=== PATIENT | female | born 1940 | race Caucasian/White ===

== ENCOUNTER 2017-06-22 13:00 | Outpatient (RCR) | payer MEDICARE, OTHER, SELFPAY | END 2017-07-02 | LOC: PT 13:00 | PROVIDERS: Visit Provider Orthopaedic Surgery Adult Reconstructive Orthopaedic Surgery | DX: M25.551 Pain in right hip (principal); M25.552 Pain in left hip | CPT/HCPCS: G8978; G8979; G8980; 97110; 97162 ==

== ENCOUNTER → 2017-09-02 11:50 | Outpatient (REF) | payer MEDICARE, OTHER, SELFPAY ==
[2017-09-02 11:53] LABS: Adenovirus F 40/41, stool Not Detected (NotDetected); Astrovirus Not Detected (NotDetected); Campylobacter Not Detected (NotDetected); Cryptosporidium Not Detected (NotDetected); Cyclospora Cayetanesis Not Detected (NotDetected); Entamoeba histolytica Not Detected (NotDetected); Enteroaggregative E coli Not Detected (NotDetected); Enteropathogenic E coli Not Detected (NotDetected); Enterotoxigenic E coli Not Detected (NotDetected); Giardia lamblia Not Detected (NotDetected); Norovirus Not Detected (NotDetected); Plesimonas Shigalloides, PCR Not Detected (NotDetected); Rotavirus A Not Detected (NotDetected); Salmonella, PCR Not Detected (NotDetected); Sapovirus Not Detected (NotDetected); Shiga-like toxin E coli Not Detected (NotDetected); Shigella Enterovasive E coli Not Detected (NotDetected); Vibrio Cholerae Not Detected (NotDetected); Vibrio, PCR Not Detected (NotDetected); Yersinia Entercolitica, PCR Not Detected (NotDetected)
[2017-09-02 14:34] LABS: Clostridium Difficile A/B, PCR Detected (NotDetected)
[2017-09-09 12:04] LABS: Lactoferrin, Fecal, Quant. <1.00 ug/mL(g) (0.00-7.24)
== END ==
LOC: LAB 11:50
PROVIDERS: Visit Provider Nurse Practitioner Acute Care
DX: R19.7 Diarrhea, unspecified (principal)
CPT/HCPCS: 83630; 87507

== ENCOUNTER → 2017-10-27 12:25 | Outpatient (CLI) | payer MEDICARE, OTHER, SELFPAY ==
--- NOTE | 2017-10-27 12:34 | US_ITS ---
MM Dig mamm DX unilat RT CAD, US breast RT complete COMPARISON: 05/12/2017, 04/27/2017 INDICATION: Follow-up abnormal mammogram and ultrasound ORDERING PHYSICIAN: Derrick Lion PATIENT AGE: 77 years TECHNIQUE: Standard images performed along with problem-solving views and right breast ultrasound FINDINGS: The previously noted nodule in the deep outer aspect of the right breast is no longer apparent having been excised in the interval. Asymmetric glandular appearing tissue noted in the upper and outer right breast. Spot compression views of these areas showed effacement of the tissue as expected for fibroglandular tissue. Right breast ultrasound: Previously noted nodule in the right axillary region no longer apparent. No suspicious solid or cystic lesions evident. IMPRESSION: Benign findings. Previously noted nodule in the axillary region no longer apparent BI-RADS Category: 2 Benign Finding(s) RECOMMENDED FOLLOW-UP: 6M - 6 MONTH FOLLOW-UP (A letter has been sent to the patient regarding results of the study.)
== END ==
PROVIDERS: Family Provider Family Medicine; PCP Family Medicine; Visit Provider Obstetrics & Gynecology Gynecology
DX: R92.8 Other abnormal and inconclusive findings on diagnostic imaging of breast (principal)
CPT/HCPCS: 76641; 77065

== ENCOUNTER → 2018-05-16 16:23 | Outpatient (CLI) | payer MEDICARE, OTHER, SELFPAY ==
--- NOTE | 2018-05-16 16:32 | MM_ITS ---
MM Dig screening mamm BI w/CAD ORDERING PHYSICIAN : Derrick Lion PATIENT AGE: 78 years GENDER: Female COMPARISON: Bilateral mammogram April 2017, October right mammogram INDICATION: ITS.REASON: SCREENING routine screening no hormones no new complaints Family history. paternal aunt TECHNIQUE: Standard CC and MLO images were obtained. R2 CAD reviewed. FINDINGS: Mild asymmetry with Minimal residual fibroglandular elements. At the superior right breast. Otherwise fatty replacement. CAD computer review highlights no areas of significant concern RIGHT BREAST:These asymmetric density at the superior right breast appear similar to previous studies LEFT BREAST:No new findings. Diffuse Low density fatty replacement on most apparent throughout left breast IMPRESSION: . Stable bilateral mammogram. No areas of concern. Stable mild asymmetry Follow-up in one year BI-RADS Category: 1 Negative RECOMMENDED FOLLOW-UP: 1YR 1 YEAR FOLLOW-UP (A letter has been sent to the patient regarding results of the study.)
== END ==
PROVIDERS: PCP Family Medicine; Visit Provider Obstetrics & Gynecology Gynecology
DX: Z12.31 Encounter for screening mammogram for malignant neoplasm of breast (principal)
CPT/HCPCS: 77067

== ENCOUNTER → 2018-07-11 09:56 | Outpatient (CLI) | payer MEDICARE, OTHER, SELFPAY ==
--- NOTE | 2018-07-11 10:01 | XR_ITS ---
XR ankle wt bearing LT min 3V HISTORY: ITS.REASON: pain ORDERING PHYSICIAN: Bertha Russell DPM PATIENT AGE: 78 years Comparison: None FINDINGS: No fracture or dislocation. No lytic or blastic change. There is normal mineralization.. The joint spaces are well-preserved. No significant degenerative/arthritic changes. No erosive changes evident. IMPRESSION: Negative ankle, no acute finding
--- NOTE | 2018-07-11 10:01 | XR_ITS ---
XR foot wt bearing RT 3V HISTORY: ITS.REASON: pain ORDERING PHYSICIAN: Bertha Russell DPM PATIENT AGE: 78 years COMPARISON: None FINDINGS: Hypertrophic changes are present along the dorsal aspect of the talonavicular joint and the ventricular cuneiform joint. There is mild pes planus. No fracture or dislocation. No lytic or blastic change. Mild osteoarthritic changes are present at the second and third and first metatarsal tarsal joint IMPRESSION: Midfoot osteoarthritic change with pes planus
--- NOTE | 2018-07-11 10:01 | XR_ITS ---
XR foot wt bearing LT 3V HISTORY: ITS.REASON: pain ORDERING PHYSICIAN: Bertha Russell DPM PATIENT AGE: 78 years COMPARISON: None FINDINGS: There are mild osteoarthritic changes of the first metatarsophalangeal joint with minimal hallux valgus. There are osteoarthritic changes of the navicular cuneiform joint and at the second metatarsal tarsal joint. Lucency is noted involving the lateral cuneiform which may represent a lytic lesion. CT may confirm. There is mild pes planus and a small calcaneal spur. IMPRESSION: 1. Midfoot arthritic change. Mild osteoarthritis of the first MTP joint. 2. Lucency of the lateral cuneiform suggesting underlying lytic lesion. CT may confirm
--- NOTE | 2018-07-11 10:09 | XR_ITS ---
XR ankle wt bearing RT min 3V HISTORY: ITS.REASON: pain ORDERING PHYSICIAN: Bertha Russell DPM PATIENT AGE: 78 years Comparison: None FINDINGS: No fracture or dislocation. No lytic or blastic change. There is normal mineralization.. The joint spaces are well-preserved. No significant degenerative/arthritic changes. No erosive changes evident. IMPRESSION: Negative ankle, no acute finding
== END ==
PROVIDERS: PCP Family Medicine; Visit Provider Podiatrist
DX: M79.672 Pain in left foot (principal); M79.671 Pain in right foot; M25.572 Pain in left ankle and joints of left foot; M25.571 Pain in right ankle and joints of right foot
CPT/HCPCS: 73610; 73630

== ENCOUNTER → 2018-08-22 13:19 | Outpatient (POV) | payer MEDICARE, OTHER, SELFPAY | PROVIDERS: Visit Provider Nurse Practitioner Acute Care | DX: Z00.00 Encounter for general adult medical examination without abnormal findings (principal) ==

== ENCOUNTER → 2018-09-21 07:00 | Outpatient (CLI) | payer MEDICARE, OTHER, SELFPAY ==
[2018-09-23 12:19] LABS: Occult Blood,Stool Negative (Negative)
== END ==
PROVIDERS: Visit Provider Nurse Practitioner Acute Care
DX: K92.1 Melena (principal)
CPT/HCPCS: 82272; G0328

== ENCOUNTER → 2018-09-22 07:00 | Outpatient (CLI) | payer MEDICARE, OTHER, SELFPAY ==
[2018-09-23 12:19] LABS: Occult Blood,Stool Negative (Negative)
== END ==
PROVIDERS: Visit Provider Nurse Practitioner Acute Care
DX: K92.1 Melena (principal)
CPT/HCPCS: 82272; G0328

== ENCOUNTER → 2018-09-23 10:09 | Outpatient (CLI) | payer MEDICARE, OTHER, SELFPAY ==
[2018-09-23 12:19] LABS: Occult Blood,Stool Negative (Negative)
== END ==
LOC: LAB 10:10 → LAB.DROPOF 10:12
PROVIDERS: Visit Provider Nurse Practitioner Acute Care
DX: K92.1 Melena (principal)
CPT/HCPCS: 82272; G0328

== ENCOUNTER → 2019-02-06 12:54 | Outpatient (CLI) | payer MEDICARE, OTHER, SELFPAY ==
[2019-02-06 14:47] LABS: Blood Urea Nitrogen 31 mg/dL (7-18); Creatinine,Serum 0.84 mg/dL (0.55-1.02); Estimated Glomerular Filt Rate 66 ml/min (>60); GFR (African American) 79 ML/MIN (>60)
== END ==
PROVIDERS: Visit Provider Family Medicine
DX: R22.2 Localized swelling, mass and lump, trunk (principal)
CPT/HCPCS: 36415; 82565; 84520

== ENCOUNTER → 2019-02-07 09:08 | Outpatient (CLI) | payer MEDICARE, OTHER, SELFPAY ==
--- NOTE | 2019-02-07 | US_ITS ---
US Arterial Lower Ext Rest History: Bilateral feet pain, restless legs, ex-smoker, cold feet ORDERING PHYSICIAN: Monika Martin APRN PATIENT AGE: 78 years TECHNIQUE: Segmental pressures obtained of both right and left leg. These are compared to brachial blood pressure to yield index at each level sampled including summary SOLEDAD. The data sheets from the procedure are available in PACS FINDINGS Rest study only performed today No prior studies available for comparison. Blood pressures reported are in millimeters mercury. RIGHT LEG SOLEDAD = 1.17. RIGHT LEG TBI=0.6 Brachial BP: 155 Thigh BP: 168 Calf BP: 178 Ankle PT: 181 Ankle DP : 147 Digit =89 LEFT LEG SOLEDAD = 1.12 LEFT LEG TBI= 0.6 Brachial BPD: 152 Thigh BP: 177 Calf BP: 179 Ankle PT:173 Ankle DP: 154 Digit = 88 Pulses and waveforms: Normal IMPRESSION: The ABIs as reported above are within normal limits. Waveforms and pulses are also unremarkable.
--- NOTE | 2019-02-07 09:18 | CT_ITS ---
CT abdomen pelvis w con CLINICAL INDICATION: Intermittent knot in the mid abdominal wall with tenderness and pain ITS.REASON: ABD WALL LUMP ORDERING PHYSICIAN: Monika Martin APRN PATIENT AGE: 78 years COMPARISON: 10/17/2015 TECHNIQUE: Contrast Used:75ml Optiray 350 Oral Contrast: 450ml Redicat Axial images obtained with sagittal and coronal reformats. All CT scans at the facility use one or more dose reduction, viz: automated exposure control, ma/kV adjustment per patient size (including targeted exams where dose is matched to indication, i.e. head), or iterative reconstruction technique. FINDINGS: A BB is placed over the area of clinical concern along the ventral mid abdominal wall Lower thorax: Chronic changes are present in the lung bases. There is some eventration of the right hemidiaphragm posteriorly. There are multiple hepatic cysts. The gallbladder, spleen, adrenal glands, and pancreas have an unremarkable appearance. There are bilateral parapelvic renal cysts. There is moderate amount of retained colonic feces. No intestinal obstruction or free air is evident. Significant artifact is present and bilateral hip prosthesis obscuring fine detail within the pelvis. No intestinal obstruction or free air is evident. No convincing evidence of diverticulitis although much of the sigmoid colon is obscured within the pelvic region from the metallic artifact of the hip. A BB is placed along the ventral abdominal wall. There is a small ventral abdominal wall hernia containing fat at this region. This is 9 cm cephalad to the umbilicus and 7.7 cm caudad to the tip of the xiphoid. The orifice of the hernia is approximately 3 mm in the hernia sac is approximately 8 mm. This is very slightly to the left of midline Degenerative changes are present in the lumbar spine. IMPRESSION: 1. There is a small ventral abdominal wall hernia which contains fat 2. Constipation. 3. Multiple hepatic cysts
== END ==
PROVIDERS: PCP Family Medicine; Visit Provider Nurse Practitioner Family
DX: R22.2 Localized swelling, mass and lump, trunk (principal); M79.662 Pain in left lower leg; M79.661 Pain in right lower leg; R09.89 Other specified symptoms and signs involving the circulatory and respiratory systems
CPT/HCPCS: 74177; 93923; Q9967

== ENCOUNTER → 2019-04-18 15:26 | Outpatient (POV) | payer MEDICARE, OTHER, SELFPAY | PROVIDERS: Visit Provider Dermatology | DX: Z00.00 Encounter for general adult medical examination without abnormal findings (principal) ==

== ENCOUNTER → 2019-09-05 08:25 | Outpatient (CLI) | payer MEDICARE, OTHER, SELFPAY ==
--- NOTE | 2019-09-05 08:28 | US_ITS ---
PROCEDURE: US ABDOMEN LIMITED CLINICAL INDICATION: Right upper quadrant pain with nausea and weakness COMPARISON: RUQ US RUQ-(ABD LTD)1ORGAN/QUAD/FU from 07/29/[address] abdomen pelvis w con from 02/07/2019 CT ANGIO CHEST from 02/20/2019 FINDINGS: PANCREAS: Unremarkable. No obvious mass or abnormal fluid collection. No ductal dilatation LIVER: There are multiple hepatic cyst measuring up to 2.8 cm in the right hepatic lobe. RIGHT KIDNEY: There is a 1.7 cm cyst in the lower pole of the right kidney. No hydronephrosis. GALLBLADDER: No gallstones, gallbladder wall thickening, pericholecystic fluid, or biliary dilatation. Common bile duct is 5 mm. IMPRESSION: 1. No evidence of gallstones. 2. Multiple hepatic cysts. 3. Right renal cyst Dictated by: Barber Aparicio MD 09/05/2019 14:45 Electronically signed by Barber Aparicio MD in [place] 09/05/2019 14:45
== END ==
PROVIDERS: PCP Family Medicine; Visit Provider Nurse Practitioner Family
DX: R10.11 Right upper quadrant pain (principal)
CPT/HCPCS: 76705

== ENCOUNTER → 2019-11-22 09:35 | Outpatient (CLI) | payer MEDICARE, OTHER, SELFPAY ==
--- NOTE | 2019-11-22 09:44 | CT_ITS ---
PROCEDURE: CT ABDOMEN PELVIS W CON CLINICAL INDICATION: RT LOWER QUAD SWELLING,MASS COMPARISON: ABDPELW CT abdomen pelvis w con from 02/07/2019 TECHNIQUE: IV Contrast: 75ML OPTIRAY 350 Oral Contrast 450ml Redicat Axial images obtained with sagittal and coronal reformats. All CT scans at the facility use one or more dose reduction, viz: automated exposure control, ma/kV adjustment per patient size (including targeted exams where dose is matched to indication, i.e. head), or iterative reconstruction technique. FINDINGS: LOWER THORAX: Chronic changes with scattered areas scarring/atelectasis. ABDOMEN & PELVIS: Multiple hypodense lesions of the liver consistent with hepatic cyst. The spleen, adrenal glands, and pancreas has an unremarkable appearance. There are bilateral parapelvic renal cysts. There is a moderate amount of retained colonic feces. A marker is placed in the right lower quadrant at the area of palpable concern. There is a small spigelian hernia at this region with a small defect in the abdominal wall best detected on sagittal image 29 series 602. The hernia contains a small amount fat with some stranding of the fat around the small hernia. Hernia is just lateral to the placed BB. A small ventral abdominal wall hernia is once again noted containing fat in the subxiphoid region. This hernia is 8 cm superior to the umbilicus and is best seen on sagittal image 59 series 602 containing a small amount of fat. Artifact is present from bilateral hip prosthesis obscuring fine detail of the pelvis. There is a pessary present in the pelvis. Degenerative changes are present in the lumbar spine IMPRESSION: 1. There is a small spigelian hernia in the right lower quadrant containing fat with some stranding of the fat which could be related to some underlying inflammation. 2. There is a small upper ventral abdominal wall hernia containing fat 3. No change in the multiple hepatic cysts the and the parapelvic renal cysts. Dictated by: Barber Aparicio MD 11/23/2019 10:40 Electronically signed by Barber Aparicio MD in [place] 11/23/2019 10:40
== END ==
PROVIDERS: PCP Family Medicine; Visit Provider Nurse Practitioner Family
DX: R19.03 Right lower quadrant abdominal swelling, mass and lump (principal)
CPT/HCPCS: 74177; Q9967

== ENCOUNTER → 2019-12-22 16:04 | Outpatient (CLI) | payer MEDICARE, OTHER, SELFPAY ==
[2019-12-22 17:59] LABS: Chloride 101 mmol/L (98-107)
[2019-12-22 18:00] LABS: Potassium 3.7 mmoL/L (3.5-5.1); Sodium 138 mmol/L (136-145)
[2019-12-22 18:02] LABS: Blood Urea Nitrogen 25 mg/dl (7-17); Estimated Glomerular Filt Rate 69 ml/min (>60); GFR (African American) 84 ML/MIN (>60)
[2019-12-22 18:03] LABS: Alanine Aminotransferase 19 U/L (12-78); Albumin/Globulin Ratio 1.5 (1.1-1.8); Alkaline Phosphatase 61 U/L (38-126); Anion Gap 8.7 mEq/L (5-15); Aspartate Amino Transferase 30 U/L (14-36); Bilirubin,Total 0.6 mg/dl (0.2-1.3); Carbon Dioxide 32 mmol/L (22.0-30.0); Globulin 2.6 g/dL (1.3-3.2); Glucose 106 mg/dl (74-100); Total Protein,Serum 6.6 g/dl (6.3-8.2)
== END ==
PROVIDERS: Visit Provider Nurse Practitioner Family
DX: E86.0 Dehydration (principal); R53.1 Weakness
CPT/HCPCS: 36415; 80053

== ENCOUNTER → 2020-01-09 11:36 | Outpatient (CLI) | payer MEDICARE, OTHER, SELFPAY ==
--- NOTE | 2020-01-09 | CA_ITS ---
APPROVED REPORT Exam: Pharmacologic Technologist: Linda Corbin Ht: 5 ft 5 in Wt: 147 lbs BSA: 1.74 m2 HR: 42 bpm BP: 142/60 mmHg Indications: Shortness of Air Medical History Medications: Lisinopril,,,,, Levothyroxine,,,,, Gabapentin,,,,, Atorvastatin,,,,, HCTZ,,,,, Buspirone,,,,, Tramadol,,,,, Montelukast,,,,, Stress Test Details Test: LEXISCAN HR Resting HR: 45 bpm Max Heart Rate (APMHR): 141 bpm Max HR Achieved: 81 bpm Target HR (85% APMHR): 119 bpm % of APMHR: 57 Recovery HR: 66 bpm BP Resting BP: 142.0/60.0 mmHg Max BP: 145.0/64.0 mmHg Recovery BP: 139.0/68.0 mmHg ECG Clinical Exercise duration: 04:03 min Highest Stage Achieved: Stress ECG Conclusion Resting ECG: Marked sinus bradycardia, NS ST elevation in leads V1, V2 Symptoms: Shortness of air, nausea, malaise, headache. No chest pain. Arrhythmias/Ectopy: Rare PVC ST-T Changes: No significant changes. Conclusion: Unremarkable Lexiscan stress. Myoview images reported separately. Test Summary REST . . . . . . . Resting REST 03:28 . . 45 . 142/ 60 . . Stage 1 . . . . . . . Myoview Injected Stage 1 01:00 . . 64 . . . . Stage 2 01:00 . . 79 . 145/ 64 . . Stage 3 01:00 . . 72 . . . . Stage 4 01:00 . . 69 . 127/ 64 . . Stage 4 01:03 . . 70 . 127/ 64 . Stop exercise at 04:03 RECOVERY 01:00 . . 67 . . . . RECOVERY 02:00 . . 72 . 136/ 72 . . RECOVERY 03:00 . . 66 . 136/ 72 . . RECOVERY 03:51 . . 63 . 139/ 68 . . Electronically signed by : Jesus Marrero, 01/09/2020 19:34:37
--- NOTE | 2020-01-09 11:37 | NM_ITS ---
APPROVED REPORT Exam: Nuclear Stress Test Indication: htn, fm hx, c.p., sob, palpitations, syncope, ftigue, abn ekg Patient Location: Outpatient Stress Tech: Linda Corbin [place] Tech:Vikki Moreno, ARRT, RT (R)(N) Ht: 5 ft 5 in Wt: 147 lbs Bra Size: c HR: 42 bpm BP: 142/60 mmHg BSA: 1.74 m2 BMI: 24.4 History: htn, fm hx, c.p., sob, palpitations, syncope, ftigue, abn ekg Procedure: Patient received a 0.4 mg of intravenous Lexiscan, resting heart rate 42 bpm, resting blood pressure 142/60 mmHg, with Lexiscan maximum heart rate achived was 78 bpm which is Less than 85 % of the maximum predicted heart rate and blood pressure was 145/64 mmHg. With Lexiscan, patient denied any complaint of chest pain. Electrocardiogram Resting electrocardiogram showed sinus rhythm right ventricular conduction delay, with Lexiscan there is less than 1.[address] segment depression noted from the baseline EKG. The EKG portion of the Lexiscan Myoview is nondiagnostic. Cardiac Stress and Resting SPECT Images: Cardiac Stress and Resting SPECT images were obtained using technetium 99m Myoview 32.0 mCi stress and 10.48 mCi at rest. Gated SPECT for the analysis of segmental wall motion and calculation of the ejection fraction also done. Cardiac stress and resting SPECT images show uniform myocardial activity without segmental perfusion abnormality, computer derived ejection fraction is over 65% with no regional wall motion abnormality, right ventricle is normal size and contractility. Conclusion: 1. The EKG portion of the Lexiscan Myoview is nondiagnostic. 2. No scintigraphic evidence of reversible ischemia seen, computer derived ejection fraction is over 65% with no regional wall motion abnormality, right ventricle is normal size and contractility. 3. Normal Lexiscan Myoview study. Electronically signed by : Jesus Marrero, 01/09/2020 19:36:28
--- NOTE | 2020-01-09 12:09 | CA_ITS ---
APPROVED REPORT EXAM: Comprehensive 2D, Doppler, and color-flow Echocardiogram Reproduction Specialist: Florencia Rose RDCS Ht: 5 ft 5 in Wt: 144lbs BSA: 1.72 BP: 138/78 mmHg Indications: CP,PRE-OP EVAL,RBBB,HTN,HLP,CAD 2D Dimensions LVOT 1.75 cm (M/F) 1.5-2.5 M-Mode Dimensions RVDd 3.48 cm (0.9-2.6) LVDd 4.12 cm (3.5-5.7) LVDs 2.61 cm (3.5-5.7) IVSd 0.84 cm (0.6-1.1) PWd 0.90 cm (0.6-1.1) EF (Teich) 67.00% FS 36.70% EDV (Teich) 75.10 mL ESV (Teich) 24.80 mL LV Diastology E/A Ratio 1.14 Mitral Valve MV A Velocity 54.00 (40-130 cm/s) Left Ventricle Left atrium is moderately enlarged, left ventricle is normal size, visually estimated ejection fraction 55% with no regional wall motion abnormality, diastolic parameters are inconclusive. Right Ventricle Right atrium is moderately enlarged, right ventricle is mildly dilated with normal contractility. Aortic Valve Aortic valve is minimally thickened and fibrosed, there is no aortic stenosis or aortic insufficiency. Mitral Valve Mitral valve leaflets are minimally thickened, there is mild mitral regurgitation. Tricuspid Valve Tricuspid valve leaflets are minimally thickened, there is moderate tricuspid regurgitation, calculated right ventricular systolic pressure is 54 mmHg. Pulmonic Valve Pulmonic valve is poorly visualized. Great Vessels Aortic root is normal size. Pericardium No significant pericardial effusion noted. Conclusion 1. Biatrial enlargement, normal left ventricular size, visually estimated ejection fraction 55% with no regional wall motion abnormality, diastolic parameters are inconclusive. 2. Mildly enlarged right ventricle with normal contractility. 3. Mild mitral and moderate tricuspid regurgitation, calculated right ventricular systolic pressure is 54 mmHg. 4. No significant pericardial effusion noted. Electronically signed by : Jesus Marrero, 01/09/2020 19:24:52
== END ==
PROVIDERS: PCP Family Medicine; Visit Provider Nurse Practitioner Family
DX: R07.89 Other chest pain (principal)
CPT/HCPCS: 78452; 93017; 93306; A9502; J2785

== ENCOUNTER → 2020-02-26 09:16 | Outpatient (CLI) | payer MEDICARE, OTHER, SELFPAY ==
--- NOTE | 2020-02-26 | CA_ITS ---
APPROVED REPORT [place]: LISA Laterality: Bilateral Indications: dizziness, patient states that her right side of neck is larger than left. Risk Factors Hypertension: Doppler Spectral Velocity Analysis ECA (R) 66.80/10.30 cm/s ECA (L) 70.60/9.10 cm/s dICA (R) 71.90/18.60 cm/s dICA (L) 69.60/13.90 cm/s Carla (R) 50.50/15.80 cm/s Carla (L) 118.70/34.90 cm/s pICA (R) 39.40/10.70 cm/s pICA (L) 22.50/5.40 cm/s dCCA (R) 57.70/11.50 cm/s dCCA (L) 47.00/13.70 cm/s pCCA (R) 51.80/10.30 cm/s pCCA (L) 56.90/10.70 cm/s Vert (R) 87.00/24.70 cm/s Vert (L) 49.70/10.70 cm/s ICA/CCA 1.25 ICA/CCA 2.52 Findings Duplex evaluation demonstrates stenosis of the left proximal internal carotid artery <20%. Tortuous left mid ICA. Duplex evaluation demonstrates stenosis of the right proximal internal carotid artery <20%. Conclusion Duplex evaluation demonstrates stenosis of the left proximal internal carotid artery <20%. Tortuous left mid ICA. Duplex evaluation demonstrates stenosis of the right proximal internal carotid artery <20%. Duplex evaluation demonstrates no evidence of hemodynamically significant stenosis of the bilateral Internal Carotid Arteries. Electronically signed by : Barber Aparicio MD 02/26/2020 16:32:48
== END ==
PROVIDERS: PCP Family Medicine; Visit Provider Nurse Practitioner Family
DX: Z13.6 Encounter for screening for cardiovascular disorders (principal); R42 Dizziness and giddiness
CPT/HCPCS: 93880

== ENCOUNTER → 2020-04-25 14:25 | Outpatient (CLI) | payer MEDICARE, OTHER, SELFPAY ==
--- NOTE | 2020-04-25 14:53 | XR_ITS ---
PROCEDURE: XR CHEST PORTABLE CLINICAL HISTORY: COVID OUT PATIENT Cough and congestion COMPARISON: CR CXR CHEST(2 VIEWS-NOT PORTABLE) from 12/18/2012 CR XR CHEST 2V from 02/20/[address] ANGIO CHEST from 02/20/2019 FINDINGS: Mild cardiomegaly without failure. There is some patchy density in the left midlung. While this could be due to summation artifact, 1 cannot exclude ground-glass infiltrate. The remaining lungs are clear. No acute bony abnormalities. IMPRESSION: Possible ground-glass infiltrate in the left midlung. Upright PA and lateral chest may further evaluate. Dictated by: Barber Aparicio MD 04/25/2020 20:44 Barber Aparicio MD in [place] 04/25/2020 20:44
[2020-04-25 15:17] LABS: Basophils % 0.5 % (0.1-2.0); Eosinophils # 0.2 K/mm3 (0.0-0.4); Eosinophils % 4.4 % (0.1-12.0); Hematocrit 52.3 % (37.0-47.0); Hemoglobin 16.8 g/dL (12.2-16.2); Lymphocytes # 1.6 K/mm3 (0.7-4.5); Lymphocytes % 32.6 % (10-50); Mean Corpuscular HGB Conc 32.1 g/dL (31.8-35.4); Mean Corpuscular Hemoglobin 32.5 pg (27.0-31.2); Mean Corpuscular Volume 101.2 fl (81-99); Mean Platelet Volume 7.6 fl (7.4-10.4); Monocytes # 0.4 K/mm3 (0.1-1.0); Neutrophils # 2.6 K/mm3 (1.8-7.8); Neutrophils % 53.6 % (37.0-80.0); Platelet Count 265 K/mm3 (142-424); Red Blood Count 5.17 M/mm3 (4.20-5.40); Red Cell Distribution Width 13.1 % (11.5-17.5); White Blood Count 4.8 K/mm3 (4.8-10.8)
== END ==
PROVIDERS: PCP Nurse Practitioner Family; Visit Provider Nurse Practitioner Family
DX: Z03.818 Encounter for observation for suspected exposure to other biological agents ruled out (principal)
CPT/HCPCS: 36415; 71045; 85025; U0003

== ENCOUNTER → 2020-04-26 14:16 | Outpatient (CLI) | payer MEDICARE, OTHER, SELFPAY ==
--- NOTE | 2020-04-26 14:20 | XR_ITS ---
PROCEDURE: XR CHEST 2V CLINICAL HISTORY: ABN CXR Shortness of breath, chest pressure COMPARISON: 04/25/2020 FINDINGS: Mild cardiomegaly without failure. There is a pectus deformity with obliteration of the right heart border. Previously noted opacity in the left midlung is no longer apparent and may have been due to infiltrate or atelectatic change which has improved versus summation artifact. There are degenerative changes in the thoracic spine. IMPRESSION: No acute finding. Left midlung opacity is no longer apparent. Dictated by: Barber Aparicio MD 04/26/2020 15:28 Barber Apaircio MD in [facility] 04/26/2020 15:28
== END ==
PROVIDERS: PCP Nurse Practitioner Family; Visit Provider Nurse Practitioner Family
DX: R93.89 Abnormal findings on diagnostic imaging of other specified body structures (principal)
CPT/HCPCS: 71046

== ENCOUNTER → 2020-06-24 16:14 | Outpatient (CLI) | payer MEDICARE, OTHER, SELFPAY | PROVIDERS: PCP Nurse Practitioner Family; Visit Provider Nurse Practitioner Family | DX: Z20.828 Contact with and (suspected) exposure to other viral communicable diseases (principal); U07.1 COVID-19 | CPT/HCPCS: U0003 ==

== ENCOUNTER 2020-07-02 14:32 | Emergency (ER) | payer MEDICARE, OTHER, SELFPAY ==
[2020-07-02 14:33] VITALS: BP 155/90; PULSE 64; RESP 19; TEMP 36.8; O2SAT 97; BMI 23.3
--- NOTE | 2020-07-02 14:43 | PC.NURSE ---
patient placed in COVID-19 Isolation precautions
--- NOTE | 2020-07-02 14:49 | XR_ITS ---
PROCEDURE: XR CHEST PORTABLE CLINICAL HISTORY: covid 19+ and worsening soa COMPARISON: CR XR CHEST 2V from 02/20/[address] ANGIO CHEST from 02/20/2019 CR XR CHEST PORTABLE from 04/25/2020 CR XR CHEST 2V from 04/26/2020 FINDINGS: Mild emphysematous changes are noted. Subtle ill-defined opacities are seen left perihilar region and questionably in the right lower lobe which were not seen on most recent chest film 04/26/2020. Both upper lung orozco are clear. Cardiac size is normal appearing slightly enlarged but I feel this is secondary to the patient's known pectus excavatum of the lower sternum. There is mild diffuse dextroscoliotic curvature of the thoracic spine. IMPRESSION: Possible early developing pneumonic infiltrates left perihilar region and right lower lobe Dictated by: Dr. Yomi Flores MD 07/02/2020 17:14 Dr. Yomi Flores MD in [place] 07/02/2020 17:14
[2020-07-02 14:50] VITALS: BP 155/90; PULSE 56; RESP 18; O2SAT 95
--- NOTE | 2020-07-02 14:50 | ECG_ITS ---
APPROVED REPORT Exam: Resting ECG HR:53 bpm ECG Measurements Heart Rate 53 AXES AK 162 P 71 QRSd 92 QRS -39 QT 450 T 39 QTc 422 Conclusion Sinus bradycardia left atrial abnormality Left axis deviation Incomplete right bundle branch block Septal infarct, age undetermined Abnormal ECG Electronically signed by : Alex Penn, 07/02/2020 19:51:28
--- NOTE | 2020-07-02 15:02 | PC.NURSE ---
Pt top and bra removed for EKG and Chest xray. Pt placed in hospital gown. Pt reports her SOA is worsening, ROOM AIR sat noted to be 87%. Pt placed on O2 @ 2L per NC, with improvement to oxygen saturation at 99%.
[2020-07-02 15:03] VITALS: BP 148/89; PULSE 71; RESP 21; O2SAT 87
--- NOTE | 2020-07-02 15:16 | [facility].EDGENADL ---
ED Disposition Clinical Impression: COVID-19 virus infection, Epigastric abdominal pain Dyspnea Qualifiers: Dyspnea type: unspecified Qualified Code(s): R06.00 - Dyspnea, unspecified Disposition: Home, Self-Care Condition on Discharge: Fair Instructions: DI for COVID-19 (Suspected or Confirmed ), Preventing the Spread of Coronavirus Discharge Instructions Additional Instructions: Call Dr. Wells tomorrow to arrange outpatient antibody infusion. Return to the emergency department if worsening shortness of breath, vomiting unable to tolerate oral fluids, or severe weakness. Referrals: Fransisco Ordonez MD [Primary Care Provider] - - Critical Care Critical Care Time: No Attestation: On 07/02/20, the high probability of a clinically significant, sudden or life threatening deterioration of the following system(s) required my full and direct attention, intervention and personal management. The time I documented below is in addition to time spent performing reported procedures but includes the following listed in this critical care notation. Medical Decision Making - Medical Records Medical records reviewed: Yes: I reviewed the patient's medical records. MR Comment: 06/24/20 + COVID-19 PCR at this facility. Also, prior left heart cath report reviewed, below. - Jorge A Inquiry Pt receiving controlled substance: No Vital Signs: 07/02/20 14:33 07/02/20 14:50 07/02/20 15:03 Temperature 98.2 F Temperature Source Oral Pulse Rate [Right Brachial] 64 56 L 71 Respiratory Rate 19 18 21 Blood Pressure [Right Arm] 155/90 H 155/90 H 148/89 H Blood Pressure Mean [Right Arm] 111 111 108 Blood Pressure Source [Right Arm] Automatic Cuff 02 Sat by Pulse Oximetry 97 95 87 L Oxygen Delivery Method Room Air Room Air Oxygen Flow Rate (LPM) 07/02/20 15:21 07/02/20 17:06 Temperature Temperature Source Pulse Rate [Right Brachial] 52 L Respiratory Rate 18 Blood Pressure [Right Arm] 124/70 Blood Pressure Mean [Right Arm] 88 Blood Pressure Source [Right Arm] Automatic Cuff 02 Sat by Pulse Oximetry 99 100 Oxygen Delivery Method Nasal Cannula Oxygen Flow Rate (LPM) 2 - Lab Data Lab Results 07/02/20 14:07: WBC 4.6 L, RBC 5.31, Hgb 17.5 H, Hct 51.8 H, MCV 97.5, MCH 32.9 H, MCHC 33.7, RDW 13.8, Plt Count 247, MPV 8.3, Neut % (Auto) 68.5, Lymph % (Auto) 22.3, Love % (Auto) 8.3, Eos % (Auto) 0.5, Baso % (Auto) 0.5, Neut # (Auto) 3.1, Lymph # (Auto) 1.0, Love # (Auto) 0.4, Eos # (Auto) 0.0, Baso # (Auto) 0.0 07/02/20 14:07: Sodium 135 L, Potassium 4.1, Chloride 98, Carbon Dioxide 28, Anion Gap 13.1, BUN 13, Creatinine 0.70, Estimated Creat Clear 45, Estimated GFR 81, Est GFR ( Amer) 97, Glucose 101 H, Calcium 9.7, Total Bilirubin 0.6, AST 40 H, ALT 18, Alkaline Phosphatase 104, Total Protein 7.9, Albumin 4.4, Globulin 3.5 H, Albumin/Globulin Ratio 1.3 07/02/20 14:07: Lactate 1.1 07/02/20 14:07: SARS-CoV-2 IgG Ab (Rapid) Negative, SARS-CoV-2 IgM Ab (Rapid) Positive A 07/02/20 14:07: Amylase 52, Lipase 80 07/02/20 16:45: Urine Color Yellow, Urine Appearance Clear, Urine pH 7.0, Ur Specific [place] 1.010, Urine Protein Negative, Urine Glucose (UA) Negative, Urine Ketones Negative, Urine Blood Negative, Urine Nitrate Negative, Urine Bilirubin Negative, Urine Urobilinogen 0.2, Ur Leukocyte Esterase Trace, Urine WBC Occasional, Ur Squamous Epith Cells Occasional Result diagrams: 07/02/20 14:07 07/02/20 14:07 Orders (Tests/Meds): ED MEDICATIONS Discontinued Medications Generic Name Dose Route Start Last Admin Trade Name Freq PRN Reason Stop Dose Admin Iopamidol 70 ml 07/02/20 16:32 07/02/20 16:33 Iopamidol-370 (76%);100ml Bottle IV 07/02/20 16:33 70 ml ONCE ONE Administration Sodium Chloride 10 ml 07/02/20 16:32 07/02/20 16:33 Sodium Chloride 0.9% 10ml Syr (Rad Only) IV 07/02/20 16:33 10 ml ONCE ONE Administration Sodium Chloride 50 ml 07/02/20 16:32 07/02/20 16:33 0.9 % Sodium
[2020-07-02 15:21] VITALS: O2SAT 99
--- NOTE | 2020-07-02 15:21 | PC.NURSE ---
Report given to Rick RN
--- NOTE | 2020-07-02 15:23 | PC.NURSE ---
Labs and blood cultures collected at 1507 and sent to lab
[2020-07-02 15:29] LABS: Basophils % 0.5 % (0.1-2.0); Eosinophils % 0.5 % (0.1-12.0); Hematocrit 51.8 % (37.0-47.0); Hemoglobin 17.5 g/dL (12.2-16.2); Lymphocytes % 22.3 % (10-50); Mean Corpuscular HGB Conc 33.7 g/dL (31.8-35.4); Mean Corpuscular Hemoglobin 32.9 pg (27.0-31.2); Mean Corpuscular Volume 97.5 fl (81-99); Mean Platelet Volume 8.3 fl (7.4-10.4); Monocytes # 0.4 K/mm3 (0.1-1.0); Monocytes % 8.3 % (1.7-9.3); Neutrophils # 3.1 K/mm3 (1.8-7.8); Neutrophils % 68.5 % (37.0-80.0); Platelet Count 247 K/mm3 (142-424); Red Blood Count 5.31 M/mm3 (4.20-5.40); Red Cell Distribution Width 13.8 % (11.5-17.5); White Blood Count 4.6 K/mm3 (4.8-10.8)
[2020-07-02 15:36] LABS: Lactic Acid 1.1 mmol/L (0.7-2.1)
--- NOTE | 2020-07-02 15:41 | CT_ITS ---
PROCEDURE: CT ANGIO CHEST Referring Doctor: Duncan River Patient Age:80Y CLINCIAL INDICATION: soa . Covid positive COMPARISON: Previous CT a chest 03/22/2019 Technique IV Contrast: 70ML Isovue 370 Axial images obtained with sagittal and coronal reformats. All CT scans at the facility use one or more dose reduction, viz: automated exposure control, ma/kV adjustment per patient size (including targeted exams where dose is matched to indication, i.e. head), or iterative reconstruction technique. FINDINGS: PULMONARY ARTERIES: No pulmonary embolus evident. Excellent visualization of the pulmonary arteries AORTA: Scant contrast aortic arch and distal limits evaluation here. The inhomogeneous very faint early enhancement of the distal aortic arch and initial descending aorta, along with streak artifact through this region limits the study. Cannot totally exclude aortic dissection and would require repeat exam if this is a concern clinically.. Suspect current appearance here at posterior aortic arch may be due to combination of streak artifact, atheromatous plaque, faint early contrast with laminar flow contrast. However if clinical concern regarding dissection persist follow-up with more optimal timing for aortic contrast recommended. LUNGS: There are several scattered small peripheral patchy areas and patchy foci of low-density infiltrate noted-suggestive of early Covid pneumonia pattern. Right lung beginning superiorly the small patchy infiltrates are seen:: Subtle small area infiltrate anteriorly RUL (axial/28,, sagittal 30.) 2 cm patchy infiltrate posterior at the RUL (axial slice 34, sagittal 29) Similar 19 mm patchy infiltrate focus is seen just inferior to the major fissure at superior segment RLL axial 41 sagittal 25. Linear scarring and atelectasis seen at the medial right lung base Left lung: Subtle wispy area of atelectasis vs minimal infiltrate abuts the major fissure posteriorly at MILTON ([id number], axial 27-29. Very very subtle patchy of wispy infiltrate anterior MILTON on sagittal slice 64, axial 30 At the lingula slight coarsening markings here most likely reflects scarring and atelectasis-and similar to previous study. . PLEURAL SPACES: No significant effusion. No evidence of pneumothorax. HEART: U. Mild cardiomegaly markable.,. No significant pericardial effusion. MEDIASTINAL AND HILAR STRUCTURES: No mediastinal or hilar mass evident. No dominant adenopathy BONY STRUCTURES: No acute bony abnormalities apparent. Mild degenerative changes T-spine and lower C-spine LYMPH NODES: No enlarged lymph nodes evident. UPPER ABDOMEN: . discussed separately ble. IMPRESSION: IMPRESSION 1. SCATTERED SMALL PATCHY AREAS OF PERIPHERAL INFILTRATE BILATERALLY. SOME ARE VERY SUBTLE APPEARANCE SUSPECT AND SUGGESTIVE OF EARLY COVID PNEUMONIA PATTERN.. CORRELATION REQUIRED 2..NO EVIDENCE OF PULMONARY EMBOLISM 3..AORTA. Lack Of Adequate Contrast Enhancement Aorta Limits Evaluation Here, and cannot Exclude Dissection On This Exam.- (If this of concern clinically then follow-up required with additional delayed timing of contrast to more optimally enhance in view aorta) . TECHNIQUE: . TECHNIQUE IV Contrast: 70ML Isovue 370 Axial images obtained with sagittal and coronal reformats. All CT scans at the facility use one or more dose reduction, viz: automated exposure control, ma/kV adjustment per patient size (including targeted exams where dose is matched to indication, i.e. head), or iterative reconstruction technique IMPRESSION: Dictated by: Coy Rosales MD 07/02/2020 22:47 Coy Rosales MD in [place] 07/02/2020 22:47
--- NOTE | 2020-07-02 15:41 | CT_ITS ---
Procedure: CT ABDOMEN PELVIS W CON Referring Doctor: Duncan River Patient Age:80Y CLINICAL INDICATION: abdominal pain dyspnea. Covidd COMPARISON: CT ABDW CT ABDOMEN WITH CONTRAST from 10/21/[address] abdomen pelvis w con from 02/07/[address] ABDOMEN PELVIS W CON from 11/22/2019 TECHNIQUE: 75 cc Isovue 370 IV contrast but no oral contrast but Axial images obtained with sagittal and coronal reformats. All CT scans at the facility use one or more dose reduction, viz: automated exposure control, ma/kV adjustment per patient size (including targeted exams where dose is matched to indication, i.e. head), or iterative reconstruction technique. FINDINGS: Lower thorax: No acute finding ABDOMEN: Liver: No biliary dilatation. We again see numerous benign hepatic cyst-appear stable and similar to multiple previous studies most recent November 2019. Many of the cysts are quite small. 1 of the largest at posterior right lobe right lobe measures up to 3.5 cm Gallbladder: Slight generous size but not significant distended nor or dilated; and common duct is normal. No radio opaque stones. Pancreas: . The mildly dilated pancreatic duct again seen at but does similar to previous studies. No inflammatory changes 111 Spleen: unremarkable normal size. Adrenals: unremarkable Kidneys/ureters: Period. Stable appearance. Parapelvic cyst bilaterally most evident along at the left are again noted ureters unremarkable PELVIS: Streak artifact from the bilateral hip prostheses limits evaluation at the lower pelvis; bladder grossly unremarkable as visualized. Small uterus remains to the right of midline. No adnexal masses evident . GI tract: . Small hiatal hernia. Stomach appears stable. Small bowel. Slight increased fluid at the distal small bowel most evident as seen here towards pelvis. Non-specific but can reflect a mild ileus or early enteritis.. A few moderate air-fluid levels in the mid to distal small bowel but region terminal ileum unremarkable Large bowel: Moderate solid stool is at right colon. Mainly gas at the transverse colon. Moderate stool rectum. No evidence of appendicitis; terminal ileum satisfactory . Stomach bowel: Nondistended. No obvious mass or thickening. Peritoneum: No abnormal fluid collections. No obvious inflammatory changes. No free air. Lymph nodes: No enlarged lymph nodes apparent. Vasculature: Atherosclerotic calcification aorta and iliacs no aortic aneurysm.. No retroperitoneal hemorrhage evident. Bones: No acute fracture or lesion but degenerative changes with disc space narrowing most evident L4/5, levoscoliosis L-spine most evident at L4 level. IMPRESSION: 1.... No discrete acute findings abdomen pelvis; 2... Only note slight increased fluid and gas towards distal small bowel. Scattered moderate air-fluid levels at upper normal caliber small bowel appear.-Unimpressive but a could reflect a mild ileus or early enteritis but period again note 3.. Stable findings include: Numerous hepatic cyst similar to previous studies. mild dilated pancreatic duct similar to prior studies. Parapelvic renal cyst bilaterally also again noted as well .. [id number] Dictated by: Coy Rosales MD 07/02/2020 23:22 Coy Rosales MD in [facility] 07/02/2020 23:22
[2020-07-02 15:53] LABS: Chloride 98 mmol/L (98-107); Potassium 4.1 mmoL/L (3.5-5.1); Sodium 135 mmol/L (136-145)
[2020-07-02 15:55] LABS: Amylase 52 U/L (30-110); Blood Urea Nitrogen 13 mg/dl (7-17); Creatinine Clearance Estimated 45 mL/min (50-200); Estimated Glomerular Filt Rate 81 ml/min (>60); GFR (African American) 97 ML/MIN (>60); Lipase 80 U/L (23-300)
[2020-07-02 15:56] LABS: Alanine Aminotransferase 18 U/L (12-78); Albumin Level 4.4 g/dl (3.5-5.0); Albumin/Globulin Ratio 1.3 (1.1-1.8); Alkaline Phosphatase 104 U/L (38-126); Anion Gap 13.1 mEq/L (5-15); Aspartate Amino Transferase 40 U/L (14-36); Bilirubin,Total 0.6 mg/dl (0.2-1.3); Calcium 9.7 mg/dl (8.4-10.2); Carbon Dioxide 28 mmol/L (22.0-30.0); Globulin 3.5 g/dL (1.3-3.2); Glucose 101 mg/dl (74-100); Total Protein,Serum 7.9 g/dl (6.3-8.2)
[2020-07-02 16:34] LABS: Coronavirus 19 IgG Antibody Negative (Negative)
[2020-07-02 16:35] LABS: Coronavirus 19 IgM Antibody Positive (Negative)
--- NOTE | 2020-07-02 16:35 | PC.NURSE ---
lab called with IGM positive results
--- NOTE | 2020-07-02 16:39 | PC.NURSE ---
pt ambulating to bathroom
[2020-07-02 16:59] LABS: Microscopic, Urine URINE MICROSCOPIC (MICROSCOPIC)
[2020-07-02 17:02] LABS: Appearance,Urine CLEAR (Clear); Bilirubin,Urine Negative (Negative); Blood, Urine Negative (Negative); Color,Urine YELLOW (Yellow); Glucose,Urine (UA) Negative (Negative); Ketones,Urine Negative (Negative); Leukocyte Esterase,Urine TRACE (Negative); Nitrate,Urine Negative (Negative); Protein,Urine Negative (Negative); Urobilinogen,Urine 0.2 EU/dl (0.2)
[2020-07-02 17:06] VITALS: BP 124/70; PULSE 52; RESP 18; O2SAT 100
[2020-07-02 17:07] LABS: Squamous Epithelial Cell,Urine Occasional #/hpf (0-5); WBC,Urine Occasional #/hpf (0-3)
[2020-07-02 18:32] VITALS: BP 142/74; PULSE 87; RESP 16; TEMP 36.6; O2SAT 98
== END 2020-07-02 18:34 | disposition home or self-care (01) ==
PROVIDERS: Emergency Provider Emergency Medicine; PCP Family Medicine
DX: U07.1 COVID-19 (principal); R10.13 Epigastric pain; I10 Essential (primary) hypertension; K21.9 Gastro-esophageal reflux disease without esophagitis; Z87.891 Personal history of nicotine dependence; Z79.899 Other long term (current) drug therapy
CPT/HCPCS: 71045; 71275; 74177; 80053; 81001; 82150; 83605; 83690; 85025; 86328; 87040; 93005; 99284; Q9967

== ENCOUNTER 2020-07-04 11:03 | Outpatient (CLI) | payer MEDICARE, OTHER, SELFPAY ==
[2020-07-04] VITALS (10 sets, daily range): BP systolic 106–136; BP diastolic 52–74; PULSE 50–61; RESP 16; TEMP 36.7–36.9; O2SAT 92–98
== END 2020-07-04 13:46 | disposition home or self-care (01) ==
PROVIDERS: PCP Family Medicine; Visit Provider Family Medicine
DX: U07.1 COVID-19 (principal)
CPT/HCPCS: 96365

== ENCOUNTER → 2020-08-31 09:09 | Outpatient (CLI) | payer MEDICARE, OTHER, SELFPAY ==
--- NOTE | 2020-08-31 09:17 | MR_ITS ---
PROCEDURE: MR HEAD/BRAIN WO CON CLINICAL INDICATION: MEMORY ISSUES SINCE HAVING COVID 06/23 COMPARISON: No exams were available for comparison TECHNIQUE: Routine multiplanar multi echo sequences are performed without gadolinium enhancement. FINDINGS: No midline shift, mass effect intracranial hemorrhage or hydrocephalus. No evidence of acute infarction. The cerebellopontine angles, cerebellum, and brainstem have an appearance. There are scattered periventricular and subcortical T2 white matter hyperintensities which may represent ischemic gliotic change from microvascular disease. The pituitary, optic chiasm, corpus callosum, and craniocervical junction have an unremarkable appearance. No mastoid effusion or sinus air-fluid level. IMPRESSION: No acute intracranial findings. Dictated by: Barber Aparicio MD 09/02/2020 07:20 Barber Aparicio MD in [place] 09/02/2020 07:20
== END ==
PROVIDERS: PCP Family Medicine; Visit Provider Nurse Practitioner Family
DX: R41.3 Other amnesia (principal); R46.89 Other symptoms and signs involving appearance and behavior
CPT/HCPCS: 70551

== ENCOUNTER → 2020-09-06 12:52 | Outpatient (CLI) | payer MEDICARE, OTHER, SELFPAY ==
[2020-09-06 13:23] LABS: Basophils % 0.4 % (0.1-2.0); Eosinophils # 0.2 K/mm3 (0.0-0.4); Eosinophils % 3.3 % (0.1-12.0); Hematocrit 48.8 % (37.0-47.0); Hemoglobin 15.8 g/dL (12.2-16.2); Lymphocytes # 1.5 K/mm3 (0.7-4.5); Mean Corpuscular HGB Conc 32.3 g/dL (31.8-35.4); Mean Corpuscular Hemoglobin 32.6 pg (27.0-31.2); Mean Corpuscular Volume 100.8 fl (81-99); Mean Platelet Volume 7.4 fl (7.4-10.4); Monocytes # 0.3 K/mm3 (0.1-1.0); Neutrophils # 3.2 K/mm3 (1.8-7.8); Neutrophils % 61.3 % (37.0-80.0); Platelet Count 280 K/mm3 (142-424); Red Blood Count 4.84 M/mm3 (4.20-5.40); White Blood Count 5.3 K/mm3 (4.8-10.8)
[2020-09-06 13:25] LABS: Ammonia < 9 umol/L (9-30)
[2020-09-06 15:07] LABS: Alanine Aminotransferase 17 U/L (12-78); Albumin Level 4.3 g/dl (3.5-5.0); Albumin/Globulin Ratio 1.4 (1.1-1.8); Alkaline Phosphatase 82 U/L (38-126); Aspartate Amino Transferase 36 U/L (14-36); Bilirubin,Total 0.7 mg/dl (0.2-1.3); Blood Urea Nitrogen 19 mg/dl (7-17); Calcium 9.7 mg/dl (8.4-10.2); Carbon Dioxide 30 mmol/L (22.0-30.0); Chloride 103 mmol/L (98-107); Estimated Glomerular Filt Rate 81 ml/min (>60); GFR (African American) 97 ML/MIN (>60); Globulin 3.1 g/dL (1.3-3.2); Glucose 87 mg/dl (74-100); Sodium 140 mmol/L (136-145); Total Protein,Serum 7.4 g/dl (6.3-8.2)
[2020-09-06 15:13] LABS: C-Reactive Protein 1.8 mg/L (0-4)
[2020-09-06 15:33] LABS: Free T4 (Free Thyroxine) 1.08 ng/dl (0.78-2.19)
[2020-09-06 15:39] LABS: Thyroid Stimulating Hormone 2.93 uIU/mL (0.465-4.68)
[2020-09-06 16:14] LABS: Folate > 20.00 ng/mL; Vitamin B12 693 pg/mL (239-931)
== END ==
PROVIDERS: Visit Provider Nurse Practitioner Family
DX: R41.3 Other amnesia (principal); R46.89 Other symptoms and signs involving appearance and behavior
CPT/HCPCS: 36415; 80053; 82140; 82607; 82746; 83735; 84439; 84443; 85025; 86140

== ENCOUNTER → 2020-09-17 14:20 | Outpatient (POV) | payer MEDICARE, OTHER, SELFPAY | PROVIDERS: Visit Provider Dermatology | DX: Z00.00 Encounter for general adult medical examination without abnormal findings (principal) ==

== ENCOUNTER → 2021-01-22 13:11 | Outpatient (CLI) | payer MEDICARE, OTHER, SELFPAY | PROVIDERS: PCP Family Medicine; Visit Provider Nurse Practitioner Family | DX: G31.84 Mild cognitive impairment of uncertain or unknown etiology (principal); R06.83 Snoring; R06.89 Other abnormalities of breathing; R53.83 Other fatigue | CPT/HCPCS: 94762 ==

== ENCOUNTER → 2021-04-02 14:37 | Outpatient (CLI) | payer MEDICARE, OTHER, SELFPAY | PROVIDERS: Visit Provider Urology | DX: N39.0 Urinary tract infection, site not specified (principal); Z01.812 Encounter for preprocedural laboratory examination; Z20.822 Contact with and (suspected) exposure to COVID-19 | CPT/HCPCS: C9803; U0003; U0005 ==

== ENCOUNTER 2021-04-04 07:40 | Day surgery (SDC) | payer MEDICARE, OTHER, SELFPAY ==
[2021-04-02 11:11] VITALS: BMI 24.1
[2021-04-04 07:56] VITALS: BP 163/81; PULSE 55; RESP 18; TEMP 36.6; O2SAT 94
--- NOTE | 2021-04-04 08:09 | P.PN_ITS ---
[facility] Anesthesia Checklist - Patient Identification Patient Identification: Arm Band - Structural Data Admitted From: Home Planned Operative Procedure/s: Cystoscopy Consent for Planned Operative Procedure(s) Verified: Yes - NPO Status Verified Time NPO: 00:00 - Additional verifications Anesthesia Reactions: No Hx Blood Transfusions: Yes Blood Transfusion Reaction: No - Airway Assessment C-Spine Mobility Assessed: Yes TMJ Mobility Assessed: Yes Dentition: Good Dentition - Neurological Assessment Level of Consciousness: Awake Hx Seizures: No Numbness or tingling in extremities: No - Anesthesia Plan Anesthesia Risk discussed: Yes Anesthesia Plan: Verified ASA Class: III Anesthesia Type: MAC [facility] History I have reviewed the patient's past medical history: Yes Medical History: Reports:: Cancer (skin/nasal), Gastroesophageal Reflux Disease(GERD), Hyperlipidemia, Hypertension, Osteoporosis Denies:: Diabetes Mellitus Type 1, Diabetes Mellitus Type 2, Internal Pacemaker, Lung Disease, MRSA, Seizures *Have you ever received a pneumonia vaccine?: No *Have you received a flu vaccine this season?: Yes Other Medical History: Reports: Arthritis, Cataracts, Fibromyalgia, Hypothyroidism, Osteoporosis, Sinus Problems, Thyroid Disease. Denies: Blood Transfusion Reaction Anesthesia experience/problems:: None Laterality Cases: Bilateral: Arthroscopy Hip, Arthroscopy Knee, Tonsillectomy, Total Hip Replacement Other Surgeries: Yes: No Previous Surgery, Appendectomy, Cardiac Catheterization, Colonoscopy, Sinus Surgery, Other (ovarian cyst, bilateral hip replacement). No: Pacemaker Amputation: No Fractures: No - *Social History Last grade of school completed: 11th or 12th Smoking Status: Former smoker Alcohol Intake: never Substance Use Type: denies use *Occupational Status:: retired Housing: house Household Members: spouse *Travel in the last 8 weeks: Inside the [place] Family Hx:: No significant family history
[2021-04-04 09:51] VITALS: BP 106/54; PULSE 55; RESP 15; TEMP 36.6; O2SAT 97
[2021-04-04 10:06] VITALS: BP 120/64; PULSE 54; RESP 16; O2SAT 94
[2021-04-04 10:21] VITALS: BP 125/59; PULSE 53; RESP 16; O2SAT 96
--- NOTE | 2021-04-04 12:40 | HMH.OPNOTE ---
Date of procedure: 04/04/21 Pre-op Diagnosis:: Dysuria Post-op Diagnosis:: Dysuria Procedure performed:: Cystoscopy with urethral dilation Surgeon:: Yaron Dahl MD MEDICAL RECORD CLERK:: Sean Mcnally Anesthesia: MAC Estimated blood loss (mL): 0 Clinical Note:: Patient is an 80-year-old pleasantly demented female with persistent discomfort at the initiation of her stream. This has been occurring for the last couple of years and urine culture during that time had not shown evidence of a bacterial infection. She presents for urologic and cystoscopic evaluation. She does wear a pessary for bladder prolapse. Operative findings:: Vaginal examination showed a small cystocele was present, the urethral meatus in its normal anatomic position and of normal caliber. Cystoscopic evaluation showed normal bladder, bladder neck and urethra. Operative note:: Patient taken to the operating room after informed consent was obtained. Placed on the operating room table in the supine position and monitored anesthesia care administered. After analgesia she was placed into the dorsal lithotomy position and prepped and draped in the standard surgical fashion. A 22 [place] cystoscope passed into the urethra and into the bladder without difficulty. The bladder was examined in a systematic fashion. There is no evidence of mucosal abnormalities, stones, trabeculation, cellules or diverticula. The ureteral orifices in their normal anatomic position with clear efflux of urine. Bladder neck was normal as was the urethra. Scope removed and the urethra was then dilated with the 24, 26 and 28 [place] female sounds. There is no resistance to passage. Local anesthetic placed into the urethra after the procedure. She tolerated well discharged to recovery in stable condition. Condition: stable Disposition: same day Specimens:: None Complications:: None
== END 2021-04-04 10:21 | disposition home or self-care (01) ==
LOC: OR 07:42
PROVIDERS: PCP Family Medicine; Visit Provider Urology
PROC: 0TJB8ZZ Inspection of Bladder, Via Natural or Artificial Opening Endoscopic (ICD-10-PCS; CPT 52000; principal; 2021-04-04 09:00)
DX: R30.0 Dysuria (principal); K21.9 Gastro-esophageal reflux disease without esophagitis; E78.5 Hyperlipidemia, unspecified; I10 Essential (primary) hypertension; M81.0 Age-related osteoporosis without current pathological fracture; Z85.828 Personal history of other malignant neoplasm of skin; M19.90 Unspecified osteoarthritis, unspecified site; E03.9 Hypothyroidism, unspecified; M79.7 Fibromyalgia; I25.10 Atherosclerotic heart disease of native coronary artery without angina pectoris; Z87.891 Personal history of nicotine dependence; Z79.899 Other long term (current) drug therapy
CPT/HCPCS: 52344; J2405

== ENCOUNTER → 2021-04-24 11:05 | Outpatient (CLI) | payer MEDICARE, OTHER, SELFPAY ==
--- NOTE | 2021-04-24 11:09 | XR_ITS ---
PROCEDURE: XR RIBS RT MIN 3V W CXR1V CLINICAL INDICATION: RIB PAIN ON RT SIDE COMPARISON: No exams were available for comparison FINDINGS: Frontal view of the chest shows borderline cardiomegaly without failure with COPD changes. Three views of the right ribs show no fracture, dislocation, lytic, or blastic change. There is mild lumbar scoliosis convex left. IMPRESSION: No acute findings. Dictated by: Barber Aparicio MD 04/24/2021 13:56 Barber Aparicio MD in [place] 04/24/2021 13:56
== END ==
PROVIDERS: PCP Nurse Practitioner Family; Visit Provider Nurse Practitioner Family
DX: R07.81 Pleurodynia (principal)
CPT/HCPCS: 71101

== ENCOUNTER → 2021-05-19 13:44 | Outpatient (CLI) | payer MEDICARE, OTHER, SELFPAY ==
[2021-05-19 15:45] LABS: Blood Urea Nitrogen 20 mg/dl (7-17); Estimated Glomerular Filt Rate 96 ml/min (>60); GFR (African American) 116 ML/MIN (>60)
== END ==
PROVIDERS: Visit Provider Nurse Practitioner Family
DX: R10.10 Upper abdominal pain, unspecified (principal)
CPT/HCPCS: 36415; 82565; 84520

== ENCOUNTER → 2021-05-20 10:34 | Outpatient (CLI) | payer MEDICARE, OTHER, SELFPAY ==
--- NOTE | 2021-05-20 10:46 | CT_ITS ---
PROCEDURE: CT ABDOMEN W CON CLINICAL HISTORY: UPPER ABD PAIN COMPARISON: CT CT ABDOMEN PELVIS W CON from 07/02/2020 TECHNIQUE: 75mL Isovue 370 Axial images obtained with sagittal and coronal reformats. All CT scans at the facility use one or more dose reduction, viz: automated exposure control, ma/kV adjustment per patient size (including targeted exams where dose is matched to indication, i.e. head), or iterative reconstruction technique. FINDINGS: Scarring is present in the lung bases. There are numerous hypodense hepatic lesions consistent with multiple hepatic cysts the largest in the right hepatic lobe at 3.7 cm. The spleen, adrenal glands, and pancreas have an unremarkable appearance. There are parapelvic renal cysts. There is a moderate amount of retained colonic feces. No intestinal obstruction or free air. IMPRESSION: No acute finding no significant change. Multiple hepatic cysts Moderate amount of retained colonic feces Dictated by: Barber Aparicio MD 05/21/2021 17:24 Barber Aparicio MD in [place] 05/21/2021 17:24
== END ==
PROVIDERS: PCP Nurse Practitioner Family; Visit Provider Nurse Practitioner Family
DX: R10.10 Upper abdominal pain, unspecified (principal)
CPT/HCPCS: 74160; Q9967

== ENCOUNTER → 2021-06-06 18:26 | Outpatient (CLI) | payer MEDICARE, OTHER, SELFPAY | PROVIDERS: PCP Physician Assistant; Visit Provider Nurse Practitioner Family | DX: Z20.822 Contact with and (suspected) exposure to COVID-19 (principal) | CPT/HCPCS: C9803; U0003; U0005 ==

== ENCOUNTER → 2021-07-18 14:05 | Outpatient (CLI) | payer MEDICARE, OTHER, SELFPAY ==
--- NOTE | 2021-07-18 14:14 | XR_ITS ---
FINAL REPORT CLINICAL HISTORY: Rt ankle pain and swelling post fall yesterday FINDINGS: RIGHT ANKLE Three views demonstrate no acute fracture or dislocation. There are mild degenerative changes. A small calcaneal spur is identified. There is a small calcification adjacent to the medial talus of uncertain age. Medial and lateral soft tissue swelling is seen. IMPRESSION: Degenerative and chronic appearing findings. Calcification adjacent to the medial talus of uncertain age. Reviewed, Interpreted and Dictated by Domenic Robertson III, MD Transcribed by Zenaida Veronica Authenticated by Domenic Robertson III, MD on 07/18/2021 03:57:16 PM [facility]
--- NOTE | 2021-07-18 14:14 | XR_ITS ---
FINAL REPORT CLINICAL HISTORY: Rt foot pain and swelling post fall yesterday FINDINGS: RIGHT FOOT Three views demonstrate no acute fracture or dislocation. Mild degenerative changes are present. There is a small plantar calcaneal spur. No soft tissue abnormality is seen. IMPRESSION: No acute process. Reviewed, Interpreted and Dictated by Domenic Robertson III, MD Transcribed by Zenaida Veronica Authenticated by Domenic Robertson III, MD on 07/18/2021 03:57:13 PM [facility]
== END ==
PROVIDERS: PCP Family Medicine; Visit Provider Nurse Practitioner Family
DX: M79.671 Pain in right foot (principal); S99.911A Unspecified injury of right ankle, initial encounter; S99.921A Unspecified injury of right foot, initial encounter
CPT/HCPCS: 73610; 73630

== ENCOUNTER → 2021-09-11 20:17 | Outpatient (CLI) | payer MEDICARE, OTHER, SELFPAY | PROVIDERS: PCP Family Medicine; Visit Provider Specialist | DX: G47.30 Sleep apnea, unspecified (principal); R09.02 Hypoxemia; R06.83 Snoring | CPT/HCPCS: 95810 ==

== ENCOUNTER → 2021-12-23 15:00 | Outpatient (POV) | payer MEDICARE, OTHER, SELFPAY | PROVIDERS: Visit Provider Dermatology | DX: Z00.00 Encounter for general adult medical examination without abnormal findings (principal) ==

== ENCOUNTER → 2021-12-29 14:18 | Outpatient (CLI) | payer MEDICARE, OTHER, SELFPAY | PROVIDERS: PCP Family Medicine; Visit Provider Internal Medicine Gastroenterology | DX: Z01.818 Encounter for other preprocedural examination (principal); Z20.822 Contact with and (suspected) exposure to COVID-19 | CPT/HCPCS: C9803; U0003; U0005 ==

== ENCOUNTER 2022-02-12 15:00 | Outpatient (RCR) | payer MEDICARE, OTHER, SELFPAY | END 2022-02-12 15:05 | disposition home or self-care (01) | LOC: PT 15:00 | PROVIDERS: PCP Family Medicine; Visit Provider Orthopaedic Surgery | DX: M25.552 Pain in left hip (principal); W19.XXXA Unspecified fall, initial encounter | CPT/HCPCS: 97110; 97113; 97163 ==

== ENCOUNTER → 2022-02-28 08:45 | Outpatient (CLI) | payer MEDICARE, OTHER, SELFPAY | PROVIDERS: Visit Provider Urology | DX: N39.0 Urinary tract infection, site not specified (principal); R82.90 Unspecified abnormal findings in urine | CPT/HCPCS: 87086 ==

== ENCOUNTER → 2022-03-26 13:43 | Outpatient (CLI) | payer MEDICARE, OTHER, SELFPAY | PROVIDERS: PCP Family Medicine; Visit Provider Nurse Practitioner Family | DX: Z20.822 Contact with and (suspected) exposure to COVID-19 (principal); R52 Pain, unspecified | CPT/HCPCS: C9803; U0003; U0005 ==

== ENCOUNTER → 2022-08-19 12:57 | Outpatient (CLI) | payer MEDICARE, OTHER, SELFPAY ==
--- NOTE | 2022-08-19 13:04 | CA_ITS ---
FINAL REPORT CLINICAL HISTORY: .Left leg edema, No pain, Hx-lt knee replacement FINDINGS: DUPLEX VENOUS SONOGRAPHY OF THE BILATERAL LOWER EXTREMITIES Multiple transverse and longitudinal scans were performed of the femoropopliteal deep venous systems, with augmentation and compression maneuvers. Normal phasic flow was noted in the visualized deep venous systems. No intraluminal increased echogenicity is noted to suggest thrombus. There is normal compression and augmentation of the venous structures. No abnormal venous collaterals are seen. IMPRESSION: No evidence of deep venous thrombosis of the bilateral lower extremities. Reviewed, Interpreted and Dictated by Sisi Farr MD Transcribed by Zenaida Veronica Authenticated and . [facility]
== END ==
PROVIDERS: PCP Family Medicine; Visit Provider Nurse Practitioner Family
DX: M79.661 Pain in right lower leg (principal); M79.662 Pain in left lower leg; L65.9 Nonscarring hair loss, unspecified
CPT/HCPCS: 93970

== ENCOUNTER → 2022-08-27 08:31 | Outpatient (CLI) | payer MEDICARE, OTHER, SELFPAY ==
--- NOTE | 2022-08-27 08:49 | CT_ITS ---
FINAL REPORT TECHNIQUE: Axial CT images of the abdomen and pelvis were obtained after the administration of oral and iv contrast. Coronal reformatted images were also obtained and reviewed.This study was performed with techniques to keep radiation doses as low as reasonably achievable (ALARA). Individualized dose reduction techniques using automated exposure control or adjustment of mA and/or kV according to the patient's size were employed. CLINICAL HISTORY: RLQ ABDOMINAL PAIN, RLQ ABD MASS COMPARISON: CT abdomen 05/20/[address] abdomen and pelvis 07/02/2020 FINDINGS: CT OF THE ABDOMEN AND PELVIS WITH CONTRAST Abdomen: There is mild scarring in the lung bases. The heart is normal in size. There are multiple hepatic cysts noted. The gallbladder is normal. The spleen is unremarkable. No adrenal mass is present. The pancreas has an unremarkable appearance. The kidneys are normal, without evidence of mass or hydronephrosis. The aorta is normal in caliber. There is no free fluid or adenopathy. No mass or abnormal fluid collection is seen. Pelvis: The appendix is not identified and there are no local inflammatory changes in the right lower quadrant. The urinary bladder is unremarkable. No inflammatory process is seen. There is no evidence of mass or adenopathy. There is no evidence of bowel obstruction. There are postoperative changes from bilateral hip arthroplasty causing streak artifact which obscures much of the detail. IMPRESSION: Multiple hepatic cysts. Reviewed, Interpreted and Dictated by Domenic Robertson III, MD Transcribed by Misa Loera Authenticated and [facility]
== END ==
PROVIDERS: PCP Family Medicine; Visit Provider Nurse Practitioner Family
DX: R10.31 Right lower quadrant pain (principal); R19.03 Right lower quadrant abdominal swelling, mass and lump; L65.9 Nonscarring hair loss, unspecified; M79.661 Pain in right lower leg; M79.662 Pain in left lower leg
CPT/HCPCS: 74177; Q9967

== ENCOUNTER 2022-10-27 23:51 | Emergency (ER) | payer MEDICARE, OTHER, SELFPAY ==
[2022-10-28] VITALS (7 sets, daily range): BP systolic 173–208; BP diastolic 87–103; PULSE 59–80; RESP 15–18; TEMP 36.7–37.1; O2SAT 94–99; BMI 25.0
[2022-10-28 00:39] LABS: Basophils % 0.4 % (0.1-2.0); Eosinophils # 0.2 K/mm3 (0.0-0.4); Eosinophils % 4.5 % (0.1-12.0); Hematocrit 45.3 % (37.0-47.0); Hemoglobin 15.2 g/dL (12.2-16.2); Lymphocytes # 1.7 K/mm3 (0.7-4.5); Lymphocytes % 36.5 % (10-50); Mean Corpuscular HGB Conc 33.5 g/dL (31.8-35.4); Mean Corpuscular Hemoglobin 32.8 pg (27.0-31.2); Mean Corpuscular Volume 97.9 fl (81-99); Mean Platelet Volume 7.4 fl (7.4-10.4); Monocytes # 0.4 K/mm3 (0.1-1.0); Monocytes % 8.1 % (1.7-9.3); Neutrophils # 2.4 K/mm3 (1.8-7.8); Neutrophils % 50.4 % (37.0-80.0); Platelet Count 269 K/mm3 (142-424); Red Blood Count 4.63 M/mm3 (4.20-5.40); Red Cell Distribution Width 13.3 % (11.5-17.5); White Blood Count 4.7 K/mm3 (4.8-10.8)
[2022-10-28 00:47] LABS: Alanine Aminotransferase 18 U/L (12-78); Albumin/Globulin Ratio 1.4 (1.1-1.8); Alkaline Phosphatase 78 U/L (38-126); Anion Gap 9.1 mEq/L (5-15); Aspartate Amino Transferase 30 U/L (14-36); Bilirubin,Total 0.5 mg/dl (0.2-1.3); Blood Urea Nitrogen 20 mg/dl (7-17); Calcium 8.7 mg/dl (8.4-10.2); Carbon Dioxide 32 mmol/L (22.0-30.0); Chloride 101 mmol/L (98-107); Creatinine Clearance Estimated 47 mL/min (50-200); Estimated Glomerular Filt Rate 53 ml/min (>60); GFR (African American) 64 ML/MIN (>60); Globulin 2.9 g/dL (1.3-3.2); Glucose 92 mg/dl (74-100); Potassium 4.1 mmoL/L (3.5-5.1); Sodium 138 mmol/L (136-145); Total Protein,Serum 6.9 g/dl (6.3-8.2)
[2022-10-28 00:56] LABS: Microscopic, Urine URINE MICROSCOPIC (MICROSCOPIC)
[2022-10-28 00:57] LABS: Appearance,Urine CLEAR (Clear); Bilirubin,Urine Negative (Negative); Blood, Urine TRACE-L (Negative); Color,Urine YELLOW (Yellow); Glucose,Urine (UA) Negative (Negative); Ketones,Urine Negative (Negative); Leukocyte Esterase,Urine 2+ (Negative); Nitrate,Urine Negative (Negative); Protein,Urine Negative (Negative); Urobilinogen,Urine 0.2 EU/dl (0.2)
[2022-10-28 01:14] LABS: Bacteria,Urine 1+ /lpf
--- NOTE | 2022-10-28 02:49 | HMH.EDEPIS ---
Discharge Plan Disposition Patient Disposition: Home, Self-Care Prescriptions Prescriptions: New cephalexin [cephalexin] 500 mg capsule 500 mg PO TID Qty: 21 0RF No Action meloxicam 15 mg tablet 15 mg PO DAILY PRN (Reason: Pain) dicyclomine 10 mg capsule 10 mg PO folic acid 1 mg tablet 1 mg PO memantine 10 mg tablet 10 mg PO BID Qty: 60 6RF sertraline [Zoloft] 50 mg tablet 50 mg PO DAILY Qty: 30 6RF tramadol 50 mg tablet 50 mg PO DAILY PRN (Reason: pain) lisinopril-hydrochlorothiazide 20-12.5 mg tablet 1 tab PO DAILY levothyroxine 50 mcg tablet 75 mcg PO DAILY gabapentin 300 mg capsule 300 mg PO HS Referrals Follow up/Referrals: Fransisco Ordonez MD [Primary Care Provider] - See instructions Clinical Impressions Clinical Impression: Epistaxis, HTN (hypertension), Acute UTI (urinary tract infection) Instructions Patient Instructions: DI for Nosebleed Discharge ED Provider: Nuris (ED),Jm Guo Epistaxis HPI General Chief complaint: Epistaxis Stated complaint: Severe nose bleed Time Seen by Provider: 10/28/22 00:00 Mode of Arrival: Ambulatory Source of Information: Patient, Relative and Medical Record Limitations: No Limitations Description of Symptoms (Recalled from ER Triage Doc. by RN): Pt states she woke up at 22:45 with a nose bleed. Pt denies any blood thinners. States she had a nose bleed yesterday as well but it stopped. Daughter states only medical hx is early dementia and arthritis. History of Present Illness HPI Narrative: acute onset of rt sided nosebleed w/o trauma and no anticouagulants - MD complaint: epistaxis Location: right nostril Onset (ago): hour(s) Duration: constant Treatment prior to arrival: nose pinching Related Data Home Medications Medication Instructions Recorded Confirmed levothyroxine 50 mcg tablet 75 mcg PO DAILY thyroid 01/01/20 02/27/22 lisinopril 20 1 tab PO DAILY bp 01/01/20 02/27/22 mg-hydrochlorothiazide 12.5 mg tablet tramadol 50 mg tablet 50 mg PO DAILY PRN pain 01/01/20 02/27/22 gabapentin 300 mg capsule 300 mg PO HS Pain 09/16/20 02/27/22 meloxicam 15 mg tablet 15 mg PO DAILY PRN Pain 09/02/21 02/27/22 dicyclomine 10 mg capsule 10 mg PO 11/13/21 02/27/22 folic acid 1 mg tablet 1 mg PO 11/13/21 02/27/22 Previous Rx's Medication Instructions Recorded memantine 10 mg tablet 10 mg PO BID #60 tabs 11/13/21 sertraline 50 mg tablet (Zoloft) 50 mg PO DAILY anxiety #30 tabs 11/13/21 cephalexin 500 mg capsule 500 mg PO TID #21 caps 10/28/22 Allergies Allergy/AdvReac Type Severity Reaction Status Date / Time Sulfa (Sulfonamide Allergy Intermediate I-HIVES Verified 02/27/22 14:25 Antibiotics) latex [LATEX] Allergy Unknown Verified 02/27/22 14:25 [facility] Disclaimer: The information contained in this section may have been updated after the patient was seen, as this information can be updated by other users. 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 CAD (coronary artery disease) Dyspnea Encounter for pre-operative cardiovascular clearance Ex-smoker Family history of heart disease HTN (hypertension) Mild dementia Nocturnal hypoxemia Personal history of nicotine dependence Right bundle branch block (RBBB) Sinus bradycardia Sweating Unstable angina Surgical History History of appendectomy History of arthroscopic knee surgery History of colonoscopy History of tonsillectomy History of total hip replacement Status post arthroscopy of hip Social History (Updated 02/27/22 @ 15:05 by Yaron Dahl MD) Smoking Status: Never smoker alcohol intake: never substance use type: denies use current occupational status: retired Travel in the last 8 weeks: None household members: sp
== END 2022-10-28 03:43 | disposition home or self-care (01) ==
PROVIDERS: Emergency Provider Emergency Medicine; PCP Family Medicine
DX: N39.0 Urinary tract infection, site not specified (principal); R04.0 Epistaxis
CPT/HCPCS: 30901; 80053; 81001; 85025; 87086; 96361; 96374; 99284; 99285; J0696

== ENCOUNTER → 2022-11-24 08:15 | Outpatient (CLI) | payer MEDICARE, OTHER, SELFPAY ==
--- NOTE | 2022-11-24 08:21 | CT_ITS ---
FINAL REPORT TECHNIQUE: Axial CT images of the abdomen were obtained with IV contrast only. Coronal reformatted images were also obtained. This study was performed with techniques to keep radiation doses as low as reasonably achievable (ALARA). Individualized dose reduction techniques using automated exposure control or adjustment of mA and/or kV according to the patient''s size were employed. CLINICAL HISTORY: ABDOMINAL PAIN, HERNIA?? COMPARISON: August 2022 FINDINGS: There is mild atelectasis or scarring in the lung bases. Multiple hepatic cysts are again seen. There is mild nonspecific gallbladder wall thickening. There is mild pancreatic duct dilatation up to 4 mm. The pancreas appears normal. The spleen size is within normal limits. There are multiple parapelvic renal cysts. There is mild left renal scarring. There is no evidence of adenopathy. No abnormal fluid collection is seen. There is a moderate to large amount of retained stool. There is a moderate, chronic L3 compression fracture. There are moderate degenerative changes. There is mild stranding in the right anterior upper pelvic subcutaneous tissues with a questionable small abdominal wall hernia containing fat only. This is visually partially improved from prior. IMPRESSION: Questionable small right anterior pelvic wall hernia containing fat only with mild adjacent inflammation. Reviewed, Interpreted and Dictated by Domenic Robertson III, MD Transcribed by Jakob Luque Authenticated and [facility]
== END ==
PROVIDERS: PCP Family Medicine; Visit Provider Nurse Practitioner Family
DX: R22.2 Localized swelling, mass and lump, trunk (principal)
CPT/HCPCS: 74160; Q9967

== ENCOUNTER → 2022-12-10 16:31 | Outpatient (CLI) | payer MEDICARE, OTHER, SELFPAY ==
[2022-12-10 17:34] LABS: Basophils % 0.1 % (0.1-2.0); Eosinophils # 0.1 K/mm3 (0.0-0.4); Eosinophils % 1.5 % (0.1-12.0); Hematocrit 46.5 % (37.0-47.0); Hemoglobin 15.2 g/dL (12.2-16.2); Lymphocytes # 1.8 K/mm3 (0.7-4.5); Lymphocytes % 26.4 % (10-50); Mean Corpuscular HGB Conc 32.7 g/dL (31.8-35.4); Mean Corpuscular Hemoglobin 32.2 pg (27.0-31.2); Mean Corpuscular Volume 98.4 fl (81-99); Mean Platelet Volume 7.8 fl (7.4-10.4); Monocytes # 0.3 K/mm3 (0.1-1.0); Neutrophils # 4.6 K/mm3 (1.8-7.8); Neutrophils % 66.9 % (37.0-80.0); Platelet Count 272 K/mm3 (142-424); Red Blood Count 4.72 M/mm3 (4.20-5.40); Red Cell Distribution Width 13.2 % (11.5-17.5); White Blood Count 6.8 K/mm3 (4.8-10.8)
[2022-12-10 18:07] LABS: Alanine Aminotransferase 20 U/L (12-78); Albumin Level 4.1 g/dl (3.5-5.0); Albumin/Globulin Ratio 1.4 (1.1-1.8); Alkaline Phosphatase 94 U/L (38-126); Amylase 80 U/L (30-110); Anion Gap 12.7 mEq/L (5-15); Aspartate Amino Transferase 37 U/L (14-36); Bilirubin,Total 0.5 mg/dl (0.2-1.3); Blood Urea Nitrogen 14 mg/dl (7-17); Carbon Dioxide 30 mmol/L (22.0-30.0); Chloride 101 mmol/L (98-107); Estimated Glomerular Filt Rate 96 ml/min (>60); GFR (African American) 116 ML/MIN (>60); Glucose 81 mg/dl (74-100); Lipase 94 U/L (23-300); Potassium 4.7 mmoL/L (3.5-5.1); Sodium 139 mmol/L (136-145); Total Protein,Serum 7.1 g/dl (6.3-8.2)
[2022-12-10 18:23] LABS: Free T4 (Free Thyroxine) 1.19 ng/dl (0.78-2.19)
[2022-12-10 18:37] LABS: Thyroid Stimulating Hormone 1.92 uIU/mL (0.465-4.68)
[2022-12-10 18:56] LABS: Vitamin B12 317 pg/mL (239-931)
== END ==
PROVIDERS: PCP Nurse Practitioner Family; Visit Provider Nurse Practitioner Family
DX: R10.9 Unspecified abdominal pain (principal); E03.9 Hypothyroidism, unspecified; E55.9 Vitamin D deficiency, unspecified; E53.8 Deficiency of other specified B group vitamins; R53.1 Weakness
CPT/HCPCS: 36415; 80053; 82150; 82306; 82607; 83690; 84439; 84443; 85025

== ENCOUNTER 2022-12-23 08:47 | Day surgery (SDC) | payer MEDICARE, OTHER, SELFPAY ==
[2022-12-17 11:09] VITALS: BMI 25.0
[2022-12-23] VITALS (7 sets, daily range): BP systolic 87–162; BP diastolic 46–78; PULSE 52–61; RESP 16; TEMP 36.2–36.3; O2SAT 93–97
--- NOTE | 2022-12-23 10:20 | HMH.SCOPE ---
Procedure: Date: 12/23/22 Patient Date of :: 1940 Procedure Performed:: Colonoscopy Indications:: The patient is an 80 year old with chronic intermittent lower abdominal pain Performing Provider:: Kevin Vasquez MD Referring Provider:: Monse Martin APRN Sedation:: See RN notes Procedure:: After placing the patient in the left lateral decubitus position, the colonoscopy was gently inserted into the rectum and under direct visualization advanced to the cecum which was identified by transillumination in the right lower quadrant, identification of the ileocecal valve, appendiceal orifice, and cecal strap. Color, texture, mucosa, and anatomy of the colon were carefully examined with the scope. Findings:: Anal canal: normal Rectum: normal Sigmoid colon: normal without polyps or inflammatory changes Descending colon: polyp less than 5 mm in size. Removed with cold forceps Splenic flexure: normal Transverse colon: normal without polyps or inflammatory changes Hepatic flexure: normal Ascending colon: normal without polyps or inflammatory changes Cecum: normal Terminal ileum: not visualized Impression: Polyp of descending colon Recommendations:: Await pathology results Follow up in GI office in 2-4 weeks for further evaluation of lower abdominal pain Complications:: none Estimated blood obtained (mL): 0 Colonoscopy Component Colonoscopy Component Was a colonoscopy performed during today's procedure?: Yes Recommended follow up colonoscopy of at least 10 years?: No If no, follow up colonoscopy recommended in ___ years?: 0 Reason for not recommending >/= 10 yr follow-up interval?: Diagnostic colonoscopy, no further colonoscopy recommended
--- NOTE | 2022-12-23 10:31 | P.PN_ITS ---
[facility] Disclaimer: The information contained in this section may have been updated after the patient was seen, as this information can be updated by other users. Medical History Abnormal EKG Atherosclerotic heart disease of [place] coronary artery with other forms of angina pectoris CAD (coronary artery disease) Dyspnea Encounter for pre-operative cardiovascular clearance Ex-smoker Family history of heart disease HTN (hypertension) Mild dementia Nocturnal hypoxemia Personal history of nicotine dependence Right bundle branch block (RBBB) Sinus bradycardia Sweating Unstable angina Surgical History History of appendectomy History of arthroscopic knee surgery History of colonoscopy History of tonsillectomy History of total hip replacement Status post arthroscopy of hip Family History Other No significant family history Social History Smoking Status: Former smoker smoking status stop date: 02/09/1985 alcohol intake: never substance use type: denies use current occupational status: employed and retired Travel in the last 8 weeks: None household members: spouse housing: house marital status: education level: high school service: No current occupational exposures/hazards: No caffeine: Yes special fawn needs: No do you feel safe at home: Yes victim of physical abuse: No victim of emotional abuse: No victim of sexual abuse: No would you like helpful sources: No [facility] Anesthesia Checklist Patient Identification Patient Identification: Verbal (Name & ) Structural Data Admitted From: Home Planned Operative Procedure/s: colonoscopy Consent for Planned Operative Procedure(s) Verified: Yes Additional verifications Anesthesia Reactions: No Hx Blood Transfusions: Yes Blood Transfusion Reaction: No Airway Assessment C-Spine Mobility Assessed: Yes TMJ Mobility Assessed: Yes Dentition: Good Dentition Neurological Assessment Level of Consciousness: Awake, Alert and Appropriate Anesthesia Plan Anesthesia Risk discussed: Yes Anesthesia Plan: Verified ASA Class: II Anesthesia Type: MAC
== END 2022-12-23 11:14 | disposition home or self-care (01) ==
PROVIDERS: PCP Nurse Practitioner Family; Visit Provider Internal Medicine
PROC: 0DJD8ZZ Inspection of Lower Intestinal Tract, Via Natural or Artificial Opening Endoscopic (ICD-10-PCS; CPT 45378; principal; 2022-12-23 10:00)
DX: R10.30 Lower abdominal pain, unspecified (principal); K63.5 Polyp of colon
CPT/HCPCS: 45380; 88305

== ENCOUNTER → 2023-05-03 14:58 | Outpatient (CLI) | payer MEDICARE, OTHER, SELFPAY ==
[2023-05-03 13:43] LABS: Alanine Aminotransferase 20 U/L (12-78); Albumin Level 4.2 g/dl (3.5-5.0); Albumin/Globulin Ratio 1.3 (1.1-1.8); Alkaline Phosphatase 95 U/L (38-126); Anion Gap 12.4 mEq/L (5-15); Aspartate Amino Transferase 37 U/L (14-36); Bilirubin,Total 0.6 mg/dl (0.2-1.3); Blood Urea Nitrogen 18 mg/dl (7-17); Carbon Dioxide 28 mmol/L (22.0-30.0); Chloride 102 mmol/L (98-107); Estimated Glomerular Filt Rate 80 ml/min (>60); GFR (African American) 97 ML/MIN (>60); Globulin 3.2 g/dL (1.3-3.2); Glucose 84 mg/dl (74-100); Potassium 4.4 mmoL/L (3.5-5.1); Sodium 138 mmol/L (136-145); Total Protein,Serum 7.4 g/dl (6.3-8.2)
[2023-05-03 14:13] LABS: Thyroid Stimulating Hormone 4.74 uIU/mL (0.465-4.68)
--- OUTSIDE RECORDS SUMMARY | 2023-05-03 15:02 | XMS_ITS | Clinical Summary ---
Author Name Unknown Address [address] [place] [address] Phone Organization [facility] , [facility] Address [address] [place] [address] Phone Care Team Providers Care Hull Grinder Name Role Phone Steve De Leon MD Unavailable [phone] LARISA CHILD MD Primary Care Provider [phone] Reason for Visit and Chief Complaint The Chief Complaint is: 1st postop right knee replacement Problems Includes: Problems addressed during this encounter and other active Problems All Visits Onset Date Resolved Date Provider Condition S tatus Joint Pain in the Left Hip 01/16/2022 Luciana Goodrich PA-C Active Plan of Treatment No Plan of Treatment Recorded Assessments Includes: Assessments from this encounter Findings Ms. Trent is doing very well following her recent total knee arthroplasty. Her wound healed very nicely. She, of course, does not need any suture removal. - Last Documented On 05/20/2016 4:43PM ; [facility], [facility] Her knee is slightly warm and also very slightly erythematous. I explained to her that this is a normal finding 2 weeks after a TKA - Last Documented On 05/20/2016 4:43PM ; [facility], [facility] She has approximately 100? of flexion, full extension and a stable knee. - Last Documented On 05/20/2016 4:43PM ; [facility], [facility] X-ray shows the prosthesis to be in good position. - Last Documented On 05/20/2016 4:43PM ; [facility], [facility] A new sterile dressing was applied, and she is to return to see me again 6 weeks - Last Documented On 05/20/2016 4:43PM ; [facility], [facility] Medical Equipment - Implanted Devices
--- OUTSIDE RECORDS SUMMARY | 2023-05-03 15:02 | XMS_ITS | Clinical Summary ---
Author Name Unknown Address [address] [place] [address] Phone Organization [facility] , [facility] Address [address] [place] [address] Phone Care Team Providers Care Car Sander Name Role Phone Steve De Leon MD Unavailable [phone] LARISA CHILD MD Primary Care Provider [phone] Reason for Referral Date Encounter Description Provider Reason for Referral 01/16/22 Non Physician Specified Luciana Arias A-C Referral To Physician Reason for Visit and Chief Complaint The Chief Complaint is: Left Hip Pain Problems Includes: Problems addressed during this encounter and other active Problems All Visits Onset Date Resolved Date Provider Condition S tatus Joint Pain in the Left Hip 01/16/2022 Luciana Goodrich PA-C Active Plan of Treatment Fall Risk Assessment: This patient has been identified as a fall risk. Balance/gait along with postural blood pressure, vision and home fall hazards have been assessed. Medications have been reviewed, and recommendations made with regard to contributing factors for future falls. Plan of care: Consideration of vitamin D supplementation along with balance and strength training with consideration for formal physical therapy has been discussed with the patient. - Last Documented On 01/16/2022 2:22PM ; [facility] I have reviewed the radiographs and physical exam findings with the patient and her daughter at today's appointment. I have reviewed the radiographs, physical exam findings, and plan as o
--- OUTSIDE RECORDS SUMMARY | 2023-05-03 15:02 | XMS_ITS | Clinical Summary ---
Author Name Unknown Address [address] [place] [address] Phone Organization [facility] , [facility] Address [address] [place] [address] Phone Care Team Providers Care Seaport Planning Manager Name Role Phone Steve De Leon MD Unavailable [phone] LARISA CHILD MD Primary Care Provider [phone] Reason for Visit and Chief Complaint The Chief Complaint is: discuss rt knee SX Problems Includes: Problems addressed during this encounter and other active Problems All Visits Onset Date Resolved Date Provider Condition S tatus Joint Pain in the Left Hip 01/16/2022 Luciana Goodrich PA-C Active Plan of Treatment No Plan of Treatment Recorded Assessments Includes: Assessments from this encounter Findings Ms. Trent returns for reassessment of her right knee. She has end stage osteoarthritis of the knee with a valgus position of approximately 19-20 degrees. - Last Documented On 05/21/2016 4:08PM ; [facility] She is scheduled for total knee replacement in 5 days. - Last Documented On 05/21/2016 4:08PM ; [facility] Patient wondered if we can make her knee straighter. I spent several minutes explaining to Mrs. Trent and her the anatomy of the knee and how important balancing the knee is for the function of her TKA. If we remove enough bone medially to give her only 6-7? of valgus it won't pose some problems with laxity of the medial collateral ligament. I'm hopeful that we can do some compromise teamcenter solution architect and same time get around since she she is only about 8 or 9? of valgus. This will require some more, ligament as well. - Last Documented On 05/21/2016 4:08PM
--- OUTSIDE RECORDS SUMMARY | 2023-05-03 15:02 | XMS_ITS | Clinical Summary ---
Author Name Unknown Address [address] [place] [address] Phone Organization [facility] , [facility] Address [address] [place] [place] [address] Phone Care Team Providers Care Business Development Analyst Name Role Phone Steve De Leon MD Unavailable [phone] LARISA CHILD MD Primary Care Provider [phone] Reason for Visit and Chief Complaint [facility] Problems Includes: Problems addressed during this encounter and other active Problems All Visits Onset Date Resolved Date Provider Condition S tatus Joint Pain in the Left Hip 01/16/2022 Luciana Goodrich PAYoshiC Active Plan of Treatment No Plan of Treatment Recorded Assessments Includes: Assessments from this encounter No Assessments Recorded Medical Equipment - Implanted Devices Includes: Current Devices No Medical Equipment Recorded Medications Includes: Medications discussed during this encounter and other current Medications Current Medications (continue as prescribed) Lipitor 10 MG Oral Tablet 01/16/2022 Provider: Diagnosis: traMADol HCl ER 100 MG Oral Capsule Extended Rel ease 24 Hour 01/16/2022 Provider: Diagnosis: Medic
== END ==
PROVIDERS: PCP Nurse Practitioner Family; Visit Provider Nurse Practitioner Family
DX: R60.9 Edema, unspecified (principal); E03.9 Hypothyroidism, unspecified; E78.2 Mixed hyperlipidemia
CPT/HCPCS: 80053; 84443

== ENCOUNTER → 2023-05-24 16:24 | Outpatient (CLI) | payer MEDICARE, OTHER, SELFPAY ==
--- OUTSIDE RECORDS SUMMARY | 2023-05-24 16:25 | XMS_ITS ---
Author Name Unknown Address [address] [place] [address] Phone Organization [facility] Address [address] [place] [address] Phone Care Team Providers Care Instructional Media Services Technician Name Role Phone Steve De Leon MD Unavailable [phone] LARISA CHILD MD Primary Care Provider [phone] Reason for Referral Date Encounter Description Provider Reason for Referral 01/16/22 Non Physician Specified Luciana Arias A-C Referral To Physician Problems Includes: Active, inactive, and resolved Problems All Visits Onset Date Resolved Date Provider Condition S tatus Joint Pain in the Left Hip 01/16/2022 Luciana Goodrich PA-C Active Plan of Treatment Instructions to patient Intervention and counseling on cessation of tobacco use Last Documented On 2 1:31PM ; [facility] Instructions for patient see pcp for bp Last Documented On 5 4:10PM ; [facility], [facility] Assessments Includes: Assessments for all patient encounters No Assessments Recorded Instructions Includes: Instructions for all patient encounters Instructions to patient Intervention and counseling on cessation of tobacco
--- OUTSIDE RECORDS SUMMARY | 2023-05-24 16:25 | XMS_ITS ---
Care Plan - [facility] Created on: May 24, 2023 MileyElyse .0 : 1940 Sex: Female Author Name Unknown Address [address] [place] [address] Phone Organization [facility] Address [address] [place] [address] Phone Care Team Providers Care Certified Industrial Hygienist Name Role Phone Haley SURESH, Steve Kessler Unavailable [phone] DANYELL SURESH, LARISA Cohen Primary Care Provider [phone]
--- OUTSIDE RECORDS SUMMARY | 2023-05-24 16:26 | XMS_ITS | Clinical Summary ---
Author Name Unknown Address [address] [place] [address] Phone Organization [facility] , [facility] Address [address] [place] [address] Phone Care Team Providers Care Wrapper Operator Name Role Phone Steve De Leon MD Unavailable [phone] LARISA CHILD MD Primary Care Provider [phone] Reason for Visit and [...] - Last Documented On 05/21/2016 4:08PM ; [facility] She is scheduled for total knee replacement in 5 days. - Last Documented On 05/21/2016 4:08PM ; [facility] Patient wondered if we can [...] hopeful that we can do some compromise prop drawer and same time get around since she she is only about 8 or 9? of valgus. This will require some more, ligament as well. - Last Documented On 05/21/2016 4:08PM
--- OUTSIDE RECORDS SUMMARY | 2023-05-24 16:26 | XMS_ITS | Clinical Summary ---
Author Name Unknown Address [address] [place] [address] Phone Organization [facility] , [facility] Address [address] [place] [address] Phone Care Team Providers Care Relations Mgr Name Role Phone Steve De Leon MD Unavailable [phone] LARISA CHILD MD Primary Care Provider [phone] Reason for Visit and [...] - Last Documented On 05/20/2016 4:43PM ; [facility], [facility] Her knee is slightly warm and also very slightly erythematous. I explained to her that this is a normal finding 2 weeks after a TKA - Last Documented On 05/20/2016 4:43PM ; [facility], [facility] She has approximately 100? of flexion, full extension and a stable knee. - Last Documented On 05/20/2016 4:43PM ; [facility], [facility] X-ray shows the prosthesis to be in good position. - Last Documented On 05/20/2016 4:43PM ; [facility], [facility] A new sterile dressing was applied, and she is to return to see me again 6 weeks - Last Documented On 05/20/2016 4:43PM ; [facility], [facility] Medical Equipment - Implanted Devices
--- OUTSIDE RECORDS SUMMARY | 2023-05-24 16:26 | XMS_ITS | Clinical Summary ---
Author Name Unknown Address [address] [place] [address] Phone Organization [facility] , [facility] Address [address] [place] [address] Phone Care Team Providers Care Dragger Out Name Role Phone Steve De Leon MD Unavailable [phone] LARISA CHILD MD Primary Care Provider [phone] Reason for Visit and Chief Complaint The Chief Complaint is: left hip pain Problems Includes: Problems addressed during this encounter and other active Problems All Visits Onset Date Resolved Date Provider Condition S tatus Joint Pain in the Left Hip 01/16/2022 Luciana Goodrich PA-C Active Plan of Treatment No Plan of Treatment Recorded Assessments Includes: Assessments from this encounter Findings Elyse is complaining of left hip pain. This is been going on for the past several months and worsening over the past few weeks. Her original surgery was approximately [address] Beau Singh. She was revised in 2000 and has not had a problem until recently. She now is having left hip pain radiating down the lateral aspect of the thigh. She walks with a significant limp. The pain has gotten to the point she can barely stand and walk. She denies any injury to the left hip. No numbness or tingling to the left lower extremity. Denies any back pain. Her pain is associated with weightbearing walking and in the groin area of the left hip. - Last Documented On 11/13/2016 3:38PM ; [facility] Physical exam: Examination of the left hip she has positive logrolling with apprehension. Exquisite tenderness on palpation over the greater trochanter of the left hip and laterally down the
--- OUTSIDE RECORDS SUMMARY | 2023-05-24 16:26 | XMS_ITS | Clinical Summary ---
Author Name Unknown Address [address] [place] [address] Phone Organization [facility] , [facility] Address [address] [place] [address] Phone Care Team Providers Care Informatics Specialist Name Role Phone Steve De Leon MD Unavailable [phone] LARISA CHILD MD Primary Care Provider [phone] Reason for Visit and Chief Complaint [facility] Problems Includes: Problems addressed during this [...] Rel ease 24 Hour 01/16/2022 Provider: Diagnosis: Alba
--- OUTSIDE RECORDS SUMMARY | 2023-05-24 16:26 | XMS_ITS | Clinical Summary ---
Author Name Unknown Address [address] [place] [address] Phone Organization [facility] , [facility] Address [address] [place] [address] Phone Care Team Providers Care Warehouse Shipping Supervisor Name Role Phone Steve De Leon MD Unavailable [phone] LARISA CHILD MD Primary [...] - Last Documented On 01/16/2022 2:22PM ; [facility] I have reviewed the radiographs and physical exam findings with the patient and her daughter at today's appointment. I have reviewed the radiographs, physical exam findings, and plan as
[2023-05-24 16:55] LABS: Basophils % 0.3 % (0.1-2.0); Eosinophils # 0.1 K/mm3 (0.0-0.4); Eosinophils % 1.1 % (0.1-12.0); Hematocrit 48.3 % (37.0-47.0); Hemoglobin 16.2 g/dL (12.2-16.2); Lymphocytes # 1.1 K/mm3 (0.7-4.5); Mean Corpuscular HGB Conc 33.6 g/dL (31.8-35.4); Mean Corpuscular Hemoglobin 34.2 pg (27.0-31.2); Mean Corpuscular Volume 101.8 fl (81-99); Mean Platelet Volume 8.5 fl (7.4-10.4); Monocytes # 0.4 K/mm3 (0.1-1.0); Monocytes % 5.3 % (1.7-9.3); Neutrophils % 79.5 % (37.0-80.0); Platelet Count 256 K/mm3 (142-424); Red Blood Count 4.75 M/mm3 (4.20-5.40); Red Cell Distribution Width 14.7 % (11.5-17.5); White Blood Count 7.5 K/mm3 (4.8-10.8)
[2023-05-24 18:21] LABS: Alanine Aminotransferase 21 U/L (12-78); Albumin Level 4.3 g/dl (3.5-5.0); Albumin/Globulin Ratio 1.5 (1.1-1.8); Alkaline Phosphatase 95 U/L (38-126); Anion Gap 13.1 mEq/L (5-15); Aspartate Amino Transferase 37 U/L (14-36); Bilirubin,Total 0.7 mg/dl (0.2-1.3); Blood Urea Nitrogen 18 mg/dl (7-17); Calcium 9.2 mg/dl (8.4-10.2); Carbon Dioxide 28 mmol/L (22.0-30.0); Chloride 100 mmol/L (98-107); Estimated Glomerular Filt Rate 69 ml/min (>60); GFR (African American) 83 ML/MIN (>60); Globulin 2.9 g/dL (1.3-3.2); Glucose 109 mg/dl (74-100); Potassium 4.1 mmoL/L (3.5-5.1); Sodium 137 mmol/L (136-145); Total Protein,Serum 7.2 g/dl (6.3-8.2)
[2023-05-24 18:50] LABS: Thyroid Stimulating Hormone 1.66 uIU/mL (0.465-4.68)
[2023-05-26 08:18] LABS: Triiodothyronine (T3) Free 2.8 pg/mL (2.0-4.4)
== END ==
PROVIDERS: PCP Nurse Practitioner Family; Visit Provider Nurse Practitioner Family
DX: R10.9 Unspecified abdominal pain (principal); E03.9 Hypothyroidism, unspecified; B96.89 Other specified bacterial agents as the cause of diseases classified elsewhere
CPT/HCPCS: 80053; 84443; 84481; 85025; 87086

== ENCOUNTER 2023-09-15 08:02 | Outpatient (CLI) | payer MEDICARE, OTHER, SELFPAY ==
--- NOTE | 2023-09-15 08:08 | US_ITS ---
FINAL REPORT CLINICAL HISTORY: R/O HERNIA SUPRAUMBILICAL,EPIGASTRIC PAIN,H/O GASTRIC ULCER, COMPARISON: None FINDINGS: Sonographic images of the abdomen were obtained. There are multiple presumed hepatic cyst measuring up to 3.2 cm. The gallbladder has an unremarkable appearance without evidence of gallstones. There is no evidence of biliary ductal dilatation. The common hepatic duct measures 5 mm, which is within normal limits. Limited images of the pancreas are unremarkable. The spleen size is normal. The right kidney measures 9.8 cm in length. The left kidney measures 9.4 cm in length. There is normal renal echogenicity. There is mild left hydronephrosis. The aorta has an unremarkable appearance. Limited images of the inferior vena cava are unremarkable. There is a small supraumbilical hernia. IMPRESSION: Multiple presumed hepatic cysts up to 3.2 cm. Mild left hydronephrosis. Small supraumbilical hernia. If indicated, CT could further evaluate. Reviewed, Interpreted and Dictated by Domenic Robertson III, MD Transcribed by Misa Loera Authenticated and [facility]
== END 2023-09-15 23:59 ==
LOC: RAD 08:04
PROVIDERS: PCP Nurse Practitioner Family; Visit Provider Nurse Practitioner Family
DX: R10.13 Epigastric pain (principal); R19.4 Change in bowel habit; R14.0 Abdominal distension (gaseous); R14.3 Flatulence; Z87.11 Personal history of peptic ulcer disease; Z79.1 Long term (current) use of non-steroidal anti-inflammatories (NSAID)
CPT/HCPCS: 76700

== ENCOUNTER 2023-10-12 11:47 | Outpatient (POV) | payer MEDICARE, OTHER, SELFPAY | END 2023-10-12 23:59 | disposition home or self-care (01) | LOC: SC 11:48 | PROVIDERS: PCP Nurse Practitioner Family; Visit Provider Dermatology | DX: Z00.00 Encounter for general adult medical examination without abnormal findings (principal) ==

== ENCOUNTER 2023-11-13 06:57 | Emergency (ER) | payer MEDICARE, OTHER, SELFPAY ==
[2023-11-13] VITALS (9 sets, daily range): BP systolic 152–196; BP diastolic 73–140; PULSE 50–57; RESP 12–18; TEMP 36.4; O2SAT 91–99; BMI 25.0
--- NOTE | 2023-11-13 07:00 | ECG_ITS ---
APPROVED REPORT Exam: Resting ECG HR:54 bpm ECG Measurements Heart Rate 54 AXES VA 189 P 80 QRSd 106 QRS -45 QT 459 T 50 QTc 446 Conclusion SINUS BRADYCARDIA WITH OCCASIONAL SUPRAVENTRICULAR PREMATURE COMPLEXES INDETERMINATE AXIS INCOMPLETE RIGHT BUNDLE BRANCH BLOCK [90+ ms QRS DURATION, TERMINAL R IN V1/V2, 40+ ms S IN I/aVL/V4/V5/V6] LEFT ANTERIOR FASCICULAR BLOCK [QRS AXIS <= -45, QR IN I, RS IN II] SEPTAL MYOCARDIAL INFARCTION , OF INDETERMINATE AGE [40+ ms Q WAVE IN V1/V2] ABNORMAL ECG Electronically signed by : MARJORIE BUTTS, 11/13/2023 15:29:10
--- NOTE | 2023-11-13 07:23 | CT_ITS ---
PROCEDURE INFORMATION: Exam: CTA Chest With Contrast Exam date and time: 11/13/2023 7:53 AM Age: 83 years old Clinical indication: Pain; Radiating; Additional info: Cp rad to back TECHNIQUE: Imaging protocol: Computed tomographic angiography of the chest with contrast. Exam focused on the arteries. 3D rendering (Not supervised by radiologist): MIP and/or 3D reconstructed images were created by the technologist. Radiation optimization: All CT scans at this facility use at least one of these dose optimization techniques: automated exposure control; mA and/or kV adjustment per patient size (includes targeted exams where dose is matched to clinical indication); or iterative reconstruction. Contrast material: ISOVUE 370; Contrast volume: 100 ml; Contrast route: INTRAVENOUS (IV); COMPARISON: CT ANGIO CHEST 07/02/2020 4:20 PM FINDINGS: Pulmonary arteries: No evidence of pulmonary embolus to the segmental level. Aorta: No aneurysm of the aorta. No dissection of the aorta. Lungs: Mild panlobular emphysematous changes. Bibasilar atelectasis Pleural spaces: Unremarkable. No pneumothorax. No pleural effusion. Heart: Unremarkable. No cardiomegaly. No pericardial effusion. Coronary arteries: Coronary artery calcifications may indicate coronary artery disease. Lymph nodes: Unremarkable. No enlarged lymph nodes. Liver: Multiple simple cysts in the liver. Largest 4.3 cm Bones/joints: Unremarkable. No acute fracture. Soft tissues: Unremarkable. IMPRESSION: 1. No evidence of pulmonary embolus to the segmental level. 2. No aneurysm of the aorta. 3. No dissection of the aorta.
--- OUTSIDE RECORDS SUMMARY | 2023-11-13 07:28 | XMS_ITS ---
Care Plan - [facility] Created on: November 13, 2023 Elyse Trent .0 : 1940 Sex: Female Author Name Unknown Address [address] [place] [address] Phone Organization [facility] Address [address] [place] [address] Phone Care Team Providers Care Form Setter Supervisor Name Role Phone Haley SURESH, Steve Kessler Unavailable [phone] DANYELL SURESH, LARISA Cohen Primary Care Provider [phone]
--- OUTSIDE RECORDS SUMMARY | 2023-11-13 07:28 | XMS_ITS ---
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 Role Phone Steve De Leon MD Unavailable [phone] LARISA CHILD MD Primary Care Provider [phone] Reason for Referral Date Encounter Description Provider Reason for Referral 01/16/22 Non Physician Specified Luciana Moody-C Referral To Physician Problems Includes: Active, inactive, and resolved Problems All Visits Onset Date Resolved Date Provider Condition S tatus Joint Pain in the Left Hip 01/16/2022 Luciana Goodrich PA-C Active Last Documented On 2 1:13PM ; [facility] Joint Pain, Localized in the Knee 05/25/2013 Yeny Goodrich PA-C Inactive Last Documented On 2 1:13PM ; [facility], [facility] Plan of Treatment Instructions to patient Intervention and counseling on cessation of tobacco use Last Documented On 2 1:31PM ; [facility], [facility] Instructions for patient see pcp for bp Last Documented On 5 4:10PM ; [facility], [facility] Assessments Includes: Assessments for all patient encounters No Assessments Recorded Instructions Includes: Instructions for all patient encounters Instructions to patient Intervention and counseling on cessation of tobacco use Last Documented On 2 1:31PM ; [facility], [facility] Instructions for patient see pcp for bp Last Documented On 5 4:10PM ; [facility], [facility] Medical Equipment - Implanted Devices Includes: Current and historical Devices No Medical Equipment Recorded Medications Includes: Current and historical Medications Current Medications (continue as prescribed) Lipitor 10 MG Oral Tablet 01/16/2022 Provider: Diagnosis: Last Documented On 2 1:36PM By Low Talbert ; [facility], [facility] traMADol HCl ER 100 MG Oral Capsule Extended Rel ease 24 Hour 01/16/2022 Provider: Diagnosis: Last Documented On 2 1:35PM By Low Talbert ; [facility], [facility] Past Medications on file Percocet 7.5-325 MG OR TABS 04/24/2016 - 05/04/2016 Pr ovider: Steve De Leon MD Diagnosis: Last Documented On 6 2:15PM By Cally Persons ; [facility], [facility] Lovenox 30 MG/0.3ML Solution 04/24/2016 - 05/01/2016 Provider: Steve De Leon MD Diagnosis: Aftercare follow ing joint replacement surgery use as directed 1 injection per day for 7 days after total joint Last Documented On 6 2:09PM By Cally Persons ; [facility], [facility] Bactrim DS 800-160 MG Tablet 04/23/2016 - 04/28/2016 Provider: Steve De Leon MD Diagnosis: Unilateral prima ry osteoarthritis, right knee twice a day Last Documented On 6 10:59AM By Cally Persons ; [facility], [facility] Gabapentin 100 MG Capsule, conventional 03/11/2016 - 0 01/16/2022 Provider: Diagnosis: Last Documented On 2 1:13PM By Low Talbert ; [facility], [facility] Cefuroxime Sodium 1.5 GM Danuta ution, when reconstituted 03/11/2016 - 01/16/2022 Provider: Diagnosis: Last Documented On 2 1:13PM By Low Talbert ; [facility], [facility] Doxycycline 40 MG Capsule, delayed-release 03/11/2016 - 01/16/2022 Provider: Diagnosis: Last Documented On 2 1:13PM By Low Talbert ; [facility], [facility] Nabumetone 500 MG OR TABS 01/23/2014 - 02/22/2014 Provider: Steve De Leon MD Diagnosis: JOINT PAIN-PELVI S kb Last Documented On 4 10:38AM By Graham 5 User ; [facility] traMADol HCl 50 MG OR TABS 05/25/2013 - 01/16/2022 Pro vider: Diagnosis: Last Documented On 2 1:14PM By Low Talbert ; [facility] Etodolac POWD 05/25/2013 - 01/16/2022 Provider: Diagnosis: Last Documented On 2 1:13PM By Low Talbert ; [facility] Dicyclomine HCl POWD 05/25/2013 - 01/16/2022 Provider: Diagnosis: Last Documented On 2 1:13PM By Low Talbert ; [facility] Levothyroxine Sodium POWD 05/25/2013 - 01/16/2022 Prov ider: Diagnosis: Last Documented On 2 1:13PM By Low Talbert ; [facility] All Day Allergy 10 MG OR TABS 05/25/2013 - 01/16/2022 Provider: Diagnosis: Last Documented On 2 1:13PM By Low Talbert ; [facility] Lortab 5-500 MG OR TABS 01/28/2007 - 02/02/2007 Provid er: Steve De Leon MD Diagnosis: [phone] Last Documented On 7 2:32PM By Brittani Rodriguez ; [facility] Lortab 5-500 MG OR TABS 12/13/2006 - 12/19/2006 Provid er: Claudine Arellano MD Diagnosis: jaf Last Documented On 7 2:55PM By Graham 1 User ; [facility] Naprosyn 375 MG OR TABS 02/10/2006 - 03/12/2006 Provid er: Steve De Leon MD Diagnosis: 1 po bid with food Last Documented On 6 4:24PM By Graham 1 User ; [facility], [facility] Medications Administered Includes: Administered Medications in patient's chart No Administered Medications Recorded Results Includes: Results from 11/12/2022 through 11/13/2023 No Results Recorded For Specified Dates History of Present Illness History of Present Illness not supported for this document type No History of Present Illness Recorded Social History Description Last Updated Caffeine use 01/16/2022 Last Documented On 2 2:22PM ; [facility] No recent change in diet 01/16/2022 Last Documented On 2 2:22PM ; [facility] Not a current smoker. 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 Last Documented On 2 2:22PM ; [facility], [facility] No recent change in diet 04/17/2015 Last Documented On 5 11:15AM ; [facility] Not a current smoker 04/17/2015 Last Documented On 5 11:15AM ; [facility] No tobacco use 05/25/2013 Last Documented On 4 8:14AM ; [facility] Smoking status : Never smoked/ Recode: 4 05/25/2013 Last Documented On 4 8:14AM ; [facility], [facility] Procedures and Surgical History Surgical History Last Updated History of appendectomy 01/16/2022 Last Documented On 2 2:22PM ; [facility] History of History of Arthroscopy 2021 Last Documented On 2 2:22PM ; [facility] History of total hip replacement 017 Last Documented On 7 3:38PM ; [facility], [facility] History of total knee arthroplasty 04/17 Last Documented On 5 11:15AM ; [facility], [facility] Medical History Includes: Medical History in patient's chart Description Last Updated History of arthritis 01/16/2022 Last Documented On 2 2:22PM ; [facility], [facility] History of History of Rheumatology 01/16 Last Documented On 2 2:22PM ; [facility], [facility] History of Hypertension 01/16/2022 Last Documented On 2 2:22PM ; [facility], [facility] History of Thyroid Disease 01/16/2022 Last Documented On 2 2:22PM ; [facility], [facility] No recent immunization for flu 2 Last Documented On 2 2:22PM ; [facility], [facility] No recent immunization for pneumococcal pneumonia 01/16/2022 Last Documented On 2 2:22PM ; [facility], [facility] Total hip replacement 01/16/2022 Last Documented On 2 2:22PM ; [facility], [facility] Arthritic joint problems 11/03/2016 Last Documented On 7 3:38PM ; [facility], [facility] History of gastric ulcer 11/03/2016 Last Documented On 7 3:38PM ; [facility], [facility] History of osteoporosis 11/03/2016 Last Documented On 7 3:38PM ; [facility], [facility] blood transfusion 04/17/2015 Last Documented On 5 11:15AM ; [facility], [facility] Family History Includes: Family History in patient's chart Description Last Updated Rheumatoid arthritis 01/16/2022 Last Documented On 2 2:22PM ; [facility], [facility] Family history of osteoporosis mother Last Documented On 7 3:38PM ; [facility], [facility] Family history of rheumatoid arthritis m other 11/03/2016 Last Documented On 7 3:38PM ; [facility], [facility] Maternal history of rheumatoid arthritis 04/17/2015 Last Documented On 5 11:15AM ; [facility], [facility] Review of Systems Review of Systems not supported for this document type No Review of Systems Recorded Mental Status Description No anxiety Functional Status No Functional Status Recorded Physical Exam Physical Exam not supported for this document type No Physical Exam Recorded Immunizations Includes: Immunizations in patient's chart Vaccine Dose # Date Site Reaction(s) Status Source Influenza 1 01/16/2022 Complete (Refused - Patient objection) [facility], [facility] Last Documented On 2 1:38PM ; [facility] PCV (Pneumovax 23) 1 01/16/2022 Complete (Refused - Patient objection) [facility] Last Documented On 2 1:38PM ; [facility] Td 1 01/16/2022 Complete (Refused - Patient objection) [facility] Last Documented On 2 1:38PM ; [facility] Allergies Includes: Active, inactive, and resolved Allergies Substance Type Reaction Onset Date Resolved Date Statu s Sulfa Antibiotics Allergy 04/12/2008 A ctive Last Documented On 01/16/2022 1:14PM ; [facility] Note: patient had an outbreak with sulfa drugs, but is currently on arthritis medicine that contains sulfa//mmh Morphine Derivatives Allergy 12/21/2006 Active Last Documented On 2 1:14PM ; [facility] Insurance Includes: Active Insurance Policies Plan Name Member ID Group # Subscriber Relationship Effect andrey Dates 1 - Medicare Part B [facility] [id number] Elyse Trent Self 05/05/20 05 - Unknown 2 - [facility] [id number] PLAN F Elyse Trent Self 3 - Unknown Clinical Notes Includes: Signed Clinical Notes starting from 06/18/2022 No Clinical Notes Recorded
--- NOTE | 2023-11-13 07:29 | [facility].EDCP ---
Discharge Plan Disposition Patient Disposition: Home, Self-Care Prescriptions Prescriptions: No Action meloxicam 15 mg tablet 15 mg PO DAILY PRN (Reason: Pain) folic acid 1 mg tablet 1 mg PO DAILY dicyclomine 10 mg capsule 10 mg PO QID PRN (Reason: stomach) ondansetron HCl 4 mg tablet 4 mg PO Q8H PRN (Reason: nausea and vomiting) Qty: 30 0RF flavoxate 100 mg tablet 100 mg PO TID Rx Instructions: 1 tablet 3x daily for 10 days (DME) insulin syringe-needle U-100 [Easy Touch Insulin Syringe] 1 mL 27 gauge x 1/2 syringe See Rx Instructions .ROUTE .MEDSUPPLY Qty: 500 Patient Comments: USE DIRECTED ONCE A WEEK FOR SUBCUTANEOUS METHOTREXATE INJECTIONS Rx Instructions: As directed methotrexate sodium 25 mg/mL solution 25 mg SQ WEEKLY estradiol 0.05 mg/24 hr patch semiweekly See Rx Instructions .ROUTE .COMPLEX Rx Instructions: 1 patch topically clobetasol 0.05 % solution See Rx Instructions .ROUTE .COMPLEX Rx Instructions: topically lisinopril-hydrochlorothiazide 20-12.5 mg tablet 1 tab PO DAILY 90 Days Qty: 90 1RF levothyroxine 75 mcg tablet See Rx Instructions .ROUTE .COMPLEX Qty: 90 1RF Dose Instruction: TAKE ONE TABLET BY MOUTH ONCE A DAY Rx Instructions: TAKE ONE TABLET BY MOUTH ONCE A DAY tramadol 50 mg tablet 50 mg PO TID PRN (Reason: pain) Qty: 180 0RF misoprostol 100 mcg tablet 100 mcg PO DAILY Referrals Follow up/Referrals: Brian Guerrero MD [Staff Physician] - See instructions Provider,MD Marquis [Primary Care Provider] - See instructions Activity Restrictions/Add. Instructions Additional Instructions/Restrictions: No evidence of cardiopulmonary emergency identified today. There remains some diagnostic uncertainty but as discussed I would recommend you closely follow-up with cardiology you may go to our analytical manager or your analytical manager at [facility]. Return with any significant worsening of your chest pain. Clinical Impressions Clinical Impression: Chest pain Qualifiers: Chest pain type: other chest pain Qualified Code(s): R07.89 - Other chest pain Discharge ED Provider: Allyn Torres [facility] General Chief Complaint: Chest Pain Stated Complaint: Chest pain Time Seen by Provider: 11/13/23 07:11 Mode of Arrival: Ambulatory Source of Information: Patient and Relative Limitations: No Limitations Description of Symptoms (Recalled from ER Triage Doc. by RN): Pt presents to ED for CP X 2 hours. Pt states she also had back pain last night. Pt states CP is midsternal and not radiating at this time. Pt is A&O*4 and daughter is bedside. History of Present Illness HPI narrative: Patient is an 83-year-old female present today with chest pain. She states that she had some pain initially yesterday morning but it subsided throughout the day yesterday. She woke up this morning at 5:30 AM with the same substernal chest pain with some radiation into the back with some discomfort in her back. States she also has been belching. Denies any exertional symptoms, positional abnormalities, dyspnea, diaphoresis. She also forgot to take her blood pressure medication yesterday. No history of heart attacks or coronary disease to her knowledge. She has not had a heart catheter or stress test that she is aware of. She does have a known hiatal hernia that is scheduled for outpatient elective repair. No nausea vomiting no fevers chills cough abdominal pain etc. Related Data Home Medications Medication Instructions Recorded Confirmed meloxicam 15 mg tablet 15 mg PO DAILY PRN Pain 09/02/21 11/13/23 folic acid 1 mg tablet 1 mg PO DAILY Supplement 11/13/21 11/13/23 misoprostol 100 mcg tablet 100 mcg PO DAILY ulcer prevention 10/28/22 11/13/23 clobetasol 0.05 % scalp solution See Rx Instructions .Route .COMPLEX 05/03/23 11/13/23 dicyclomine 10 mg capsule 10 mg PO QID PRN stomach 05/03/23 11/13/23 estradiol 0.05 mg/24 hr semiweekly See Rx Instructions .Route .COMPLEX 05/03/23 11/13/23 transdermal patch flavoxate 100 mg tablet 100 mg PO TID bladder 05/03/23 11/13/23 insulin syringe-needle U-100 1 mL #500 ea 05/03/23 11/13/23 27 gauge x 1/2 (Easy Touch Insulin Syringe) methotrexate sodium 25 mg/mL 25 mg SQ WEEKLY 05/03/23 11/13/23 injection solution Previous Rx's Medication Instructions Recorded lisinopril 20 1 tab PO DAILY High blood pressure 05/03/23 mg-hydrochlorothiazide 12.5 mg 90 days #90 tabs tablet ondansetron HCl 4 mg tablet 4 mg PO Q8H PRN nausea and 05/24/23 vomiting #30 tabs levothyroxine 75 mcg tablet See Rx Instructions .Route 09/27/23 .COMPLEX #90 tabs tramadol 50 mg tablet 50 mg PO TID PRN pain #180 tabs 10/27/23 Allergies Allergy/AdvReac Type Severity Reaction Status Date / Time Sulfa (Sulfonamide Allergy Intermediate I-HIVES Verified 11/13/23 08:14 Antibiotics) latex [LATEX] Allergy Unknown Verified 11/13/23 08:14 [facility] Disclaimer: The information contained in this section may have been updated after the patient was seen, as this information can be updated by other users. Medical History Abnormal EKG Atherosclerotic heart disease of [place] coronary artery with other forms of angina pectoris CAD (coronary artery disease) Dyspnea Encounter for pre-operative cardiovascular clearance Ex-smoker Family history of heart disease HTN (hypertension) Mild dementia Nocturnal hypoxemia Personal history of nicotine dependence Right bundle branch block (RBBB) Sinus bradycardia Sweating Unstable angina Surgical History History of appendectomy History of arthroscopic knee surgery History of colonoscopy History of tonsillectomy History of total hip replacement bilateral Status post arthroscopy of hip Family History Other No significant family history Social History Smoking Status: Former smoker smoking status stop date: 02/09/1985 alcohol intake: never substance use type: denies use current occupational status: employed and retired Travel in the last 8 weeks: None household members: spouse housing: house marital status: education level: high school service: No current occupational exposures/hazards: No caffeine: Yes special fawn needs: No do you feel safe at home: Yes victim of physical abuse: No victim of emotional abuse: No victim of sexual abuse: No would you like helpful sources: No ROS Obtained: Yes All systems reviewed & no additional complaints except as documented Physical Exam General General appearance: alert and in no apparent distress Respiratory Respiratory exam: Present normal lung sounds bilaterally; Absent respiratory distress Cardiovascular Cardiovascular exam: Present regular rate; Absent normal rhythm Abdominal Exam Abdominal exam: Present soft; Absent distention or tenderness Neurological Exam Neurological exam: Present alert and oriented X3 HEART Score HEART Score HEART Score assessment performed?: Yes History (anamnesis): Slightly suspicious ECG: Non-specific disturbance Age: >65 years Risk factors: 1-2 risk factors Troponin: </= normal limit HEART Score: 4 Critical Care Critical Care Time Critical Care Time: No Medical Decision Making Jorge A Inquiry Pt receiving controlled substance: No Vital Signs Vital Signs: 11/13/23 06:57 11/13/23 07:00 11/13/23 07:30 Temperature 97.5 F L Temperature Source Oral Pulse Rate 55 L 50 L Pulse Rate [Left] 57 L Respiratory Rate 16 18 18 Blood Pressure 196/91 H 165/77 H Blood Pressure [Right Arm] 196/91 H Blood Pressure Mean [Right Arm] 126 02 Sat by Pulse Oximetry 98 98 92 L Oxygen Delivery Method Room Air Room Air Room Air 11/13/23 07:30 11/13/23 07:51 11/13/23 08:00 Temperature Temperature Source Pulse Rate 52 L 50 L 54 L Pulse Rate [Left] Respiratory Rate 12 Blood Pressure 165/77 H 168/79 H Blood Pressure [Right Arm] Blood Pressure Mean [Right Arm] 02 Sat by Pulse Oximetry 93 L 91 L Oxygen Delivery Method Room Air 11/13/23 08:45 11/13/23 09:16 11/13/23 09:30 Temperature Temperature Source Pulse Rate 56 L 53 L 54 L Pulse Rate [Left] Respiratory Rate 13 13 14 Blood Pressure 158/140 H 162/79 H 152/73 H Blood Pressure [Right Arm] Blood Pressure Mean [Right Arm] 02 Sat by Pulse Oximetry 99 92 L 92 L Oxygen Delivery Method Room Air Room Air Room Air Lab Data Labs: Lab Results 11/13/23 07:00: WBC 5.9, RBC 4.41, Hgb 15.2, Hct 47.7 H, MCV 108.2 H, MCH 34.4 H, MCHC 31.8, RDW 14.9, Plt Count 310, MPV 8.3, Neut % (Auto) 56.1, Lymph % (Auto) 28.6, [place] % (Auto) 11.1 H, Eos % (Auto) 3.5, Baso % (Auto) 0.7, Neut # (Auto) 3.3, Lymph # (Auto) 1.7, [place] # (Auto) 0.7, Eos # (Auto) 0.2, Baso # (Auto) 0.0, Sodium 139, Potassium 4.0, Chloride 105, Carbon Dioxide 30, Anion Gap 8.0, BUN 17, Creatinine 0.70, Estimated Creat Clear 46, Estimated GFR 80, Est GFR ( Amer) 97, Glucose 91, Calcium 9.1, Total Bilirubin 0.6, AST 31, ALT 18, Alkaline Phosphatase 83, Troponin I < 0.01, Total Protein 7.2, Albumin 3.9, Globulin 3.3 H, Albumin/Globulin Ratio 1.2, Lipase 62 11/13/23 09:34: Troponin I < 0.01 11/13/23 07:00 11/13/23 07:00 Response Orders (Tests/Meds): ED MEDICATIONS Generic Name Dose Route Start Last Admin Trade Name Freq PRN Reason Stop Dose Admin Sodium Chloride 10 ml 11/13/23 08:33 11/13/23 08:39 Sodium Chloride 0.9% 10ml Syr (Rad Only) IV 12/13/23 08:32 10 ml NEEDED PRN Administration Maintain IV Site Discontinued Medications Generic Name Dose Route Start Last Admin Trade Name Freq PRN Reason Stop Dose Admin Acetaminophen 1,000 mg 11/13/23 09:39 11/13/23 09:43 Acetaminophen 500mg Tab PO 11/13/23 09:40 1,000 mg ONCE ONE Administration Aspirin 324 mg 11/13/23 07:23 11/13/23 07:35 Aspirin 81mg Chewable Tablet PO 11/13/23 07:24 324 mg ONCE ONE Administration Belladonna Alkaloids 60 ml 11/13/23 07:26 11/13/23 07:35 Belladonna Alkaloids 60 Ml Ml PO 11/13/23 07:27 60 ml ONCE ONE Administration Lactated Ringer's 500 mls @ 999 mls/hr 11/13/23 07:30 11/13/23 07:37 Lactated Ringer's 1000 Ml Bag IV 11/13/23 08:00 999 mls/hr .Q31M DEAN Administration Iopamidol 100 ml 11/13/23 08:33 11/13/23 08:39 Iopamidol-370 (76%);100ml Bottle IV 11/13/23 08:34 100 ml ONCE ONE Administration Sodium Chloride 50 ml 11/13/23 08:33 11/13/23 08:38 0.9 % Sodium Chloride 50 Ml Vial IV 11/13/23 08:34 50 ml ONCE ONE Administration ORDERS Category Date Time Status CTA Chest [CT angio chest - dissection] Stat Cat Scan 11/13/23 07:23 Completed CBC w/Auto Diff [Complete Blood Count Auto Diff] Stat Lab 11/13/23 07:00 Completed CMP [Comprehensive Metabolic Panel] Stat Lab 11/13/23 07:00 Completed Lipase Stat Lab 11/13/23 07:00 Completed Trop I [Troponin I] Stat Lab 11/13/23 07:00 Completed Troponin I Q3H Lab 11/13/23 09:34 Completed Troponin I Q3H Lab 11/13/23 13:30 Ordered ECG Data Tracing #1: Attestation: I reviewed this ECG and interpreted as documented below: ECG Narrative: Ventricular rate of 54 sinus rhythm no acute ischemic changes noted there is incomplete right bundle branch block and left anterior fascicular block noted also Q waves noted in V1 and V2 which are nonspecific MDM Narrative Medical Decision Narrative: 83-year-old female with above history and physical. She is very well-appearing and comfortable on my exam but she is significant hypertensive. She does not appear to have obvious endorgan damage from this and will not emergently drop her blood pressure right now. However with her chest pain radiating to her back aortic dissection is on the differential and I will obtain a CT angio of the chest to further evaluate this. Given the fact that she is here within 2 hours of her symptoms she will also require serial troponins to rule out any type of myocardial injury or myocardial infarction such as ACS. Esophageal pathology also in the differential, GI cocktail be administered. 324 aspirin have also been administered. Will reassess shortly. Reassessment patient remains very stable and comfortable throughout her emergency department stay. First troponin and workup of labs were on remarkable. CT scan of the patient's chest was performed which I personally interpreted showed no pulmonary embolism or aortic dissection this is also confirmed with radiology read. Patient was placed in emergency department observation status awaiting second troponin which returned normal. Patient will follow-up with her family's cardiology team at [facility] she is also been given a referral to Dr. Guerrero. Heart score is 4 return precautions emphasized patient discharged in stable condition.
--- OUTSIDE RECORDS SUMMARY | 2023-11-13 07:29 | XMS_ITS | Clinical Summary ---
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 Trent returns for reassessment of her right knee. She has end stage osteoarthritis of the knee with a valgus position of approximately 19-20 degrees. - Last Documented On 05/21/2016 4:08PM ; [facility] She is scheduled for total knee replacement in 5 days. 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 of valgus. This will require some more, ligament as well. - Last Documented On 05/21/2016 4:08PM ; [facility], [facility] X-rays show significant osteoarthritic knee with valgus of over 15? - Last Documented On 05/21/2016 4:08PM ; [facility], [facility] I explained all this to her today. We also discussed the need to go off her anti-inflammatory medication starting tomorrow. - Last Documented On 05/21/2016 4:08PM ; [facility], [facility] Estimated surgery scheduled for Wednesday 5 days - Last Documented On 05/21/2016 4:08PM ; [facility] Medical Equipment - Implanted Devices Includes: Current Devices No Medical Equipment Recorded Medications Includes: Medications discussed during this encounter and other current Medications Current Medications (continue as prescribed) Lipitor 10 MG Oral Tablet 01/16/2022 Provider: Diagnosis: Last Documented On 2 1:36PM By Low Talbert ; [facility], [facility] traMADol HCl ER 100 MG Oral Capsule Extended Rel ease 24 Hour 01/16/2022 Provider: Diagnosis: Last Documented On 2 1:35PM By Low Talbert ; [facility], [facility] Past Medications on file Percocet 7.5-325 MG OR TABS 04/24/2016 - 05/04/2016 Pr ovider: Steve De Leon MD Diagnosis: Last Documented On 6 2:15PM By Cally Ferreira ; [facility], [facility] Lovenox 30 MG/0.3ML Solution 04/24/2016 - 05/01/2016 Provider: Steve De Leon MD Diagnosis: Aftercare follow ing joint replacement surgery use as directed 1 injection per day for 7 days after total joint Last Documented On 6 2:09PM By Cally Ferreira ; [facility], [facility] Bactrim DS 800-160 MG Tablet 04/23/2016 - 04/28/2016 Provider: Steve De Leon MD Diagnosis: Unilateral prima ry osteoarthritis, right knee twice a day Last Documented On 6 10:59AM By Cally Ferreira ; [facility], [facility] Nabumetone 500 MG OR TABS 01/23/2014 - 02/22/2014 Provider: Steve De Leon MD Diagnosis: JOINT PAIN-PELVI S kb Last Documented On 4 10:38AM By Stevenson 5 User ; [facility] Lortab 5-500 MG OR TABS 01/28/2007 - 02/02/2007 Provid er: Steve De Leon MD Diagnosis: [phone] Last Documented On 7 2:32PM By Brittani Rodriguez ; [facility] Lortab 5-500 MG OR TABS 12/13/2006 - 12/19/2006 Provid er: Claudine Arellano MD Diagnosis: jaf Last Documented On 7 2:55PM By Stevenson 1 User ; [facility] Naprosyn 375 MG OR TABS 02/10/2006 - 03/12/2006 Provid er: Steve De Leon MD Diagnosis: 1 po bid with food Last Documented On 6 4:24PM By Stevenson 1 User ; [facility], [facility] Medications Administered Includes: Administered Medications from this encounter No Administered Medications Recorded Vital Signs Includes: Vital Signs from this encounter Vital Name 04/22/2016 11:36A Blood Pressure Sitting L 106/37 Pulse Rate-Sitting (bpm) 52 Height (in) 65 Weight (lb) 150 Body Mass Index (kg/m2) 25.0 Body Surface Area (m2) 1.8 Note: chidi Last Documented: On 04/22/2016 11:39A M ; [facility] Results Includes: Results discussed during this encounter No Results Recorded For Specified Dates History of Present Illness Includes: History of Present Illness from this encounter HPI Elyse Trent is a 75 year old female. - Medication list reviewed with patient. Social History Description Last Updated Caffeine use 01/16/2022 Last Documented On 6 11:35AM ; [facility] Not exercising regularly 01/16/2022 Last Documented On 6 11:35AM ; [facility] Not using alcohol 01/16/2022 Last Documented On 6 11:35AM ; [facility] Not using drugs 01/16/2022 Last Documented On 6 11:35AM ; [facility] No recent change in diet 04/17/2015 Last Documented On 6 11:35AM ; [facility] Not a current smoker 04/17/2015 Last Documented On 6 11:35AM ; [facility], [facility] No tobacco use 05/25/2013 Last Documented On 6 11:35AM ; [facility], [facility] Smoking status : Never smoked/ Recode: 4 05/25/2013 Last Documented On 6 11:35AM ; [facility], [facility] Procedures and Surgical History Includes: Procedures from this encounter Procedures Code Diagnosis Performing Provider Service L ocation Service Date Clinical summary provided to patient Last Documented On 6 11:36AM ; [facility] history of an X-ray was performed 03/2016 32506 Last Documented On 6 11:36AM ; [facility], [facility] Surgical History Last Updated History of total hip replacement 016 Last Documented On 6 4:08PM ; [facility], [facility] Medical History Includes: Medical History addressed during this encounter Description Last Updated A recent immunization for pneumococcal p neumonia 2015 04/22/2016 Last Documented On 6 4:08PM ; [facility], [facility] Arthritic joint problems 04/22/2016 Last Documented On 6 4:08PM ; [facility], [facility] History of gastric ulcer 04/22/2016 Last Documented On 6 4:08PM ; [facility], [facility] History of osteoporosis 04/22/2016 Last Documented On 6 4:08PM ; [facility], [facility] Family History Includes: Family History addressed during this encounter Description Last Updated Family history of osteoporosis mother Last Documented On 6 4:08PM ; [facility], [facility] Family history of rheumatoid arthritis m other 04/22/2016 Last Documented On 6 4:08PM ; [facility], [facility] Review of Systems Includes: Review of Systems from this encounter Systemic: Not feeling tired (fatigue), no recent weight loss, and no recent weight gain. No edema. Head: No headache and no sinus pain. Eyes: Vision problems glasses/contacts. No vision problems and no glaucomatous visual field defect. Otolaryngeal: No hearing loss and no tinnitus. No nasal symptoms. Cardiovascular: No chest pain or discomfort and no palpitations. Pulmonary: No daytime asthma symptoms, no cough, and no chronic cough. No wheezing. Gastrointestinal: No heartburn and no abdominal pain. Endocrine: No hot flashes and no muscle weakness. Hematologic: No easy bleeding and no tendency for easy bruising. Musculoskeletal: No lower back pain. No soft tissue swelling. Pain localized to one or more joints. Neurological: No dizziness, no convulsions, and no numbness. Psychological: No anxiety, no emotional lability, no depression, and no insomnia. Not crying for no reason. Skin: No dry skin and no rash. Ulcer(s). Allergic and Immunologic: Complaint of seasonal allergic reaction. Mental Status Includes: Mental Status from this encounter Description No anxiety Functional Status Includes: Functional Status from this encounter No Functional Status Recorded Physical Exam Includes: Physical Exam from this encounter Allergies Includes: Active Allergies Substance Type Reaction Onset Date Resolved Date Statu s Sulfa Antibiotics Allergy 04/12/2008 A ctive Last Documented On 01/16/2022 1:14PM ; [facility] Note: patient had an outbreak with sulfa drugs, but is currently on arthritis medicine that contains sulfa//mmh Morphine Derivatives Allergy 12/21/2006 Active Last Documented On 2 1:14PM ; [facility] Encounters Encounter Provider Location Date Check-In Time Check- Out Time Diagnosis Follow Up Steve De Leon MD [facility] 6 10:48AM 12:03PM Insurance Includes: Active Insurance Policies Plan Name Member ID Group # Subscriber Relationship Effect andrey Dates 1 - Medicare Part B [facility] [id number] Elyse A Miley Self 05/05/20 05 - Unknown 2 - [employer] [id number] PLAN F Elyse A Miley Self 3 - Unknown Clinical Notes Includes: Clinical Notes from this encounter No Clinical Notes Recorded
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
--- OUTSIDE RECORDS SUMMARY | 2023-11-13 07:29 | XMS_ITS | Clinical Summary ---
Author Name Unknown Address [address] [place] [address] Phone Organization [facility] Address [address] [place] [address] Phone Care Team Providers Care Laborer Pipelines Name Role Phone Steve De Leon MD Unavailable [phone] LARISA CHILD MD Primary Care Provider [phone] Reason for Visit and Chief Complaint [facility] Problems Includes: Problems addressed during this encounter and other active Problems All Visits Onset Date Resolved Date Provider Condition S tatus Joint Pain in the Left Hip 01/16/2022 Luciana Goodrich PA-C Active Last Documented On 2 1:13PM ; [facility], [facility] Plan of Treatment No Plan of Treatment Recorded Assessments Includes: Assessments from this encounter No Assessments Recorded Medical Equipment - Implanted Devices Includes: Current Devices No Medical Equipment Recorded Medications Includes: Medications discussed during this encounter and other current Medications Current Medications (continue as prescribed) Lipitor 10 MG Oral Tablet 01/16/2022 Provider: Diagnosis: Last Documented On 2 1:36PM By Low Mccarthy [facility] traMADol HCl ER 100 MG Oral Capsule Extended Rel ease 24 Hour 01/16/2022 Provider: Diagnosis: Last Documented On 2 1:35PM By Low Mccarthy [facility] Medications Administered Includes: Administered Medications from this encounter No Administered Medications Recorded Results Includes: Results discussed during this encounter No Results Recorded For Specified Dates History of Present Illness Includes: History of Present Illness from this encounter No History of Present Illness Recorded Social History No Social History Recorded - Smoking Status Unknown Medical History Includes: Medical History addressed during this encounter No Medical History Recorded Family History Includes: Family History addressed during this encounter No Family History Recorded Review of Systems Includes: Review of Systems from this encounter No Review of Systems Recorded Mental Status Includes: Mental Status from this encounter No Mental Status Recorded Functional Status Includes: Functional Status from this encounter No Functional Status Recorded Physical Exam Includes: Physical Exam from this encounter No Physical Exam Recorded Allergies Includes: Active Allergies Substance Type Reaction Onset Date Resolved Date Statu s Sulfa Antibiotics Allergy 04/12/2008 A ctive Last Documented On 01/16/2022 1:14PM ; [facility] Note: patient had an outbreak with sulfa drugs, but is currently on arthritis medicine that contains sulfa//mmh Morphine Derivatives Allergy 12/21/2006 Active Last Documented On 2 1:14PM ; [facility], [facility] Encounters Encounter Provider Location Date Check-In Time Check-Out Time Diagnosis [facility] Steve De Leon MD Surgery 04/27/2016 8:37AM 11:59PM Insurance Includes: Active Insurance Policies Plan Name Member ID Group # Subscriber Relationship Effect andrey Dates 1 - Medicare Part B [facility] [id number] Elyse Trent Self 05/05/20 05 - Unknown 2 - [employer] [id number] PLAN F Elyse Trent Self 3 - Unknown Clinical Notes Includes: Clinical Notes from this encounter No Clinical Notes Recorded
--- OUTSIDE RECORDS SUMMARY | 2023-11-13 07:29 | XMS_ITS | Clinical Summary ---
Author Name Unknown Address [address] [place] [address] Phone Organization [facility] , [facility] Address [address] [place] [address] Phone Care Team Providers Care Flour Worker Name Role Phone Steve De Leon MD Unavailable [phone] LARISA CHILD MD Primary Care Provider [phone] Reason for Visit and Chief Complaint The Chief Complaint is: 1st postop right knee replacement Problems Includes: Problems addressed during this encounter and other active Problems All Visits Onset Date Resolved Date Provider Condition S tatus Joint Pain in the Left Hip 01/16/2022 Luciana Goodrich PA-C Active Last Documented On 2 1:13PM ; [facility] Plan of Treatment No Plan of Treatment Recorded Assessments Includes: Assessments from this encounter Findings Ms. Trent is doing very well following her recent total knee arthroplasty. Her wound healed very nicely. She, of course, does not need any suture removal. - Last Documented On 05/20/2016 4:43PM ; [facility] Her knee is slightly warm and also very slightly erythematous. I explained to her that this is a normal finding 2 weeks after a TKA - Last Documented On 05/20/2016 4:43PM ; [facility] She has approximately 100? of flexion, full extension and a stable knee. - Last Documented On 05/20/2016 4:43PM ; [facility] X-ray shows the prosthesis to be in good position. - Last Documented On 05/20/2016 4:43PM ; [facility] A new sterile dressing was applied, and she is to return to see me again 6 weeks - Last Documented On 05/20/2016 4:43PM ; [facility] Medical Equipment - Implanted Devices Includes: Current Devices No Medical Equipment Recorded Medications Includes: Medications discussed during this encounter and other current Medications Current Medications (continue as prescribed) Lipitor 10 MG Oral Tablet 01/16/2022 Provider: Diagnosis: Last Documented On 2 1:36PM By Low Talbert ; [facility] traMADol HCl ER 100 MG Oral Capsule Extended Rel ease 24 Hour 01/16/2022 Provider: Diagnosis: Last Documented On 2 1:35PM By Low Talbert ; [facility] Past Medications on file Percocet 7.5-325 MG OR TABS 04/24/2016 - 05/04/2016 Pr ovider: Steve De Leon MD Diagnosis: Last Documented On 6 2:15PM By Cally Persons ; [facility] Lovenox 30 MG/0.3ML Solution 04/24/2016 - 05/01/2016 Provider: Steve De Leon MD Diagnosis: Aftercare follow ing joint replacement surgery use as directed 1 injection per day for 7 days after total joint Last Documented On 6 2:09PM By Cally Persons ; [facility] Bactrim DS 800-160 MG Tablet 04/23/2016 - 04/28/2016 Provider: Steve De Leon MD Diagnosis: Unilateral prima ry osteoarthritis, right knee twice a day Last Documented On 6 10:59AM By Cally Persons ; [facility] Nabumetone 500 MG OR TABS 01/23/2014 - 02/22/2014 Provider: Steve De Leon MD Diagnosis: JOINT PAIN-PELVI S kb Last Documented On 4 10:38AM By Graham 5 User ; [facility] Lortab 5-500 MG OR TABS 01/28/2007 - 02/02/2007 Provid er: Steve De Leon MD Diagnosis: [phone] Last Documented On 7 2:32PM By Brittani Rodriguez ; [facility] Lortab 5-500 MG OR TABS 12/13/2006 - 12/19/2006 Provid er: Claudine Arellano MD Diagnosis: jaf Last Documented On 7 2:55PM By Stevenson 1 User ; [facility] Naprosyn 375 MG OR TABS 02/10/2006 - 03/12/2006 Provid er: Steve De Leon MD Diagnosis: 1 po bid with food Last Documented On 6 4:24PM By Stevenson 1 User ; [facility] Medications Administered Includes: Administered Medications from this encounter No Administered Medications Recorded Vital Signs Includes: Vital Signs from this encounter Vital Name 05/12/2016 03:59P Height (in) 65 Weight (lb) 150 Body Mass Index (kg/m2) 25.0 Body Surface Area (m2) 1.8 Last Documented: On 05/12/2016 3:59PM ; [facility] Results Includes: Results discussed during this encounter No Results Recorded For Specified Dates History of Present Illness Includes: History of Present Illness from this encounter ISAAC Trent is a 75 year old female. - Medication list reviewed with patient. Social History Description Last Updated Caffeine use 01/16/2022 Last Documented On 6 3:59PM ; [facility] Not exercising regularly 01/16/2022 Last Documented On 6 3:59PM ; [facility] Not using alcohol 01/16/2022 Last Documented On 6 3:59PM ; [facility] Not using drugs 01/16/2022 Last Documented On 6 3:59PM ; [facility] No recent change in diet 04/17/2015 Last Documented On 6 3:59PM ; [facility] Not a current smoker 04/17/2015 Last Documented On 6 3:59PM ; [facility] No tobacco use 05/25/2013 Last Documented On 6 3:59PM ; [facility] Smoking status : Never smoked/ Recode: 4 05/25/2013 Last Documented On 6 3:59PM ; [facility] Procedures and Surgical History Includes: Procedures from this encounter Procedures Code Diagnosis Performing Provider Service L ocation Service Date Clinical summary provided to patient Last Documented On 6 3:59PM ; [facility] history of an X-ray was performed 03/2016 82768 Last Documented On 6 3:59PM ; [facility] Surgical History Last Updated History of total hip replacement 016 Last Documented On 6 4:43PM ; [facility] Medical History Includes: Medical History addressed during this encounter Description Last Updated A recent immunization for pneumococcal p neumonia 2015 05/12/2016 Last Documented On 6 4:43PM ; [facility] Arthritic joint problems 05/12/2016 Last Documented On 6 4:43PM ; [facility] History of gastric ulcer 05/12/2016 Last Documented On 6 4:43PM ; [facility] History of osteoporosis 05/12/2016 Last Documented On 6 4:43PM ; [facility] Family History Includes: Family History addressed during this encounter Description Last Updated Family history of osteoporosis mother Last Documented On 6 4:43PM ; [facility] Family history of rheumatoid arthritis m other 05/12/2016 Last Documented On 6 4:43PM ; [facility] Review of Systems Includes: Review of [...] ctive Last Documented On 01/16/2022 1:14PM ; [facility] Note: patient had an outbreak with sulfa drugs, but is currently on arthritis medicine that contains sulfa//mmh Morphine Derivatives Allergy 12/21/2006 Active Last Documented On 2 1:14PM ; [facility] Encounters Encounter Provider Location Date Check-In Time Check- Out Time Diagnosis Post Op Steve De Leon MD [facility] 6 2:53PM 11:59PM Insurance Includes: Active Insurance Policies Plan Name Member ID Group # Subscriber Relationship Effect andrey Dates 1 - Medicare Part B [facility] [id number] Elyse Trent Self 05/05/20 05 - Unknown 2 - [employer] [id number] PLAN F Elyse Trent Self 3 - Unknown Clinical Notes Includes: Clinical Notes from this encounter No Clinical Notes Recorded
--- OUTSIDE RECORDS SUMMARY | 2023-11-13 07:29 | XMS_ITS | Clinical Summary ---
Author Name Unknown Address [address] [place] [address] Phone Organization [facility] , [facility] Address [address] [place] [address] Phone Care Team Providers Care Student Dean Name Role Phone Steve De Leon MD Unavailable [phone] LARISA CHILD MD Primary Care Provider [phone] Reason for Visit and Chief Complaint The Chief Complaint is: left hip pain Problems Includes: Problems addressed during this encounter and other active Problems All Visits Onset Date Resolved Date Provider Condition S tatus Joint Pain in the Left Hip 01/16/2022 Luciana Goodrich PA-C Active Last Documented On 2 1:13PM ; [facility] Plan of Treatment No Plan of [...] - Last Documented On 11/13/2016 3:38PM ; [facility], [facility] Physical exam: Examination of the left hip she has positive logrolling with apprehension. Exquisite tenderness on palpation over the greater trochanter of the left hip and laterally down the IT band to the knee. She walks with an obvious limp, and antalgic gait favoring the left hip. Neurovascular status is intact on exam. Range of motion is limited due to the patient's guarding. Remainder of exam is unremarkable. - Last Documented On 11/13/2016 3:38PM ; [facility], [facility] Radiographs: AP and lateral x-rays of the left hip demonstrate polyethylene wear of the plastic liner with migration of the femoral head superiorly. Also there is calcifications in the abductor muscle which appears to be part of the greater trochanter. No evidence of loosening or fracture at this time. Suggestion of protrusio of the acetabulum. The inner wall is extremely thin. Otherwise remainder of x-ray is unremarkable. - Last Documented On 11/13/2016 3:38PM ; [facility], [facility] Impression: Polyethylene wear left total hip arthroplasty. A volar avulsion fractures of the tip of the greater trochanter interposed in the abductor tendon. - Last Documented On 11/13/2016 3:38PM ; [facility], [facility] Plan: Recommend revision of the polyethylene liner. Also removal of the bony fragments of the greater trochanter in the tendon. After long discussion of treatment options which also included possible complete revision of the cup and the stem. The patient would like to think this over and will call back in regards to whether she would like to proceed. - Last Documented On 11/13/2016 3:38PM ; [facility], [facility] patient was seen today with Dr. De Leon,.We will review the patient's history and physical findings. Treatment plan was also agreed upon. - Last Documented On 11/13/2016 3:38PM ; [facility], [facility] Medical Equipment - Implanted Devices Includes: Current Devices No Medical Equipment Recorded Medications Includes: Medications discussed during this encounter and other current Medications Current Medications (continue as prescribed) Lipitor 10 MG Oral Tablet 01/16/2022 Provider: Diagnosis: Last Documented On 2 1:36PM By Low Talbert ; [facility], [facility] traMADol HCl ER 100 MG Oral Capsule Extended Rel ease 24 Hour 01/16/2022 Provider: Diagnosis: Last Documented On 2 1:35PM By Low Talbert ; [facility], [facility] Past Medications on file Percocet 7.5-325 MG OR TABS 04/24/2016 - 05/04/2016 Pr ovider: Steve De Leon MD Diagnosis: Last Documented On 6 2:15PM By Cally Persons ; [facility], [facility] Lovenox 30 MG/0.3ML Solution 04/24/2016 - 05/01/2016 Provider: Steve De Leon MD Diagnosis: Aftercare follow ing joint replacement surgery use as directed 1 injection per day for 7 days after total joint Last Documented On 6 2:09PM By Cally Persons ; [facility], [facility] Bactrim DS 800-160 MG Tablet 04/23/2016 - 04/28/2016 Provider: Steve De Leon MD Diagnosis: Unilateral prima ry osteoarthritis, right knee twice a day Last Documented On 6 10:59AM By Cally Persons ; [facility], [facility] Nabumetone 500 MG OR TABS 01/23/2014 - 02/22/2014 Provider: Steve De Leon MD Diagnosis: JOINT PAIN-PELVI S kb Last Documented On 4 10:38AM By Graham 5 User ; [facility], [facility] Lortab 5-500 MG OR TABS 01/28/2007 - 02/02/2007 Provid er: Steve De Leon MD Diagnosis: [phone] Last Documented On 7 2:32PM By Brittani Rodriguez ; [facility], [facility] Lortab 5-500 MG OR TABS 12/13/2006 - 12/19/2006 Provid er: Claudine Arellano MD Diagnosis: jaf Last Documented On 7 2:55PM By Graham 1 User ; [facility], [facility] Naprosyn 375 MG OR TABS 02/10/2006 - 03/12/2006 Provid er: Steve De Leon MD Diagnosis: 1 po bid with food Last Documented On 6 4:24PM By Graham 1 User ; [facility], [facility] Medications Administered Includes: Administered Medications from this encounter No Administered Medications Recorded Vital Signs Includes: Vital Signs from this encounter Vital Name 11/03/2016 11:27A Blood Pressure Sitting (mmHg) 141/68 Pulse Rate-Sitting (bpm) 59 Height (in) 65 Weight (lb) 150 Body Mass Index (kg/m2) 25.0 Body Surface Area (m2) 1.8 Note: arw Last Documented: On 11/03/2016 11:31A M ; [facility], [facility] Results Includes: Results discussed during this encounter No Results Recorded For Specified Dates History of Present Illness Includes: History of Present Illness from this encounter HPI Elyse Trent is a 76 year old female. - Medication list reviewed with patient. Social History Description Last Updated Caffeine use 01/16/2022 Last Documented On 7 11:27AM ; [facility], [facility] Not exercising regularly 01/16/2022 Last Documented On 7 11:27AM ; [facility], [facility] Not using alcohol 01/16/2022 Last Documented On 7 11:27AM ; [facility], [facility] Not using drugs 01/16/2022 Last Documented On 7 11:27AM ; [facility], [facility] No recent change in diet 04/17/2015 Last Documented On 7 11:27AM ; [facility], [facility] Not a current smoker 04/17/2015 Last Documented On 7 11:27AM ; [facility], [facility] No tobacco use 05/25/2013 Last Documented On 7 11:27AM ; [facility], [facility] Smoking status : Never smoked/ Recode: 4 05/25/2013 Last Documented On 7 11:27AM ; [facility], [facility] Procedures and Surgical History Includes: Procedures from this encounter Procedures Code Diagnosis Performing Provider Service L ocation Service Date Clinical summary provided to patient Last Documented On 7 11:27AM ; [facility], [facility] Surgical History Last Updated History of total hip replacement 017 Last Documented On 7 3:38PM ; [facility], [facility] Medical History Includes: Medical History addressed during this encounter Description Last Updated A recent immunization for pneumococcal p neumonia 2015 11/03/2016 Last Documented On 7 3:38PM ; [facility], [facility] Arthritic joint problems 11/03/2016 Last Documented On 7 3:38PM ; [facility] History of gastric ulcer 11/03/2016 Last Documented On 7 3:38PM ; [facility] History of osteoporosis 11/03/2016 Last Documented On 7 3:38PM ; [facility] Family History Includes: Family History addressed during this encounter Description Last Updated Family history of osteoporosis mother Last Documented On 7 3:38PM ; [facility] Family history of rheumatoid arthritis m other 11/03/2016 Last Documented On 7 3:38PM ; [facility] Review of Systems Includes: Review of [...] ctive Last Documented On 01/16/2022 1:14PM ; [facility] Note: patient had an outbreak with sulfa drugs, but is currently on arthritis medicine that contains sulfa//mmh Morphine Derivatives Allergy 12/21/2006 Active Last Documented On 2 1:14PM ; [facility], [facility] Encounters Encounter Provider Location Date Check-In Time Check- Out Time Diagnosis Follow Up Steve [facility] 7 10:27AM 12:16PM Insurance Includes: Active Insurance Policies Plan Name Member ID Group # Subscriber Relationship Effect andrey Dates 1 - Medicare Part B [facility] [id number] Elyse Trent Self 05/05/20 05 - Unknown 2 - [employer] [id number] PLAN F Elyse Trent Self 3 - Unknown Clinical Notes Includes: Clinical Notes from this encounter No Clinical Notes Recorded
[2023-11-13] MEDS: ASPIRIN 81MG CHEWABLE TABLET 324 MG PO (07:35)
[2023-11-13] MEDS: BELLADONNA ALKALOIDS 60 ML ML PO (07:35)
[2023-11-13] MEDS: LACTATED RINGERS 1000ML 500 ML 999 ML IV (07:37)
[2023-11-13 07:39] LABS: Alanine Aminotransferase 18 U/L (12-78); Albumin Level 3.9 g/dl (3.5-5.0); Albumin/Globulin Ratio 1.2 (1.1-1.8); Alkaline Phosphatase 83 U/L (38-126); Aspartate Amino Transferase 31 U/L (14-36); Bilirubin,Total 0.6 mg/dl (0.2-1.3); Blood Urea Nitrogen 17 mg/dl (7-17); Calcium 9.1 mg/dl (8.4-10.2); Carbon Dioxide 30 mmol/L (22.0-30.0); Chloride 105 mmol/L (98-107); Creatinine Clearance Estimated 46 mL/min (50-200); Estimated Glomerular Filt Rate 80 ml/min (>60); GFR (African American) 97 ML/MIN (>60); Globulin 3.3 g/dL (1.3-3.2); Glucose 91 mg/dl (74-100); Sodium 139 mmol/L (136-145); Total Protein,Serum 7.2 g/dl (6.3-8.2)
[2023-11-13 07:56] LABS: Troponin I < 0.01 ng/ml (0.00-0.034)
[2023-11-13 08:03] LABS: Lipase 62 U/L (23-300)
[2023-11-13 08:19] LABS: Basophils % 0.7 % (0.1-2.0); Eosinophils # 0.2 K/mm3 (0.0-0.4); Eosinophils % 3.5 % (0.1-12.0); Hematocrit 47.7 % (37.0-47.0); Hemoglobin 15.2 g/dL (12.2-16.2); Lymphocytes # 1.7 K/mm3 (0.7-4.5); Lymphocytes % 28.6 % (10-50); Mean Corpuscular HGB Conc 31.8 g/dL (31.8-35.4); Mean Corpuscular Hemoglobin 34.4 pg (27.0-31.2); Mean Corpuscular Volume 108.2 fl (81-99); Mean Platelet Volume 8.3 fl (7.4-10.4); Monocytes # 0.7 K/mm3 (0.1-1.0); Monocytes % 11.1 % (1.7-9.3); Neutrophils # 3.3 K/mm3 (1.8-7.8); Neutrophils % 56.1 % (37.0-80.0); Platelet Count 310 K/mm3 (142-424); Red Blood Count 4.41 M/mm3 (4.20-5.40); Red Cell Distribution Width 14.9 % (11.5-17.5); White Blood Count 5.9 K/mm3 (4.8-10.8)
--- NOTE | 2023-11-13 08:34 | PC.NURSE ---
pt back from ct scan
[2023-11-13] MEDS: 0.9 % SODIUM CHLORIDE 50 ML VIAL IV (08:38)
[2023-11-13] MEDS: SODIUM CHLORIDE 0.9% 10ML SYR (RAD ONLY) 10 ML IV (08:39)
[2023-11-13] MEDS: IOPAMIDOL-370 (76%);100ML BOTTLE 100 ML IV (08:39)
[2023-11-13] MEDS: ACETAMINOPHEN 500MG TAB 1000 MG PO (09:43)
--- NOTE | 2023-11-13 10:34 | PC.NURSE ---
Called lab to check time remaining on 2nd troponin. States 6 min left. aware
[2023-11-13 10:41] LABS: Troponin I < 0.01 ng/ml (0.00-0.034)
--- NOTE | 2023-11-13 10:53 | PC.NURSE ---
Dr. Torres at bedside
== END 2023-11-13 11:01 | disposition home or self-care (01) ==
PROVIDERS: Emergency Provider Student in an Organized Health Care Education/Training Program
DX: R07.89 Other chest pain (principal); I49.3 Ventricular premature depolarization; I44.4 Left anterior fascicular block; R00.1 Bradycardia, unspecified; I11.9 Hypertensive heart disease without heart failure; I25.119 Atherosclerotic heart disease of native coronary artery with unspecified angina pectoris; Z87.891 Personal history of nicotine dependence
CPT/HCPCS: 71275; 80053; 83690; 84484; 85025; 93005; 99285; Q9967

== ENCOUNTER 2024-02-21 15:05 | Outpatient (CLI) | payer MEDICARE, OTHER, SELFPAY ==
[2024-02-21 13:51] LABS: Microscopic, Urine URINE MICROSCOPIC (MICROSCOPIC)
[2024-02-21 14:10] LABS: Basophils % 0.4 % (0.1-2.0); Eosinophils # 0.2 K/mm3 (0.0-0.4); Eosinophils % 2.7 % (0.1-12.0); Hematocrit 48.2 % (37.0-47.0); Hemoglobin 15.4 g/dL (12.2-16.2); Lymphocytes # 1.1 K/mm3 (0.7-4.5); Lymphocytes % 17.1 % (10-50); Mean Corpuscular HGB Conc 31.9 g/dL (31.8-35.4); Mean Corpuscular Hemoglobin 34.6 pg (27.0-31.2); Mean Corpuscular Volume 108.5 fl (81-99); Mean Platelet Volume 8.8 fl (7.4-10.4); Monocytes # 0.5 K/mm3 (0.1-1.0); Monocytes % 8.1 % (1.7-9.3); Neutrophils # 4.5 K/mm3 (1.8-7.8); Neutrophils % 71.8 % (37.0-80.0); Platelet Count 330 K/mm3 (142-424); Red Blood Count 4.44 M/mm3 (4.20-5.40); Red Cell Distribution Width 15.6 % (11.5-17.5); White Blood Count 6.3 K/mm3 (4.8-10.8)
[2024-02-21 14:29] LABS: Appearance,Urine CLEAR (Clear); Bilirubin,Urine Negative (Negative); Blood, Urine Negative (Negative); Color,Urine YELLOW (Yellow); Glucose,Urine (UA) Negative (Negative); Ketones,Urine Negative (Negative); Leukocyte Esterase,Urine 2+ (Negative); Nitrate,Urine Negative (Negative); Protein,Urine Negative (Negative); Urobilinogen,Urine 0.2 EU/dl (0.2)
[2024-02-21 14:36] LABS: Albumin Level 4.3 g/dl (3.5-5.0); Chloride 102 mmol/L (98-107)
[2024-02-21 14:37] LABS: Potassium 4.8 mmoL/L (3.5-5.1); Sodium 137 mmol/L (136-145)
[2024-02-21 14:39] LABS: Alanine Aminotransferase 15 U/L (12-78); Albumin/Globulin Ratio 1.5 (1.1-1.8); Anion Gap 8.8 mEq/L (5-15); Aspartate Amino Transferase 30 U/L (14-36); Blood Urea Nitrogen 18 mg/dl (7-17); Carbon Dioxide 31 mmol/L (22.0-30.0); Estimated Glomerular Filt Rate 80 ml/min (>60); GFR (African American) 97 ML/MIN (>60); Globulin 2.9 g/dL (1.3-3.2); Total Protein,Serum 7.2 g/dl (6.3-8.2)
[2024-02-21 14:40] LABS: Alkaline Phosphatase 77 U/L (38-126); Bilirubin,Total 0.8 mg/dl (0.2-1.3); Calcium 9.1 mg/dl (8.4-10.2); Chol/HDL Ratio 3.6 (1-3.5); Cholesterol 192 mg/dl (140-200); Glucose 83 mg/dl (74-100); HDL Cholesterol 53 mg/dl (40-60); Triglycerides 101 mg/dl (30-150); VLDL Cholesterol 20 mg/dL (0-40)
[2024-02-21 14:51] LABS: Direct LDL Cholesterol 91.34 mg/dL (100-129)
[2024-02-21 14:58] LABS: Bacteria,Urine 1+ /lpf
[2024-02-21 15:11] LABS: Thyroid Stimulating Hormone 2.19 uIU/mL (0.465-4.68)
[2024-02-21 15:15] LABS: Ferritin 232 ng/ml (11.1-264)
[2024-02-21 15:45] LABS: Vitamin B12 300 pg/mL (239-931)
== END 2024-02-21 23:59 | disposition home or self-care (01) ==
LOC: LAB.DROPOF 15:06
PROVIDERS: PCP Nurse Practitioner Family; Visit Provider Nurse Practitioner Family
DX: R35.0 Frequency of micturition (principal); R41.3 Other amnesia; D64.9 Anemia, unspecified; E03.9 Hypothyroidism, unspecified
CPT/HCPCS: 80053; 80061; 81001; 82607; 82728; 84443; 85025; 87086

== ENCOUNTER 2024-04-14 12:24 | Outpatient (CLI) | payer MEDICARE, OTHER, SELFPAY ==
[2024-04-14 12:37] LABS: Basophils % 0.5 % (0.1-2.0); Eosinophils # 0.1 K/mm3 (0.0-0.4); Eosinophils % 2.2 % (0.1-12.0); Hematocrit 43.8 % (37.0-47.0); Hemoglobin 15.4 g/dL (12.2-16.2); Lymphocytes # 1.4 K/mm3 (0.7-4.5); Lymphocytes % 22.4 % (10-50); Mean Corpuscular HGB Conc 35.3 g/dL (31.8-35.4); Mean Corpuscular Hemoglobin 35.2 pg (27.0-31.2); Mean Corpuscular Volume 99.9 fl (81-99); Mean Platelet Volume 7.3 fl (7.4-10.4); Monocytes # 0.3 K/mm3 (0.1-1.0); Monocytes % 4.4 % (1.7-9.3); Neutrophils # 4.3 K/mm3 (1.8-7.8); Neutrophils % 70.5 % (37.0-80.0); Platelet Count 290 K/mm3 (142-424); Red Blood Count 4.38 M/mm3 (4.20-5.40); Red Cell Distribution Width 14.1 % (11.5-17.5); White Blood Count 6.1 K/mm3 (4.8-10.8)
[2024-04-14 13:06] LABS: Alanine Aminotransferase 28 U/L (12-78); Albumin Level 4.2 g/dl (3.5-5.0); Albumin/Globulin Ratio 1.5 (1.1-1.8); Alkaline Phosphatase 69 U/L (38-126); Anion Gap 3.4 mEq/L (5-15); Aspartate Amino Transferase 35 U/L (14-36); Bilirubin,Total 1.1 mg/dl (0.2-1.3); Blood Urea Nitrogen 21 mg/dl (7-17); Calcium 9.5 mg/dl (8.4-10.2); Carbon Dioxide 32 mmol/L (22.0-30.0); Chloride 103 mmol/L (98-107); Cholesterol 185 mg/dl (140-200); Estimated Glomerular Filt Rate 69 ml/min (>60); GFR (African American) 83 ML/MIN (>60); Globulin 2.8 g/dL (1.3-3.2); Glucose 89 mg/dl (74-100); HDL Cholesterol 61 mg/dl (40-60); Potassium 4.4 mmoL/L (3.5-5.1); Sodium 134 mmol/L (136-145); Triglycerides 88 mg/dl (30-150); VLDL Cholesterol 18 mg/dL (0-40)
[2024-04-14 13:20] LABS: 25-OH Vitamin D, Total 35.8 ng/mL (30-100)
[2024-04-14 13:55] LABS: Vitamin B12 327 pg/mL (239-931)
[2024-04-14 14:09] LABS: Thyroid Stimulating Hormone 3.07 uIU/mL (0.465-4.68)
[2024-04-14 14:13] LABS: Ferritin 224 ng/ml (11.1-264)
== END 2024-04-14 23:59 | disposition home or self-care (01) ==
LOC: LAB.DROPOF 12:24
PROVIDERS: PCP Nurse Practitioner Family; Visit Provider Nurse Practitioner Family
DX: E78.2 Mixed hyperlipidemia (principal); E03.9 Hypothyroidism, unspecified; D64.9 Anemia, unspecified; Z13.1 Encounter for screening for diabetes mellitus; I10 Essential (primary) hypertension; E55.9 Vitamin D deficiency, unspecified; R53.82 Chronic fatigue, unspecified
CPT/HCPCS: 80053; 80061; 82306; 82607; 82728; 83036; 84443; 85025

== ENCOUNTER 2024-04-19 16:43 | Emergency (ER) | payer MEDICARE, OTHER, SELFPAY ==
[2024-04-19] VITALS (10 sets, daily range): BP systolic 124–164; BP diastolic 59–86; PULSE 52–57; RESP 12–16; TEMP 36.4–36.6; O2SAT 93–97; BMI 24.1
--- NOTE | 2024-04-19 16:46 | ED_ITS ---
<Statement entered by Daphne Yanez DO - 04/19/24 23:43> I was consulted by the RYAN, and we discussed the complexity of the problems being addressed. I approved the treatment and management plan for this patient's care in the emergency department, thus performing a substantive portion of the medical decision making. Daphne Yanez DO Discharge Plan Disposition Patient Disposition: Home, Self-Care Condition: Good Prescriptions Prescriptions: New ciprofloxacin HCl 500 mg tablet 500 mg PO BID Qty: 20 0RF metronidazole 500 mg tablet 500 mg PO Q8H 7 Days Qty: 21 0RF ondansetron 4 mg tablet,disintegrating 4 mg PO Q8H PRN (Reason: nausea and vomiting) 4 Days Qty: 12 0RF naproxen 500 mg tablet 500 mg PO BID Qty: 20 0RF No Action meloxicam 15 mg tablet 15 mg PO DAILY PRN (Reason: Pain) folic acid 1 mg tablet 1 mg PO DAILY ondansetron HCl 4 mg tablet 4 mg PO Q8H PRN (Reason: nausea and vomiting) Qty: 30 0RF (DME) insulin syringe-needle U-100 [Easy Touch Insulin Syringe] 1 mL 27 gauge x 1/2 syringe See Rx Instructions .ROUTE .MEDSUPPLY Qty: 500 Patient Comments: USE DIRECTED ONCE A WEEK FOR SUBCUTANEOUS METHOTREXATE INJECTIONS Rx Instructions: As directed methotrexate sodium 25 mg/mL solution 25 mg SQ WEEKLY hydroxychloroquine 200 mg tablet PO memantine 10 mg tablet 10 mg PO HS 90 Days Qty: 90 0RF levothyroxine 75 mcg tablet See Rx Instructions .ROUTE .COMPLEX Qty: 90 1RF Dose Instruction: TAKE ONE TABLET BY MOUTH ONCE A DAY Rx Instructions: TAKE ONE TABLET BY MOUTH ONCE A DAY tramadol 50 mg tablet 50 mg PO TID PRN (Reason: pain) Qty: 90 0RF lisinopril-hydrochlorothiazide 20-12.5 mg tablet 1 tab PO DAILY 90 Days Qty: 90 1RF misoprostol 100 mcg tablet 100 mcg PO DAILY Referrals Follow up/Referrals: Devon Lee II, MD [Staff Physician] - See instructions Monika Martin APRN [Primary Care Provider] - See instructions Activity Restrictions/Add. Instructions Additional Instructions/Restrictions: I have sent medications into your pharmacy. Please take them continuously until they are gone. I have also referred you to Dr. Lee of gastroenterology. Please call in the morning to make an appointment. Follow-up with your PCP in 1 week or sooner for no improvement or worsening symptoms or return to ER as needed Clinical Impressions Clinical Impression: Acute colitis Urinary tract infection Qualifiers: Urinary tract infection type: site unspecified Hematuria presence: with hematuria Qualified Code(s): N39.0 - Urinary tract infection, site not specified Instructions Patient Instructions: DI for Urinary Tract Infection (UTI), DI for Colitis Print Language Print Language: Chinese Discharge ED Provider: Daphne Yanez General Adult HPI <DANE Hernandez - Last Filed: 04/19/24 22:01> General Chief complaint: Dizziness Stated complaint: abdominal pain Time Seen by Provider: 04/19/24 16:46 History of Present Illness HPI narrative: Patient initially presented for evaluation of dizziness. However on arrival via EMS further clarified that the patient actually began having left lower quadrant abdominal pain that made her feel like she was going to pass out. It was not true dizziness. She states that she was given her grandson a bath and she suddenly had left lower quadrant abdominal pain. She is having it still. It does not radiate. She has had nausea but no vomiting diarrhea hemoptysis chest pain shortness of breath. She does have a history of previous appendectomy but still saw all of her reproductive organs and gallbladder. She has never had a history of diverticulitis. Patient states her last bowel movement was more than a day ago but she has passed flatus. She is not intolerant of oral intake today and has had normal meals. Related Data Home Medications ?Medication ?Instructions ?Recorded ?Confirmed meloxicam 15 mg tablet 15 mg PO DAILY PRN Pain 09/02/21 04/14/24 folic acid 1 mg tablet 1 mg PO DAILY Supplement 11/13/21 04/14/24 misoprostol 100 mcg tablet 100 mcg PO DAILY ulcer prevention 10/28/22 04/14/24 insulin syringe-needle U-100 1 mL #500 ea 05/03/23 04/14/24 27 gauge x 1/2 (Easy Touch Insulin Syringe) methotrexate sodium 25 mg/mL 25 mg SQ WEEKLY 05/03/23 04/14/24 injection solution hydroxychloroquine 200 mg tablet mg PO 02/21/24 04/14/24 Previous Rx's ?Medication ?Instructions ?Recorded ondansetron HCl 4 mg tablet 4 mg PO Q8H PRN nausea and 05/24/23 vomiting #30 tabs levothyroxine 75 mcg tablet See Rx Instructions .Route 09/27/23 .COMPLEX #90 tabs tramadol 50 mg tablet 50 mg PO TID PRN pain #90 tabs 12/13/23 lisinopril 20 1 tab PO DAILY High blood pressure 01/17/24 mg-hydrochlorothiazide 12.5 mg 90 days #90 tabs tablet memantine 10 mg tablet 10 mg PO HS 90 days #90 tabs 02/21/24 ciprofloxacin HCl 500 mg tablet 500 mg PO BID #20 tabs 04/19/24 metronidazole 500 mg tablet 500 mg PO Q8H 7 days #21 tabs 04/19/24 naproxen 500 mg tablet 500 mg PO BID #20 tabs 04/19/24 ondansetron 4 mg disintegrating 4 mg PO Q8H PRN nausea and 04/19/24 tablet vomiting 4 days #12 tabs Allergies Allergy/AdvReac Type Severity Reaction Status Date / Time Sulfa (Sulfonamide Allergy Intermediate I-HIVES Verified 04/14/24 11:08 Antibiotics) latex [LATEX] Allergy Unknown Verified 04/14/24 11:08 [facility] <DANE Hernandez - Last Filed: 04/19/24 22:01> [facility] Disclaimer: The information contained in this section may have been updated after the patient was seen, as this information can be updated by other users. Medical History (Updated 04/19/24 @ 20:11 by DANE Hernandez) Vitamin D deficiency Atherosclerotic heart disease of [place] coronary artery with other forms of angina pectoris Personal history of nicotine dependence Nocturnal hypoxemia Mild dementia Encounter for pre-operative cardiovascular clearance CAD (coronary artery disease) Sweating Ex-smoker Unstable angina Dyspnea Sinus bradycardia Family history of heart disease Abnormal EKG Right bundle branch block (RBBB) HTN (hypertension) Surgical History History of colonoscopy History of appendectomy History of total hip replacement History of tonsillectomy History of arthroscopic knee surgery Status post arthroscopy of hip Family History Other No significant family history Social History Smoking Status: Never smoker smoking status stop date: 02/09/1985 alcohol intake: never substance use type: denies use current occupational status: employed and retired Travel in the last 8 weeks: None household members: spouse housing: house marital status: education level: high school service: No current occupational exposures/hazards: No caffeine: Yes special fawn needs: No do you feel safe at home: Yes victim of physical abuse: No victim of emotional abuse: No victim of sexual abuse: No would you like helpful sources: No Other Medical History Have you received the Flu Vaccine for this season: Yes Have you received the Pneumonia Vaccine: Yes <DANE Hernandez - Last Filed: 04/19/24 22:01> ROS Obtained: Yes Systems reviewed as appropriate & no additional complaints except as documented Physical Exam <DANE Hernandez - Last Filed: 04/19/24 22:01> General General appearance: alert and in no apparent distress Respiratory Respiratory exam: Present normal lung sounds bilaterally Cardiovascular Cardiovascular exam: Present regular rate Neurological Exam Neurological exam: Present alert and oriented X3 Medical Decision Making <DANE Hernandez - Last Filed: 04/19/24 22:01> Medical Records Medical records reviewed: Yes I reviewed the patient's medical records. Screening: Per USPSTF and CDC recommendations, given the prevalence of disease in our region, it is our hospital?s policy to screen for HIV and viral Hepatitis for all patients aged 18 and over and those with ongoing risk factors. Jorge A Inquiry Pt receiving controlled substance: No Vital Signs: 04/19/24 16:44 04/19/24 17:00 04/19/24 17:31 Temperature 97.5 F L Temperature Source Oral Pulse Rate 57 L 53 L Pulse Rate [Left Radial] 57 L Respiratory Rate 12 Blood Pressure 156/76 H 124/59 L Blood Pressure [Right Arm] 149/74 H Blood Pressure Mean 102 80 Blood Pressure Mean [Right Arm] 99 Blood Pressure Source Blood Pressure Position 02 Sat by Pulse Oximetry 95 94 L 94 L Oxygen Delivery Method Room Air Room Air Room Air 04/19/24 18:01 04/19/24 18:30 04/19/24 19:00 Temperature Temperature Source Pulse Rate 57 L 57 L 53 L Pulse Rate [Left Radial] Respiratory Rate Blood Pressure 160/86 H 138/66 154/73 H Blood Pressure [Right Arm] Blood Pressure Mean 95 Blood Pressure Mean [Right Arm] Blood Pressure Source Blood Pressure Position 02 Sat by Pulse Oximetry 97 96 96 Oxygen Delivery Method Room Air Room Air Room Air 04/19/24 19:31 04/19/24 19:45 04/19/24 20:00 Temperature Temperature Source Pulse Rate 53 L 55 L 54 L Pulse Rate [Left Radial] Respiratory Rate Blood Pressure 164/75 H 156/80 H Blood Pressure [Right Arm] Blood Pressure Mean Blood Pressure Mean [Right Arm] Blood Pressure Source Blood Pressure Position 02 Sat by Pulse Oximetry 96 93 L 96 Oxygen Delivery Method 04/19/24 20:24 Temperature 97.9 F Temperature Source Oral Pulse Rate 52 L Pulse Rate [Left Radial] Respiratory Rate 16 Blood Pressure 156/80 H Blood Pressure [Right Arm] Blood Pressure Mean Blood Pressure Mean [Right Arm] Blood Pressure Source Automatic Cuff Blood Pressure Position Sitting 02 Sat by Pulse Oximetry Oxygen Delivery Method Room Air Lab Data Lab results reviewed: Yes I reviewed the patient's lab results. Lab Results 04/19/24 16:49: WBC 6.3, RBC 4.22, Hgb 15.0, Hct 44.8, MCV 106.0 H, MCH 35.5 H, MCHC 33.5, RDW 14.0, Plt Count 284, MPV 7.8, Neut % (Auto) 54.8, Lymph % (Auto) 37.0, Maury % (Auto) 3.5, Eos % (Auto) 2.4, Baso % (Auto) 2.2 H, Neut # (Auto) 3.4, Lymph # (Auto) 2.3, Maury # (Auto) 0.2, Eos # (Auto) 0.2, Baso # (Auto) 0.1, Sodium 133 L, Potassium 4.3, Chloride 104, Carbon Dioxide 24, Anion Gap 9.3, BUN 26 H, Creatinine 1.00, Estimated Creat Clear 44, Estimated GFR 53 L, Est GFR ( Amer) 64, Glucose 125 H, Lactate 1.8, Calcium 9.1, Total Bilirubin 1.6 H, AST 89 H, ALT 35, Alkaline Phosphatase 115, Troponin I 0.01, Total Protein 8.1, Albumin 4.6, Globulin 3.5 H, Albumin/Globulin Ratio 1.3, Lipase 96, Procalcitonin 0.055, HIV 1&2 Antibody Rapid Nonreactive 04/19/24 17:55: Urine Color Yellow, Urine Appearance Clear, Urine pH 6.0, Ur Specific [place] 1.025, Urine Protein Negative, Urine Glucose (UA) Negative, Urine Ketones Negative, Urine Blood Negative, Urine Nitrate Negative, Urine Bilirubin Negative, Urine Urobilinogen 0.2, Ur Leukocyte Esterase 3+ A, Urine RBC 5-10, Urine WBC Tntc, Ur Squamous Epith Cells 50-100, Urine Bacteria 4+ 04/19/24 16:49 04/19/24 16:49 Orders (Tests/Meds): ED MEDICATIONS Discontinued Medications Generic Name Dose Route Start Last Admin Trade Name Freq PRN Reason Stop Dose Admin Acetaminophen 1,000 mg 04/19/24 16:47 04/19/24 17:01 Acetaminophen 500mg Tab PO 04/19/24 16:48 1,000 mg ONCE ONE Administration Lactated Ringer's 1,000 mls @ 999 mls/hr 04/19/24 16:47 04/19/24 17:00 Lactated Ringer's 1000 Ml Bag IV 04/19/24 17:47 Not Given .Q1H1M ONE Iopamidol 75 ml 04/19/24 17:46 04/19/24 18:24 Iopamidol-370 (76%);100ml Bottle IV 04/19/24 17:47 75 ml ONCE ONE Administration Ketorolac Tromethamine 15 mg 04/19/24 16:47 04/19/24 16:57 Ketorolac 30mg/Ml Vial IV 04/19/24 16:48 Not Given ONCE ONE Metronidazole 500 mg 04/19/24 20:09 04/19/24 20:15 Metronidazole 500 Mg Tablet PO 04/19/24 20:10 500 mg ONCE ONE Administration Ondansetron HCl 4 mg 04/19/24 16:47 04/19/24 16:57 Ondansetron 4mg/2ml Vial IV 04/19/24 16:48 Not Given ONCE ONE Ondansetron HCl 4 mg 04/19/24 20:09 04/19/24 20:14 Ondansetron 4mg Odt SL 04/19/24 20:10 4 mg ONCE ONE Administration Oxycodone HCl 5 mg 04/19/24 20:09 04/19/24 20:15 Oxycodone 5mg Immediate Release Tablet PO 04/19/24 20:10 Not Given ONCE ONE Sodium Chloride 10 ml 04/19/24 17:46 04/19/24 18:24 Sodium Chloride 0.9% 10ml Syr (Rad Only) IV 04/19/24 17:47 10 ml ONCE ONE Administration ORDERS Category Date Time Status CT abdomen pelvis w con Stat Cat Scan 04/19/24 16:47 Completed CBC w/Auto Diff [Complete Blood Count Auto Diff] Stat Lab 04/19/24 16:49 Completed CMP [Comprehensive Metabolic Panel] Stat Lab 04/19/24 16:49 Completed HIV (1&2) Antibody Rapid Stat Lab 04/19/24 16:49 Completed Hep C Ab with Reflex to RNA Stat Lab 04/19/24 16:49 Received Lactic Acid Stat Lab 04/19/24 16:49 Completed Lipase Stat Lab 04/19/24 16:49 Completed Procalcitonin Stat Lab 04/19/24 16:49 Completed Trop I [Troponin I] Stat Lab 04/19/24 16:49 Completed UA [Urinalysis and Microscopic] Stat Lab 04/19/24 17:55 Completed Urine Culture Stat Micro 04/19/24 17:55 Received Medical Decision Narrative: In summary patient is a 83-year-old female who presents to the emergency department for evaluation of left lower quadrant abdominal pain. Patient is dynamically stable upon arrival, afebrile. Physical exam is remarkable for bilateral lower quadrant mild tenderness to palpation but more focally so in the left lower quadrant without rebound or guarding or rigidity. Bowel sounds normal active.. Differential diagnosis includes constipation versus gastroenteritis versus diverticulitis versus kidney stone versus UTI etc. Initial workup will be conducted with hematologic labs urinalysis CT scan abdomen pelvis with contrast. Initial interventions include Tylenol as patient received Toradol prior to arrival via EMS. Initial workup reviewed by me shows that she normal white count with no shift lipase 96 procalcitonin 0.055 urinalysis that is contaminated but does show 3+ leukocyte esterase nitrite negative blood negative microscopic exam showing 5-10 red blood cells too numerous to count white cells 50-100 epithelial cells and 4+ bacteria and my informal interpretation of her CT scan abdomen pelvis shows descending colitis. Upon repeat evaluation patient is tolerating oral intake and her pain is improved. Given this via patient directed discharge patient will be sent home with strict return precautions with prescriptions for Cipro and Flagyl with first dose given here <Daphne N Yanez, DO - Last Filed: 04/19/24 23:43> Jorge A Inquiry Pt receiving controlled substance: Yes Jorge A was queried for this patient: Yes Risks and benefits of using a controlled substance: were discussed with pt by me Vital Signs: 04/19/24 16:44 04/19/24 17:00 04/19/24 17:31 Temperature 97.5 F L Temperature Source Oral Pulse Rate 57 L 53 L Pulse Rate [Left Radial] 57 L Respiratory Rate 12 Blood Pressure 156/76 H 124/59 L Blood Pressure [Right Arm] 149/74 H Blood Pressure Mean 102 80 Blood Pressure Mean [Right Arm] 99 Blood Pressure Source Blood Pressure Position 02 Sat by Pulse Oximetry 95 94 L 94 L Oxygen Delivery Method Room Air Room Air Room Air 04/19/24 18:01 04/19/24 18:30 04/19/24 19:00 Temperature Temperature Source Pulse Rate 57 L 57 L 53 L Pulse Rate [Left Radial] Respiratory Rate Blood Pressure 160/86 H 138/66 154/73 H Blood Pressure [Right Arm] Blood Pressure Mean 95 Blood Pressure Mean [Right Arm] Blood Pressure Source Blood Pressure Position 02 Sat by Pulse Oximetry 97 96 96 Oxygen Delivery Method Room Air Room Air Room Air 04/19/24 19:31 04/19/24 19:45 04/19/24 20:00 Temperature Temperature Source Pulse Rate 53 L 55 L 54 L Pulse Rate [Left Radial] Respiratory Rate Blood Pressure 164/75 H 156/80 H Blood Pressure [Right Arm] Blood Pressure Mean Blood Pressure Mean [Right Arm] Blood Pressure Source Blood Pressure Position 02 Sat by Pulse Oximetry 96 93 L 96 Oxygen Delivery Method 04/19/24 20:24 Temperature 97.9 F Temperature Source Oral Pulse Rate 52 L Pulse Rate [Left Radial] Respiratory Rate 16 Blood Pressure 156/80 H Blood Pressure [Right Arm] Blood Pressure Mean Blood Pressure Mean [Right Arm] Blood Pressure Source Automatic Cuff Blood Pressure Position Sitting 02 Sat by Pulse Oximetry Oxygen Delivery Method Room Air Lab Data Lab Results 04/19/24 16:49: WBC 6.3, RBC 4.22, Hgb 15.0, Hct 44.8, MCV 106.0 H, MCH 35.5 H, MCHC 33.5, RDW 14.0, Plt Count 284, MPV 7.8, Neut % (Auto) 54.8, Lymph % (Auto) 37.0, Maury % (Auto) 3.5, Eos % (Auto) 2.4, Baso % (Auto) 2.2 H, Neut # (Auto) 3.4, Lymph # (Auto) 2.3, Maury # (Auto) 0.2, Eos # (Auto) 0.2, Baso # (Auto) 0.1, Sodium 133 L, Potassium 4.3, Chloride 104, Carbon Dioxide 24, Anion Gap 9.3, BUN 26 H, Creatinine 1.00, Estimated Creat Clear 44, Estimated GFR 53 L, Est GFR ( Amer) 64, Glucose 125 H, Lactate 1.8, Calcium 9.1, Total Bilirubin 1.6 H, AST 89 H, ALT 35, Alkaline Phosphatase 115, Troponin I 0.01, Total Protein 8.1, Albumin 4.6, Globulin 3.5 H, Albumin/Globulin Ratio 1.3, Lipase 96, Procalcitonin 0.055, HIV 1&2 Antibody Rapid Nonreactive 04/19/24 17:55: Urine Color Yellow, Urine Appearance Clear, Urine pH 6.0, Ur Specific [place] 1.025, Urine Protein Negative, Urine Glucose (UA) Negative, Urine Ketones Negative, Urine Blood Negative, Urine Nitrate Negative, Urine Bilirubin Negative, Urine Urobilinogen 0.2, Ur Leukocyte Esterase 3+ A, Urine RBC 5-10, Urine WBC Tntc, Ur Squamous Epith Cells 50-100, Urine Bacteria 4+ Orders (Tests/Meds): ED MEDICATIONS Discontinued Medications Generic Name Dose Route Start Last Admin Trade Name Freq PRN Reason Stop Dose Admin Acetaminophen 1,000 mg 04/19/24 16:47 04/19/24 17:01 Acetaminophen 500mg Tab PO 04/19/24 16:48 1,000 mg ONCE ONE Administration Lactated Ringer's 1,000 mls @ 999 mls/hr 04/19/24 16:47 04/19/24 17:00 Lactated Ringer's 1000 Ml Bag IV 04/19/24 17:47 Not Given .Q1H1M ONE Iopamidol 75 ml 04/19/24 17:46 04/19/24 18:24 Iopamidol-370 (76%);100ml Bottle IV 04/19/24 17:47 75 ml ONCE ONE Administration Ketorolac Tromethamine 15 mg 04/19/24 16:47 04/19/24 16:57 Ketorolac 30mg/Ml Vial IV 04/19/24 16:48 Not Given ONCE ONE Metronidazole 500 mg 04/19/24 20:09 04/19/24 20:15 Metronidazole 500 Mg Tablet PO 04/19/24 20:10 500 mg ONCE ONE Administration Ondansetron HCl 4 mg 04/19/24 16:47 04/19/24 16:57 Ondansetron 4mg/2ml Vial IV 04/19/24 16:48 Not Given ONCE ONE Ondansetron HCl 4 mg 04/19/24 20:09 04/19/24 20:14 Ondansetron 4mg Odt SL 04/19/24 20:10 4 mg ONCE ONE Administration Oxycodone HCl 5 mg 04/19/24 20:09 04/19/24 20:15 Oxycodone 5mg Immediate Release Tablet PO 04/19/24 20:10 Not Given ONCE ONE Sodium Chloride 10 ml 04/19/24 17:46 04/19/24 18:24 Sodium Chloride 0.9% 10ml Syr (Rad Only) IV 04/19/24 17:47 10 ml ONCE ONE Administration ORDERS Category Date Time Status CT abdomen pelvis w con Stat Cat Scan 04/19/24 16:47 Completed CBC w/Auto Diff [Complete Blood Count Auto Diff] Stat Lab 04/19/24 16:49 Completed CMP [Comprehensive Metabolic Panel] Stat Lab 04/19/24 16:49 Completed HIV (1&2) Antibody Rapid Stat Lab 04/19/24 16:49 Completed Hep C Ab with Reflex to RNA Stat Lab 04/19/24 16:49 Received Lactic Acid Stat Lab 04/19/24 16:49 Completed Lipase Stat Lab 04/19/24 16:49 Completed Procalcitonin Stat Lab 04/19/24 16:49 Completed Trop I [Troponin I] Stat Lab 04/19/24 16:49 Completed UA [Urinalysis and Microscopic] Stat Lab 04/19/24 17:55 Completed Urine Culture Stat Micro 04/19/24 17:55 Received ECG Data Tracing #1: I reviewed this ECG and interpreted as documented below: Sinus bradycardia with a ventricular rate of [address] changes concerning for ischemic change. Left axis deviation noted. Incomplete right bundle branch block noted. ECG initial impression date: 04/19/24 ECG initial impression time: 16:53 Critical Care <DANE Hernandez - Last Filed: 04/19/24 22:01> Critical Care Time Critical Care Time: No
--- NOTE | 2024-04-19 16:47 | CT_ITS ---
PROCEDURE INFORMATION: Exam: CT Abdomen And Pelvis With Contrast Exam date and time: 04/19/2024 6:20 PM Age: 83 years old Clinical indication: Abdominal pain; Additional info: Left lower quadrant abdominal pain TECHNIQUE: Imaging protocol: Computed tomography of the abdomen and pelvis with contrast. Radiation optimization: All CT scans at this facility use at least one of these dose optimization techniques: automated exposure control; mA and/or kV adjustment per patient size (includes targeted exams where dose is matched to clinical indication); or iterative reconstruction. Contrast material: ISOVUE; Contrast volume: 75 ml; Contrast route: IV; COMPARISON: CT ABDOMEN W CON 11/24/2022 9:01 AM FINDINGS: Tubes, catheters and devices: Bilateral hip arthroplasty devices in place producing streak artifact limiting evaluation in the pelvis. Pessary in place. Liver: Simple cysts involving the liver. Gallbladder and biliary ducts: Normal. No calcified stones. No ductal dilation. Pancreas: Normal. No ductal dilation. Spleen: Normal. No splenomegaly. Adrenal glands: Normal. No mass. Kidneys and ureters: Multiple parapelvic cysts involving bilateral kidneys. No hydronephrosis. Stomach and bowel: There is liquefied stool and solid stool scattered throughout the colon and mild wall thickening of the descending colon concerning for colitis Appendix: No evidence of appendicitis. Intraperitoneal space: Unremarkable. No free air. No significant fluid collection. Vasculature: Arthrosclerotic calcifications in the aorta. Lymph nodes: Unremarkable. No enlarged lymph nodes. Urinary bladder: Unremarkable as visualized. Reproductive: Unremarkable as visualized. Bones/joints: Degenerative changes in the lumbar spine. No acute fracture. Soft tissues: Unremarkable. IMPRESSION: There is liquefied stool and solid stool scattered throughout the colon and mild wall thickening of the descending colon concerning for colitis COMMENTS: Consistent with the [employer]'s Incidental Findings Committee white paper (J Am Jourdan Radiol 2018): Any incidental renal lesion less than 1 cm or classified as too small to characterize, or any incidental cystic renal lesion characterized as simple-appearing, is likely benign. No follow-up imaging is recommended for these lesions per consensus recommendations based on imaging criteria.
--- NOTE | 2024-04-19 16:52 | ECG_ITS ---
APPROVED REPORT Exam: Resting ECG HR:55 bpm ECG Measurements Heart Rate 55 AXES MA 220 P 75 QRSd 110 QRS -67 QT 473 T 64 QTc 461 Conclusion SINUS BRADYCARDIA WITH FIRST DEGREE AV BLOCK LEFT AXIS DEVIATION [QRS AXIS < -30] INCOMPLETE RIGHT BUNDLE BRANCH BLOCK [90+ ms QRS DURATION, TERMINAL R IN V1/V2, 40+ ms S IN I/aVL/V4/V5/V6] SEPTAL MYOCARDIAL INFARCTION , OF INDETERMINATE AGE [40+ ms Q WAVE IN V1/V2] ABNORMAL ECG UNCONFIRMED REPORT Electronically signed by : TESHA FERNANDEZ, 04/20/2024 00:17:33
[2024-04-19] MEDS: ACETAMINOPHEN 500MG TAB 1000 MG PO (17:01)
--- OUTSIDE RECORDS SUMMARY | 2024-04-19 17:05 | XMS_ITS ---
Care Plan - [facility], [facility] Created on: April 19, 2024 MileyOliveElyse A .0 : 1940 Sex: Female Author Organization [facility] Address [address] [place] [address] Phone Care Team Providers Care Legal Records Clerk Name Role Phone Haley SURESH, Steve Kessler Unavailable [phone] DANYELL SURESH, LARISA Cohen Primary Care Provider [phone]
--- OUTSIDE RECORDS SUMMARY | 2024-04-19 17:06 | XMS_ITS | Clinical Summary ---
Author Organization [facility] , [facility] Address [address] [place] [address] Phone Care Team Providers Care Loan Servicing Officer Name Role Phone Haley SURESH, Steve Kessler Unavailable [phone] LARISA CHILD MD Primary Care Provider [phone] Reason for Visit and Chief Complaint The Chief Complaint is: left hip pain Problems Includes: Problems addressed during this encounter and other active Problems All Visits Onset Date Resolved Date Provider Condition S tatus Joint Pain in the Left Hip 01/16/2022 Luciana Goodrich PA-C Active Last Documented On 2 1:13PM ; [facility] Plan of Treatment No Plan of Treatment [...] - Last Documented On 11/13/2016 3:38PM ; [facility], [facility] Physical exam: Examination of the left hip [...] - Last Documented On 11/13/2016 3:38PM ; [facility], [facility] Radiographs: AP and lateral x-rays of the [...] - Last Documented On 11/13/2016 3:38PM ; [facility], [facility] Impression: Polyethylene wear left total hip arthroplasty. A volar avulsion fractures of the tip of the greater trochanter interposed in the abductor tendon. - Last Documented On 11/13/2016 3:38PM ; [facility], [facility] Plan: Recommend revision of the polyethylene liner. [...] - Last Documented On 11/13/2016 3:38PM ; [facility], [facility] patient was seen today with Dr. De Leon,.We will review the patient's history and physical findings. Treatment plan was also agreed upon. - Last Documented On 11/13/2016 3:38PM ; [facility], [facility] Medical Equipment - Implanted Devices Includes: Current Devices No Medical Equipment Recorded Medications Includes: Medications discussed during this encounter and other current Medications Current Medications (continue as prescribed) Lipitor 10 MG Oral Tablet 01/16/2022 Provider: Diagnosis: Last Documented On 2 1:36PM By Low Mccarthy [facility] traMADol HCl ER 100 MG Oral Capsule Extended Rel ease 24 Hour 01/16/2022 Provider: Diagnosis: Last Documented On 2 1:35PM By Low Talbert ; [facility], [facility] Past Medications on file Percocet 7.5-325 MG OR TABS 04/24/2016 - 05/04/2016 Pr ovider: Steve De Leon MD Diagnosis: Last Documented On 6 2:15PM By Cally Persons ; [facility], [facility] Lovenox 30 MG/0.3ML Solution 04/24/2016 - 05/01/2016 Provider: Steve De Leon MD Diagnosis: Aftercare follow ing joint replacement surgery use as directed 1 injection per day for 7 days after total joint Last Documented On 6 2:09PM By Cally Persons ; [facility], [facility] Bactrim DS 800-160 MG Tablet 04/23/2016 - 04/28/2016 Provider: Steve De Leon MD Diagnosis: Unilateral prima ry osteoarthritis, right knee twice a day Last Documented On 6 10:59AM By Cally Persons ; [facility], [facility] Nabumetone 500 MG OR TABS 01/23/2014 - 02/22/2014 Provider: Steve De Leon MD Diagnosis: JOINT PAIN-PELVI S kb Last Documented On 4 10:38AM By Graham 5 User ; [facility], [facility] Lortab 5-500 MG OR TABS 01/28/2007 - 02/02/2007 Provid er: Steve De Leon MD Diagnosis: [phone] Last Documented On 7 2:32PM By Brittani Rodriguez ; [facility], [facility] Lortab 5-500 MG OR TABS 12/13/2006 - 12/19/2006 Provid er: Claudine Arellano MD Diagnosis: jaf Last Documented On 7 2:55PM By Graham 1 User ; [facility], [facility] Naprosyn 375 MG OR TABS 02/10/2006 - 03/12/2006 Provid er: Steve De Leon MD Diagnosis: 1 po bid with food Last Documented On 6 4:24PM By Graham 1 User ; [facility], [facility] Medications Administered Includes: Administered Medications from this encounter No Administered Medications Recorded Vital Signs Includes: Vital Signs from this encounter Vital Name 11/03/2016 11:27A Blood Pressure Sitting (mmHg) 141/68 Pulse Rate-Sitting (bpm) 59 Height (in) 65 Weight (lb) 150 Body Mass Index (kg/m2) 25.0 Body Surface Area (m2) 1.8 Note: arw Last Documented: On 11/03/2016 11:31A M ; [facility], [facility] Results Includes: Results discussed during this encounter No Results Recorded For Specified Dates History of Present Illness Includes: History of Present Illness from this encounter HPI Elyse Trent is a 76 year old female. - Medication list reviewed with patient. Social History Description Last Updated Caffeine use 01/16/2022 Last Documented On 7 11:27AM ; [facility] Not exercising regularly 01/16/2022 Last Documented On 7 11:27AM ; [facility], [facility] Not using alcohol 01/16/2022 Last Documented On 7 11:27AM ; [facility], [facility] Not using drugs 01/16/2022 Last Documented On 7 11:27AM ; [facility], [facility] No recent change in diet 04/17/2015 Last Documented On 7 11:27AM ; [facility], [facility] Not a current smoker 04/17/2015 Last Documented On 7 11:27AM ; [facility], [facility] No tobacco use 05/25/2013 Last Documented On 7 11:27AM ; [facility], [facility] Smoking status : Never smoked/ Recode: 4 05/25/2013 Last Documented On 7 11:27AM ; [facility], [facility] Procedures and Surgical History Includes: Procedures from this encounter Procedures Code Diagnosis Performing Provider Service L ocation Service Date Clinical summary provided to patient Last Documented On 7 11:27AM ; [facility], [facility] Surgical History Last Updated History of total hip replacement 017 Last Documented On 7 3:38PM ; [facility], [facility] Medical History Includes: Medical History addressed during this encounter Description Last Updated A recent immunization for pneumococcal p neumonia 2015 11/03/2016 Last Documented On 7 3:38PM ; [facility], [facility] Arthritic joint problems 11/03/2016 Last Documented On 7 3:38PM ; [facility], [facility] History of gastric ulcer 11/03/2016 Last Documented On 7 3:38PM ; [facility] History of osteoporosis 11/03/2016 Last Documented On 7 3:38PM ; [facility] Family History Includes: Family History addressed during this encounter Description Last Updated Family history of osteoporosis mother Last Documented On 7 3:38PM ; [facility] Family history of rheumatoid arthritis m other 11/03/2016 Last Documented On 7 3:38PM ; [facility] Review of Systems Includes: Review of Systems [...] ctive Last Documented On 01/16/2022 1:14PM ; [facility] Note: patient had an outbreak with sulfa drugs, but is currently on arthritis medicine that contains sulfa//mmh Morphine Derivatives Allergy 12/21/2006 Active Last Documented On 2 1:14PM ; [facility] Encounters Encounter Provider Location Date Check-In Time Check- Out Time Diagnosis Follow Up Steve De Leon MD [facility] 7 10:27AM 12:16PM Insurance Includes: Active Insurance Policies Plan Name Member ID Group # Subscriber Relationship Effect andrey Dates 1 - Medicare Part B [facility] [id number] Elyse Trent Self 05/05/20 05 - Unknown 2 - [employer] [id number] PLAN F Elyse Trent Self 3 - Unknown Clinical Notes Includes: Clinical Notes from this encounter No Clinical Notes Recorded
--- OUTSIDE RECORDS SUMMARY | 2024-04-19 17:06 | XMS_ITS | Clinical Summary ---
Author Organization [facility] Address [address] [address] Phone Care Team Providers Care Vocational Nurse Lvn Name Role Phone Haley SURESH, Steve Kessler Unavailable [phone] LARISA CHILD MD Primary Care Provider [phone] Reason for Visit and Chief Complaint The Chief Complaint is: 1st postop right knee replacement Problems Includes: Problems addressed during this encounter and other active Problems All Visits Onset Date Resolved Date Provider Condition S tatus Joint Pain in the Left Hip 01/16/2022 Luciana Goodrich PA-C Active Last Documented On 1:13PM ; [facility] Plan of Treatment No Plan of Treatment Recorded Assessments Includes: Assessments from this encounter Findings Ms. Trent is doing very well following her recent total knee arthroplasty. Her wound healed very nicely. She, of course, does not need any suture removal. - Last Documented On 05/20/2016 4:43PM ; [facility] Her knee is slightly warm and also very slightly erythematous. I explained to her that this is a normal finding 2 weeks after a TKA - Last Documented On 05/20/2016 4:43PM ; [facility] She has approximately 100? of flexion, full extension and a stable knee. - Last Documented On 05/20/2016 4:43PM ; [facility] X-ray shows the prosthesis to be in good position. - Last Documented On 05/20/2016 4:43PM ; [facility] A new sterile dressing was applied, and she is to return to see me again 6 weeks - Last Documented On 05/20/2016 4:43PM ; [facility] Medical Equipment - Implanted Devices Includes: Current Devices No Medical Equipment Recorded Medications Includes: Medications discussed during this encounter and other current Medications Current Medications (continue as prescribed) Lipitor 10 MG Oral Tablet 01/16/2022 Provider: Diagnosis: Last Documented On 2 1:36PM By Low Talbert ; [facility] traMADol HCl ER 100 MG Oral Capsule Extended Rel ease 24 Hour 01/16/2022 Provider: Diagnosis: Last Documented On 2 1:35PM By Low Talbert ; [facility] Past Medications on file Percocet 7.5-325 MG OR TABS 04/24/2016 - 05/04/2016 Pr ovider: Steve De Leon MD Diagnosis: Last Documented On 6 2:15PM By Cally Persons ; [facility] Lovenox 30 MG/0.3ML Solution 04/24/2016 - 05/01/2016 Provider: Steve De Leon MD Diagnosis: Aftercare follow ing joint replacement surgery use as directed 1 injection per day for 7 days after total joint Last Documented On 6 2:09PM By Cally Persons ; [facility] Bactrim DS 800-160 MG Tablet 04/23/2016 - 04/28/2016 Provider: Steve De Leon MD Diagnosis: Unilateral prima ry osteoarthritis, right knee twice a day Last Documented On 6 10:59AM By Cally Persons ; [facility] Nabumetone 500 MG OR TABS 01/23/2014 - 02/22/2014 Provider: Steve De Leon MD Diagnosis: JOINT PAIN-PELVI S kb Last Documented On 4 10:38AM By Stevenson 5 User ; [facility] Lortab 5-500 MG OR TABS 01/28/2007 - 02/02/2007 Provid er: Steve De Leon MD Diagnosis: [phone] df Last Documented On 7 2:32PM By Brittani Rodriguez ; [facility] Lortab 5-500 MG OR TABS 12/13/2006 - 12/19/2006 Provid er: Claudine Arellano MD Diagnosis: jaf Last Documented On 7 2:55PM By Stevenson 1 User ; [facility] Naprosyn 375 MG OR TABS 02/10/2006 - 03/12/2006 Provid er: Steve De Leon MD Diagnosis: 1 po bid with food Last Documented On 6 4:24PM By Stevenson 1 User ; [facility] Medications Administered Includes: Administered Medications from this encounter No Administered Medications Recorded Vital Signs Includes: Vital Signs from this encounter Vital Name 05/12/2016 03:59P Height (in) 65 Weight (lb) 150 Body Mass Index (kg/m2) 25.0 Body Surface Area (m2) 1.8 Last Documented: On 05/12/2016 3:59PM ; [facility] Results Includes: Results discussed during this encounter No Results Recorded For Specified Dates History of Present Illness Includes: History of Present Illness from this encounter HPI Elyse Trent is a 75 year old female. - Medication list reviewed with patient. Social History Description Last Updated Caffeine use 01/16/2022 Last Documented On 6 3:59PM ; [facility] Not exercising regularly 01/16/2022 Last Documented On 6 3:59PM ; [facility] Not using alcohol 01/16/2022 Last Documented On 6 3:59PM ; [facility] Not using drugs 01/16/2022 Last Documented On 6 3:59PM ; [facility] No recent change in diet 04/17/2015 Last Documented On 6 3:59PM ; [facility] Not a current smoker 04/17/2015 Last Documented On 6 3:59PM ; [facility] No tobacco use 05/25/2013 Last Documented On 6 3:59PM ; [facility] Smoking status : Never smoked/ Recode: 4 05/25/2013 Last Documented On 6 3:59PM ; [facility] Procedures and Surgical History Includes: Procedures from this encounter Procedures Code Diagnosis Performing Provider Service L ocation Service Date Clinical summary provided to patient Last Documented On 6 3:59PM ; [facility] history of an X-ray was performed 03/2016 [address]7712 Last Documented On 6 3:59PM ; [facility] Surgical History Last Updated History of total hip replacement 016 Last Documented On 6 4:43PM ; [facility] Medical History Includes: Medical History addressed during this encounter Description Last Updated A recent immunization for pneumococcal p neumonia 2015 05/12/2016 Last Documented On 6 4:43PM ; [facility] Arthritic joint problems 05/12/2016 Last Documented On 6 4:43PM ; [facility] History of gastric ulcer 05/12/2016 Last Documented On 6 4:43PM ; [facility] History of osteoporosis 05/12/2016 Last Documented On 6 4:43PM ; [facility] Family History Includes: Family History addressed during this encounter Description Last Updated Family history of osteoporosis mother Last Documented On 6 4:43PM ; [facility] Family history of rheumatoid arthritis m other 05/12/2016 Last Documented On 6 4:43PM ; [facility] Review of Systems Includes: Review of [...] ctive Last Documented On 01/16/2022 1:14PM ; [facility] Note: patient had an outbreak with sulfa drugs, but is currently on arthritis medicine that contains sulfa//mmh Morphine Derivatives Allergy 12/21/2006 Active Last Documented On 2 1:14PM ; [facility] Encounters Encounter Provider Location Date Check-In Time Check- Out Time Diagnosis Post Op Steve De Leon MD [facility] 6 2:53PM 11:59PM Insurance Includes: Active Insurance Policies Plan Name Member ID Group # Subscriber Relationship Effect andrey Dates 1 - Medicare Part B [facility] [id number] Elyse Trent Self 05/05/20 05 - Unknown 2 - [employer] [id number] PLAN F Elyse [place] Self 3 - Unknown Clinical Notes Includes: Clinical Notes from this encounter No Clinical Notes Recorded
--- OUTSIDE RECORDS SUMMARY | 2024-04-19 17:06 | XMS_ITS | Clinical Summary ---
Author Organization [facility] Address [address] [place] [address] Phone Care Team Providers Care Heavy Equipment Service Manager Name Role Phone Haley SURESH, Steve Kessler Unavailable [phone] LARISA CHILD MD Primary Care Provider [phone] Reason for Visit and Chief Complaint [facility] Problems Includes: Problems addressed during this encounter and other active Problems All Visits Onset Date Resolved Date Provider Condition S tatus Joint Pain in the Left Hip 01/16/2022 Luciana Goodrich PA-C Active Last Documented On 2 1:13PM ; [facility] Plan of Treatment No Plan of Treatment Recorded Assessments Includes: Assessments from this encounter No Assessments Recorded Medical Equipment - Implanted Devices Includes: Current Devices No Medical Equipment Recorded Medications Includes: Medications discussed during this encounter and other current Medications Current Medications (continue as prescribed) Lipitor 10 MG Oral Tablet 01/16/2022 Provider: Diagnosis: Last Documented On 2 1:36PM By Low Mccarthy [facility] traMADol HCl ER 100 MG Oral Capsule Extended Rel ease 24 Hour 01/16/2022 Provider: Diagnosis: Last Documented On 2 1:35PM By Low Mccarthy [facility] Medications Administered Includes: Administered Medications [...] ctive Last Documented On 01/16/2022 1:14PM ; [facility] Note: patient had an outbreak with sulfa drugs, but is currently on arthritis medicine that contains sulfa//mmh Morphine Derivatives Allergy 12/21/2006 Active Last Documented On 2 1:14PM ; [facility] Encounters Encounter Provider Location Date Check-In Time Check-Out Time Diagnosis [facility] Steve De Leon MD Surgery 04/27/2016 8:37AM 11:59PM Insurance Includes: Active Insurance Policies Plan Name Member ID Group # Subscriber Relationship Effect andrey Dates 1 - Medicare Part B [facility] [id number] Elyse Trent Self 05/05/20 05 - Unknown 2 - [employer] [id number] PLAN F Elyse Trent Self 3 - Unknown Clinical Notes Includes: Clinical Notes from this encounter No Clinical Notes Recorded
--- OUTSIDE RECORDS SUMMARY | 2024-04-19 17:06 | XMS_ITS | Clinical Summary ---
Author Organization [facility] , [facility] Address [address] [place] [address] Phone Care Team Providers Care Cost And Risk Analysis Manager Name Role Phone Haley SURESH, Steve Kessler Unavailable [phone] LARISA CHILD MD Primary Care Provider [phone] Reason for Visit and Chief Complaint The Chief Complaint is: discuss rt knee SX Problems Includes: Problems addressed during this encounter and other active Problems All Visits Onset Date Resolved Date Provider Condition S tatus Joint Pain in the Left Hip 01/16/2022 Luciana Goodrich PA-C Active Last Documented On 2 1:13PM ; [facility] Plan of Treatment No Plan of Treatment Recorded Assessments Includes: Assessments from this encounter Findings Ms. Trent returns for reassessment of her right knee. She has end stage osteoarthritis of the knee with a valgus position of approximately 19-20 degrees. - Last Documented On 05/21/2016 4:08PM ; [facility] She is scheduled for total knee replacement in 5 days. 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 of valgus. This will require some more, ligament as well. - Last Documented On 05/21/2016 4:08PM ; [facility] X-rays show significant osteoarthritic knee with valgus of over 15? - Last Documented On 05/21/2016 4:08PM ; [facility], [facility] I explained all this to her today. We also discussed the need to go off her anti-inflammatory medication starting tomorrow. - Last Documented On 05/21/2016 4:08PM ; [facility], [facility] Estimated surgery scheduled for Wednesday 5 days - Last Documented On 05/21/2016 4:08PM ; [facility] Medical Equipment - Implanted Devices Includes: Current Devices No Medical Equipment Recorded Medications Includes: Medications discussed during this encounter and other current Medications Current Medications (continue as prescribed) Lipitor 10 MG Oral Tablet 01/16/2022 Provider: Diagnosis: Last Documented On 2 1:36PM By Low Talbert ; [facility], [facility] traMADol HCl ER 100 MG Oral Capsule Extended Rel ease 24 Hour 01/16/2022 Provider: Diagnosis: Last Documented On 2 1:35PM By Low Talbert ; [facility], [facility] Past Medications on file Percocet 7.5-325 MG OR TABS 04/24/2016 - 05/04/2016 Pr ovider: Steve De Leon MD Diagnosis: Last Documented On 6 2:15PM By Cally Novel Super[employer] ; [facility] Lovenox 30 MG/0.3ML Solution 04/24/2016 - 05/01/2016 Provider: Steve De Leon MD Diagnosis: Aftercare follow ing joint replacement surgery use as directed 1 injection per day for 7 days after total joint Last Documented On 6 2:09PM By Cally Novel [employer] ; [facility] Bactrim DS 800-160 MG Tablet 04/23/2016 - 04/28/2016 Provider: Steve De Leon MD Diagnosis: Unilateral prima ry osteoarthritis, right knee twice a day Last Documented On 6 10:59AM By Cally Ferreira ; [facility], [facility] Nabumetone 500 MG OR TABS 01/23/2014 - 02/22/2014 Provider: Steve De Leon MD Diagnosis: JOINT PAIN-PELVI S kb Last Documented On 4 10:38AM By Stevenson 5 User ; [facility] Lortab 5-500 MG OR TABS 01/28/2007 - 02/02/2007 Provid er: Steve De Leon MD Diagnosis: [phone] df Last Documented On 7 2:32PM By Brittani Rodriguez ; [facility] Lortab 5-500 MG OR TABS 12/13/2006 - 12/19/2006 Provid er: Claudine Arellano MD Diagnosis: jaf Last Documented On 7 2:55PM By Stevenson 1 User ; [facility] Naprosyn 375 MG OR TABS [...] Last Documented: On 04/22/2016 11:39A M ; [facility] Results Includes: Results discussed during [...] On 6 11:35AM ; [facility] No recent change in diet 04/17/2015 Last Documented On 6 11:35AM ; [facility] Not a current smoker 04/17/2015 Last Documented On 6 11:35AM ; [facility], [facility] No tobacco use 05/25/2013 Last Documented On 6 11:35AM ; [facility], [facility] Smoking status : Never smoked/ Recode: 4 05/25/2013 Last Documented On 6 11:35AM ; [facility], [facility] Procedures and Surgical History Includes: Procedures from this encounter Procedures Code Diagnosis Performing Provider Service L ocation Service Date Clinical summary provided to patient Last Documented On 6 11:36AM ; [facility], [facility] history of an X-ray was performed 03/2016 43612 Last Documented On 6 11:36AM ; [facility], [facility] Surgical History Last Updated History of total hip replacement 016 Last Documented On 6 4:08PM ; [facility], [facility] Medical History Includes: Medical History addressed during this encounter Description Last Updated A recent immunization for pneumococcal p neumonia 2015 04/22/2016 Last Documented On 6 4:08PM ; [facility], [facility] Arthritic joint problems 04/22/2016 Last Documented On 6 4:08PM ; [facility], [facility] History of gastric ulcer 04/22/2016 Last Documented On 6 4:08PM ; [facility], [facility] History of osteoporosis 04/22/2016 Last Documented On 6 4:08PM ; [facility], [facility] Family History Includes: Family History addressed during this encounter Description Last Updated Family history of osteoporosis mother Last Documented On 6 4:08PM ; [facility], [facility] Family history of rheumatoid arthritis m other 04/22/2016 Last Documented On 6 4:08PM ; [facility], [facility] Review of Systems Includes: Review of [...] ctive Last Documented On 01/16/2022 1:14PM ; [facility] Note: patient had an outbreak with sulfa drugs, but is currently on arthritis medicine that contains sulfa//mmh Morphine Derivatives Allergy 12/21/2006 Active Last Documented On 2 1:14PM ; [facility] Encounters Encounter Provider Location Date Check-In Time Check- Out Time Diagnosis Follow Up Steve De Leon MD [facility] 6 10:48AM 12:03PM Insurance Includes: Active Insurance Policies Plan Name Member ID Group # Subscriber Relationship Effect andrey Dates 1 - Medicare Part B [facility] [id number] Elysejuma Batistane Self 05/05/20 05 - Unknown 2 - [employer] [id number] PLAN F Elyse A Miley Self 3 - Unknown Clinical Notes Includes: Clinical Notes from this encounter No Clinical Notes Recorded
[2024-04-19 17:19] LABS: Basophils # 0.1 K/mm3 (0-0.2); Basophils % 2.2 % (0.1-2.0); Eosinophils # 0.2 K/mm3 (0.0-0.4); Eosinophils % 2.4 % (0.1-12.0); Hematocrit 44.8 % (37.0-47.0); Lymphocytes # 2.3 K/mm3 (0.7-4.5); Mean Corpuscular HGB Conc 33.5 g/dL (31.8-35.4); Mean Corpuscular Hemoglobin 35.5 pg (27.0-31.2); Mean Platelet Volume 7.8 fl (7.4-10.4); Monocytes # 0.2 K/mm3 (0.1-1.0); Monocytes % 3.5 % (1.7-9.3); Neutrophils # 3.4 K/mm3 (1.8-7.8); Neutrophils % 54.8 % (37.0-80.0); Platelet Count 284 K/mm3 (142-424); Red Blood Count 4.22 M/mm3 (4.20-5.40); White Blood Count 6.3 K/mm3 (4.8-10.8)
[2024-04-19 17:21] LABS: Alanine Aminotransferase 35 U/L (12-78); Albumin Level 4.6 g/dl (3.5-5.0); Albumin/Globulin Ratio 1.3 (1.1-1.8); Alkaline Phosphatase 115 U/L (38-126); Aspartate Amino Transferase 89 U/L (14-36); Bilirubin,Total 1.6 mg/dl (0.2-1.3); Blood Urea Nitrogen 26 mg/dl (7-17); Calcium 9.1 mg/dl (8.4-10.2); Carbon Dioxide 24 mmol/L (22.0-30.0); Chloride 104 mmol/L (98-107); Creatinine Clearance Estimated 44 mL/min (50-200); Estimated Glomerular Filt Rate 53 ml/min (>60); GFR (African American) 64 ML/MIN (>60); Globulin 3.5 g/dL (1.3-3.2); Glucose 125 mg/dl (74-100); Lactic Acid 1.8 mmol/L (0.7-2.1); Lipase 96 U/L (23-300); Sodium 133 mmol/L (136-145); Total Protein,Serum 8.1 g/dl (6.3-8.2)
[2024-04-19 17:38] LABS: Procalcitonin 0.055 ng/mL (0.0-2.0); Troponin I 0.01 ng/ml (0.00-0.034)
[2024-04-19 17:54] LABS: Anion Gap 9.3 mEq/L (5-15); Potassium 4.3 mmoL/L (3.5-5.1)
[2024-04-19 18:04] LABS: Microscopic, Urine URINE MICROSCOPIC (MICROSCOPIC)
[2024-04-19 18:09] LABS: Appearance,Urine CLEAR (Clear); Bilirubin,Urine Negative (Negative); Blood, Urine Negative (Negative); Color,Urine YELLOW (Yellow); Glucose,Urine (UA) Negative (Negative); Ketones,Urine Negative (Negative); Leukocyte Esterase,Urine 3+ (Negative); Nitrate,Urine Negative (Negative); Protein,Urine Negative (Negative); Specific Gravity, Urine 1.025 (1.005-1.030); Urobilinogen,Urine 0.2 EU/dl (0.2)
[2024-04-19 18:13] LABS: HIV (1&2) Antibody Rapid NONREACTIVE (NONREACTIVE)
[2024-04-19] MEDS: SODIUM CHLORIDE 0.9% 10ML SYR (RAD ONLY) 10 ML IV (18:24)
[2024-04-19] MEDS: IOPAMIDOL-370 (76%);100ML BOTTLE 75 ML IV (18:24)
[2024-04-19 18:58] LABS: Bacteria,Urine 4+ /lpf; Squamous Epithelial Cell,Urine 50-100 #/hpf (0-5); WBC,Urine TNTC #/hpf (0-3)
[2024-04-19] MEDS: ONDANSETRON 4MG ODT 4 MG SL (20:14)
[2024-04-19] MEDS: metroNIDAZOLE 500 MG TABLET PO (20:15)
== END 2024-04-19 20:28 | disposition home or self-care (01) ==
PROVIDERS: Physician Assistant; Emergency Provider Emergency Medicine; PCP Nurse Practitioner Family
DX: N39.0 Urinary tract infection, site not specified (principal); K51.90 Ulcerative colitis, unspecified, without complications
CPT/HCPCS: 74177; 80053; 81001; 83605; 83690; 84145; 84484; 85025; 87086; 87389; 93005; 96361; 96374; 96375; 99285; J1885; J2405; Q0162; Q9967

== ENCOUNTER 2024-07-19 09:42 | Outpatient (CLI) | payer MEDICARE, OTHER, SELFPAY ==
[2024-07-19 13:35] LABS: Coronavirus 19, PCR Not Detected (NotDetected); Human Rhinovirus Not Detected (NotDetected); Influenza A, PCR Not Detected (NotDetected); Influenza B, PCR Not Detected (NotDetected); Respiratory Syncytial Virus Not Detected (NotDetected)
== END 2024-07-19 23:59 | disposition home or self-care (01) ==
LOC: LAB.DROPOF 07-20 09:42
PROVIDERS: PCP Nurse Practitioner Family; Visit Provider Nurse Practitioner Family
DX: R05.1 Acute cough (principal)
CPT/HCPCS: 87631

== ENCOUNTER 2024-09-27 11:55 | Outpatient (CLI) | payer MEDICARE, OTHER, SELFPAY ==
[2024-09-27 12:59] LABS: Eosinophils # 0.1 K/mm3 (0.0-0.4); Eosinophils % 1.2 % (0.1-12.0); Hematocrit 45.9 % (37.0-47.0); Hemoglobin 15.7 g/dL (12.2-16.2); Lymphocytes # 1.2 K/mm3 (0.7-4.5); Lymphocytes % 17.8 % (10-50); Mean Corpuscular HGB Conc 34.2 g/dL (31.8-35.4); Mean Corpuscular Volume 102.5 fl (81-99); Mean Platelet Volume 10.2 fl (7.4-10.4); Monocytes # 0.3 K/mm3 (0.1-1.0); Monocytes % 4.6 % (1.7-9.3); Neutrophils # 5.2 K/mm3 (1.8-7.8); Neutrophils % 76.1 % (37.0-80.0); Platelet Count 222 K/mm3 (142-424); Red Blood Count 4.48 M/mm3 (4.20-5.40); Red Cell Distribution Width 13.4 % (11.5-17.5); White Blood Count 6.8 K/mm3 (4.8-10.8)
[2024-09-27 13:30] LABS: Alanine Aminotransferase 32 U/L (12-78); Albumin Level 4.6 g/dl (3.5-5.0); Albumin/Globulin Ratio 1.6 (1.1-1.8); Alkaline Phosphatase 70 U/L (38-126); Anion Gap 13.5 mEq/L (5-15); Aspartate Amino Transferase 49 U/L (14-36); Bilirubin,Total 1.3 mg/dl (0.2-1.3); Blood Urea Nitrogen 16 mg/dl (7-17); Calcium 9.8 mg/dl (8.4-10.2); Carbon Dioxide 30 mmol/L (22.0-30.0); Chloride 95 mmol/L (98-107); Chol/HDL Ratio 2.9 (1-3.5); Cholesterol 185 mg/dl (140-200); Estimated Glomerular Filt Rate 80 ml/min (>60); GFR (African American) 96 ML/MIN (>60); Globulin 2.8 g/dL (1.3-3.2); Glucose 87 mg/dl (74-100); HDL Cholesterol 64 mg/dl (40-60); Magnesium 2.2 mg/dl (1.6-2.3); Potassium 4.5 mmoL/L (3.5-5.1); Sodium 134 mmol/L (136-145); Total Protein,Serum 7.4 g/dl (6.3-8.2); Triglycerides 72 mg/dl (30-150); VLDL Cholesterol 14 mg/dL (0-40)
[2024-09-27 13:41] LABS: Direct LDL Cholesterol 85.02 mg/dL (100-129)
[2024-09-27 14:00] LABS: Thyroid Stimulating Hormone 2.41 uIU/mL (0.465-4.68)
[2024-09-27 14:13] LABS: T4 (Thyroxine) 12.7 ug/dl (5.53-11.0)
[2024-09-27 14:19] LABS: Vitamin B12 555 pg/mL (239-931)
[2024-09-27 14:54] LABS: Ferritin 224 ng/ml (11.1-264)
[2024-09-27 15:21] LABS: Free T4 (Free Thyroxine) 1.52 ng/dl (0.78-2.19)
[2024-09-27 23:17] LABS: Hemoglobin A1C 4.9 % (4.0-6.0)
[2024-09-28 11:24] LABS: Triiodothyronine (T3) Free 3.2 pg/mL (2.0-4.4)
== END 2024-09-27 23:59 | disposition home or self-care (01) ==
LOC: LAB.DROPOF 14:12
PROVIDERS: PCP Nurse Practitioner Family; Visit Provider Nurse Practitioner Family
DX: D64.9 Anemia, unspecified (principal); E03.9 Hypothyroidism, unspecified; R73.9 Hyperglycemia, unspecified; I10 Essential (primary) hypertension; N39.0 Urinary tract infection, site not specified; R35.0 Frequency of micturition; R30.0 Dysuria; F51.02 Adjustment insomnia; F03.A0 Unspecified dementia, mild, without behavioral disturbance, psychotic disturbance, mood disturbance, and anxiety
CPT/HCPCS: 80053; 80061; 82607; 82728; 83036; 83735; 84436; 84439; 84443; 84481; 85025; 87086

== ENCOUNTER 2024-10-17 15:40 | Outpatient (CLI) | payer MEDICARE, OTHER, SELFPAY ==
[2024-10-17 17:45] LABS: Basophils % 0.1 % (0.1-2.0); Eosinophils # 0.1 K/mm3 (0.0-0.4); Eosinophils % 0.8 % (0.1-12.0); Hemoglobin 15.3 g/dL (12.2-16.2); Lymphocytes # 1.3 K/mm3 (0.7-4.5); Mean Corpuscular HGB Conc 33.3 g/dL (31.8-35.4); Mean Corpuscular Hemoglobin 34.3 pg (27.0-31.2); Mean Corpuscular Volume 103.1 fl (81-99); Mean Platelet Volume 10.3 fl (7.4-10.4); Monocytes # 0.7 K/mm3 (0.1-1.0); Monocytes % 9.3 % (1.7-9.3); Neutrophils # 5.3 K/mm3 (1.8-7.8); Neutrophils % 71.7 % (37.0-80.0); Nucleated Red Blood Cells # 0 10^3/uL; Nucleated Red Blood Cells % 0 %; Platelet Count 282 K/mm3 (142-424); Red Blood Count 4.46 M/mm3 (4.20-5.40); Red Cell Distribution Width 13.3 % (11.5-17.5); Red Cell Distribution Width-SD 50.6 fL; White Blood Count 7.4 K/mm3 (4.8-10.8)
[2024-10-17 19:21] LABS: Alanine Aminotransferase 19 U/L (12-78); Albumin/Globulin Ratio 1.3 (1.1-1.8); Alkaline Phosphatase 71 U/L (38-126); Amylase 73 U/L (30-110); Anion Gap 16.1 mEq/L (5-15); Aspartate Amino Transferase 33 U/L (14-36); Bilirubin,Total 0.9 mg/dl (0.2-1.3); Blood Urea Nitrogen 14 mg/dl (7-17); Calcium 8.8 mg/dl (8.4-10.2); Carbon Dioxide 24 mmol/L (22.0-30.0); Chloride 103 mmol/L (98-107); Estimated Glomerular Filt Rate 80 ml/min (>60); GFR (African American) 96 ML/MIN (>60); Glucose 68 mg/dl (74-100); Lipase 72 U/L (23-300); Potassium 4.1 mmoL/L (3.5-5.1); Sodium 139 mmol/L (136-145)
[2024-10-18 11:18] LABS: Hemoglobin A1C 4.9 % (4.0-6.0)
--- OUTSIDE RECORDS SUMMARY | 2024-10-18 12:38 | XMS_ITS | Clinical Summary ---
Author Organization [facility] , [facility] Address [address] [place] [address] Phone Care Team Providers Care Operations Consultant Name Role Phone Haley SURESH, Steve Kessler Unavailable [phone] LARISA CHILD MD Primary [...] Active Last Documented On 2 1:13PM ; [facility] Plan of Treatment Future Appointments Date Time Location Provi madhavi Non Physician Specified 10/18/2024 2:30PM [facility] Luciana Goodrich PA-C Last Documented On 5 2:28PM ; [facility] Assessments Includes: Assessments from this encounter Findings Ms. Trent is doing very well following her recent total knee arthroplasty. Her wound healed very nicely. She, of course, does not need any suture removal. - Last Documented On 05/20/2016 4:43PM ; [facility] Her knee is slightly warm and also very slightly erythematous. I explained to her that this is a normal finding 2 weeks after a TKA - Last Documented On 05/20/2016 4:43PM ; [facility] She has approximately 100? of flexion, full extension and a stable knee. - Last Documented On 05/20/2016 4:43PM ; [facility] X-ray shows the prosthesis to be in good position. - Last Documented On 05/20/2016 4:43PM ; [facility], [facility] A new sterile dressing was applied, and she is to return to see me again 6 weeks - Last Documented On 05/20/2016 4:43PM ; [facility] Medical Equipment - Implanted Devices Includes: Current Devices No Medical Equipment Recorded Medications Includes: Medications discussed during this encounter and other current Medications Current Medications (continue as prescribed) Lipitor 10 MG Oral Tablet 01/16/2022 Provider: Diagnosis: Last Documented On 2 1:36PM By Low Talbert ; [facility], [facility] traMADol HCl ER 100 MG Oral Capsule Extended Rel ease 24 Hour 01/16/2022 Provider: Diagnosis: Last Documented On 2 1:35PM By Low Talbert ; [facility], [facility] Past Medications on file Percocet 7.5-325 MG OR TABS 04/24/2016 - 05/04/2016 Pr ovider: Steve De Leon MD Diagnosis: Last Documented On 6 2:15PM By Cally Ferreira ; [facility], [facility] Lovenox 30 MG/0.3ML Solution 04/24/2016 - 05/01/2016 Provider: Steve De Leon MD Diagnosis: Aftercare follow ing joint replacement surgery use as directed 1 injection per day for 7 days after total joint Last Documented On 6 2:09PM By Cally Persons ; [facility], [facility] Bactrim DS 800-160 MG Tablet 04/23/2016 - 04/28/2016 Provider: Steve De Leon MD Diagnosis: Unilateral prima ry osteoarthritis, right knee twice a day Last Documented On 6 10:59AM By Cally Persons ; [facility], [facility] Nabumetone 500 MG OR TABS 01/23/2014 - 02/22/2014 Provider: Steve De Leon MD Diagnosis: JOINT PAIN-PELVI S kb Last Documented On 4 10:38AM By Stevenson 5 User ; [facility], [facility] Lortab 5-500 MG OR TABS 01/28/2007 - 02/02/2007 Provid er: Steve De Leon MD Diagnosis: [phone] Last Documented On 7 2:32PM By [...] 1.8 Last Documented: On 05/12/2016 3:59PM ; [facility] Results Includes: Results discussed during this encounter No Results Recorded For Specified Dates History of Present Illness Includes: History of Present Illness from this encounter HPI Elyse Trent is a 75 year old female. - Medication list reviewed with patient. Social History Description Last Updated Caffeine use 01/16/2022 Last Documented On 6 3:59PM ; [facility] Not exercising regularly [...] On 6 3:59PM ; [facility] Procedures and Surgical History Includes: Procedures from this encounter Procedures Code Diagnosis Performing Provider Service L ocation Service Date Clinical summary provided to patient Last Documented On 6 3:59PM ; [facility] history of an X-ray was performed 03/2016 01353 Last Documented On 6 3:59PM ; [facility] Surgical History Last Updated History of total hip replacement 016 Last Documented On 6 4:43PM ; [facility] Medical History Includes: Medical History addressed during this encounter Description Last Updated A recent immunization for pneumococcal p neumonia 2015 05/12/2016 Last Documented On 6 4:43PM ; [facility] Arthritic joint problems 05/12/2016 Last Documented On 6 4:43PM ; [facility] History of gastric ulcer 05/12/2016 Last Documented On 6 4:43PM ; [facility] History of osteoporosis 05/12/2016 Last Documented On 6 4:43PM ; [facility] Family History Includes: Family History addressed during this encounter Description Last Updated Family history of osteoporosis mother Last Documented On 6 4:43PM ; [facility] Family history of rheumatoid arthritis m other 05/12/2016 Last Documented On 6 4:43PM ; [facility] Review of Systems Includes: Review of [...] ctive Last Documented On 01/16/2022 1:14PM ; [facility] Note: patient had an outbreak with sulfa drugs, but is currently on arthritis medicine that contains sulfa//mmh Morphine Derivatives Allergy 12/21/2006 Active Last Documented On 2 1:14PM ; [facility] Encounters Encounter Provider Location Date Check-In Time Check- Out Time Diagnosis Post Op Steve De Leon MD [facility] 6 2:53PM 11:59PM Insurance Includes: Active Insurance Policies Plan Name Member ID Group # Subscriber Relationship Effect andrey Dates 1 - Medicare Part B [facility] [id number] Elyse Trent Self 05/05/20 05 - Unknown 2 - [employer] [facility] [id number] PLAN F Elyse Trent Self 3 - Unknown Clinical Notes Includes: Clinical Notes from this encounter No Clinical Notes Recorded
--- OUTSIDE RECORDS SUMMARY | 2024-10-18 12:38 | XMS_ITS | Clinical Summary ---
Author Organization [facility] , [facility] Address [address] [place] [address] Phone Care Team Providers Care Lime Slaker Name Role Phone Haley SURESH, Steve Kessler Unavailable [phone] LARISA CHILD MD Primary [...] Active Last Documented On 2 1:13PM ; [facility] Joint Pain, Localized in the Knee 05/25/2013 Yeny Goodrich PA-C Inactive Last Documented On 2 1:13PM ; [facility] Plan of Treatment Fall Risk Assessment: This [...] - Last Documented On 01/16/2022 2:22PM ; [facility] I have reviewed the radiographs and physical [...] - Last Documented On 01/16/2022 2:22PM ; [facility] Pending Tests Order Diagnosis Results Due Ordering P rovider Therapy - Physical Therapy Hip 01/16/22 Luciana Goodrich PA-C Last Documented On 2 2:14PM ; [facility] Future Appointments Date Time Location Provi madhavi Non Physician Specified 10/18/2024 2:30PM [facility] Luciana Goodrich PA-C Last Documented On 5 2:28PM ; [facility] Instructions to patient Intervention and counseling on cessation of tobacco use Last Documented On 2 1:31PM ; [facility] Assessments Includes: Assessments from this encounter No Assessments Recorded Instructions Includes: Instructions from this encounter Instructions to patient Intervention and counseling on cessation of tobacco use Last Documented On 2 1:31PM ; [facility] Medical Equipment - Implanted Devices Includes: Current Devices No Medical Equipment Recorded Medications Includes: Medications discussed during this encounter and other current Medications Discontinued / Stopped on this date on 03/11/2016 Gabapentin 100 MG Capsule, conventional P rovider: Diagnosis: Last Documented On 2 1:13PM By Low Talbert ; [facility] Cefuroxime Sodium 1.5 GM Solution, when reconstituted Provider: Diagnosis: Last Documented On 2 1:13PM By Low Talbert ; [facility] Doxycycline 40 MG Capsule, delayed-release Provider: Diagnosis: Last Documented On 2 1:13PM By Low Talbert ; [facility] traMADol HCl 50 MG OR TABS Provider: Diagnosis: Last Documented On 2 1:14PM By Low Talbert ; [facility], [facility] Etodolac POWD Provider: Diagnosis: Last Documented On 2 1:13PM By Low Talbert ; [facility], [facility] Dicyclomine HCl POWD Provider: Diagnosis: Last Documented On 2 1:13PM By Low Talbert ; [facility], [facility] Levothyroxine Sodium POWD Provider: Diagnosis: Last Documented On 2 1:13PM By Low Talbert ; [facility], [facility] All Day Allergy 10 MG OR TABS Provider: Diagnosis: Last Documented On 2 1:13PM By Low Talbert ; [facility], [facility] Current Medications (continue as prescribed) Lipitor 10 MG Oral Tablet 01/16/2022 Provider: Diagnosis: Last Documented On 2 1:36PM By Low Talbert ; [facility], [facility] traMADol HCl ER 100 MG Oral Capsule Extended Rel ease 24 Hour 01/16/2022 Provider: Diagnosis: Last Documented On 2 1:35PM By Low Talbert ; [facility] Past Medications on file Percocet 7.5-325 MG OR TABS 04/24/2016 - 05/04/2016 Pr ovider: Steve De Leon MD Diagnosis: Last Documented On 6 2:15PM By Libox ; [facility], [facility] Lovenox 30 MG/0.3ML Solution 04/24/2016 - 05/01/2016 Provider: Steve De Leon MD Diagnosis: Aftercare follow ing joint replacement surgery use as directed 1 injection per day for 7 days after total joint Last Documented On 6 2:09PM By Libox ; [facility], [facility] Bactrim DS 800-160 MG Tablet 04/23/2016 - 04/28/2016 Provider: Steve De Leon MD Diagnosis: Unilateral prima ry osteoarthritis, right knee twice a day Last Documented On 6 10:59AM By Libox ; [facility], [facility] Nabumetone 500 MG OR TABS 01/23/2014 - 02/22/2014 Provider: Steve De Leon MD Diagnosis: JOINT PAIN-PELVI S kb Last Documented On 4 10:38AM By Stevenson 5 User ; [facility], [facility] Lortab 5-500 MG OR TABS 01/28/2007 - 02/02/2007 Provid er: Steve De Leon MD Diagnosis: [phone] Last Documented On 7 2:32PM By Brittani Rodriguez ; [facility], [facility] Lortab 5-500 MG OR TABS 12/13/2006 - 12/19/2006 Provid er: Claudine Arellano MD Diagnosis: jaf Last Documented On 7 2:55PM By Graham 1 User ; [facility], [facility] Naprosyn 375 MG OR TABS 02/10/2006 - 03/12/2006 Provid er: Steve De Leon MD Diagnosis: 1 po bid with food Last Documented On 6 4:24PM By Graham 1 User ; [facility], [facility] Medications Administered Includes: Administered Medications from this encounter No Administered Medications Recorded Vital Signs Includes: Vital Signs from this encounter Vital Name 01/16/2022 01:14P Blood Pressure Sitting (mmHg) 108/69 Pulse Rate-Sitting (bpm) 59 Height (in) 65 Weight (lb) 150 Body Mass Index (kg/m2) 25.0 Body Surface Area (m2) 1.8 Note: asn Last Documented: On 01/16/2022 1:30PM ; [facility], [facility] Results Includes: Results discussed during [...] 01/16/2022 Last Documented On 2 2:22PM ; [facility], [facility] No recent change in diet 01/16/2022 Last Documented On 2 2:22PM ; [facility] Not a current smoker. 01/16/2022 Last Documented On 2 2:22PM ; [facility], [facility] Not exercising regularly 01/16/2022 Last Documented On 2 2:22PM ; [facility] Not using alcohol 01/16/2022 Last Documented On 2 2:22PM ; [facility], [facility] Not using drugs 01/16/2022 Last Documented On 2 2:22PM ; [facility] Non-smoker 01/16/2022 Last Documented On 2 2:22PM ; [facility], [facility] Not a smoker 01/16/2022 Last Documented On 2 2:22PM ; [facility] 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 Last Documented On 2 2:22PM ; [facility] Smoking Status Unknown Procedures and Surgical History Includes: Procedures from this encounter Procedures Code Diagnosis Performing Provider Service L ocation Service Date intervention and counseling on cessation of tobacco use 4000F Last Documented On 2 1:31PM ; [facility] use of tobacco assessment performed 1000F Last Documented On 2 1:31PM ; [facility], [facility] no influenza immunization patient refuse d Last Documented On 2 1:37PM ; [facility] patient screened for future fall risk 3288F Last Documented On 2 1:31PM ; [facility], [facility] follow-up visit not in one month with P for elevated BP Last Documented On 2 1:31PM ; [facility] no referral to physician Last Documented On 2 1:31PM ; [facility], [facility] Surgical History Last Updated History of appendectomy 01/16/2022 Last Documented On 2 2:22PM ; [facility] History of History of Arthroscopy 2021 Last Documented On 2 2:22PM ; [facility] Medical History Includes: Medical History addressed during this encounter Description Last Updated History of arthritis 01/16/2022 Last Documented On 2 2:22PM ; [facility] History of History of Rheumatology 01/16 Last Documented On 2 2:22PM ; [facility] History of Hypertension 01/16/2022 Last Documented On 2 2:22PM ; [facility] History of Thyroid Disease 01/16/2022 Last Documented On 2 2:22PM ; [facility] No recent immunization for flu 2 Last Documented On 2 2:22PM ; [facility] No recent immunization for pneumococcal pneumonia 01/16/2022 Last Documented On 2 2:22PM ; [facility] Total hip replacement 01/16/2022 Last Documented On 2 2:22PM ; [facility] Arthritic joint problems 11/03/2016 Last Documented On 2 1:14PM ; [facility] History of gastric ulcer 11/03/2016 Last Documented On 2 1:14PM ; [facility] Family History Includes: Family History addressed during this encounter Description Last Updated Rheumatoid arthritis 01/16/2022 Last Documented On 2 2:22PM ; [facility] Maternal history of rheumatoid arthritis 04/17/2015 Last Documented On 2 1:14PM ; [facility] Review of Systems Includes: Review [...] 1 01/16/2022 Complete (Refused - Patient objection) [facility] Last Documented On 2 1:38PM ; [facility] PCV (Pneumovax 23) 1 01/16/2022 Complete (Refused - Patient objection) [facility] Last Documented On 2 1:38PM ; [facility] Td 1 01/16/2022 Complete (Refused - Patient objection) [facility] Last Documented On 2 1:38PM ; [facility] Allergies Includes: Active Allergies Substance Type Reaction Onset Date Resolved Date Statu s Sulfa Antibiotics Allergy 04/12/2008 A ctive Last Documented On 01/16/2022 1:14PM ; [facility] Note: patient had an outbreak with sulfa drugs, but is currently on arthritis medicine that contains sulfa//mmh Morphine Derivatives Allergy 12/21/2006 Active Last Documented On 2 1:14PM ; [facility] Encounters Encounter Provider Location Date Check-In Time Check-Out Time Diagnosis Non Physician Specified Luciana Goodrich PA-C [facility] 01/17/20 22 1:15PM 2:14PM Insurance Includes: Active Insurance Policies Plan Name Member ID Group # Subscriber Relationship Effect andrey Dates 1 - Medicare Part B [facility] [id number] Elyse Trent Self 05/05/20 05 - Unknown 2 - [employer] [id number] PLAN F Elyse Trent Self 3 - Unknown Clinical Notes Includes: Clinical Notes from this encounter No Clinical Notes Recorded
--- OUTSIDE RECORDS SUMMARY | 2024-10-18 12:38 | XMS_ITS ---
Care Plan - [facility], [facility] Created on: October 18, 2024 MileyOliveElyse A .0 : 1940 Sex: Female Author Organization [facility], [facility] Address [address] [place] [address] Phone Care Team Providers Care Yarrow Gatherer Name Role Phone Haley SURESH, Steve Kessler Unavailable [phone] DANYELL SURESH, LARISA Cohen Primary Care Provider [phone]
--- OUTSIDE RECORDS SUMMARY | 2024-10-18 12:38 | XMS_ITS | Clinical Summary ---
Author Organization [facility] Address [address] [place] [address] Phone Care Team Providers Care Correctional Classification Counselor Name Role Phone Haley SURESH, Steve Kessler Unavailable [phone] LARISA CHILD MD Primary Care Provider [phone] Reason for Visit and Chief Complaint The Chief Complaint is: left hip pain Problems Includes: Problems addressed during this encounter and other active Problems All Visits Onset Date Resolved Date Provider Condition S tatus Joint Pain in the Left Hip 01/16/2022 Luciana Goodrich PA-C Active Last Documented On 2 1:13PM ; [facility] Plan of Treatment Future Appointments Date Time Location Provi madhavi Non Physician Specified 10/18/2024 2:30PM [facility] Luciana Goodrich PA-C Last Documented On 5 2:28PM ; [facility] Assessments Includes: Assessments from this encounter [...] - Last Documented On 11/13/2016 3:38PM ; [facility], [facility] Physical exam: Examination of the left [...] - Last Documented On 11/13/2016 3:38PM ; [facility], [facility] Radiographs: AP and lateral x-rays of the [...] - Last Documented On 11/13/2016 3:38PM ; [facility], [facility] Impression: Polyethylene wear left total hip arthroplasty. A volar avulsion fractures of the tip of the greater trochanter interposed in the abductor tendon. - Last Documented On 11/13/2016 3:38PM ; [facility], [facility] Plan: Recommend revision of the polyethylene liner. [...] - Last Documented On 11/13/2016 3:38PM ; [facility], [facility] patient was seen today with Dr. De Leon,.We will review the patient's history and physical findings. Treatment plan was also agreed upon. - Last Documented On 11/13/2016 3:38PM ; [facility], [facility] Medical Equipment - Implanted Devices Includes: Current Devices No Medical Equipment Recorded Medications Includes: Medications discussed during this encounter and other current Medications Current Medications (continue as prescribed) Lipitor 10 MG Oral Tablet 01/16/2022 Provider: Diagnosis: Last Documented On 1:36PM By Low Talbert ; [facility], [facility] traMADol HCl ER 100 MG Oral Capsule Extended Rel ease 24 Hour 01/16/2022 Provider: Diagnosis: Last Documented On 2 1:35PM By Low Talbert ; [facility], [facility] Past Medications on file Percocet 7.5-325 MG OR TABS 04/24/2016 - 05/04/2016 Pr ovider: Steve De Leon MD Diagnosis: Last Documented On 6 2:15PM By Cally Persons ; [facility], [facility] Lovenox 30 MG/0.3ML Solution 04/24/2016 - 05/01/2016 Provider: Steve De Leon MD Diagnosis: Aftercare follow ing joint replacement surgery use as directed 1 injection per day for 7 days after total joint Last Documented On 6 2:09PM By Cally Persons ; [facility] Bactrim DS 800-160 MG Tablet 04/23/2016 - 04/28/2016 Provider: Steve De Leon MD Diagnosis: Unilateral prima ry osteoarthritis, right knee twice a day Last Documented On 6 10:59AM By Cally Persons ; [facility], [facility] Nabumetone 500 MG OR TABS 01/23/2014 - 02/22/2014 Provider: Steve De Leon MD Diagnosis: JOINT PAIN-PELVI S kb Last Documented On 4 10:38AM By Graham 5 User ; [facility], [facility] Lortab 5-500 MG OR TABS 01/28/2007 - 02/02/2007 Provid er: Steve De Leon MD Diagnosis: [phone] df Last Documented On 7 2:32PM By Brittani Rodriguez ; [facility], [facility] Lortab 5-500 MG OR TABS 12/13/2006 - 12/19/2006 Provid er: Claudine Arellano MD Diagnosis: jaf Last Documented On 7 2:55PM By Graham 1 User ; [facility], [facility] Naprosyn 375 MG OR TABS 02/10/2006 - 03/12/2006 Provid er: Steve De Leon MD Diagnosis: 1 po bid with food Last Documented On 6 4:24PM By Graham 1 User ; [facility] Medications Administered Includes: Administered Medications from this encounter No Administered Medications Recorded Vital Signs Includes: Vital Signs from this encounter Vital Name 11/03/2016 11:27A Blood Pressure Sitting (mmHg) 141/68 Pulse Rate-Sitting (bpm) 59 Height (in) 65 Weight (lb) 150 Body Mass Index (kg/m2) 25.0 Body Surface Area (m2) 1.8 Note: arw Last Documented: On 11/03/2016 11:31A M ; [facility], [facility] Results Includes: Results discussed during this encounter No Results Recorded For Specified Dates History of Present Illness Includes: History of Present Illness from this encounter HPI Elyse Trent is a 76 year old female. - Medication list reviewed with patient. Social History Description Last Updated Caffeine use 01/16/2022 Last Documented On 7 11:27AM ; [facility], [facility] Not exercising regularly 01/16/2022 Last Documented On 7 11:27AM ; [facility], [facility] Not using alcohol 01/16/2022 Last Documented On 7 11:27AM ; [facility] Not using drugs 01/16/2022 Last Documented On 7 11:27AM ; [facility], [facility] No recent change in diet 04/17/2015 Last Documented On 7 11:27AM ; [facility], [facility] Not a current smoker 04/17/2015 Last Documented On 7 11:27AM ; [facility], [facility] No tobacco use 05/25/2013 Last Documented On 7 11:27AM ; [facility], [facility] Smoking status : Never smoked/ Recode: 4 05/25/2013 Last Documented On 7 11:27AM ; [facility], [facility] Procedures and Surgical History Includes: Procedures from this encounter Procedures Code Diagnosis Performing Provider Service L ocation Service Date Clinical summary provided to patient Last Documented On 7 11:27AM ; [facility], [facility] Surgical History Last Updated History of total hip replacement 017 Last Documented On 7 3:38PM ; [facility], [facility] Medical History Includes: Medical History addressed during this encounter Description Last Updated A recent immunization for pneumococcal p neumonia 2015 11/03/2016 Last Documented On 7 3:38PM ; [facility] Arthritic joint problems 11/03/2016 Last Documented On 7 3:38PM ; [facility] History of gastric ulcer 11/03/2016 Last Documented On 7 3:38PM ; [facility] History of osteoporosis 11/03/2016 Last Documented On 7 3:38PM ; [facility] Family History Includes: Family History addressed during this encounter Description Last Updated Family history of osteoporosis mother Last Documented On 7 3:38PM ; [facility] Family history of rheumatoid arthritis m other 11/03/2016 Last Documented On 7 3:38PM ; [facility] Review of Systems Includes: Review [...] ctive Last Documented On 01/16/2022 1:14PM ; [facility], [facility] Note: patient had an outbreak with sulfa drugs, but is currently on arthritis medicine that contains sulfa//mmh Morphine Derivatives Allergy 12/21/2006 Active Last Documented On 2 1:14PM ; [facility], [facility] Encounters Encounter Provider Location Date Check-In Time Check- Out Time Diagnosis Follow Up Steve [facility] 7 10:27AM 12:16PM Insurance Includes: Active Insurance Policies Plan Name Member ID Group # Subscriber Relationship Effect andrey Dates 1 - Medicare Part B [facility] [id number] Elyse Trent Self 05/05/20 05 - Unknown 2 - [employer] [place] [id number] PLAN F Elyse Trent Self 3 - Unknown Clinical Notes Includes: Clinical Notes from this encounter No Clinical Notes Recorded
--- OUTSIDE RECORDS SUMMARY | 2024-10-18 12:38 | XMS_ITS | Clinical Summary ---
Author Organization [facility] Address [address] [address] Phone Care Team Providers Care Emg Technician Name Role Phone Haley SURESH, Steve Kessler Unavailable [phone] LARISA CHILD MD Primary Care Provider [phone] Reason for Visit and Chief Complaint [facility] Problems Includes: Problems addressed during this encounter and other active Problems All Visits Onset Date Resolved Date Provider Condition S tatus Joint Pain in the Left Hip 01/16/2022 Luciana Goodrich PA-C Active Last Documented On 2 1:13PM ; [facility] Plan of Treatment Future Appointments Date Time Location Provi madhavi Non Physician Specified 10/18/2024 2:30PM [facility] Luciana Goodrich PA-C Last Documented On 5 2:28PM ; [facility] Assessments Includes: Assessments from this encounter No Assessments Recorded Medical Equipment - Implanted Devices Includes: Current Devices No Medical Equipment Recorded Medications Includes: Medications discussed during this encounter and other current Medications Current Medications (continue as prescribed) Lipitor 10 MG Oral Tablet 01/16/2022 Provider: Diagnosis: Last Documented On 2 1:36PM By Low Mccarthy [facility], [facility] traMADol HCl ER 100 MG Oral Capsule Extended Rel ease 24 Hour 01/16/2022 Provider: Diagnosis: Last Documented On 2 1:35PM By Low Talbert ; [facility], [facility] Medications Administered Includes: Administered Medications [...] ctive Last Documented On 01/16/2022 1:14PM ; [facility], [facility] Note: patient had an outbreak with sulfa drugs, but is currently on arthritis medicine that contains sulfa//mmh Morphine Derivatives Allergy 12/21/2006 Active Last Documented On 2 1:14PM ; [facility], [facility] Encounters Encounter Provider Location Date Check-In Time Check-Out Time Diagnosis [facility] Steve De Leon MD Surgery 04/27/2016 8:37AM 11:59PM Insurance Includes: Active Insurance Policies Plan Name Member ID Group # Subscriber Relationship Effect andrey Dates 1 - Medicare Part B [facility] [id number] Elyse Trent Self 05/05/20 05 - Unknown 2 - [employer] [place] [id number] PLAN F Elyse Trent Self 3 - Unknown Clinical Notes Includes: Clinical Notes from this encounter No Clinical Notes Recorded
--- OUTSIDE RECORDS SUMMARY | 2024-10-18 12:38 | XMS_ITS | Clinical Summary ---
Author Organization [facility] , [facility] Address [address] [place] [address] Phone Care Team Providers Care [place] Cutter Name Role Phone Haley SURESH, Steve Kessler Unavailable [phone] LARISA CHILD MD Primary Care Provider [phone] Reason for Visit and Chief Complaint The Chief Complaint is: discuss rt knee SX Problems Includes: Problems addressed during this encounter and other active Problems All Visits Onset Date Resolved Date Provider Condition S tatus Joint Pain in the Left Hip 01/16/2022 Luciana Goodrich PA-C Active Last Documented On 2 1:13PM ; [facility] Plan of Treatment Future Appointments Date Time Location Provi madhavi Non Physician Specified 10/18/2024 2:30PM [facility] Luciana Goodrich PA-C Last Documented On 5 2:28PM ; [facility] Assessments Includes: Assessments from this encounter Findings Ms. Trent returns for reassessment of her right knee. She has end stage osteoarthritis of the knee with a valgus position of approximately 19-20 degrees. - Last Documented On 05/21/2016 4:08PM ; [facility] She is scheduled for total knee replacement in 5 days. 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 of valgus. This will require some more, ligament as well. - Last Documented On 05/21/2016 4:08PM ; [facility], [facility] X-rays show significant osteoarthritic knee with valgus of over 15? - Last Documented On 05/21/2016 4:08PM ; [facility], [facility] I explained all this to her today. We also discussed the need to go off her anti-inflammatory medication starting tomorrow. - Last Documented On 05/21/2016 4:08PM ; [facility], [facility] Estimated surgery scheduled for Wednesday 5 days - Last Documented On 05/21/2016 4:08PM ; [facility], [facility] Medical Equipment - Implanted Devices Includes: Current Devices No Medical Equipment Recorded Medications Includes: Medications discussed during this encounter and other current Medications Current Medications (continue as prescribed) Lipitor 10 MG Oral Tablet 01/16/2022 Provider: Diagnosis: Last Documented On 2 1:36PM By Low Talbert ; [facility], [facility] traMADol HCl ER 100 MG Oral Capsule Extended Rel ease 24 Hour 01/16/2022 Provider: Diagnosis: Last Documented On 2 1:35PM By Low Talbert ; [facility], [facility] Past Medications on file Percocet 7.5-325 MG OR TABS 04/24/2016 - 05/04/2016 Pr ovider: Steve De Leon MD Diagnosis: Last Documented On 6 2:15PM By Cally Ferreira ; [facility], [facility] Lovenox 30 MG/0.3ML Solution 04/24/2016 - 05/01/2016 Provider: Steve De Leon MD Diagnosis: Aftercare follow ing joint replacement surgery use as directed 1 injection per day for 7 days after total joint Last Documented On 6 2:09PM By Cally Ferreira ; [facility], [facility] Bactrim DS 800-160 MG Tablet 04/23/2016 - 04/28/2016 Provider: Steve De Leon MD Diagnosis: Unilateral prima ry osteoarthritis, right knee twice a day Last Documented On 6 10:59AM By Cally Ferreira ; [facility] Nabumetone 500 MG OR TABS 01/23/2014 - 02/22/2014 Provider: Steve De Leon MD Diagnosis: JOINT PAIN-PELVI S kb Last Documented On 4 10:38AM By Stevenson 5 User ; [facility] Lortab 5-500 MG OR TABS 01/28/2007 - 02/02/2007 Provid er: Steve De Leon MD Diagnosis: [phone] Last Documented On 7 2:32PM By Brittani Rodriguez ; [facility] Lortab 5-500 MG OR TABS 12/13/2006 - 12/19/2006 Provid er: Claudine Arellano MD Diagnosis: jaf Last Documented On 7 2:55PM By Stevenson 1 User ; [facility] Naprosyn 375 MG OR TABS 02/10/2006 - 03/12/2006 Provid er: Steve De Leon MD Diagnosis: 1 po bid with food Last Documented On 6 4:24PM By Stevenson 1 User ; [facility], [facility] Medications Administered Includes: Administered Medications from this encounter No Administered Medications Recorded Vital Signs Includes: Vital Signs from this encounter Vital Name 04/22/2016 11:36A Blood Pressure Sitting L 106/37 Pulse Rate-Sitting (bpm) 52 Height (in) 65 Weight (lb) 150 Body Mass Index (kg/m2) 25.0 Body Surface Area (m2) 1.8 Note: chidi Last Documented: On 04/22/2016 11:39A M ; [facility], [facility] Results Includes: Results discussed during this encounter No Results Recorded For Specified Dates History of Present Illness Includes: History of Present Illness from this encounter HPI Elyse Trent is a 75 year old female. - Medication list reviewed with patient. Social History Description Last Updated Caffeine use 01/16/2022 Last Documented On 6 11:35AM ; [facility] Not exercising regularly 01/16/2022 Last Documented On 6 11:35AM ; [facility] Not using alcohol 01/16/2022 Last Documented On 6 11:35AM ; [facility] Not using drugs 01/16/2022 Last Documented On 6 11:35AM ; [facility], [facility] No recent change in diet 04/17/2015 Last Documented On 6 11:35AM ; [facility], [facility] Not a current smoker 04/17/2015 Last Documented On 6 11:35AM ; [facility], [facility] No tobacco use 05/25/2013 Last Documented On 6 11:35AM ; [facility], [facility] Smoking status : Never smoked/ Recode: 4 05/25/2013 Last Documented On 6 11:35AM ; [facility], [facility] Procedures and Surgical History Includes: Procedures from this encounter Procedures Code Diagnosis Performing Provider Service L ocation Service Date Clinical summary provided to patient Last Documented On 6 11:36AM ; [facility], [facility] history of an X-ray was performed 03/2016 44118 Last Documented On 6 11:36AM ; [facility], [facility] Surgical History Last Updated History of total hip replacement 016 Last Documented On 6 4:08PM ; [facility], [facility] Medical History Includes: Medical History addressed during this encounter Description Last Updated A recent immunization for pneumococcal p neumonia 2015 04/22/2016 Last Documented On 6 4:08PM ; [facility], [facility] Arthritic joint problems 04/22/2016 Last Documented On 6 4:08PM ; [facility], [facility] History of gastric ulcer 04/22/2016 Last Documented On 6 4:08PM ; [facility], [facility] History of osteoporosis 04/22/2016 Last Documented On 6 4:08PM ; [facility], [facility] Family History Includes: Family History addressed during this encounter Description Last Updated Family history of osteoporosis mother Last Documented On 6 4:08PM ; [facility], [facility] Family history of rheumatoid arthritis m other 04/22/2016 Last Documented On 6 4:08PM ; [facility], [facility] Review of Systems Includes: Review of [...] ctive Last Documented On 01/16/2022 1:14PM ; [facility] Note: patient had an outbreak with sulfa drugs, but is currently on arthritis medicine that contains sulfa//mmh Morphine Derivatives Allergy 12/21/2006 Active Last Documented On 2 1:14PM ; [facility] Encounters Encounter Provider Location Date Check-In Time Check- Out Time Diagnosis Follow Up Steve De Leon MD [facility] 6 10:48AM 12:03PM Insurance Includes: Active Insurance Policies Plan Name Member ID Group # Subscriber Relationship Effect andrey Dates 1 - Medicare Part B of [place] [id number] Elyse Batistane Self 05/05/20 05 - Unknown 2 - [employer] [place] [id number] PLAN F Elyse A Miley Self 3 - Unknown Clinical Notes Includes: Clinical Notes from this encounter No Clinical Notes Recorded
--- OUTSIDE RECORDS SUMMARY | 2024-10-18 12:38 | XMS_ITS ---
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 Name Role Phone Haely SURESH, Steve Kessler Unavailable [phone] LARISA CHILD MD Primary Care Provider [phone] Reason for Referral Date Encounter Description Provider Reason for Referral 01/16/22 Non Physician Specified Luciana Moody-Noel Referral To Physician Problems Includes: Active, inactive, and resolved Problems All Visits Onset Date Resolved Date Provider Condition S tatus Joint Pain in the Left Hip 01/16/2022 Luciana Goodrich PA-C Active Last Documented On 2 1:13PM ; [facility] Joint Pain, Localized in the Knee 05/25/2013 Yeny Goodrich PA-C Inactive Last Documented On 2 1:13PM ; [facility] Plan of Treatment Future Appointments Date Time Location Provi madhavi Non Physician Specified 10/18/2024 2:30PM [facility] Luciana Goodrich PA-C Last Documented On 5 2:28PM ; [facility] Instructions to patient Intervention and counseling on cessation of tobacco use Last Documented On 2 1:31PM ; [facility] Instructions for patient see pcp for bp Last Documented On 5 4:10PM ; [facility] Assessments Includes: Assessments for all patient encounters No Assessments Recorded Instructions Includes: Instructions for all patient encounters Instructions to patient Intervention and counseling on cessation of tobacco use Last Documented On 2 1:31PM ; [facility] Instructions for patient see pcp for bp Last Documented On 5 4:10PM ; [facility] Medical Equipment - Implanted Devices Includes: Current and historical Devices No Medical Equipment Recorded Medications Includes: Current and historical Medications Current Medications (continue as prescribed) Lipitor 10 MG Oral Tablet 01/16/2022 Provider: Diagnosis: Last Documented On 2 1:36PM By Low Talbert ; [facility] traMADol HCl ER 100 MG Oral Capsule Extended Rel ease 24 Hour 01/16/2022 Provider: Diagnosis: Last Documented On 2 1:35PM By Low Talbert ; [facility] Past Medications on file Percocet 7.5-325 MG OR TABS 04/24/2016 - 05/04/2016 Pr ovider: Steve De Leon MD Diagnosis: Last Documented On 6 2:15PM By Cally Persons ; [facility] Lovenox 30 MG/0.3ML Solution 04/24/2016 - 05/01/2016 Provider: Steve De Leon MD Diagnosis: Aftercare follow ing joint replacement surgery use as directed 1 injection per day for 7 days after total joint Last Documented On 6 2:09PM By Cally Persons ; [facility] Bactrim DS 800-160 MG Tablet 04/23/2016 - 04/28/2016 Provider: Steve De Leon MD Diagnosis: Unilateral prima ry osteoarthritis, right knee twice a day Last Documented On 6 10:59AM By Cally Persons ; [facility] Gabapentin 100 MG Capsule, conventional 03/11/2016 - 0 01/16/2022 Provider: Diagnosis: Last Documented On 2 1:13PM By Low Talbert ; [facility] Cefuroxime Sodium 1.5 GM Danuta ution, when reconstituted 03/11/2016 - 01/16/2022 Provider: Diagnosis: Last Documented On 2 1:13PM By Low Talbert ; [facility] Doxycycline 40 MG Capsule, delayed-release 03/11/2016 - 01/16/2022 Provider: Diagnosis: Last Documented On 2 1:13PM By Low Talbert ; [facility] Nabumetone 500 MG OR TABS 01/23/2014 - 02/22/2014 Provider: Steve De Leon MD Diagnosis: JOINT PAIN-PELVI S kb Last Documented On 4 10:38AM By Graham 5 User ; [facility] traMADol HCl 50 MG OR TABS 05/25/2013 - 01/16/2022 Pro vider: Diagnosis: Last Documented On 2 1:14PM By Low Talbert ; [facility] Etodolac POWD 05/25/2013 - 01/16/2022 Provider: Diagnosis: Last Documented On 2 1:13PM By Low Talbert ; [facility] Dicyclomine HCl POWD 05/25/2013 - 01/16/2022 Provider: Diagnosis: Last Documented On 2 1:13PM By Low Talbert ; [facility] Levothyroxine Sodium POWD 05/25/2013 - 01/16/2022 Prov ider: Diagnosis: Last Documented On 2 1:13PM By Low Talbert ; [facility] All Day Allergy 10 MG OR TABS 05/25/2013 - 01/16/2022 Provider: Diagnosis: Last Documented On 2 1:13PM By Low Talbert ; [facility] Lortab 5-500 MG OR TABS 01/28/2007 - 02/02/2007 Provid er: Steve De Leon MD Diagnosis: [phone] df Last Documented On 7 2:32PM By Brittani Rodriguez ; [facility] Lortab 5-500 MG OR TABS 12/13/2006 - 12/19/2006 Provid er: Claudine Arellano MD Diagnosis: jaf Last Documented On 7 2:55PM By Graham Zaragoza User ; [facility] Naprosyn 375 MG OR TABS 02/10/2006 - 03/12/2006 Provid er: Steve De Leon MD Diagnosis: 1 po bid with food Last Documented On 6 4:24PM By Graham Zaragoza User ; [facility], [facility] Medications Administered Includes: Administered Medications in patient's chart No Administered Medications Recorded Results Includes: Results from 10/19/2023 through 10/18/2024 No Results Recorded For Specified Dates History of Present Illness History of Present Illness not supported for this document type No History of Present Illness Recorded Social History Description Last Updated Caffeine use 01/16/2022 Last Documented On 2 2:22PM ; [facility] No recent change in diet 01/16/2022 Last Documented On 2 2:22PM ; [facility] Not a current smoker. 01/16/2022 Last Documented On 2 2:22PM ; [facility] Not exercising regularly 01/16/2022 Last Documented On 2 2:22PM ; [facility] Not using alcohol 01/16/2022 Last Documented On 2 2:22PM ; [facility] Not using drugs 01/16/2022 Last Documented On 2 2:22PM ; [facility] Non-smoker 01/16/2022 Last Documented On 2 2:22PM ; [facility] Not a smoker 01/16/2022 Last Documented On 2 2:22PM ; [facility] 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 Last Documented On 2 2:22PM ; [facility] No recent change in diet 04/17/2015 Last Documented On 5 11:15AM ; [facility] Not a current smoker 04/17/2015 Last Documented On 5 11:15AM ; [facility] No tobacco use 05/25/2013 Last Documented On 4 8:14AM ; [facility] Smoking status : Never smoked/ Recode: 4 05/25/2013 Last Documented On 4 8:14AM ; [facility] Procedures and Surgical History Surgical History Last Updated History of appendectomy 01/16/2022 Last Documented On 2 2:22PM ; [facility] History of History of Arthroscopy 2021 Last Documented On 2 2:22PM ; [facility] History of total hip replacement 017 Last Documented On 7 3:38PM ; [facility] History of total knee arthroplasty 04/17 Last Documented On 5 11:15AM ; [facility] Medical History Includes: Medical History in patient's chart Description Last Updated History of arthritis 01/16/2022 Last Documented On 2 2:22PM ; [facility] History of History of Rheumatology 01/16 Last Documented On 2 2:22PM ; [facility] History of Hypertension 01/16/2022 Last Documented On 2 2:22PM ; [facility] History of Thyroid Disease 01/16/2022 Last Documented On 2 2:22PM ; [facility] No recent immunization for flu 2 Last Documented On 2 2:22PM ; [facility] No recent immunization for pneumococcal pneumonia 01/16/2022 Last Documented On 2 2:22PM ; [facility], [facility] Total hip replacement 01/16/2022 Last Documented On 2 2:22PM ; [facility], [facility] Arthritic joint problems 11/03/2016 Last Documented On 7 3:38PM ; [facility] History of gastric ulcer 11/03/2016 Last Documented On 7 3:38PM ; [facility] History of osteoporosis 11/03/2016 Last Documented On 7 3:38PM ; [facility] blood transfusion 04/17/2015 Last Documented On 5 11:15AM ; [facility] Family History Includes: Family History in patient's chart Description Last Updated Rheumatoid arthritis 01/16/2022 Last Documented On 2 2:22PM ; [facility] Family history of osteoporosis mother Last Documented On 7 3:38PM ; [facility] Family history of rheumatoid arthritis m other 11/03/2016 Last Documented On 7 3:38PM ; [facility] Maternal history of rheumatoid arthritis 04/17/2015 Last Documented On 5 11:15AM ; [facility] Review of Systems Review of Systems not [...] 1 01/16/2022 Complete (Refused - Patient objection) [facility] Last Documented On 2 1:38PM ; [facility] PCV (Pneumovax 23) 1 01/16/2022 Complete (Refused - Patient objection) [facility] Last Documented On 2 1:38PM ; [facility] Td 1 01/16/2022 Complete (Refused - Patient objection) [facility] Last Documented On 2 1:38PM ; [facility] Allergies Includes: Active, inactive, and resolved Allergies Substance Type Reaction Onset Date Resolved Date Statu s Sulfa Antibiotics Allergy 04/12/2008 A ctive Last Documented On 01/16/2022 1:14PM ; [facility] Note: patient had an outbreak with sulfa drugs, but is currently on arthritis medicine that contains sulfa//mmh Morphine Derivatives Allergy 12/21/2006 Active Last Documented On 2 1:14PM ; [facility] Insurance Includes: Active Insurance Policies Plan Name Member ID Group # Subscriber Relationship Effect andrey Dates 1 - Medicare Part B [facility] [id number] Elyse Trent Self 05/05/20 05 - Unknown 2 - [employer] [id number] PLAN F Elyse Trent Self 3 - Unknown Clinical Notes Includes: Signed Clinical Notes starting from 06/18/2022 No Clinical Notes Recorded
--- OUTSIDE RECORDS SUMMARY | 2024-10-18 12:39 | XMS_ITS | Data Portability ---
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 Plan of Treatment Reminders Order Date Submit Date Provider Last Modified By Organization Details Last Modified Time Details Appointments None recorded. Lab CBC w/ auto diff 2023 024 [email or web address] [facility] (Lab), [address] [place] [address] [address], [place], [address], 4 10:03:55 creatinine, serum or plasma 2023 024 [facility] (Lab), [facility] [address], [place], [address], 4 10:03:55 ALT (alanine aminotransf erase), serum or plasma 2023 024 [email or web address] [facility] (Lab), [address] [facility] [address], [place], [address], 4 10:03:55 AST/SGOT (aspartate aminotransf erase), serum or plasma 2023 024 [email or web address] [facility] (Lab), [address] [facility] [address], [place], [address], 4 10:03:55 CBC w/ auto diff 2022 023 [email or web address] 3 [facility] (Lab), [address], [place], [address], 3 08:26:26 creatinine, serum or plasma 2022 023 [email or web address] 3 [facility] (Lab), [address], [place], [address], 3 08:26:26 ALT (alanine aminotransf erase), serum or plasma 2022 023 [email or web address] (Lab), [address], [place], [place], [address], 3 08:26:26 ESR (erythrocyt e sedimentati on rate), blood 2022 023 [email or web address] 3 [facility] (Lab), [address], [place], [place], [address], 3 08:26:26 AST/SGOT (aspartate aminotransf erase), serum or plasma 2022 023 [email or web address] 3 [facility] (Lab), [address], [place], [address], 3 08:26:27 CBC w/ auto diff 2022 023 [email or web address] [facility] (Lab), [address], [place], [address], 3 07:29:57 creatinine, serum or plasma 2022 023 [email or web address] [facility] (Lab), [address], [place], [address], 3 07:29:57 ALT (alanine aminotransf erase), serum or plasma 2022 023 [email or web address] [facility] (Lab), [address], [place], [address], 3 07:29:57 ESR (erythrocyt e sedimentati on rate), blood 2022 023 [email or web address] [facility] (Lab), [address], [place], [address], 3 07:29:58 AST/SGOT (aspartate aminotransf erase), serum or plasma 2022 023 [email or web address] [facility] (Lab), [address], [place], [address], 3 07:29:58 Referral None recorded. Procedures None recorded. Surgeries None recorded. Imaging None recorded. Medication Orders folic acid 1 mg tablet 2023 024 [facility], [facility] [address] [place], [id number], 4 13:51:55 hydroxychlo roquine 200 mg tablet 2023 024 [facility], [address] [place], [id number], 4 13:51:52 methotrexat e sodium 25 mg/mL injection solution 2023 024 [facility] 591, [address] [place], [address], 4 13:51:47 tramadol 50 mg tablet 2023 024 [facility], [address] [place], [id number], 4 13:53:40 folic acid 1 mg tablet 2022 023 [facility], [facility] [address], [place], [id number], 3 09:27:06 hydroxychlo roquine 200 mg tablet 2022 023 [facility], [address] [place] [address], [place], [id number], 3 09:27:03 methotrexat e sodium 25 mg/mL injection solution 2022 023 [facility] 591, [address], [place], [address], 3 09:25:18 tramadol 50 mg tablet 2022 023 [facility], [address] [place] [address], [place], [id number], 3 09:27:10 folic acid 1 mg tablet 2022 023 [facility], [address] [place] [address], [place], [id number], 3 15:55:17 hydroxychlo roquine 200 mg tablet 2022 023 [facility], [facility] [address], [place], [id number], 3 15:55:12 methotrexat e sodium 25 mg/mL injection solution 2022 023 [facility], [address] [place] [address], [place], [id number], 3 15:55:14 tramadol 50 mg tablet 2022 023 [facility], [address] [place] [address] [place], [id number], 3 15:55:20 folic acid 1 mg tablet 2022 023 [facility], [address] [place] [address] [place], [id number], 3 15:41:28 hydroxychlo roquine 200 mg tablet 2022 023 [facility], [address] [place] [address] [place], [id number], 3 15:41:31 methotrexat e sodium 25 mg/mL injection solution 2022 023 [facility], [address] [place] [address], [place], [id number], 3 15:47:28 tramadol 50 mg tablet 2022 023 [facility], [address] [place] [address], [place], [id number], 3 15:55:40 methotrexat e sodium 2.5 mg tablet 2022 023 [facility], [address] [place] [address], [place], [id number], 3 19:51:15 folic acid 1 mg tablet 2022 023 [facility], [address] [place] [address], [place], [id number], 3 13:45:41 hydroxychlo roquine 200 mg tablet 2022 023 [facility], [address] [address] [place], [id number], 13:45:47 Patient TargetsNo targets recorded. Patient Instructions Encounter Date Encounter Id Patient Instructions Last Modified By Organization Details Last Modified Time 11/03/2022 [id number] medical record request* - labs from 10/2022 [email or web address] Not available 11/04/2022 12:27:35 02/02/2023 [id number] medical record request* - labs from 2022 [email or web address] Not available 02/10/2023 08:44:39 Reason for Referral None Reported. Results Created Date Observation Date Name Description Value Unit Range Abnormal Flag Note LastModifiedBy Organization Detail LastModifiedTime Result Notes None recorded. Problems Name Problem SNOMED Code Status Onset Date Resolution Date Notes Provider Name and Address Organization Details Recorded Time Psoriasis of scalp 507308946 Active 022 RASHI FIELDS, [employer] WORKER [address] [place], [address], [facility] 11:50:23 Problem Notes None recorded. Procedures Surgical History Date Name Laterality Status Provider Name and Address Organization Details Recorded Time 12/03/2021 endoscopy completed Valerie Painting [facility] 01/19/2022 07:45:21 Imaging Results None recorded. Procedure Notes None recorded. Medical Equipment None Reported. Allergies Allergen ID Allergen Name Allergen Category Reaction Reaction Severity Criticality Documentation Date Start Date Code Code System Note Provider Name and Address Organization Details Recorded Time 715606 Substance with sulfonami de structure and antibacte rial mechanism of action (substanc e) medicatio n Not available Not available Not available 05/28/20162008 95514 8003 SNOMED Comme nt: Creat ed By: Juwan Monsalve eated Date: 2008 3:19: 29 PM; Not Available [facility] 6 11:20:03 450262 morphine sulfate medicatio n Not available Not available Not available 05/28/20162010 08176 RxNorm Comme nt: Creat ed By: Miki Martinez eated Date: 04/23 9:04: 18 AM; Not Available [facility] 14:02:47 Medications Name Sig Start Date Stop Date Status Note LastModified by Organization Details LastModified Time Synthroid 500 mcg intraveno us solution Daily active Frequenc y: daily;Me dication Descript ion: levothyr oxine; Dosage:1 ; Route:in jectable ; refills: 0; Quantity :30 powder for injectio n Not Available Not Available Not Available meloxicam 15 mg tablet Take 1 tablet every day by oral route as needed. active Not Available Not Available No t Available Medrol (Grupo) 4 mg tablets in a dose pack Take 1 dose pk by oral route. 2021 active Not Available Not Available Not Avai lable prednison e 5 mg tablet take one po daily 01/19 completed Not Available Not Available Not Available fexofenad ine 180 mg tablet Daily active Frequenc y: daily;Me dication Descript ion: fexofena dine; Dosage:1 ; Route:or al; refills: 0 Not Available Not Available Not Available methotrex ate sodium 25 mg/mL injection solution Take 1 mL every week by injectio n route. 2023 active Not Available Not Available Not Avai lable tramadol 50 mg tablet Take 2 tablets 3 times a day by oral route for 30 days. 2023 active Not Available Not Available Not Avai lable methotrex ate sodium 2.5 mg tablet TAKE 6 TABLETS BY MOUTH ONCE EVERY WEEK WITH LAST MEAL OF THE DAY active Not Available Not Available No t Available pantopraz ole 40 mg tablet,de layed release Take 1 tablet every day by oral route. active Not Available Not Available No t Available buspirone 10 mg tablet Take 1 tablet twice a day by oral route. 08/29 completed Not Available Not Available Not Available lisinopri l 10 mg tablet Bedtime active Duration : 30 days;Frandy quency: hs;Medic ation Descript ion: lisinopr il; Dosage:1 ; Route:or al; refills: 5; Quantity :30 tablet Not Available Not Available Not Available folic acid 1 mg tablet Take 1 tablet every day by oral route. 2023 active Not Available Not Available Not Avai lable gabapenti n 100 mg capsule Take 1 capsule every day by oral route in the evening. 2022 active Not Available Not Available Not Avai lable hydroxych loroquine 200 mg tablet Take 1 tablet every day by oral route. 2023 active Not Available Not Available Not Avai lable Citrucel (sucrose) oral powder As Directed active Frequenc y: as direct.; Medicati on Descript ion: methylce llulose; Dosage:a s directed ; Route:or al; refills: 0 Not Available Not Available Not Available etodolac 500 mg tablet Two times a day 07/11 completed Frequenc y: bid;Medi cation Descript ion: etodolac ; Dosage:1 ; Route:or al; refills: 0; Quantity :1 tablet Not Available Not Available Not Available cyclobenz aprine 5 mg tablet Take 1 tablet 3 times a day by oral route. 08/29 completed Not Available Not Available Not Available Vitamin C Daily active Frequenc y: daily;Me dication Descript ion: ascorbic acid; Dosage:1 ; refills: 0 Not Available Not Available Not Available dicyclomi ne active Medicati on Descript ion: dicyclom ine; refills: 0 Not Available Not Available Not Available sucralfat e 01/19 completed PRN Not Available Not Available Not Available Vitamin D3 Daily active Frequenc y: daily;Me dication Descript ion: cholecal ciferol; Dosage:1 ; refills: 0 Not Available Not Available Not Available Easy Touch Insulin Syringe 1 mL 27 gauge x 1/2 use sc insulin syringe to inject methotre xate once weekly every week 2023 active Not Available Not Available Not Avai lable Otezla 30 mg tablet Take 1 tablet twice a day by oral route. 10/16 completed PA DENIED BY [employer] Not Available Not Available Not Available Humira(CF ) Pen 40 mg/0.4 mL subcutane ous kit Inject 0.4 mL every 2 weeks by subcutan eous route. 10/22 completed APPEAL APPROVED FOR RINVOQ NO NEED TO CONTINUE PA FOR MED. 4.20.22 Not Available Not Available Not Available Rinvoq 15 mg tablet,ex tended release Take 1 tablet every day by oral route. 01/19 completed humana approved [place] ref#[id number] exp .31.22 Not Available Not Available Not Available Vitals Date Recorded Body height Body mass index (BMI) Body weight Provider Name and Address Organization Details Last Updated DateTime 08/05/2022 165.1 cm 25 kg/m2 94276.86 g Sofiyaavel Parra [facility] 08/05/2022 13:20:36 Date Recorded Body height Body mass index (BMI) Body weight Systolic blood pressure Diastolic blood pressure Provider Name and Address Organization Details Last Updated DateTime 02/02/2023 165.1 cm 30 kg/m2 72591.63 g 118 mm[Hg] 70 mm[Hg] Sofiyaavel Parra [facility] 15:30:15 Date Recorded Body height Body mass index (BMI) Body weight Provider Name and Address Organization Details Last Updated DateTime 04/14/2023 165.1 cm 30 kg/m2 07293.63 g Tommy Carlos [facility] 04/14/2023 09:15:18 Social History Question Answer Notes LastModified by Organizat ion Details LastModified Time Tobacco Smoking Status Former Smoker Coco [facility] 07/11/2019 10:47:02 What Is Your Level Of Alcohol Consumption? None [email or web address] Information not available 09/26/2021 How Much Tobacco Do You Chew? None [email or web address] Information not available 07/11/2019 Do You Or Have You Ever Used E-cigarettes Or Vape? Never Used Electronic Cigarettes [email or web address] Information not available 07/11/2019 What Was The Date Of Your Most Recent Tobacco Screening? 01/03/2024 [email or web address] Information not available 01/03/2024 Do You Or Have You Ever Used Smokeless Tobacco? Never Used Smokeless Tobacco [email or web address] Information not available 07/11/2019 How Much Tobacco Do You Smoke? No [email or web address] Information not available 07/11/2019 Do You Use Any Illicit Or Recreational Drugs? No Information not available 01/19/2022 Has Tobacco Cessation Counseling Been Provided? No Information not available 01/19/2022 How Many Years Have You Smoked Tobacco? 25 Quit 1985 [email or web address] Information not available 07/11/2019 Have You Recently Traveled Abroad? No Information not available 01/19/2022 Sex: Unknown Functional Status None recorded. Mental Status None recorded. Family History Relationship Description Onset Age of this Age Resolved Age Notes LastModified by Organization Details LastModified Time Mother Arthritis [email or web address] Not avail able 07/11/2019 10:46:37 Medical History Condition Response Diabetes N Bleeding Disorder N Arthritis Y Emphysema N Acid Reflux (GERD) Y Heart Disease N Rheumatoid Arthritis N Hypertension Y COPD N Asthma N Gynecological HistoryNo gynecological history recorded. Obstetrics History GPAL:G 0 P 0 0 0 0 Past Encounters Encounter ID Performer Location Encounter Start Date Encounter Closed Date Diagnosis/Indication Diagnosis SNOMED-CT Code Diagnosis ICD10 Code Diagnosis Note [id number] RASHI FIELDS APRN [facility] [address] [place] [address] 07/11/2019 09:42:39 07/11/2019 11:26:35 Multiple joint pain 53368661 M25.50 with negative labs from pcp, though feeling inflamed; has some mild scalp psoriasis; has joint pain and tenderness ; will perform a steroid trial and assess her outcome; we discussed that she may benefit from a very low dose prednisone due to mild inflammato ry arthritis/ psoriatic arthritis; though we would not treat aggressive ly with dmards or biologics based on her msk exam and her negative labs/lack of psoriasis; she has no synovitis, no joint effusions and is without dactylitis ; she needs no further labs today and will return in 1 month to assess the outcome of her trial Psoriasis of scalp 51135 8008 L40.9 [id number] RASHI FIELDS APRN [facility] [address] [place] [address] 08/29/2021 11:21:23 08/29/2021 14:20:08 Multiple joint pain 45778889 M25.50 with negative labs from pcp, though feeling inflamed; has some mild scalp psoriasis; has joint pain and tenderness ; will perform a steroid trial and assess her outcome; we discussed that she may benefit from a very low dose prednisone due to mild inflammato ry arthritis/ psoriatic arthritis; though we would not treat aggressive ly with dmards or biologics based on her msk exam and her negative labs/lack of psoriasis; she has no synovitis, no joint effusions and is without dactylitis ; she needs no further labs today and will return in 1 month to assess the outcome of her trial Psoriasis of scalp 26641 8008 L40.9 chronic and recurring [id number] RASHI FIELDS APRN [facility] [place] [address] 09/26/2021 10:31:37 09/26/2021 16:33:23 Multiple joint pain 00212558 M25.50 with negative labs from pcp, though feeling inflamed; has some mild scalp psoriasis; has joint pain and tenderness ; will perform a steroid trial and assess her outcome; we discussed that she may benefit from a very low dose prednisone due to mild inflammato ry arthritis/ psoriatic arthritis; though we would not treat aggressive ly with dmards or biologics based on her msk exam and her negative labs/lack of psoriasis; she has no synovitis, no joint effusions and is without dactylitis ; she needs no further labs today and will return in 1 month to assess the outcome of her trial Psoriasis of scalp 04394 8008 L40.9 chronic and recurring Psoriatic arthritis 1563 25737 L40.50 [id number] RASHI FIELDS APRN [facility] [address] [address] 01/19/2022 07:40:52 01/19/2022 16:20:35 Multiple joint pain 68957226 M25.50 with negative labs from pcp, though feeling inflamed; has some mild scalp psoriasis; has joint pain and tenderness ; will perform a steroid trial and assess her outcome; we discussed that she may benefit from a very low dose prednisone due to mild inflammato ry arthritis/ psoriatic arthritis; though we would not treat aggressive ly with dmards or biologics based on her msk exam and her negative labs/lack of psoriasis; she has no synovitis, no joint effusions and is without dactylitis ; Psoriasis of scalp 85643 8008 L40.9 chronic and recurring Psoriatic arthritis 1563 27596 L40.50 stopped the prednisone due to not liking the side effectssta rted on mtx as the otezla was expensiver equested humira and it was deniedrequ nimo lester and it was improved but had a really high copay of $1600.00 per monthshe further has not received the documents for free or copay assisted rinvoqshe will increase the mtx to 6 po once weekly, maintain the folic acid 1 mg daily and will further await the rx for rinvoq with documents faxed today Long-term drug therapy [id number] Z79.899 [id number] RASHI FIELDS APRN [facility] [address] [place] [address] 05/04/2022 09:39:11 05/04/2022 12:27:56 Psoriatic arthritis 820237535 L40.50 stopped the prednisone due to not liking the side effectssta rted on mtx as the otezla was expensiver equested humira and it was deniedrequ nimo lester and it was improved but had a really high copay of $1600.00 per month, so she never started itshe further has not received the documents for free or copay assisted rinvoq, but she has not been approved for thisshe will increase the mtx to 6 po once weekly, maintain the folic acid 1 mg daily and will further await her approval or not Multiple joint pain 3567 8005 M25.50 with negative labs from pcp, though feeling inflamed; has some mild scalp psoriasis; has joint pain and tenderness ; will perform a steroid trial and assess her outcome; we discussed that she may benefit from a very low dose prednisone due to mild inflammato ry arthritis/ psoriatic arthritis; though we would not treat aggressive ly with dmards or biologics based on her msk exam and her negative labs/lack of psoriasis; she has no synovitis, no joint effusions and is without dactylitis ; Psoriasis of scalp 46755 8008 L40.9 chronic and recurring Long-term drug therapy 143299600 Z79.899 [id number] RASHI FIELDS APRN [facility] [address] [place] [address] 08/05/2022 13:20:22 08/05/2022 15:30:37 Psoriatic arthritis 266409940 L40.50 stopped the prednisone due to not liking the side effectssta rted on mtx as the otezla was expensiver equested humira and it was deniedrequ nimo lester and it was improved but had a really high copay of $1600.00 per month, so she never started it she will increase the mtx to 6 po once weekly, maintain the folic acid 1 mg daily Multiple joint pain 3567 8005 M25.50 with negative labs from pcp, though feeling inflamed; has some mild scalp psoriasis; has joint pain and tenderness ; will perform a steroid trial and assess her outcome; we discussed that she may benefit from a very low dose prednisone due to mild inflammato ry arthritis/ psoriatic arthritis; though we would not treat aggressive ly with dmards or biologics based on her msk exam and her negative labs/lack of psoriasis; she has no synovitis, no joint effusions and is without dactylitis ; Psoriasis of scalp 042[address] 8008 L40.9 chronic and recurring Long-term drug therapy 787967143 Z79.899 [id number] RASHI FIELDS APRN [facility] [address] [place] [address] 11/03/2022 15:25:53 11/04/2022 04:57:53 Psoriatic arthritis 865964288 L40.50 stopped the prednisone due to not liking the side effectssta rted on mtx as the otezla was expensiver equested humira and it was deniedrequ nimo lester and it was improved but had a really high copay of $1600.00 per month, so she never started itso we discussed and she will maintain she will change to the injectible the mtx to 0.6 sc injection once weekly, maintain the folic acid 1 mg daily Multiple joint pain 3567 8005 M25.50 with negative labs from pcp, though feeling inflamed; has some mild scalp psoriasis; has joint pain and tenderness ; will perform a steroid trial and assess her outcome; we discussed that she may benefit from a very low dose prednisone due to mild inflammato ry arthritis/ psoriatic arthritis; though we would not treat aggressive ly with dmards or biologics based on her msk exam and her negative labs/lack of psoriasis; she has no synovitis, no joint effusions and is without dactylitis ; Psoriasis of scalp 42390 8008 L40.9 chronic and recurring Long-term drug therapy 144000946 Z79.899 [id number] RASHI FIELDS APRN [facility] [address] [place] [address] 02/02/2023 15:27:57 02/03/2023 04:08:04 Psoriatic arthritis 357139439 L40.50 stopped the prednisone due to not liking the side effectssta rted on mtx as the otezla was expensiver equested humira and it was deniedrequ nimo lester and it was improved but had a really high copay of $1600.00 per month, so she never started itso we discussed and she will maintain the plaquenil and the mtx she will change to the injectible the mtx to 0.6 sc injection once weekly, maintain the folic acid 1 mg daily Multiple joint pain 3567 8005 M25.50 with negative labs from pcp, though feeling inflamed; has some mild scalp psoriasis; has joint pain and tenderness ; will perform a steroid trial and assess her outcome; we discussed that she may benefit from a very low dose prednisone due to mild inflammato ry arthritis/ psoriatic arthritis; though we would not treat aggressive ly with dmards or biologics based on her msk exam and her negative labs/lack of psoriasis; she has no synovitis, no joint effusions and is without dactylitis ; Psoriasis of scalp 40481 8008 L40.9 chronic and recurring Long-term drug therapy 894158193 Z79.899 [id number] RASHI FIELDS APRN [facility] [address] [place] [address] 04/14/2023 09:14:06 04/15/2023 04:33:18 Psoriatic arthritis 820964190 L40.50 stopped the prednisone due to not liking the side effectssta rted on mtx as the otezla was expensiver equested humira and it was deniedrequ nimo lester and it was improved but had a really high copay of $1600.00 per month, so she never started itso we discussed and she will maintain the plaquenil and the mtxshe will change to the injectable the mtx to 0.6 sc injection once weekly, maintain the folic acid 1 mg daily Multiple joint pain 3567 8005 M25.50 with negative labs from pcp, though feeling inflamed; has some mild scalp psoriasis; has joint pain and tenderness ; will perform a steroid trial and assess her outcome; we discussed that she may benefit from a very low dose prednisone due to mild inflammato ry arthritis/ psoriatic arthritis; though we would not treat aggressive ly with dmards or biologics based on her msk exam and her negative labs/lack of psoriasis; she has no synovitis, no joint effusions and is without dactylitis ; Psoriasis of scalp 28642 8008 L40.9 chronic and recurring Long-term drug therapy 755202554 Z79.899 [id number] RASHI FIELDS APRN [facility] [address] [place] [address] 01/03/2024 13:27:01 01/04/2024 17:41:35 Psoriatic arthritis 828592784 L40.50 stopped the prednisone due to not liking the side effectscon tinues mtx as the otezla was expensiver equested humira and it was deniedrequ nimo lester and it was improved but had a really high copay of $1600.00 per month, so she never started itso we discussed and she will maintain the plaquenil and the mtxshe will change to the injectable the mtx to 1 mL sc injection once weekly, maintain the folic acid 1 mg daily Multiple joint pain [phone] M25.50 with negative labs from pcp, though feeling inflamed; has some mild scalp psoriasis; has joint pain and tenderness ; will perform a steroid trial and assess her outcome; we discussed that she may benefit from a very low dose prednisone due to mild inflammato ry arthritis/ psoriatic arthritis; though we would not treat aggressive ly with dmards or biologics based on her msk exam and her negative labs/lack of psoriasis; she has no synovitis, no joint effusions and is without dactylitis ; Psoriasis of scalp [phone] L40.9 chronic and recurring Long-term drug therapy [id number] Z79.899 Health Concerns Section Related Observation LastModified by Organization Detai ls LastModified Time None Recorded Concern Status LastModified by Organization Details LastModified Time None Recorded Advance Directives Directive None Recorded Payers Encounter Date Sequence Insurance Name Policy Number Policy Amezquita Covered Member ID [id number] Member ID Guarantor Name 08/05/2022 1 [place] Elyse A Miley [id number] Elyse A Miley 08/05/2022 2 [facility] (MEDICARE SUPPLEMENT) Elyse A Miley [id number] Elyse A Miley 11/03/2022 1 [place] Elyse A Miley [id number] Elyse A Miley 11/03/2022 2 [employer] (MEDICARE SUPPLEMENT) Elyse A Miley [id number] Elyse A Miley 02/02/2023 1 [place] Elyse A Miley [id number] Elyse A Miley 02/02/2023 2 [employer] (MEDICARE SUPPLEMENT) Elyse A Miley [id number] Elyse A Miley 04/14/2023 1 [place] Elyse A Miley [id number] Elyse A Miley 04/14/2023 2 [employer] (MEDICARE SUPPLEMENT) Elyse A Miley [id number] Elyse A Miley 01/03/2024 1 [place] Elyse A Miley [id number] Elyse A Miley 01/03/2024 2 [employer] (MEDICARE SUPPLEMENT) Elyse A Miley [id number] Elyse A Miley Notes Date Note Type Note Provider Name and Address Organization Details Recorded Time 08/05/2022 text/html Visit today is b eing conducted via telehealth using both audio/video. The patient confirms that he/she is physically located in [place] at the time of this visit. Patient expressed understanding of audio/video telehealth as a billable visit and has consented. Patient also expressed understanding that not every condition can be appropriately addressed via telehealth and that this telehealth visit may need to be converted to an in-person visit or may even result in a recommendation to go to the E.R. at the provider? s discretion in order to provide the best possible care. 81 yo fe, f/u on psa; she is currently taking mtx and folic acid; she is having breakthrough pain as well as severe scalp psoriasis; she has been approved for rinvoq; but she has a very high copay; she is without any new major trauma; she is without recurring or major interval infection; she cannot tolerate nsaids on her gut due to severe gastritis; she reports her left side is involved; she currently denies bowel or bladder changes, chest pain, shortness of air, rashes, fevers and all others are negative RASHI FIELDS APRN [address] [place], [address], [facility] 08/05/2022 13:46:49 11/03/2022 text/html 82 yo fe, f/u on psa; she is currently taking mtx and folic acid; she is having breakthrough pain as well as severe scalp psoriasis; she has not been taking her mtx and is flared; she has been approved for rinvoq; but she has a very high copay; she is without any new major trauma; she is without recurring or major interval infection; she cannot tolerate nsaids on her gut due to severe gastritis; she reports her left side is involved; she currently denies bowel or bladder changes, chest pain, shortness of air, rashes, fevers and all others are negative RASHI FIELDS APRN [address] [place], [address], [facility] 11/03/2022 15:55:05 02/02/2023 text/html 82 yo fe, f/u on psa; she is currently taking mtx and folic acid; she is having breakthrough pain as well as severe scalp psoriasis; she has not been taking her mtx and is flared; she has been approved for rinvoq; but she has a very high copay; she is without any new major trauma; she is without recurring or major interval infection; she cannot tolerate nsaids on her gut due to severe gastritis; she reports her left side is involved; she currently denies bowel or bladder changes, chest pain, shortness of air, rashes, fevers and all others are negative RASHI FIELDS APRN [address] [place], [address], [facility] 02/02/2023 15:53:16 04/14/2023 text/html Visit today is b eing conducted via telehealth using both audio/video. The patient confirms that he/she is physically located in [place] at the time of this visit. Patient expressed understanding of audio/video telehealth as a billable visit and has consented. Patient also expressed understanding that not every condition can be appropriately addressed via telehealth and that this telehealth visit may need to be converted to an in-person visit or may even result in a recommendation to go to the E.R. at the provider? s discretion in order to provide the best possible care. 82 yo fe, f/u on psa; she is currently taking mtx and folic acid; she is having breakthrough pain as well as severe scalp psoriasis; she has not been taking her mtx and is flared; she has been approved for rinvoq; but she has a very high copay; she is without any new major trauma; she is without recurring or major interval infection; she cannot tolerate nsaids on her gut due to severe gastritis; she reports her left side is involved; she currently denies bowel or bladder changes, chest pain, shortness of air, rashes, fevers and all others are negative RASHI FIELDS APRN [address] [place], [address], [facility] 04/14/2023 09:26:06 01/03/2024 text/html Visit today is b salasng conducted via telehealth using both audio/video. The patient confirms that he/she is physically located in [place] at the time of this visit. Patient expressed understanding of audio/video telehealth as a billable visit and has consented. Patient also expressed understanding that not every condition can be appropriately addressed via telehealth and that this telehealth visit may need to be converted to an in-person visit or may even result in a recommendation to go to the E.R. at the provider? s discretion in order to provide the best possible care. 83 yo fe, f/u on psa; she is doing well; she is with her daughter; she is without recurring or major interval infection; she cannot tolerate nsaids on her gut due to severe gastritis; she reports her left side is involved; she currently denies bowel or bladder changes, chest pain, shortness of air, rashes, fevers and all others are negative RASHI FIELDS APRN [address] [place], [address], [facility] 01/03/2024 13:51:38 OBGyn Episode No OBEpisode recorded.
== END 2024-10-17 23:59 | disposition home or self-care (01) ==
LOC: LAB.DROPOF 10-18 12:36
PROVIDERS: PCP Nurse Practitioner Family; Visit Provider Nurse Practitioner Family
DX: R53.82 Chronic fatigue, unspecified (principal); R53.83 Other fatigue; E16.2 Hypoglycemia, unspecified
CPT/HCPCS: 80053; 82150; 83036; 83690; 85025

== ENCOUNTER 2024-11-17 14:54 | Outpatient (CLI) | payer MEDICARE, OTHER, SELFPAY ==
--- OUTSIDE RECORDS SUMMARY | 2024-11-20 14:57 | XMS_ITS | Data Portability ---
Author Organization WILBER LAMAR Nelson JENNINGS CLOSED Address [address] [facility] [address] [place] [address] Care Team Providers Care Cow Tester Name Role Phone ZULEYKA MARTIN Primary Care Provider Assessment No assessment recorded. Plan of Treatment Reminders Order Date Submit Date Provider Last Modified By Organization Details Last Modified Time Details Appointments VIRTUAL VISIT 2024 02:30P M MONICO PENN MD Not available Not available Not available Lab CBC w/ auto diff 2023 024 [facility] (Lab), [address] [place] [address], [place], [id number], 01/10/2024 10:03:55 creatinin e, serum or plasma 2023 024 [email or web address] [facility] (Lab), [address] [place] [address], [place], [id number], 01/10/2024 10:03:55 ALT (alanine aminotran sferase), serum or plasma 2023 024 [email or web address] [facility] (Lab), [address] [place] [address], [place], [id number], 01/10/2024 10:03:55 AST/SGOT (aspartat e aminotran sferase), serum or plasma 2023 024 [email or web address] [facility] (Lab), [address] [facility] [address], [place], [id number], 01/10/2024 10:03:55 CBC w/ auto diff [address] (Lab), [address], [place], [id number], 11/10/2022 08:26:26 creatinin e, serum or plasma [address] (Lab), [address], [place], [id number], 11/10/2022 08:26:26 ALT (alanine aminotran sferase), serum or plasma [address] (Lab), [address], [place], [address], 11/10/2022 08:26:26 ESR (erythroc yte sedimenta tion rate), blood [address] (Lab), [address], [place], [address], 11/10/2022 08:26:26 AST/SGOT (aspartat e aminotran sferase), serum or plasma [address] (Lab), [address], [place], [address], 11/10/2022 08:26:27 CBC w/ auto diff [address] (Lab), [address], [place], [address], 08/12/2022 07:29:57 creatinin e, serum or plasma [address] (Lab), [address], [place], [id number], 08/12/2022 07:29:57 ALT (alanine aminotran sferase), serum or plasma 2022 023 [email or web address] [facility] (Lab), [address] [place] [address], [place], [id number], 08/12/2022 07:29:57 ESR (erythroc yte sedimenta tion rate), blood 2022 023 [email or web address] [facility] (Lab), [address], [place], [address], 08/12/2022 07:29:58 AST/SGOT (aspartat e aminotran sferase), serum or plasma 2022 023 [email or web address] [facility] (Lab), [address] [place] [address], [place], [id number], 08/12/2022 07:29:58 Referral None recorded. Procedures None recorded. Surgeries None recorded. Imaging None recorded. Medication Orders folic acid 1 mg tablet 2023 024 [facility], [address] [place] [address], [place], [id number], 01/03/2024 13:51:55 hydroxych loroquine 200 mg tablet 2023 024 [facility], [address] [place] [address], [place], [id number], 01/03/2024 13:51:52 methotrex ate sodium 25 mg/mL injection solution 2023 024 [facility] [address], [address], [place], [id number], 01/03/2024 13:51:47 tramadol 50 mg tablet 2023 024 [facility], [address], [place], [id number], 01/03/2024 13:53:40 folic acid 1 mg tablet 2022 023 [facility], [address] [place] [address], [place], [id number], 04/14/2023 09:27:06 hydroxych loroquine 200 mg tablet 2022 023 [facility], [address] [place] [address], [place], [id number], 04/14/2023 09:27:03 methotrex ate sodium 25 mg/mL injection solution 2022 023 [facility] 591, [address], [place], [address], 04/14/2023 09:25:18 tramadol 50 mg tablet 2022 023 [facility], [address] [place] [address], [place], [id number], 04/14/2023 09:27:10 folic acid 1 mg tablet 2022 023 [facility], [address] [place] [address], [place], [id number], 02/02/2023 15:55:17 hydroxych loroquine 200 mg tablet 2022 023 [facility], [address] [place] [address], [place], [id number], 02/02/2023 15:55:12 methotrex ate sodium 25 mg/mL injection solution 2022 023 [facility], [address] [place] [address], [place], [id number], 02/02/2023 15:55:14 tramadol 50 mg tablet 2022 023 [facility], [address] [place] [address] [address], [place], [id number], 02/02/2023 15:55:20 folic acid 1 mg tablet 2022 023 [facility], [address] [place] [address] S, [place], [id number], 11/03/2022 15:41:28 hydroxych loroquine 200 mg tablet 2022 023 [facility], [address] [place] [address] S, [place], [id number], 11/03/2022 15:41:31 methotrex ate sodium 25 mg/mL injection solution 2022 023 [facility], [address] [place] [address] S, [place], [id number], 11/03/2022 15:47:28 tramadol 50 mg tablet 2022 023 [facility], [address] [place] [address] S, [place], [id number], 11/03/2022 15:55:40 methotrex ate sodium 2.5 mg tablet 2022 023 [email or web address], [address] [place] [address] [address], [place], [id number], 04/19/2023 19:51:15 folic acid 1 mg tablet 2022 023 [facility], [address] [place] [address] [address], [place], [id number], 08/05/2022 13:45:41 hydroxych loroquine 200 mg tablet 2022 023 [facility], [address] [address] [place], [id number], 08/05/2022 13:45:47 Patient TargetsNo targets recorded. Patient Instructions Encounter Date Encounter Id Patient Instructions Last Modified By Organization Details Last Modified Time 11/03/2022 [id number] medical record request* - labs from 10/2022 [email or web address] Not available 11/04/2022 12:27:35 02/02/2023 [id number] medical record request* - labs from 2022 [email or web address] Not available 02/10/2023 08:44:39 Reason for Referral None Reported. Results Created Date Observation Date Name Description Value Unit Range Abnormal Flag Note LastModifiedBy Organization Detail LastModifiedTime Result Notes None recorded. Problems Name Problem SNOMED Code Status Onset Date Resolution Date Notes Provider Name and Address Organization Details Recorded Time Psoriasis of scalp 525927007 Active 022 RASHI FIELDS, DIRECTOR OF ENROLLMENT [address] [place], [address], [facility] 11:50:23 Problem Notes None recorded. Procedures Surgical History Date Name Laterality Status Provider Name and Address Organization Details Recorded Time 12/03/2021 endoscopy completed Valerie Hilliardby [facility] 01/19/2022 07:45:21 Imaging Results None recorded. Procedure Notes None recorded. Medical Equipment None Reported. Allergies Allergen ID Allergen Name Allergen Category Reaction Reaction Severity Criticality Documentation Date Start Date Code Code System Note Provider Name and Address Organization Details Recorded Time 316158 Substance with sulfonami de structure and antibacte rial mechanism of action (substanc e) medicatio n Not available Not available Not available 05/28/20162008 42050 8003 SNOMED Comme nt: Creat ed By: Juwan Monsalve eated Date: 2008 3:19: 29 PM; Not Available [facility] 6 11:20:03 266611 morphine sulfate medicatio n Not available Not available Not available 05/28/20162010 12899 RxNorm Comme nt: Creat ed By: Miki Braun;Cr eated Date: 04/23 9:04: 18 AM; Not Available [facility] 6 14:02:47 Medications Name Sig Start Date Stop [...] methotrex ate sodium 25 mg/mL injection solution INJECT 1 ML ONCE A WEEK 2024 active Not Available Not Available Not Avai [...] 1 tablet every day by oral route. 2024 active Not Available Not Available Not Avai [...] by oral route. 01/19 completed humana approved [place] ref#[id number] exp 07.04.22 Not Available Not Available Not Available Vitals Date Recorded Body height Body mass index (BMI) Body weight Provider Name and Address Organization Details Last Updated DateTime 08/05/2022 165.1 cm 25 kg/m2 87943.86 g [facility] 08/05/2022 13:20:36 Date Recorded Body height Body mass index (BMI) Body weight Systolic blood pressure Diastolic blood pressure Provider Name and Address Organization Details Last Updated DateTime 02/02/2023 165.1 cm 30 kg/m2 19486.63 g 118 mm[Hg] 70 mm[Hg] [facility] [place] 15:30:15 Date Recorded Body height Body mass index (BMI) Body weight Provider Name and Address Organization Details Last Updated DateTime 04/14/2023 165.1 cm 30 kg/m2 29347.63 g Tommy Carlos [facility] 04/14/2023 09:15:18 Social History Question Answer Notes LastModified by Organizat ion Details LastModified Time Tobacco Smoking Status [facility]/11[facility] 10:47:02 How Much Tobacco Do You Chew? None [email or web address] Information not available 07/11/2019 What Was The Date Of Your Most Recent Tobacco Screening? 01/03/2024 [email or web address] Information not available 01/03/2024 How Much Tobacco Do You Smoke? No [email or web address] Information not available 07/11/2019 Has Tobacco Cessation Counseling Been Provided? No Information not available 01/19/2022 How Many Years Have You Smoked Tobacco? 25 Quit 1985 [email or web address] Information not available 07/11/2019 Have You Recently Traveled Abroad? No Information not available 01/19/2022 Sex: Unknown Functional Status Question Answer Note LastModified by Organizat ion Details LastModified Time Do you use any illicit or recreational drugs? No Information not available 01/19/2022 What is your level of alcohol consumption? None [email or web address] Information not available 09/26/2021 Do you or have you ever used smokeless tobacco? Never used smokeless tobacco [email or web address] Information not available 07/11/2019 Do you or have you ever used e-cigarettes or vape? Never used electronic cigarettes [email or web address] Information not available 07/11/2019 Mental Status None recorded. Family History Relationship Description Onset Age of this Age Resolved Age Notes LastModified by Organization Details LastModified Time Mother Arthritis [email or web address] Not avail able 07/11/2019 10:46:37 Medical History Condition Response Emphysema N COPD N Arthritis Y Acid Reflux (GERD) Y Rheumatoid Arthritis N Diabetes N Bleeding Disorder N Asthma N Heart Disease N Hypertension Y Gynecological HistoryNo gynecological history recorded. Obstetrics History GPAL:G 0 P 0 0 0 0 Past Encounters Encounter ID Performer Location Encounter Start Date Encounter Closed Date Diagnosis/Indication Diagnosis SNOMED-CT Code Diagnosis ICD10 Code Diagnosis Note [id number] RASHI FIELDS APRN [place] [place] [address] [place] [address] 07/11/2019 09:42:39 07/11/2019 11:26:35 Pain of multiple joints 48729707 M25.50 with negative labs from pcp, though [...] outcome of her trial Psoriasis of scalp 22509 8008 L40.9 [id number] RASHI FIELDS APRN R[facility]UMATOL [facility] [address] [place] [address] 08/29/2021 11:21:23 08/29/2021 14:20:08 Pain of multiple joints 97714254 M25.50 with negative labs from pcp, though [...] outcome of her trial Psoriasis of scalp 00789 8008 L40.9 chronic and recurring [id number] RASHI FIELDS APRN RHEUMATOL [address] [address] 09/26/2021 10:31:37 09/26/2021 16:33:23 Pain of multiple joints 78389624 M25.50 with negative labs from pcp, though [...] outcome of her trial Psoriasis of scalp 16503 8008 L40.9 chronic and recurring Psoriatic arthritis 1563 64694 L40.50 [id number] RASHI FIELDS APRN R[facility] [address] [address] 01/19/2022 07:40:52 01/19/2022 16:20:35 Pain of multiple joints 31436295 M25.50 with negative labs from pcp, though [...] is without dactylitis ; Psoriasis of scalp 73913 8008 L40.9 chronic and recurring Psoriatic arthritis 1563 39564 L40.50 stopped the prednisone due to not liking the side effectssta rted on mtx as the otezla was expensiver equested humira and it was deniedrequ ested rinvoq and it was improved but had a really high copay of $1600.00 per monthshe further has not received the documents for free or copay assisted rinvoqshe will increase the mtx to 6 po once weekly, maintain the folic acid 1 mg daily and will further await the rx for rinvoq with documents faxed today Long-term drug therapy 439760305 Z79.899 [id number] RASHI FIELDS APRN [facility]UMATOL [facility] [address] [place] [address] 05/04/2022 09:39:11 05/04/2022 12:27:56 Psoriatic arthritis 999866197 L40.50 stopped the prednisone due to not liking the side effectssta rted on mtx as the otezla was expensiver equested humira and it was deniedrequ ested rinvoq and it was improved but had a really high copay of $1600.00 per month, so she never started itshe further has not received the documents for free or copay assisted rinvoq, but she has not been approved for thisshe will increase the mtx to 6 po once weekly, maintain the folic acid 1 mg daily and will further await her approval or not Pain of mu ltiple joints 95196935 M25.50 with negative labs from pcp, though [...] is without dactylitis ; Psoriasis of scalp 80988 8008 L40.9 chronic and recurring Long-term drug therapy 589820969 Z79.899 [id number] RASHI FIELDS APRN [facility] [address] [place] [address] 08/05/2022 13:20:22 08/05/2022 15:30:37 Psoriatic arthritis 847908952 L40.50 stopped the prednisone due to not liking the side effectssta rted on mtx as the otezla was expensiver equested humira and it was deniedrequ nimo lester and it was improved but had a really high copay of $1600.00 per month, so she never started it she will increase the mtx to 6 po once weekly, maintain the folic acid 1 mg daily Pain of mu ltiple joints 41744461 M25.50 with negative labs from pcp, though [...] is without dactylitis ; Psoriasis of scalp 36681 8008 L40.9 chronic and recurring Long-term drug therapy 073877250 Z79.899 [id number] RASHI FIELDS APRN RHEUMATOL [facility] [address] [place] [address] 11/03/2022 15:25:53 11/04/2022 04:57:53 Psoriatic arthritis 874956498 L40.50 stopped the prednisone due to not [...] maintain the folic acid 1 mg daily Pain of mu ltiple joints 98892452 M25.50 with negative labs from pcp, though [...] is without dactylitis ; Psoriasis of scalp 50892 8008 L40.9 chronic and recurring Long-term drug therapy 731823510 Z79.899 [id number] RASHI FIELDS APRN [facility]AT[facility] [address] [place] [address] 02/02/2023 15:27:57 02/03/2023 04:08:04 Psoriatic arthritis 957164448 L40.50 stopped the prednisone due to not [...] maintain the folic acid 1 mg daily Pain of mu ltiple joints 32226799 M25.50 with negative labs from pcp, though [...] is without dactylitis ; Psoriasis of scalp 98455 8008 L40.9 chronic and recurring Long-term drug therapy 485227157 Z79.899 [id number] RASHI FIELDS APRN RHEUMATOL [facility] [address] [place] [address] 04/14/2023 09:14:06 04/15/2023 04:33:18 Psoriatic arthritis 501643994 L40.50 stopped the prednisone due to not [...] maintain the folic acid 1 mg daily Pain of mu ltiple joints 23854258 M25.50 with negative labs from pcp, though [...] is without dactylitis ; Psoriasis of scalp 41064 8008 L40.9 chronic and recurring Long-term drug therapy 225629617 Z79.899 [id number] RASHI FIELDS APRN [facility] [address] [place] [address] 01/03/2024 13:27:01 01/04/2024 17:41:35 Psoriatic arthritis 258534504 L40.50 stopped the prednisone due to not liking the side effectscon tinues mtx as the otezla was expensiver equested humclio and it was deniedrequ nimo lester and it was improved but had a really high copay of $1600.00 per month, so she never started itso we discussed and she will maintain the plaquenil and the mtxshe will change to the injectable the mtx to 1 mL sc injection once weekly, maintain the folic acid 1 mg daily Pain of mu ltiple joints 05850023 M25.50 with negative labs from pcp, though [...] is without dactylitis ; Psoriasis of scalp 14807 8008 L40.9 chronic and recurring Long-term drug therapy 844180158 Z79.899 Health Concerns Section Related Observation LastModified by Organization Betsey ls LastModified Time None Recorded Concern Status LastModified by Organization Details LastModified Time None Recorded Advance Directives Directive None Recorded Payers Insurance Date Sequence Insurance Name Policy Number Policy Amezquita Covered Member ID Amezquita Member ID Guarantor Name 07/07/2024 2 [employer] [place] (MEDICARE SUPPLEMENT) Elyse Trent [id number] Elyse Moody Miley 07/07/2024 1 [place]ICARE[place] Elyse Moody Miley [id number] Elyse Batistane Notes Date Note Type Note Provider Name and Address Organization Details Recorded Time 08/05/2022 text/html Visit today is b salasng conducted via telehealth using both audio/video. The patient confirms that he/she is physically located in [place] at the time of this visit. Patient [...] fevers and all others are negative RASHI FIELDS, URSULA [address] [place], [address], [facility] 08/05/2022 13:46:49 11/03/2022 text/html 82 yo fe, [...] are negative RASHI FIELDS APRN [address] [place], [address] 11/03/2022 15:55:05 02/02/2023 text/html 82 [...] all others are negative RASHI FIELDS APRN [address] [place], [address] 02/02/2023 15:53:16 04/14/2023 text/html Visit today is b salasng conducted via telehealth using both audio/video. The patient confirms that he/she is physically located in [place] at the time of this visit. Patient [...] are negative RASHI FIELDS APRN [address] [place], [address] 04/14/2023 09:26:06 01/03/2024 text/html Visit today is b eing conducted via telehealth using both audio/video. The patient confirms that he/she is physically located in [place] at the time of this visit. Patient [...] fevers and all others are negative RASHI FIELDS, DIRECTOR OF ENROLLMENT [address] [place], [address], [facility] 01/03/2024 13:51:38 OBGyn Episode No OBEpisode recorded.
== END 2024-11-17 23:59 ==
LOC: LAB.DROPOF 11-20 14:55
PROVIDERS: PCP Nurse Practitioner Family; Visit Provider Nurse Practitioner Family
DX: N39.0 Urinary tract infection, site not specified (principal)
CPT/HCPCS: 87086

== ENCOUNTER 2024-12-25 15:45 | Outpatient (CLI) | payer MEDICARE, OTHER, SELFPAY ==
--- OUTSIDE RECORDS SUMMARY | 2024-12-25 15:48 | XMS_ITS | Referral Summary ---
Author Organization [employer] Address [address] [place] [address] Care Team Providers Care Coin Counter And Wrapper Name Role Phone Unavailable Primary Care Provider Unavailabl e Encounters Date Type Department Care Team Description 11/01/2024 Outside Orders [facility] Central Scheduling [address] [place] [address] Luciana Goodrich PA-C Left hip pain (Primary Dx) 10/05/2024 Outside Orders [facility] Central Scheduling [address] [place] [address] Adelina Osman Memory loss (Primary Dx) from Last 3 Months Social History Tobacco Use Types Packs/Day Years Used Date Smoking Tobacco: Never Assessed Comments Unknown Sex and Gender Information Value Date Recorded Sex Assigned at Not on file Legal Sex Female 2:46 PM CDT Gender Identity Not on file Sexual Orientation Not on file Plan of Treatment Not on file
--- OUTSIDE RECORDS SUMMARY | 2024-12-25 15:48 | XMS_ITS | Encounter Summary ---
Author Organization [employer] Address [address] [place] [address] Care Team Providers Care Manager Cardiac Cath Name Role Phone Unavailable Primary Care Provider Unavailabl e Reason for Referral * Consultation (Routine) - Canceled Specialty Diagnoses / Procedures Referred By Carol hall Referred To Contact Behavioral Health Diagnoses Memory loss Adelina Osman [address] [place] [address] Phone: tel: Misa Bravo, [place] [address] [place] [address] Phone: tel: fax: Referral ID Status Reason Start Date Expiration Date Visits Requested Visits Authorized [id number] Canceled Specialty Services Required 10/05/2024 10/05/2025 1 1 Electronically signed by [facility], Provider Not In The System, at 10/05/2024 3:09 PM EDT Encounter Details Date Type Department Care Team (Late st Contact Info) Description 10/05/2024 Outside Orders [facility] Central Scheduling [address] [place] [address] Jacqui Adelina Shetty [address] [id number] Memory loss (Primary Dx) Social History Tobacco Use Types Packs/Day Years Used Date Smoking Tobacco: Never Assessed Comments Unknown Sex and Gender Information Value Date Recorded Sex Assigned at Not on file Legal Sex Female 2:46 PM CDT Gender Identity Not on file Sexual Orientation Not on file documented as of this encounter Plan of Treatment Scheduled Referrals Name Type Priority Associated Diagnoses Order Schedule Ambulatory referral to Behavioral Health Outpatient Referral Routine Memory loss Expected: 10/05/2024, Expires: 10/05/2025 documented as of this encounter Visit Diagnoses Diagnosis Memory loss- Primary documented in this encounter
--- OUTSIDE RECORDS SUMMARY | 2024-12-25 15:48 | XMS_ITS | Clinical Summary ---
Author Organization [employer] Address [address] [place] [address] Care Team Providers Care Drug Abuse Resistance Education Officer Name Role Phone Unavailable Primary Care Provider Unavailabl e Encounters Date Type Department Care Team Description 11/01/2024 Outside Orders [facility] Scheduling [address] [place] [address] Luciana Goodrich PA-C Left hip pain (Primary Dx) 10/05/2024 Outside Orders [facility] Scheduling [address] [place] [address] Adelina Osman Memory loss (Primary Dx) from Last 3 Months Social History Tobacco Use Types Packs/Day Years Used Date Smoking Tobacco: Never Assessed Comments Unknown Sex and Gender Information Value Date Recorded Sex Assigned at Not on file Legal Sex Female 2:46 PM CDT Gender Identity Not on file Sexual Orientation Not on file Plan of Treatment Health Maintenance Due Date Last Done Comments DXA SCAN 1940 Depression Screening (12+) 1952 Tobacco Cessation Counseling and Screening (12+) 05/14 DTAP/TDAP/TD VACCINES (1 - Tdap) 1959 Pneumococcal 50+ years (1 of 1 - PCV) 1990 Shingles Vaccine (Zoster) (1 of 2) 1990 Respiratory Syncytial Virus (RSV) Adult or (1 - 1-dose 75+ series) 2015 COVID-19 VACCINE (1 - 2023- season) 2024 Falls Risk Screening 07/05/2024 Influenza Vaccine (Season Ended) 2025
--- OUTSIDE RECORDS SUMMARY | 2024-12-25 15:48 | XMS_ITS | Encounter Summary ---
Author Organization Healthcare Address [address] [place] [address] Care Team Providers Care Manufacturing Engineer Chief Name Role Phone Unavailable Primary Care Provider Unavailabl e Encounter Details Date Type Department Care Team (Late st Contact Info) Description 06/16/2019 Abstract DSB [facility] [address] [place] [address] Dental, Provider, DDS [address] [place], [place] [id number] Social History Tobacco Use Types Packs/Day Years Used Date Smoking Tobacco: Never Assessed Comments Unknown Sex and Gender Information Value Date Recorded Sex Assigned at Not on file Legal Sex Female 7:37 PM EDT Gender Identity Not on file Sexual Orientation Not on file documented as of this encounter Plan of Treatment Not on file documented as of this encounter Visit Diagnoses Not on filedocumented in this encounter
--- OUTSIDE RECORDS SUMMARY | 2024-12-25 15:48 | XMS_ITS | Encounter Summary ---
Author Organization [email or web address] Address [address] [place] [address] Care Team Providers Care Carrier Blower Name Role Phone Unavailable Primary Care Provider Unavailabl e Reason for Referral * Nuclear Medicine (Routine) - New Request Specialty Diagnoses / Procedures Referred By Carol hall Referred To Contact Diagnoses Left hip pain Procedures NM bone scan whole body Luciana Goodrich PA-C [address] [address] Phone: tel: Referral ID Status Reason Start Date Expiration Date V isits Requested Visits Authorized [id number] New Request 11/01/2024 11/01/2025 1 1 Encounter Details Date Type Department Care Team (Late st Contact Info) Description 11/01/[address] [facility] Central Scheduling 1 [place] [id number] Luciana Goodrich PA-C [address] [phone] Left hip pain (Primary Dx) Social History Tobacco Use Types Packs/Day Years Used Date Smoking Tobacco: Never Assessed Comments Unknown Sex and Gender Information Value Date Recorded Sex Assigned at Not on file Legal Sex Female 2:46 PM CDT Gender Identity Not on file Sexual Orientation Not on file documented as of this encounter Plan of Treatment Scheduled Orders Name Type Priority Associated Diagnoses Orde r Schedule NM bone scan whole body Imaging Routine Left hip pain Expected: 11/01/2024, Expires: 12/01/2025 documented as of this encounter Visit Diagnoses Diagnosis Left hip pain- Primary Pain in joint, pelvic region and thigh documented in this encounter
--- OUTSIDE RECORDS SUMMARY | 2024-12-25 15:48 | XMS_ITS | Data Portability ---
Author Organization [facility] [place] [facility] Address [address] [facility] [address] [place] [address] Care Team Providers Care Lathe Spotter Name Role Phone ZULEYKA MARTIN Primary Care Provider Assessment No assessment recorded. Plan of Treatment Reminders Order Date Submit Date Provider Last Modified By Organization Details Last Modified Time Details Appointments None recorded. Lab CBC w/ auto diff 2023 024 [email or web address] [facility] (Lab), [address] [place] [address], [place], [address], 4 10:03:55 creatinine, serum or plasma 2023 024 [email or web address] [facility] (Lab), [address] [place] [address] [address], [place], [address], 4 10:03:55 ALT (alanine aminotransf erase), serum or plasma 2023 024 [email or web address] [facility] (Lab), [address] [facility] [address], [place], [address], 4 10:03:55 AST/SGOT (aspartate aminotransf erase), serum or plasma 2023 024 [email or web address] [facility] (Lab), [address] [place] [address], [place], [address], 4 10:03:55 CBC w/ auto diff 2022 023 [email or web address] 3 [facility] (Lab), [address], [place], [address], 3 08:26:26 creatinine, serum or plasma 2022 023 [email or web address] 3 [facility] (Lab), [address], [place], [place], [address], 3 08:26:26 ALT (alanine aminotransf erase), serum or plasma 2022 023 [email or web address] 3 [facility] (Lab), [address], [place], [place], [address], 3 08:26:26 ESR (erythrocyt e sedimentati on rate), blood 2022 023 [email or web address] 3 [facility] (Lab), [address], [place], [place], [address], 3 08:26:26 AST/SGOT (aspartate aminotransf erase), serum or plasma 2022 023 [email or web address] 3 [facility] (Lab), [address], [place], [place], [address], 3 08:26:27 CBC w/ auto diff 2022 023 [email or web address] [facility] (Lab), [address], [place], [place], [address], 3 07:29:57 creatinine, serum or plasma 2022 023 [email or web address] [facility] (Lab), [address], [place], [place], [address], 3 07:29:57 ALT (alanine aminotransf erase), serum or plasma 2022 023 [email or web address] [facility] (Lab), [address], [place], [address], 3 07:29:57 ESR (erythrocyt e sedimentati on rate), blood 2022 023 [email or web address] [facility] (Lab), [address], [place], [address], 3 07:29:58 AST/SGOT (aspartate aminotransf erase), serum or plasma 2022 023 [email or web address] [facility] (Lab), [address], [place], [address], 3 07:29:58 Referral None recorded. Procedures None recorded. Surgeries None recorded. Imaging None recorded. Medication Orders folic acid 1 mg tablet 2023 024 [facility], [address] [place] [address] [place], [id number], 4 13:51:55 hydroxychlo roquine 200 mg tablet 2023 024 [facility], [facility] [place], [id number], 4 13:51:52 methotrexat e sodium 25 mg/mL injection solution [address] [facility] 591, [address], [place], [address], 4 13:51:47 tramadol 50 mg tablet 2023 024 [facility], [facility] [address] [place], [id number], 4 13:53:40 folic acid 1 mg tablet 2022 023 [facility], [facility] [address] [address] [address], [place], [id number], 3 09:27:06 hydroxychlo roquine 200 mg tablet 2022 023 [facility], [address] [place] [address], [place], [id number], 3 09:27:03 methotrexat e sodium 25 mg/mL injection solution [address] [facility] 591, [address], [place], [address], 3 09:25:18 tramadol 50 mg tablet 2022 023 [facility], [address] [place] [address], [place], [id number], 3 09:27:10 folic acid 1 mg tablet 2022 023 [facility], [address] [place] [place] [address] S, [place], [id number], 3 15:55:17 hydroxychlo roquine 200 mg tablet 2022 023 [facility], [facility] [address], [place], [id number], 3 15:55:12 methotrexat e sodium 25 mg/mL injection solution 2022 023 [facility], [address] [place] [address], [place], [id number], 3 15:55:14 tramadol 50 mg tablet 2022 023 [facility], [address] [place] [address] [place], [id number], 3 15:55:20 folic acid 1 mg tablet 2022 023 [facility], [address] [place] [address] [place], [id number], 3 15:41:28 hydroxychlo roquine 200 mg tablet 2022 023 [facility], [address] [place] [address] [place], [id number], 3 15:41:31 methotrexat e sodium 25 mg/mL injection solution 2022 023 [facility], [address] [place] [address], [place], [id number], 3 15:47:28 tramadol 50 mg tablet 2022 023 [facility], [address] [place] [address], [place], [id number], 3 15:55:40 methotrexat e sodium 2.5 mg tablet 2022 023 [facility], [address] [place] [address], [place], [id number], 3 19:51:15 folic acid 1 mg tablet 2022 023 [facility], [address] [place] [address], [place], [id number], 3 13:45:41 hydroxychlo roquine 200 mg tablet 2022 023 [facility], [address] [address] [place], [id number], 13:45:47 Patient TargetsNo targets recorded. Patient Instructions Encounter Date Encounter Id Patient Instructions Last Modified By Organization Details Last Modified Time 11/03/2022 [id number] medical record request* - labs from 10/2022 [email or web address] Not available 11/04/2022 12:27:35 02/02/2023 [id number] medical record request* - labs from 2022 [email or web address] Not available 02/10/2023 08:44:39 Reason for Referral None Reported. Results Created Date Observation Date Name Description Value Unit Range Abnormal Flag Note LastModifiedBy Organization Detail LastModifiedTime Result Notes None recorded. Problems Name Problem SNOMED Code Status Onset Date Resolution Date Notes Provider Name and Address Organization Details Recorded Time Psoriasis of scalp 481779297 Active 022 RASHI FIELDS, FIELD MARKETING ASSOCIATE [address] [place], [address], [facility] 11:50:23 Problem Notes None recorded. Procedures Surgical History Date Name Laterality Status Provider Name and Address Organization Details Recorded Time 12/03/2021 endoscopy completed Valerienguyễn RogerMert [facility] 01/19/2022 07:45:21 Imaging Results None recorded. Procedure Notes None recorded. Medical Equipment None Reported. Allergies Allergen ID Allergen Name Allergen Category Reaction Reaction Severity Criticality Documentation Date Start Date Code Code System Note Provider Name and Address Organization Details Recorded Time 761069 Substance with sulfonami de structure and antibacte rial mechanism of action (substanc e) medicatio n Not available Not available Not available 05/28/20162008 13202 8003 SNOMED Comme nt: Creat ed By: Juwan Monsalve eatjesus Date: 2008 3:19: 29 PM; Not Available [facility] 6 11:20:03 303906 morphine sulfate medicatio n Not available Not available Not available 05/28/20162010 76529 RxNorm Comme nt: Creat ed By: Miki Martinez eated Date: 04/23 9:04: 18 AM; Not Available [facility] 14:02:47 Medications Name Sig Start Date Stop [...] mL every week by injectio n route. 2024 active Not Available Not Available [...] folic acid 1 mg tablet Take 1 tablet(s ) every day by oral route. active Not Available Not Available No t Available gabapenti n 100 mg capsule Take 1 capsule every day by oral route in the evening. 2022 active Not Available Not Available Not Avai lable hydroxych loroquine 200 mg tablet Take 1 tablet(s ) every day by oral route. 2024 active [...] by oral route. 01/19 completed humana approved [place] ref#[id number] exp 07.04.22 Not Available Not Available Not Available Vitals Date Recorded Body height Body mass index (BMI) Body weight Provider Name and Address Organization Details Last Updated DateTime 08/05/2022 165.1 cm 25 kg/m2 87700.86 g [facility] 08/05/2022 13:20:36 Date Recorded Body height Body mass index (BMI) Body weight Systolic blood pressure Diastolic blood pressure Provider Name and Address Organization Details Last Updated DateTime 02/02/2023 165.1 cm 30 kg/m2 58345.63 g 118 mm[Hg] 70 mm[Hg] [facility] 15:30:15 Date Recorded Body height Body mass index (BMI) Body weight Provider Name and Address Organization Details Last Updated DateTime 04/14/2023 165.1 cm 30 kg/m2 65703.63 g Tommy Carlos [facility] 04/14/2023 09:15:18 Social History Question Answer Notes LastModified by [employer] Details LastModified Time Tobacco Smoking Status Former Smoker Coco Hernandez [facility] 07/11/2019 10:47:02 How Much Tobacco Do You Chew? None [email or web address] Information not available 07/11/2019 What Was The Date Of Your Most Recent Tobacco Screening? 01/03/2024 [email or web address] Information not available 01/03/2024 How Much Tobacco Do You Smoke? No [email or web address] Information not available 07/11/2019 Has Tobacco Cessation Counseling Been Provided? No Information not available 01/19/2022 How Many Years Have You Smoked Tobacco? 25 Quit 1984 [email or web address] Information not available 07/11/2019 Have You Recently Traveled Abroad? No Information not available 01/19/2022 Sex: Unknown Functional Status Question Answer Note LastModified by [employer] Details LastModified Time Do you use any illicit or recreational drugs? No Information not available 01/19/2022 What is your level of alcohol consumption? None [email or web address] Information not available 09/26/2021 Do you or have you ever used smokeless tobacco? Never used smokeless tobacco [email or web address] Information not available 07/11/2019 Do you or have you ever used e-cigarettes or vape? Never used electronic cigarettes [email or web address] Information not available 07/11/2019 Mental Status None recorded. Family History Relationship Description Onset Age of this Age Resolved Age Notes LastModified by Organization Details LastModified Time Mother Arthritis [email or web address] Not avail able 07/11/2019 10:46:37 Medical History [...] SNOMED-CT Code Diagnosis ICD10 Code Diagnosis Note [id number] RASHI FIELDS APRN RHEUMATOL [facility] [address] [place] [address] 07/11/2019 09:42:39 07/11/2019 11:26:35 Pain of multiple joints 39116331 M25.50 with negative labs from pcp, though [...] outcome of her trial Psoriasis of scalp 96461 8008 L40.9 [id number] RASHI FIELDS APRN RHEUMATOL [facility] [address] [place] [address] 08/29/2021 11:21:23 08/29/2021 14:20:08 Pain of multiple joints 16574629 M25.50 with negative labs from pcp, though [...] outcome of her trial Psoriasis of scalp 59785 8008 L40.9 chronic and recurring [id number] RASHI FIELDS APRN [facility] [address] [place] [address] 09/26/2021 10:31:37 09/26/2021 16:33:23 Pain of multiple joints 53398244 M25.50 with negative labs from pcp, though [...] outcome of her trial Psoriasis of scalp 06755 8008 L40.9 chronic and recurring Psoriatic arthritis 1563 06548 L40.50 [id number] RASHI FIELDS APRN [facility] [address] [place] [address] 01/19/2022 07:40:52 01/19/2022 16:20:35 Pain of multiple joints 54286483 M25.50 with negative labs from pcp, though [...] is without dactylitis ; Psoriasis of scalp 78912 8008 L40.9 chronic and recurring Psoriatic arthritis 1563 60884 L40.50 stopped the prednisone due to not [...] with documents faxed today Long-term drug therapy 193830632 Z79.899 [id number] RASHI FIELDS APRN [facility]OL [facility] [address] [place] [address] 05/04/2022 09:39:11 05/04/2022 12:27:56 Psoriatic arthritis 557865092 L40.50 stopped the prednisone due to not liking the side effectssta rted on mtx as the otezla was expensiver equested humira and it was deniedrequ nimo patelq and it was improved but had a [...] or not Pain of mu ltiple joints 36847320 M25.50 with negative labs from pcp, though [...] is without dactylitis ; Psoriasis of scalp 42762 8008 L40.9 chronic and recurring Long-term drug therapy 640154881 Z79.899 [id number] RASHI FIELDS APRN [facility] [address] [place] [address] 08/05/2022 13:20:22 08/05/2022 15:30:37 Psoriatic arthritis 598491604 L40.50 stopped the prednisone due to not liking the side effectssta rted on mtx as the otezla was expensiver equested humira and it was deniedrequ nimo pradovoq and it was improved but had a really high copay of $1600.00 per month, so she never started it she will increase the mtx to 6 po once weekly, maintain the folic acid 1 mg daily Pain of mu ltiple joints 81355929 M25.50 with negative labs from pcp, though [...] is without dactylitis ; Psoriasis of scalp 42562 8008 L40.9 chronic and recurring Long-term drug therapy 862127689 Z79.899 [id number] RASHI FIELDS APRN [facility]OL [facility] [address] [place] [address] 11/03/2022 15:25:53 11/04/2022 04:57:53 Psoriatic arthritis 983839279 L40.50 stopped the prednisone due to not liking the side effectssta rted on mtx as the otezla was expensiver equested humkanorado and it was deniedrequ nimo lester and it was improved but had a really high copay of $1600.00 per month, so she never started itso we discussed and she will maintain she will change to the injectible the mtx to 0.6 sc injection once weekly, maintain the folic acid 1 mg daily Pain of mu ltiple joints 02533702 M25.50 with negative labs from pcp, though [...] is without dactylitis ; Psoriasis of scalp 29524 8008 L40.9 chronic and recurring Long-term drug therapy 491270899 Z79.899 [id number] RASHI FIELDS APRN [facility] [address] [place] [address] 02/02/2023 15:27:57 02/03/2023 04:08:04 Psoriatic arthritis 704934128 L40.50 stopped the prednisone due to not [...] mg daily Pain of mu ltiple joints 10510200 M25.50 with negative labs from pcp, though [...] is without dactylitis ; Psoriasis of scalp 33111 8008 L40.9 chronic and recurring Long-term drug therapy 303147430 Z79.899 [id number] RASHI FIELDS APRN [facility]UMATOL [facility] [address] [place] [address] 04/14/2023 09:14:06 04/15/2023 04:33:18 Psoriatic arthritis 568930431 L40.50 stopped the prednisone due to not [...] mg daily Pain of mu ltiple joints 65886056 M25.50 with negative labs from pcp, though [...] is without dactylitis ; Psoriasis of scalp 79822 8008 L40.9 chronic and recurring Long-term drug therapy 240174350 Z79.899 [id number] RASHI FIELDS APRN [facility] [address] [place] [address] 01/03/2024 13:27:01 01/04/2024 17:41:35 Psoriatic arthritis 907419575 L40.50 stopped the prednisone due to not [...] mg daily Pain of mu ltiple joints 86569932 M25.50 with negative labs from pcp, though [...] is without dactylitis ; Psoriasis of scalp 60263 8008 L40.9 chronic and recurring Long-term drug therapy 276340125 Z79.899 Health Concerns Section Related Observation LastModified by Organization Detai ls LastModified Time None Recorded Concern Status LastModified by Organization Details LastModified Time None Recorded Advance Directives Directive None Recorded Payers Insurance Date Sequence Insurance Name Policy Number Policy Amezquita Covered Member ID Amezquita Member ID Guarantor Name 12/16/2024 2 [employer] (MEDICARE SUPPLEMENT) Elyse Trent [id number] Elyse Trent 12/16/2024 1 [place] Elyse Moody Miley [id number] Elyse A Miley Notes Date Note Type Note Provider Name and Address Organization Details Recorded Time 08/05/2022 text/html Visit today is b eing conducted via telehealth using both audio/video. The patient confirms that he/she is physically located in [place] at the time of this visit. Patient expressed understanding of audio/video telehealth as a billable visit and has consented. Patient also expressed understanding that not every condition can be appropriately addressed via telehealth and that this telehealth visit may need to be converted to an in-person visit or may even result in a recommendation to go to the E.R. at the provider s discretion in order to provide the [...] are negative RASHI FIELDS APRN [address] [place], [address], [facility] 08/05/2022 13:46:49 11/03/2022 text/html 82 yo [...] are negative RASHI FIELDS APRN [address] [place], [address], [facility] 11/03/2022 15:55:05 02/02/2023 text/html 82 yo [...] others are negative RASHI FIELDS APRN [address], [address], [facility] 02/02/2023 15:53:16 04/14/2023 text/html Visit today is b eing conducted via telehealth using both audio/video. The patient confirms that he/she is physically located in [place] at the time of this visit. Patient expressed understanding of audio/video telehealth as a billable visit and has consented. Patient also expressed understanding that not every condition can be appropriately addressed via telehealth and that this telehealth visit may need to be converted to an in-person visit or may even result in a recommendation to go to the E.R. at the provider s discretion in order to provide the [...] are negative RASHI FIELDS APRN [address] [place], [address], [facility] 04/14/2023 09:26:06 01/03/2024 text/html Visit today is b eing conducted via telehealth using both audio/video. The patient confirms that he/she is physically located in [place] at the time of this visit. Patient expressed understanding of audio/video telehealth as a billable visit and has consented. Patient also expressed understanding that not every condition can be appropriately addressed via telehealth and that this telehealth visit may need to be converted to an in-person visit or may even result in a recommendation to go to the E.R. at the provider s discretion in order to provide the [...] and all others are negative RASHI FIELDS, FIELD MARKETING ASSOCIATE [address] [place], [address], [facility] 01/03/2024 13:51:38 OBGyn Episode No OBEpisode recorded.
--- OUTSIDE RECORDS SUMMARY | 2024-12-25 15:48 | XMS_ITS | Clinical Summary ---
Author Organization Healthcare Address [address] [place] [address] Care Team Providers Care Video Network Engineer Name Role Phone Unavailable Primary Care Provider Unavailabl e Social History Tobacco Use Types Packs/Day Years Used Date Smoking Tobacco: Never Assessed Comments Unknown Sex and Gender Information Value Date Recorded Sex Assigned at Not on file Legal Sex Female 7:37 PM EDT Gender Identity Not on file Sexual Orientation Not on file Plan of Treatment Health Maintenance Due Date Last Done Comments Dental Oral Exam 1940 Dental Prophylaxis 1940 [facility]-Bone Density Scan 1940 [facility]-Depression Screening 1940 [facility]-/Child/Adol SDOH Screenings 1940 [facility]- SDOH Screenings 1958 [facility]-Adult SDOH Screenings 1958 [facility]-DTaP,Tdap,and Td Vaccine s (1 - Tdap) 1959 [facility]-Pneumococcal Vaccine: 50 + Years (1 of 1 - PCV) 1990 [facility]-Zoster Vaccines (1 of 2) 1990 [facility]-RSV Vaccine: 60+ Years o r (1 - 1-dose 75+ series) 2015 Dental X-Ray: Bitewings 04/21/2020 04/20/2019 Dental X-Ray: Full Mouth 04/21/2022 04/20/2019 [id number]-[id number]-55 Vaccine (1 - 20 24-25 season) 2024 [facility]-Influenza Vaccine (Seaso n Ended) 2025 HPV Vaccines Aged Out No longer eligi ble based on patient's age to complete this topic [facility]-HIB Vaccines Aged Out No longer e ligible based on patient's age to complete this topic [facility]-Hepatitis A Vaccines Aged Out No longer eligible based on patient's age to complete this topic [facility]-IPV Vaccines Aged Out No longer e ligible based on patient's age to complete this topic [facility]-Rotavirus Vaccines Aged Out No lo nger eligible based on patient's age to complete this topic Procedures Procedure Name Priority Date/Time Associated Diagnosis Comments INTRAORAL - COMPLETE SERIES OF RADIOGRAPHIC IMAGES Routine 04/20/2019 12:00 AM EDT from Last 3 Months or Most Recently Relevant to Health Maintenance Insurance MEDICARE [facility]
[2024-12-25 17:26] LABS: Eosinophils # 0.1 Kmm3 (0.0-0.4); Eosinophils % 1.7 % (0.1-12.0); Hematocrit 45.5 % (37.0-47.0); Hemoglobin 14.9 g/dL (12.2-16.2); Immature Granulocytes # 0.03 10^3uL; Immature Granulocytes % 0.4 %; Lymphocytes % 13.3 % (10-50); Mean Corpuscular HGB Conc 32.7 g/dL (31.8-35.4); Mean Corpuscular Hemoglobin 33.5 pg (27.0-31.2); Mean Corpuscular Volume 102.2 fl (81-99); Monocytes # 0.8 K/mm3 (0.1-1.0); Monocytes % 10.7 % (1.7-9.3); Neutrophils # 5.6 K/mm3 (1.8-7.8); Neutrophils % 73.9 % (37.0-80.0); Nucleated Red Blood Cells # 0 10^3/uL; Nucleated Red Blood Cells % 0 %; Platelet Count 222 K/mm3 (142-424); Red Blood Count 4.45 M/mm3 (4.20-5.40); Red Cell Distribution Width 14.8 % (11.5-17.5); Red Cell Distribution Width-SD 54.5 fL; White Blood Count 7.6 K/mm3 (4.8-10.8)
[2024-12-25 17:49] LABS: Albumin Level 4.3 g/dl (3.5-5.0); Chloride 97 mmol/L (98-107)
[2024-12-25 17:50] LABS: Potassium 4.8 mmoL/L (3.5-5.1); Sodium 136 mmol/L (136-145)
[2024-12-25 17:52] LABS: Alanine Aminotransferase 17 U/L (12-78); Albumin/Globulin Ratio 1.4 (1.1-1.8); Anion Gap 12.8 mEq/L (5-15); Aspartate Amino Transferase 36 U/L (14-36); Blood Urea Nitrogen 15 mg/dl (7-17); Carbon Dioxide 31 mmol/L (22.0-30.0); Cholesterol 181 mg/dl (140-200); Estimated Glomerular Filt Rate 80 ml/min (>60); GFR (African American) 96 ML/MIN (>60); Globulin 3.1 g/dL (1.3-3.2); Total Protein,Serum 7.4 g/dl (6.3-8.2); Triglycerides 161 mg/dl (30-150); VLDL Cholesterol 32 mg/dL (0-40)
[2024-12-25 17:53] LABS: Alkaline Phosphatase 83 U/L (38-126); Bilirubin,Total 0.7 mg/dl (0.2-1.3); Calcium 9.3 mg/dl (8.4-10.2); Chol/HDL Ratio 3.9 (1-3.5); Glucose 89 mg/dl (74-100); HDL Cholesterol 47 mg/dl (40-60); Magnesium 2.1 mg/dl (1.6-2.3)
[2024-12-25 18:05] LABS: Direct LDL Cholesterol 86.53 mg/dL (100-129)
[2024-12-25 18:24] LABS: Thyroid Stimulating Hormone 2.92 uIU/mL (0.465-4.68)
[2024-12-25 19:23] LABS: Vitamin B12 554 pg/mL (239-931)
== END 2024-12-25 23:59 | disposition home or self-care (01) ==
LOC: RT 15:46
PROVIDERS: PCP Nurse Practitioner Family; Visit Provider Nurse Practitioner Family
DX: I49.1 Atrial premature depolarization (principal); I47.10 Supraventricular tachycardia, unspecified; I10 Essential (primary) hypertension; E03.9 Hypothyroidism, unspecified; D64.9 Anemia, unspecified; N39.0 Urinary tract infection, site not specified; E78.2 Mixed hyperlipidemia
CPT/HCPCS: 80053; 80061; 82607; 83735; 84443; 85025; 87086; 93225; 93227

== ENCOUNTER 2024-12-29 10:55 | Outpatient (CLI) | payer MEDICARE, OTHER, SELFPAY ==
--- OUTSIDE RECORDS SUMMARY | 2024-12-29 10:58 | XMS_ITS | Encounter Summary ---
Author Organization Healthcare Address [address] [place] [address] Care Team Providers Care Check Services Clerk Name Role Phone Unavailable Primary Care Provider Unavailabl e Encounter Details Date Type Department Care Team (Late st Contact Info) Description 06/16/2019 Abstract [facility] [address] [place] [address] Dental, Provider, DDS [address] [place], [place] [id number] Social History Tobacco Use Types Packs/Day Years [...]
--- OUTSIDE RECORDS SUMMARY | 2024-12-29 10:58 | XMS_ITS | Encounter Summary ---
Author Organization [employer] Address [address] [place] [address] Care Team Providers Care Community Health Coordinator Name Role Phone Unavailable Primary Care Provider Unavailabl e Reason for Referral * Nuclear Medicine (Routine) - New Request Specialty Diagnoses / Procedures Referred By Carol hall Referred To Contact Diagnoses Left hip pain Procedures NM bone scan whole body Luciana Goodrich PA-C [address] [address] Phone: tel: Referral ID Status Reason Start Date Expiration Date V isits Requested Visits Authorized [id number] New Request 11/01/2024 11/01/2025 1 1 Encounter Details Date Type Department Care Team (Late st Contact Info) Description 11/01/2024 Outside Orders [facility] Central Scheduling [address] [place] [id number] Luciana Goodrich PA-C [address] [phone] Left hip pain (Primary Dx) Social History [...]
--- OUTSIDE RECORDS SUMMARY | 2024-12-29 10:58 | XMS_ITS | Clinical Summary ---
Author Organization Healthcare Address [address] [place] [address] Care Team Providers Care Auxiliary Powerplant Operator Name Role Phone Unavailable Primary Care Provider [...] 04/20/2019 Dental X-Ray: Full Mouth 04/21/2022 04/20/2019 [id number]-[id number] Vaccine (1 - 20 24-25 season) 2024 [...] Recently Relevant to Health Maintenance Insurance MEDICARE [facility]
--- OUTSIDE RECORDS SUMMARY | 2024-12-29 10:58 | XMS_ITS | Encounter Summary ---
Author Organization [employer] Address [address] [place] [address] Care Team Providers Care Interior Painter Name Role Phone Unavailable Primary Care Provider Unavailabl e Reason for Referral * Consultation (Routine) - Canceled Specialty Diagnoses / Procedures Referred By Carol hall Referred To Contact Behavioral Health Diagnoses Memory loss Adelina Osman [address] [place] [address] Phone: tel: Misa Bravo, MS [address] [place] [address] Phone: tel: fax: Referral ID Status Reason Start Date Expiration Date Visits Requested Visits Authorized [id number] Canceled Specialty Services Required 10/05/2024 10/05/2025 1 1 Electronically signed by [facility], Provider Not In The System, at 10/05/2024 3:09 PM EDT Encounter Details Date Type Department Care Team (Late st Contact Info) Description 10/05/[address] [facility] Central Scheduling 1 [place] [address] Jacqui Adelina Shetty [address] [place] [id number] Memory loss (Primary Dx) Social History Tobacco [...]
--- OUTSIDE RECORDS SUMMARY | 2024-12-29 10:59 | XMS_ITS | Data Portability ---
Author Organization [facility] Address [address] [place] [address] Care Team Providers Care Hydraulic Miner Blasting Name Role Phone ZULEYKA MARTIN Primary Care Provider [phone] Assessment No assessment recorded. Plan of Treatment Reminders Order Date Submit Date Provider Last Modified By Organization Details Last Modified Time Details Appointments None recorded. Lab CBC w/ auto diff 2023 024 [email or web address] [facility] (Lab), [address], [place], [address], 4 10:03:55 creatinine, serum or plasma 2023 024 [email or web address] [facility] ([facility]), [address] [place] [address] [address], [place], [address], 4 10:03:55 ALT (alanine aminotransf erase), serum or plasma 2023 024 [email or web address] [facility] (Lab), [address], [place], [address], 4 10:03:55 AST/SGOT (aspartate aminotransf erase), serum or plasma 2023 024 [email or web address] [facility] (Lab), [address], [place], [address], 4 10:03:55 CBC w/ auto diff 2022 023 [email or web address] 3 [facility] ([facility]), [address], [place] [address], 3 08:26:26 creatinine, serum or plasma 2022 023 [email or web address] 3 [facility] ([facility]), [address], [place], [place], [address], 3 08:26:26 ALT (alanine aminotransf erase), serum or plasma 2022 023 [email or web address] 3 [facility] (Lab), [address], [place], [place], [address], 3 08:26:26 ESR (erythrocyt e sedimentati on rate), blood 2022 023 [email or web address] 3 [facility] (Lab), [address], [place], [place], [address], 3 08:26:26 AST/SGOT (aspartate aminotransf erase), serum or plasma 2022 023 [email or web address] 3 [facility] ([facility]), [address], [place], [place], [address], 3 08:26:27 CBC w/ auto diff 2022 023 [email or web address] [facility] ([facility]), [address], [place], [place], [address], 3 07:29:57 creatinine, serum or plasma 2022 023 [email or web address] [facility] ([facility]), [address], [place], [place], [address], 3 07:29:57 ALT (alanine aminotransf erase), serum or plasma 2022 023 [email or web address] [facility] (Lab), [address], [place], [address], 3 07:29:57 ESR (erythrocyt e sedimentati on rate), blood 2022 023 [email or web address] [facility] (Lab), [address], [place], [address], 3 07:29:58 AST/SGOT (aspartate aminotransf erase), serum or plasma 2022 023 [email or web address] [facility] (Lab), [address], [place], [address], 3 07:29:58 Referral None recorded. Procedures None recorded. Surgeries None recorded. Imaging None recorded. Medication Orders folic acid 1 mg tablet 2023 024 [facility], [address] [place] [address] [place], [id number], 4 13:51:55 hydroxychlo roquine 200 mg tablet 2023 024 [facility], [facility] [place], [id number], 4 13:51:52 methotrexat e sodium 25 mg/mL injection solution 2023 024 [facility] 591, [address], [place], [address], 4 13:51:47 tramadol 50 mg tablet 2023 024 [facility], [facility] [address] [place], [id number], 4 13:53:40 folic acid 1 mg tablet 2022 023 [facility], [facility]4 [place] [address] [address], [place], [id number], 3 09:27:06 hydroxychlo roquine 200 mg tablet 2022 023 [facility], [address] [place] [address], [place], [id number], 3 09:27:03 methotrexat e sodium 25 mg/mL injection solution 2022 023 [facility] 591, [address], [place], [address], 3 09:25:18 tramadol 50 mg tablet 2022 023 [facility], [address] [place] [address], [place], [id number], 3 09:27:10 folic acid 1 mg tablet 2022 023 [facility], [address] [place] [address] S, [place], [id number], 3 15:55:17 hydroxychlo roquine 200 mg tablet 2022 023 [facility], [facility] [address], [place], [id number], 3 15:55:12 methotrexat e sodium 25 mg/mL injection solution 2022 023 [facility], [address] [place] [address], [place], [id number], 3 15:55:14 tramadol 50 mg tablet 2022 023 [facility], [address] [place] [address] [place], [id number], 3 15:55:20 folic acid 1 mg tablet 2022 023 [facility], [address] [place] [address] [place], [id number], 3 15:41:28 hydroxychlo roquine 200 mg tablet 2022 023 [facility], [address] [place] [address] [place], [id number], 3 15:41:31 methotrexat e sodium 25 mg/mL injection solution 2022 023 [facility], [address] [place] [address], [place], [id number], 3 15:47:28 tramadol 50 mg tablet 2022 023 [facility], [address] [place] [address], [place], [id number], 3 15:55:40 methotrexat e sodium 2.5 mg tablet 2022 023 [facility], [address] [place] [address], [place], [id number], 3 19:51:15 folic acid 1 mg tablet 2022 023 [facility], [address] [place] [address], [place], [id number], 3 13:45:41 hydroxychlo roquine 200 mg tablet 2022 023 MERVIN [facility], [address] [address] [place], [id number], 13:45:47 Patient TargetsNo targets recorded. Patient Instructions Encounter Date Encounter Id Patient Instructions Last Modified By Organization Details Last Modified Time 11/03/2022 [id number] medical record request* - labs from 10/2022 [email or web address] Not available 11/04/2022 12:27:35 02/02/2023 [id number] medical record request* - labs from 2022 [email or web address] Not available 02/10/2023 08:44:39 Reason for Referral None Reported. Results Created Date Observation Date Name Description Value Unit Range Abnormal Flag Note LastModifiedBy Organization Detail LastModifiedTime Result Notes None recorded. Problems Name Problem SNOMED Code Status Onset Date Resolution Date Notes Provider Name and Address Organization Details Recorded Time Psoriasis of scalp 843003251 Active 022 RASHI FIELDS, MOLDER FOAM RUBBER [address] [place], [address], [facility] 11:50:23 Problem Notes None recorded. Procedures Surgical History Date Name Laterality Status Provider Name and Address Organization Details Recorded Time 12/03/2021 endoscopy completed Valerienguyễn RogerMert [facility] 01/19/2022 07:45:21 Imaging Results None recorded. Procedure Notes None recorded. Medical Equipment None Reported. Allergies Allergen ID Allergen Name Allergen Category Reaction Reaction Severity Criticality Documentation Date Start Date Code Code System Note Provider Name and Address Organization Details Recorded Time 437287 Substance with sulfonami de structure and antibacte rial mechanism of action (substanc e) medicatio n Not available Not available Not available 05/28/20162008 89913 8003 SNOMED Comme nt: Creat ed By: Juwan Monsalve eatjesus Date: 2008 3:19: 29 PM; Not Available [facility] 6 11:20:03 816726 morphine sulfate medicatio n Not available Not available Not available 05/28/20162010 25090 RxNorm Comme nt: Creat ed By: Miki Martinez eated Date: 04/23 9:04: 18 AM; Not Available [facility] 14:02:47 Medications Name Sig Start Date Stop [...] by oral route. 01/19 completed [facility] approved [place] ref#[id number] exp 07.04.22 Not Available Not Available Not Available Vitals Date Recorded Body height Body mass index (BMI) Body weight Provider Name and Address Organization Details Last Updated DateTime 08/05/2022 165.1 cm 25 kg/m2 41931.86 g [facility] [place]/05/2022 13:20:36 Date Recorded Body height Body mass index (BMI) Body weight Systolic blood pressure Diastolic blood pressure Provider Name and Address Organization Details Last Updated DateTime 02/02/2023 165.1 cm 30 kg/m2 16009.63 g 118 mm[Hg] 70 mm[Hg] [facility] [place] 15:30:15 Date Recorded Body height Body mass index (BMI) Body weight Provider Name and Address Organization Details Last Updated DateTime 04/14/2023 165.1 cm 30 kg/m2 49913.63 g Tommy Carlos [facility] 04/14/2023 09:15:18 Social History Question Answer Notes LastModified by Golden Gekko Details LastModified Time Tobacco Smoking Status Former Smoker Coco Hernandez [facility] 07/11/2019 10:47:02 How Much Tobacco Do You Chew? None [email or web address] Information not available 07/11/2019 What Was The Date Of Your Most Recent Tobacco Screening? 01/03/2024 [email or web address] Information not available 01/03/2024 How Much Tobacco Do You Smoke? No [email or web address] Information not available 07/11/2019 Has Tobacco Cessation Counseling Been Provided? No Information not available 01/19/2022 How Many Years Have You Smoked Tobacco? 25 Quit 1984 [email or web address] Information not available 07/11/2019 Have You Recently Traveled Abroad? No Information not available 01/19/2022 Sex: Unknown Functional Status Question Answer Note LastModified by Golden Gekko Details LastModified Time Do you use any illicit or recreational drugs? No Information not available 01/19/2022 What is your level of alcohol consumption? None [email or web address] Information not available 09/26/2021 Do you or have you ever used smokeless tobacco? Never used smokeless tobacco [email or web address] Information not available 07/11/2019 Do you or have you ever used e-cigarettes or vape? Never used electronic cigarettes Information not available 07/11/2019 Mental Status None recorded. Family History Relationship Description Onset Age of this Age Resolved Age Notes LastModified by Organization Details LastModified Time Mother Arthritis [email or web address] Not avail able 07/11/2019 10:46:37 Medical History [...] SNOMED-CT Code Diagnosis ICD10 Code Diagnosis Note [id number] RASHI FIELDS APRN RHEUMATOL [facility] [address] [place] [address] 07/11/2019 09:42:39 07/11/2019 11:26:35 Pain of multiple joints 27909718 M25.50 with negative labs from pcp, though [...] outcome of her trial Psoriasis of scalp 50799 8008 L40.9 [id number] RASHI FIELDS APRN RHEUMATOL [facility] [address] [place] [address] 08/29/2021 11:21:23 08/29/2021 14:20:08 Pain of multiple joints 62713852 M25.50 with negative labs from pcp, though [...] outcome of her trial Psoriasis of scalp 42280 8008 L40.9 chronic and recurring [id number] RASHI FIELDS APRN [facility] [address] [place] [address] 09/26/2021 10:31:37 09/26/2021 16:33:23 Pain of multiple joints 66425570 M25.50 with negative labs from pcp, though [...] outcome of her trial Psoriasis of scalp 34213 8008 L40.9 chronic and recurring Psoriatic arthritis 1563 00513 L40.50 [id number] RASHI FIELDS APRN [facility] [address] [place] [address] 01/19/2022 07:40:52 01/19/2022 16:20:35 Pain of multiple joints 12474052 M25.50 with negative labs from pcp, though [...] is without dactylitis ; Psoriasis of scalp 57151 8008 L40.9 chronic and recurring Psoriatic arthritis 1563 88754 L40.50 stopped the prednisone due to not [...] with documents faxed today Long-term drug therapy 144568884 Z79.899 [id number] RASHI FIELDS APRN [facility]UMATOL [facility] [address] [place] [address] 05/04/2022 09:39:11 05/04/2022 12:27:56 Psoriatic arthritis 699426658 L40.50 stopped the prednisone due to not [...] or not Pain of mu ltiple joints 03611146 M25.50 with negative labs from pcp, though [...] is without dactylitis ; Psoriasis of scalp 26368 8008 L40.9 chronic and recurring Long-term drug therapy 385190340 Z79.899 [id number] RASHI FIELDS APRN RHEUMATOL [facility] [address] [place] [address] 08/05/2022 13:20:22 08/05/2022 15:30:37 Psoriatic arthritis 158402192 L40.50 stopped the prednisone due to not [...] mg daily Pain of mu ltiple joints 98282198 M25.50 with negative labs from pcp, though [...] is without dactylitis ; Psoriasis of scalp 11576 8008 L40.9 chronic and recurring Long-term drug therapy 645199149 Z79.899 [id number] RASHI FIELDS APRN [facility] [address] [place] [address] 11/03/2022 15:25:53 11/04/2022 04:57:53 Psoriatic arthritis 148320344 L40.50 stopped the prednisone due to not liking the side effectssta rted on mtx as the otezla was expensiver equested hummckinney and it was deniedrequ nimo lester and it was improved but had a really high copay of $1600.00 per month, so she never started itso we discussed and she will maintain she will change to the injectible the mtx to 0.6 sc injection once weekly, maintain the folic acid 1 mg daily Pain of mu ltiple joints 21937924 M25.50 with negative labs from pcp, though [...] is without dactylitis ; Psoriasis of scalp 08235 8008 L40.9 chronic and recurring Long-term drug therapy 712053964 Z79.899 [id number] RASHI FIELDS APRN [facility]OL [facility] [address] [place] [address] 02/02/2023 15:27:57 02/03/2023 04:08:04 Psoriatic arthritis 682730870 L40.50 stopped the prednisone due to not [...] mg daily Pain of mu ltiple joints 94418747 M25.50 with negative labs from pcp, though [...] is without dactylitis ; Psoriasis of scalp 93947 8008 L40.9 chronic and recurring Long-term drug therapy 241604408 Z79.899 [id number] RASHI FIELDS APRN R[facility]UMATOL [facility] [address] [place] [address] 04/14/2023 09:14:06 04/15/2023 04:33:18 Psoriatic arthritis 585932893 L40.50 stopped the prednisone due to not [...] mg daily Pain of mu ltiple joints 28155685 M25.50 with negative labs from pcp, though [...] is without dactylitis ; Psoriasis of scalp 04362 8008 L40.9 chronic and recurring Long-term drug therapy 385998695 Z79.899 [id number] RASHI FIELDS APRN RHEUMATOL [facility] [address] [place] [address] 01/03/2024 13:27:01 01/04/2024 17:41:35 Psoriatic arthritis 568055159 L40.50 stopped the prednisone due to not [...] mg daily Pain of mu ltiple joints 13893652 M25.50 with negative labs from pcp, though [...] is without dactylitis ; Psoriasis of scalp 02043 8008 L40.9 chronic and recurring Long-term drug therapy 989618237 Z79.899 Health Concerns Section Related Observation LastModified by Organization Detai ls LastModified Time None Recorded Concern Status LastModified by Organization Details LastModified Time None Recorded Advance Directives Directive None Recorded Payers Insurance Date Sequence Insurance Name Policy Number Policy Amezquita Covered Member ID Amezquita Member ID Guarantor Name 12/16/2024 2 [employer] [place] (MEDICARE SUPPLEMENT) Elyse Trent [id number] Elyse Trent 12/16/2024 1 [place] Elyse Moody Miley [id number] Elyse A Miley Notes Date Note Type Note Provider Name and Address Organization Details Recorded Time 08/05/2022 text/html Visit today is b eing conducted via telehealth using both audio/video. The patient confirms that he/she is physically located in [place] at the time of this visit. Patient [...] are negative RASHI FIELDS APRN [address] [place], [address], [facility] 08/05/2022 13:46:49 11/03/2022 text/html [...] are negative RASHI FIELDS APRN [address] [place], [address], [facility] 11/03/2022 15:55:05 02/02/2023 text/html 82 yo fe, [...] are negative RASHI FIELDS APRN [address] [place], [address], [facility] 02/02/2023 15:53:16 04/14/2023 text/html Visit today is b eing conducted via telehealth using both audio/video. The patient confirms that he/she is physically located in [place] at the time of this visit. Patient [...] are negative RASHI FIELDS APRN [address] [place], [address], [facility] 04/14/2023 09:26:06 01/03/2024 text/html Visit today is b eing conducted via telehealth using both audio/video. The patient confirms that he/she is physically located in [place] at the time of this visit. Patient [...] and all others are negative RASHI FIELDS, MOLDER FOAM RUBBER [address] [place], [address], [facility] 01/03/2024 13:51:38 OBGyn Episode No OBEpisode recorded.
--- OUTSIDE RECORDS SUMMARY | 2024-12-29 10:59 | XMS_ITS | Clinical Summary ---
Author Organization [employer] Address [address] [place] [address] Care Team Providers Care Bowling Pin Setters Installer Name Role Phone Unavailable Primary Care Provider Unavailabl e Encounters Date Type Department Care Team Description 11/01/2024 Outside Orders [facility] Scheduling 1 [place] [address] Luciana Goodrich PA-C Left hip pain (Primary Dx) 10/05/2024 Outside Orders [facility] Scheduling [address] [place] [address] Adelina Osman Memory loss (Primary [...] 75+ series) 2015 COVID-19 VACCINE (1 - season) 2024 Falls Risk Screening 07/05/2024 Influenza Vaccine (Season Ended) 2025
--- OUTSIDE RECORDS SUMMARY | 2024-12-29 10:59 | XMS_ITS | Referral Summary ---
Author Organization [employer] Address [address] [place] [address] Care Team Providers Care Computer Networking Instructor Adjunct Name Role Phone Unavailable Primary Care Provider Unavailabl e Encounters Date Type Department Care Team Description 11/01/2024 Outside Orders [facility] Central Scheduling 1 [place] [address] Luciana Goodrich PA-C Left hip pain (Primary Dx) 10/05/2024 Outside Orders [facility] Central Scheduling 1 [place] [address] Adelina Osman Memory loss (Primary [...]
--- NOTE | 2024-12-29 11:15 | CA_ITS ---
FINAL REPORT CLINICAL HISTORY: dizziness COMPARISON: None FINDINGS: RIGHT CAROTID: CCA PSV -53 cm/sec ICA PSV -48 cm/sec ICA/CCA PSV ratio -0.9. Comments: Mild plaque disease is noted. LEFTCAROTID: CCA PSV -63. cm/sec ICA PSV -142. cm/sec ICA/CCA PSV ratio -2.6. Comments: Mild plaque disease is noted. Antegrade flow is seen within the vertebral arteries. IMPRESSION: Carotid stenosis classified less than 50% Reviewed, Interpreted and Dictated by Rose Mary Vivas MD Transcribed by Heaven Guadarrama Authenticated and [facility]
== END 2024-12-29 23:59 | disposition home or self-care (01) ==
LOC: RT 10:55
PROVIDERS: PCP Nurse Practitioner Family; Visit Provider Nurse Practitioner Family
DX: I65.23 Occlusion and stenosis of bilateral carotid arteries (principal)
CPT/HCPCS: 93880

== ENCOUNTER 2025-01-12 16:52 | Emergency (ER) | payer MEDICARE, OTHER, SELFPAY ==
[2025-01-12] VITALS (8 sets, daily range): BP systolic 110–142; BP diastolic 59–73; PULSE 54–88; RESP 18–23; TEMP 36.8–37.1; O2SAT 93–98; BMI 24.4
--- NOTE | 2025-01-12 17:06 | ECG_ITS ---
APPROVED REPORT Exam: Resting ECG HR:60 bpm ECG Measurements Heart Rate 60 AXES FL 204 P 77 QRSd 105 QRS 62 QT 419 T 69 QTc 420 Conclusion SINUS RHYTHM INDETERMINATE AXIS INCOMPLETE RIGHT BUNDLE BRANCH BLOCK [90+ ms QRS DURATION, TERMINAL R IN V1/V2, 40+ ms S IN I/aVL/V4/V5/V6] SEPTAL MYOCARDIAL INFARCTION , OF INDETERMINATE AGE [40+ ms Q WAVE IN V1/V2] ABNORMAL ECG UNCONFIRMED REPORT Normal sinus rhythm. No ST elevation or depression. T wave inversions in lead V2. QTc normal at 420 Electronically signed by : KEDAR VYAS, 01/12/2025 21:36:14
--- OUTSIDE RECORDS SUMMARY | 2025-01-12 17:09 | XMS_ITS | Encounter Summary ---
Author Organization [employer] ([place], [place], [place], [place]) Address [address] [place] [address] Care Team Providers Care Gift Wrapper Name Role Phone Unavailable Primary Care Provider Unavailabl e Reason for Referral * Consultation (Routine) - Canceled Specialty Diagnoses / Procedures Referred By Carol hall Referred To Contact Behavioral Health Diagnoses Memory loss ClaraAdelina morgan [address] [place] [address] Phone: tel: Misa Bravo, MS [address] [place] [address] Phone: tel: fax: Referral ID Status Reason Start Date Expiration Date Visits Requested Visits Authorized [id number] Canceled Specialty Services Required 10/05/2024 10/05/2025 1 1 Encounter Details Date Type Department Care Team (Late st Contact Info) Description 10/05/2024 Outside Orders [facility] Central Scheduling 1 [place] [address] Ad[address] Osman [address] [place] [id number] Memory loss (Primary Dx) Social History Tobacco [...]
--- OUTSIDE RECORDS SUMMARY | 2025-01-12 17:09 | XMS_ITS | Encounter Summary ---
Author Organization Healthcare Address [address] [place] [address] Care Team Providers Care Director Of Communications Name Role Phone Unavailable Primary Care Provider Unavailabl e Encounter Details Date Type Department Care Team (Late st Contact Info) Description 06/16/[address] [facility] [address] [place] [address] Dental, Provider, DDS [address] [place], [place] [id number] Social History Tobacco Use Types Packs/Day Years [...]
--- OUTSIDE RECORDS SUMMARY | 2025-01-12 17:09 | XMS_ITS | Encounter Summary ---
Author Organization [employer] ([place], [place], [place], [place]) Address [address] [place] [address] Care Team Providers Care Professor Of Psychiatry Name Role Phone Unavailable Primary Care Provider Unavailabl e Reason for Referral * Nuclear Medicine (Routine) - New Request Specialty Diagnoses / Procedures Referred By Carol hall Referred To Contact Diagnoses Left hip pain Procedures NM bone scan whole body Luciana Goodrich PA-C [address] [address] Phone: tel: Referral ID Status Reason Start Date Expiration Date V isits Requested Visits Authorized [id number] New Request 11/01/2024 11/01/2025 1 1 Encounter Details Date Type Department Care Team (Late st Contact Info) Description 11/01/[address] [facility] Central Scheduling 1 [place] [id number] Luciana Goodrich PA-C [id number] [phone] Left hip pain (Primary Dx) Social History [...]
--- OUTSIDE RECORDS SUMMARY | 2025-01-12 17:09 | XMS_ITS | Referral Summary ---
Author Organization [employer] ([place], [place], [place], [place]) Address [address] [place] [address] Care Team Providers Care Rail Doweling Machine Operator Name Role Phone Unavailable Primary Care Provider Unavailabl e Encounters Date Type Department Care Team Description 11/01/2024 Outside Orders [facility] Central Scheduling [address] [place] [address] Luciana Goodrich PA-C Left hip pain (Primary Dx) from Last 3 Months Social History Tobacco Use Types Packs/Day Years Used Date Smoking Tobacco: Never Assessed Comments Unknown Sex and Gender Information Value Date Recorded Sex Assigned at Not on file Legal Sex Female 2:46 PM CDT Gender Identity Not on file Sexual Orientation Not on file Plan of Treatment Not on file
--- OUTSIDE RECORDS SUMMARY | 2025-01-12 17:09 | XMS_ITS | Clinical Summary ---
Author Organization Healthcare Address [address] [place] [address] Care Team Providers Care Boat Buffer Plastic Name Role Phone Unavailable Primary Care Provider Unavailabl e Social History Tobacco Use Types Packs/Day Years Used Date Smoking Tobacco: Never Assessed Comments Unknown Sex and Gender Information Value Date Recorded Sex Assigned at Not on file Legal Sex Female 7:37 PM EDT Gender Identity Not on file Sexual Orientation Not on file Plan of Treatment Health Maintenance Due Date Last Done Comments [facility]-Bone Density Scan 1940 [facility]-Depression Screening 1940 [facility]-/Child/Adol SDOH Screenings 1940 [facility]- SDOH Screenings 1958 [facility]-Adult SDOH Screenings 1958 [facility]-DTaP,Tdap,and Td Vaccine s (1 - Tdap) 1959 [facility]-Pneumococcal Vaccine: 50 + Years (1 of 1 - PCV) 1990 [facility]-Zoster Vaccines (1 of 2) 1990 [facility]-RSV Vaccine: 60+ Years o r (1 - 1-dose 75+ series) 2015 [id number] Vaccine (1 - 20 24-25 season) 2024 [facility]-Influenza Vaccine (#1) 2025 HPV Vaccines Aged Out No longer [...] on patient's age to complete this topic Insurance WILBER Ramirez [id number] MEDICARE [facility]
--- OUTSIDE RECORDS SUMMARY | 2025-01-12 17:09 | XMS_ITS | Clinical Summary ---
Author Organization [employer] ([place], [place], [place], [place]) Address [address] [place] [address] Care Team Providers Care Echo Tech Name Role Phone Unavailable Primary Care Provider Unavailabl e Encounters Date Type Department Care Team Description 11/01/2024 Outside Orders [facility] Central Scheduling [address] [place] [address] Luciana Goodrich PA-C Left hip [...] 2024 Falls Risk Screening 07/05/2024 Influenza Vaccine (#1) 2025
--- NOTE | 2025-01-12 17:36 | XR_ITS ---
PROCEDURE INFORMATION: Exam: XR Chest Exam date and time: 01/12/2025 5:40 PM Age: 84 years old Clinical indication: Other: Weakness TECHNIQUE: Imaging protocol: Radiologic exam of the chest. Views: 1 view. COMPARISON: CT ANGIO CHEST 11/13/2023 7:53 AM FINDINGS: Lungs: Minor interstitial changes within the lung bases that appear chronic. Pleural spaces: Unremarkable. No pleural effusion. No pneumothorax. Heart/Mediastinum: Unremarkable. No cardiomegaly. Vasculature: Mild atherosclerotic plaquing aortic arch. Bones/joints: Mild upper thoracic scoliosis, convex left. IMPRESSION: No acute findings.
[2025-01-12 17:42] LABS: Hematocrit 41.2 % (37.0-47.0); Hemoglobin 14.3 g/dL (12.2-16.2); Immature Granulocytes % 0.7 %; Mean Corpuscular HGB Conc 34.7 g/dL (31.8-35.4); Mean Corpuscular Hemoglobin 35.6 pg (27.0-31.2); Mean Corpuscular Volume 102.5 fl (81-99); Nucleated Red Blood Cells % 0 %; Platelet Count 250 K/mm3 (142-424); Red Blood Count 4.02 M/mm3 (4.20-5.40); Red Cell Distribution Width-SD 56.1 fL; White Blood Count 6.9 K/mm3 (4.8-10.8)
[2025-01-12 18:01] LABS: Alanine Aminotransferase 17 U/L (12-78); Albumin Level 4.1 g/dl (3.5-5.0); Albumin/Globulin Ratio 1.4 (1.1-1.8); Alkaline Phosphatase 80 U/L (38-126); Anion Gap 14.9 mEq/L (5-15); Aspartate Amino Transferase 34 U/L (14-36); Bilirubin,Total 0.6 mg/dl (0.2-1.3); Blood Urea Nitrogen 26 mg/dl (7-17); Calcium 9.2 mg/dl (8.4-10.2); Carbon Dioxide 27 mmol/L (22.0-30.0); Chloride 95 mmol/L (98-107); Creatinine Clearance Estimated 44 mL/min (50-200); Creatinine,Serum 0.90 mg/dl (0.52-1.04); Estimated Glomerular Filt Rate 60 ml/min (>60); GFR (African American) 72 ML/MIN (>60); Globulin 3.0 g/dL (1.3-3.2); Glucose 83 mg/dl (74-100); Magnesium 1.9 mg/dl (1.6-2.3); Potassium 3.9 mmoL/L (3.5-5.1); Sodium 133 mmol/L (136-145); Total Protein,Serum 7.1 g/dl (6.3-8.2)
[2025-01-12] MEDS: SODIUM CHLORIDE 0.9% 500ML BAG 500 ML IV (18:10)
[2025-01-12 18:13] LABS: Troponin I < 0.01 ng/ml (0.00-0.034)
[2025-01-12 18:31] LABS: Thyroid Stimulating Hormone 1.25 uIU/mL (0.465-4.68)
[2025-01-12 18:38] LABS: Hepatitis C Ab Qual. W/ RFX NEGATIVE (Negative)
[2025-01-12 18:59] LABS: Microscopic, Urine URINE MICROSCOPIC (MICROSCOPIC)
[2025-01-12 19:05] LABS: Bilirubin,Urine Negative (Negative); Color,Urine YELLOW (Yellow); Glucose,Urine (UA) Negative (Negative); Ketones,Urine Negative (Negative); Leukocyte Esterase,Urine Negative (Negative); PH,Urine 6.0 (5.0-8.5); Protein,Urine Negative (Negative); Specific Gravity, Urine 1.020 (1.005-1.030); Urobilinogen,Urine 0.2 EU/dl (0.2)
[2025-01-12 19:35] LABS: Bacteria,Urine 3+ /lpf; Mucus,Urine 3+ /lpf; Squamous Epithelial Cell,Urine 20-50 #/hpf (0-5)
--- NOTE | 2025-01-12 20:44 | ED_ITS ---
Discharge Plan Disposition Patient Disposition: Home, Self-Care Condition: Good Prescriptions Prescriptions: No Action folic acid 1 mg tablet 1 mg PO DAILY estradiol 0.05 mg/24 hr patch semiweekly topical fluocinonide 0.05 % solution topical misoprostol 100 mcg tablet 100 mcg PO BID Qty: 60 5RF (DME) insulin syringe-needle U-100 [Easy Touch Insulin Syringe] 1 mL 27 gauge x 1/2 syringe See Rx Instructions .ROUTE .MEDSUPPLY Qty: 500 Patient Comments: USE DIRECTED ONCE A WEEK FOR SUBCUTANEOUS METHOTREXATE INJECTIONS Rx Instructions: As directed methotrexate sodium 25 mg/mL solution 25 mg SQ WEEKLY hydroxychloroquine 200 mg tablet PO quetiapine 25 mg tablet 25 mg PO HS Qty: 60 3RF Rx Instructions: 25 mg an hour before bedtime, may increase up to 50 mg po qhs if recurrent symptoms lisinopril-hydrochlorothiazide 20-12.5 mg tablet 1 tab PO DAILY 90 Days Qty: 90 1RF meloxicam 15 mg tablet 15 mg PO DAILY PRN (Reason: Pain) Qty: 90 1RF progesterone micronized 100 mg capsule 100 mg PO solifenacin 10 mg tablet PO tramadol 50 mg tablet 50 mg PO Q8H 30 Days Qty: 90 0RF memantine 10 mg tablet See Rx Instructions .ROUTE .COMPLEX Qty: 60 2RF Dose Instruction: TAKE 1 TABLET BY MOUTH TWICE DAILY Rx Instructions: TAKE 1 TABLET BY MOUTH TWICE DAILY escitalopram oxalate 5 mg tablet See Rx Instructions .ROUTE .COMPLEX Qty: 90 0RF Dose Instruction: TAKE 1 TABLET BY MOUTH ONCE A DAY Rx Instructions: TAKE 1 TABLET BY MOUTH ONCE A DAY levothyroxine 75 mcg tablet See Rx Instructions .ROUTE .COMPLEX Qty: 90 0RF Dose Instruction: TAKE ONE TABLET BY MOUTH ONCE A DAY Rx Instructions: TAKE ONE TABLET BY MOUTH ONCE A DAY Referrals Follow up/Referrals: Monika Martin APRN [Primary Care Provider, Medical] - See instructions Activity Restrictions/Add. Instructions Additional Instructions/Restrictions: You were seen for generalized weakness. Your sodium was slightly low and monocyte count high. Follow with your PCP to have these rechecked. Clinical Impressions Clinical Impression: Generalized weakness Instructions Patient Instructions: DI for Muscle Weakness Print Language Print Language: Citizen Of [place] Discharge ED Provider: Morris Mendoza General Adult HPI <DANE Reyes - Last Filed: 01/12/25 20:48> General Chief complaint: Weakness Stated complaint: sent [facility] needs fluids Time Seen by Provider: 01/12/25 17:13 Mode of Arrival: Ambulatory Source of Information: Patient Description of Symptoms (Recalled from ER Triage Doc. by RN): Patient presents to ED from PCP's office, states she was told to come here to get IV fluids due to concerns for dehydration, Patient c/o headache, generalized weakness and ongoing lethargy x3 months. History of Present Illness HPI narrative: Patient presents complaining of generalized weakness and dizziness upon standing for several months. She has seen her PCP and had a stress test earlier this week which was reportedly negative. Family reports that symptoms have worsened to the point of patient failing to wake to walk. Her PCP advised that she come here for some IV fluids. They advised that she stop Lexapro and memantine this evening as they feel they might be contributing to her symptoms. Denies any vomiting or diarrhea. Denies urinary symptoms. Denies any fever. MD complaint: generalized weakness Onset (ago): month(s) Severity: moderate Consistency: intermittent Relieving factors: none Exacerbating factors: none Associated symptoms: denies other symptoms Related Data Home Medications ?Medication ?Instructions ?Recorded ?Confirmed folic acid 1 mg tablet 1 mg PO DAILY Supplement 06/2501/12/25 insulin syringe-needle U-100 1 mL #500 ea 05/03/2305/29 27 gauge x 1/2 (Easy Touch Insulin Syringe) methotrexate sodium 25 mg/mL 25 mg SQ WEEKLY 05/03/23 01/12/25 injection solution hydroxychloroquine 200 mg tablet mg PO 02/21/24 estradiol 0.05 mg/24 hr semiweekly topical 04/24/24 transdermal patch fluocinonide 0.05 % topical topical 04/24/24 01/12/25 solution progesterone micronized 100 mg 100 mg PO 01/12/2501/02 capsule solifenacin 10 mg tablet mg PO 01/12/25 01/12/25 Previous Rx's ?Medication ?Instructions ?Recorded misoprostol 100 mcg tablet 100 mcg PO BID #60 tabs lisinopril 20 1 tab PO DAILY High blood pr essure 09/27/24 mg-hydrochlorothiazide 12.5 mg 90 days #90 tabs tablet Held on 10/17/24. Instructions: Dose Change meloxicam 15 mg tablet 15 mg PO DAILY PRN Pain #90 tabs 09/27/24 quetiapine 25 mg tablet 25 mg PO HS Insomnia, confus ion, 10/04/24 depression #60 tabs tramadol 50 mg tablet 50 mg PO Q8H 30 days #90 tab s 12/22/24 memantine 10 mg tablet See Rx Instructions .Route 0 12/29/24 Held on 01/12/25. .COMPLEX #60 tabs Instructions: Home Medication placed on hold at Doctor's office escitalopram oxalate 5 mg tablet See Rx Instructions . Route 01/08/25 Held on 01/12/25. .COMPLEX #90 tabs Instructions: Home Medication placed on hold at Doctor's office levothyroxine 75 mcg tablet See Rx Instructions .Route 01/08/25 .COMPLEX #90 tabs Allergies Allergy/AdvReac Type Severity Reaction Status Date / Time Sulfa (Sulfonamide Allergy Intermediate I-HIVES Verified 01/12/25 15:14 Antibiotics) latex (LATEX) Allergy Unknown Verified 01/12/25 15:14 ciprofloxacin Allergy Verified 01/12/25 15:14 PFS <DANE Reyes - Last Filed: 01/12/25 20:48> [facility] Disclaimer: The information contained in this section may have been updated after the patient was seen, as this information can be updated by other users. Medical History Abnormal EKG Atherosclerotic heart disease of [place] coronary artery with other forms of angina pectoris CAD (coronary artery disease) Dyspnea Encounter for pre-operative cardiovascular clearance Ex-smoker Family history of heart disease HTN (hypertension) Mild dementia Nocturnal hypoxemia Personal history of nicotine dependence Right bundle branch block (RBBB) Sinus bradycardia Sweating Unstable angina Vitamin D deficiency Surgical History History of appendectomy History of arthroscopic knee surgery History of colonoscopy History of tonsillectomy History of total hip replacement bilateral Status post arthroscopy of hip Family History Other No significant family history Social History Smoking Status: Never smoker smoking status stop date: 02/09/1985 alcohol intake: never substance use type: denies use current occupational status: employed and retired Travel in the last 8 weeks?: None household members: spouse housing: house marital status: education level: high school service: No current occupational exposures/hazards: No caffeine: Yes special fawn needs: No do you feel safe at home: Yes victim of physical abuse: No victim of emotional abuse: No victim of sexual abuse: No would you like helpful sources: No Have you lived/traveled outside US in past 30 days?: No Contact w/someone who lives/traveled outside US past 30 days?: No Exposure to someone with infectious disease in past 14 days?: No Do you have a fever (greater than 100.4 F or 38 C)?: No Have you tested positive for COVID-19?: No Exposed to someone with COVID-19 in past 14 days?: No Do you have a sore throat?: No Do you have a cough?: No Do you have any weakness?: No Do you have any diarrhea?: No Are you experiencing any unusual bleeding?: No Do you have any muscle aches/pain?: No Do you have any abdominal pain?: No Are you experiencing loss of taste or smell?: No Other Medical History Have you received the Flu Vaccine for this season: Yes Have you received the Pneumonia Vaccine: No <DANE Reyes - Last Filed: 01/12/25 20:48> ROS Obtained: Yes Systems reviewed as appropriate & no additional complaints except as documented Physical Exam <DANE Reyes - Last Filed: 01/12/25 20:48> General General appearance: alert and in no apparent distress Head Head exam: atraumatic and normocephalic Eye Eye exam: Present normal appearance and EOMI Chest Chest inspection: Present symmetric chest wall rise Respiratory Respiratory exam: Present normal lung sounds bilaterally; Absent wheezes or stridor Cardiovascular Cardiovascular exam: Present regular rate and normal rhythm; Absent systolic murmur Extremities Exam Extremities exam: Present full ROM Neurological Exam Neurological exam: Present alert and oriented X3; Absent CN II-XII intact or motor sensory deficit Psychiatric Psychiatric exam: Present normal affect and normal mood Skin Skin exam: Present warm, dry and intact Medical Decision Making <DANE Reyes Last Filed: 01/12/25 20:48> Medical Records Screening: Per USPSTF and CDC recommendations, given the prevalence of disease in our region, it is our hospital?s policy to screen for HIV and viral Hepatitis for all patients aged 18 and over and those with ongoing risk factors. Jorge A Inquiry Pt receiving controlled substance: No Vital Signs: 01/12/25 17:01 01/12/25 17:30 01/12/25 17:45 Temperature 98.7 F Temperature Source Oral Pulse Rate 62 87 Pulse Rate [Left] 54 L Respiratory Rate 19 19 23 Blood Pressure 110/66 135/73 Blood Pressure [Right Arm] 125/67 Blood Pressure Mean 80 88 Blood Pressure Mean [Right Arm] 86 Blood Pressure Source Blood Pressure Source [Right Arm] Automatic Cuff Blood Pressure Position [Right Arm] Supine 02 Sat by Pulse Oximetry 94 L 93 L 95 Oxygen Delivery Method Room Air Room Air Room Air 01/12/25 18:00 01/12/25 18:16 01/12/25 18:30 Temperature Temperature Source Pulse Rate 88 74 62 Pulse Rate [Left] Respiratory Rate 18 19 18 Blood Pressure 120/66 125/59 L 142/67 H Blood Pressure [Right Arm] Blood Pressure Mean 86 92 98 Blood Pressure Mean [Right Arm] Blood Pressure Source Blood Pressure Source [Right Arm] Blood Pressure Position [Right Arm] 02 Sat by Pulse Oximetry 96 95 95 Oxygen Delivery Method Room Air Room Air Room Air 01/12/25 18:45 01/12/25 19:28 Temperature 98.2 F Temperature Source Pulse Rate 60 Pulse Rate [Left] Respiratory Rate 20 18 Blood Pressure 142/67 H 113/69 Blood Pressure [Right Arm] Blood Pressure Mean Blood Pressure Mean [Right Arm] Blood Pressure Source Automatic Cuff Blood Pressure Source [Right Arm] Blood Pressure Position [Right Arm] 02 Sat by Pulse Oximetry Oxygen Delivery Method Room Air Lab Data Lab Results 01/12/25 17:15: WBC 6.9, RBC 4.02 L, Hgb 14.3, Hct 41.2, MCV 102.5 H, MCH 35.6 H , MCHC 34.7, RDW 15.0, Plt Count 250, MPV 9.6, Neut % (Auto) 70.2, Lymph % (Auto) 10.9, [place] % (Auto) 17.1 H, Eos % (Auto) 1.0, Baso % (Auto) 0.1, Neut # (Auto) 4.9, Lymph # (Auto) 0.8, [place] # (Auto) 1.2 H, Eos # (Auto) 0.1, Baso # (Auto) 0.0, Sodium 133 L, Potassium 3.9, Chloride 95 L, Carbon Dioxide 27, Anion Gap 14.9, BUN 26 H, Creatinine 0.90, Estimated Creat Clear 44, Estimated GFR 60, Est GFR ( Amer) 72, Glucose 83, Calcium 9.2, Magnesium 1.9, Total Bilirubin 0.6, AST 34, ALT 17, Alkaline Phosphatase 80, Troponin I < 0.01, Total Protein 7.1, Albumin 4.1, Globulin 3.0, Albumin/Globulin Ratio 1.4, TSH 1.25, HCV Ab ADITYA w/Rflx PCR Qn Negative, HIV Ag/Ab Combo Qual Negative 01/12/25 18:55: Urine Color Yellow, Urine Appearance Clear, Urine pH 6.0, Ur Specific [place] 1.020, Urine Protein Negative, Urine Glucose (UA) Negative, Urine Ketones Negative, Urine Blood Negative, Urine Nitrate Negative, Urine Bilirubin Negative, Urine Urobilinogen 0.2, Ur Leukocyte Esterase Negative, Urine RBC 5-10, Urine WBC 5-10, Ur Squamous Epith Cells 20-50, Urine Bacteria 3+, Urine Mucus 3+ 01/12/25 17:15 01/12/25 17:15 Orders (Tests/Meds): ED MEDICATIONS Discontinued Medications Generic Name Dose Route Start Last Admin Trade Name Freq PRN Reason Stop Dose Admin Sodium Chloride 500 ml 01/12/25 17:36 01/12/25 18:10 Sodium Chloride 0.9% 500ml Bag IV 01/12/25 17:37 500 ml ONCE ONE Administration ORDERS Category Date Time Status Chest XR -- portable [XR chest portable] Stat Exams 01/12/25 17:36 Completed CBC w/Auto Diff [Complete Blood Count Auto Diff] Stat Lab 01/12/25 17:15 Completed CMP [Comprehensive Metabolic Panel] Stat Lab 01/12/25 17:15 Completed HIV Combo Stat Lab 01/12/25 17:15 Completed Hepatitis C Ab Qual. W/ RFX Stat Lab 01/12/25 17:15 Completed Magnesium Stat Lab 01/12/25 17:15 Completed TSH [Thyroid Stimulating Hormone] Stat Lab 01/12/25 17:15 Completed Trop I [Troponin I] Stat Lab 01/12/25 17:15 Completed Urinalysis and Microscopic Stat Lab 01/12/25 18:55 Completed Urine Culture Stat Micro 01/12/25 18:55 Received Medical Decision Narrative: In summary patient is a 84-year-old female who presents the emergency department for evaluation of generalized weakness. Patient is dynamically upon arrival, afebrile. Unremarkable physical exam. Differential diagnosis includes dehydration, electrolyte abnormality, ACS, pneumonia. Initial workup will be conducted with hematologic labs, EKG, chest x-ray. Initial inventions include IV fluid bolus. Initial workup reviewed by fl labs remarkable for mild hyponatremia. Upon repeat evaluation patient had acceptable resolution of symptoms with IV fluid. She was able to ambulate to the bathroom. Given this patient is appropriate for discharge home at this time with follow-up with PCP. Given strict return precautions.. <Morris Mendoza MD - Last Filed: 01/12/25 21:24> Vital Signs: 01/12/25 17:01 01/12/25 17:30 01/12/25 17:45 Temperature 98.7 F Temperature Source Oral Pulse Rate 62 87 Pulse Rate [Left] 54 L Respiratory Rate 19 19 23 Blood Pressure 110/66 135/73 Blood Pressure [Right Arm] 125/67 Blood Pressure Mean 80 88 Blood Pressure Mean [Right Arm] 86 Blood Pressure Source Blood Pressure Source [Right Arm] Automatic Cuff Blood Pressure Position [Right Arm] Supine 02 Sat by Pulse Oximetry 94 L 93 L 95 Oxygen Delivery Method Room Air Room Air Room Air 01/12/25 18:00 01/12/25 18:16 01/12/25 18:30 Temperature Temperature Source Pulse Rate 88 74 62 Pulse Rate [Left] Respiratory Rate 18 19 18 Blood Pressure 120/66 125/59 L 142/67 H Blood Pressure [Right Arm] Blood Pressure Mean 86 92 98 Blood Pressure Mean [Right Arm] Blood Pressure Source Blood Pressure Source [Right Arm] Blood Pressure Position [Right Arm] 02 Sat by Pulse Oximetry 96 95 95 Oxygen Delivery Method Room Air Room Air Room Air 01/12/25 18:45 01/12/25 19:28 Temperature 98.2 F Temperature Source Pulse Rate 60 Pulse Rate [Left] Respiratory Rate 20 18 Blood Pressure 142/67 H 113/69 Blood Pressure [Right Arm] Blood Pressure Mean Blood Pressure Mean [Right Arm] Blood Pressure Source Automatic Cuff Blood Pressure Source [Right Arm] Blood Pressure Position [Right Arm] 02 Sat by Pulse Oximetry Oxygen Delivery Method Room Air Lab Data Lab Results 01/12/25 17:15: WBC 6.9, RBC 4.02 L, Hgb 14.3, Hct 41.2, MCV 102.5 H, MCH 35.6 H , MCHC 34.7, RDW 15.0, Plt Count 250, MPV 9.6, Neut % (Auto) 70.2, Lymph % (Auto) 10.9, [place] % (Auto) 17.1 H, Eos % (Auto) 1.0, Baso % (Auto) 0.1, Neut # (Auto) 4.9, Lymph # (Auto) 0.8, [place] # (Auto) 1.2 H, Eos # (Auto) 0.1, Baso # (Auto) 0.0, Sodium 133 L, Potassium 3.9, Chloride 95 L, Carbon Dioxide 27, Anion Gap 14.9, BUN 26 H, Creatinine 0.90, Estimated Creat Clear 44, Estimated GFR 60, Est GFR ( Amer) 72, Glucose 83, Calcium 9.2, Magnesium 1.9, Total Bilirubin 0.6, AST 34, ALT 17, Alkaline Phosphatase 80, Troponin I < 0.01, Total Protein 7.1, Albumin 4.1, Globulin 3.0, Albumin/Globulin Ratio 1.4, TSH 1.25, HCV Ab ADITYA w/Rflx PCR Qn Negative, HIV Ag/Ab Combo Qual Negative 01/12/25 18:55: Urine Color Yellow, Urine Appearance Clear, Urine pH 6.0, Ur Specific [place] 1.020, Urine Protein Negative, Urine Glucose (UA) Negative, Urine Ketones Negative, Urine Blood Negative, Urine Nitrate Negative, Urine Bilirubin Negative, Urine Urobilinogen 0.2, Ur Leukocyte Esterase Negative, Urine RBC 5-10, Urine WBC 5-10, Ur Squamous Epith Cells 20-50, Urine Bacteria 3+, Urine Mucus 3+ Orders (Tests/Meds): ED MEDICATIONS Discontinued Medications Generic Name Dose Route Start Last Admin Trade Name Freq PRN Reason Stop Dose Admin Sodium Chloride 500 ml 01/12/25 17:36 01/12/25 18:10 Sodium Chloride 0.9% 500ml Bag IV 01/12/25 17:37 500 ml ONCE ONE Administration ORDERS Category Date Time Status Chest XR -- portable [XR chest portable] Stat Exams 01/12/25 17:36 Completed CBC w/Auto Diff [Complete Blood Count Auto Diff] Stat Lab 01/12/25 17:15 Completed CMP [Comprehensive Metabolic Panel] Stat Lab 01/12/25 17:15 Completed HIV Combo Stat Lab 01/12/25 17:15 Completed Hepatitis C Ab Qual. W/ RFX Stat Lab 01/12/25 17:15 Completed Magnesium Stat Lab 01/12/25 17:15 Completed TSH [Thyroid Stimulating Hormone] Stat Lab 01/12/25 17:15 Completed Trop I [Troponin I] Stat Lab 01/12/25 17:15 Completed Urinalysis and Microscopic Stat Lab 01/12/25 18:55 Completed Urine Culture Stat Micro 01/12/25 18:55 Received Medical Decision Narrative: In summary patient is a 84-year-old female who presents the emergency department for evaluation of generalized weakness. Patient is dynamically upon arrival, afebrile. Unremarkable physical exam. Differential diagnosis includes dehydration, electrolyte abnormality, ACS, pneumonia. Initial workup will be conducted with hematologic labs, EKG, chest x-ray. Initial inventions include IV fluid bolus. Initial workup reviewed by fl labs remarkable for mild hyponatremia. Upon repeat evaluation patient had acceptable resolution of symptoms with IV fluid. She was able to ambulate to the bathroom. Given this patient is appropriate for discharge home at this time with follow-up with PCP. Given strict return precautions.. I was consulted by the RYAN, and we discussed the complexity of the problems being addressed. I approve the treatment and management plan for this patient's care in the emergency department, thus performing a substantive portion of the medical decision making. No leukocytosis, no anemia, elevated monocytes at 17.1. Mildly low sodium 133 but CMP otherwise unremarkable. Initial troponin less than 0.01. TSH normal at 1.25. No evidence of UTI. Morris Mendoza MD Critical Care <DANE Reyes - Last Filed: 01/12/25 20:48> Critical Care Time Critical Care Time: No
--- NOTE | 2025-01-14 08:42 | PC.NURSE ---
Urine culture results reviewed by Dr. Yanez, no new orders received.
== END 2025-01-12 19:36 | disposition home or self-care (01) ==
PROVIDERS: Physician Assistant; Emergency Provider Student in an Organized Health Care Education/Training Program; PCP Nurse Practitioner Family
DX: E87.1 Hypo-osmolality and hyponatremia (principal); R53.1 Weakness; R51.9 Headache, unspecified
CPT/HCPCS: 71045; 80053; 81001; 83735; 84443; 84484; 85025; 86803; 87086; 87389; 93005; 96374; 99284; J7040

== ENCOUNTER 2025-01-16 16:54 | Outpatient (CLI) | payer MEDICARE, OTHER, SELFPAY ==
--- OUTSIDE RECORDS SUMMARY | 2025-01-17 09:01 | XMS_ITS | Referral Summary ---
Author Organization [employer] ([place], [place], [place], [place]) Address [address] [place] [address] Care Team Providers Care University Counselor Name Role Phone Unavailable Primary Care Provider Unavailabl e Encounters Date Type Department Care Team Description 11/01/2024 Outside Orders [facility] Central Scheduling [address] [place] [id number] Luciana Goodrich PA-C Left hip pain [...]
--- OUTSIDE RECORDS SUMMARY | 2025-01-17 09:01 | XMS_ITS | Encounter Summary ---
Author Organization [employer] ([place], [place], [place], [place]) Address [address] [place] [address] Care Team Providers Care Front End Developer Javascript Html Css Name Role Phone Unavailable Primary Care Provider Unavailabl e Reason for Referral * Consultation (Routine) - Canceled Specialty Diagnoses / Procedures Referred By Carol hall Referred To Contact Behavioral Health Diagnoses Memory loss ClaraAdelina morgan [address] [place] [address] Phone: tel: Misa Bravo, MS [address] [place] [address] Phone: tel: fax: Referral ID Status Reason Start Date Expiration Date Visits Requested Visits Authorized [id number] Canceled Specialty Services Required 10/05/2024 10/05/2025 1 1 Encounter Details Date Type Department Care Team (Late st Contact Info) Description 10/05/2024 Outside Orders [facility] Central Scheduling [address] [place] [address] [place] [id number] Memory loss (Primary Dx) Social History Tobacco [...]
--- OUTSIDE RECORDS SUMMARY | 2025-01-17 09:01 | XMS_ITS | Clinical Summary ---
Author Organization [email or web address] ([place], [place], [place], [place]) Address [address] [place] [address] Care Team Providers Care Weir Fisher Name Role Phone Unavailable Primary Care Provider Unavailabl e Encounters Date Type Department Care Team Description 11/01/2024 Outside Orders [facility] Central Scheduling [address] [place] [address] Luciana Goodrich PA-C Left hip [...]
--- OUTSIDE RECORDS SUMMARY | 2025-01-17 09:02 | XMS_ITS | Encounter Summary ---
Author Organization Healthcare Address [address] [place] [address] Care Team Providers Care Scrubber Machine Tender Name Role Phone Unavailable Primary Care Provider Unavailabl e Encounter Details Date Type Department Care Team (Late st Contact Info) Description 06/16/2019 Abstract DSB [facility] [address] [place] [address] Dental, Provider, DDS [address] [place], [place] [id number] Social History Tobacco Use Types Packs/Day Years [...]
--- OUTSIDE RECORDS SUMMARY | 2025-01-17 09:02 | XMS_ITS | Clinical Summary ---
Author Organization Healthcare Address [address] [place] [address] Care Team Providers Care Automotive Instructor Name Role Phone Unavailable Primary Care Provider [...] r (1 - 1-dose 75+ series) 2015 [id number] Vaccine (1 - 20 24-25 season) 2024 [...] to complete this topic Insurance WILBER Ramirez [id number] MEDICARE [facility]
--- OUTSIDE RECORDS SUMMARY | 2025-01-17 09:02 | XMS_ITS | Encounter Summary ---
Author Organization [employer] ([place], [place], [place], [place]) Address [address] [place] [address] Care Team Providers Care Applications System Analyst Name Role Phone Unavailable Primary Care Provider Unavailabl e Reason for Referral * Nuclear Medicine (Routine) - New Request Specialty Diagnoses / Procedures Referred By Carol hall Referred To Contact Diagnoses Left hip pain Procedures NM bone scan whole body Luciana Goodrich PA-C [address] [address] Phone: tel: Referral ID Status Reason Start Date Expiration Date V isits Requested Visits Authorized [id number] New Request 11/01/2024 11/01/2025 1 1 Encounter Details Date Type Department Care Team (Late st Contact Info) Description 11/01/2024 Outside Orders [facility] Central Scheduling [address] [place] [id number] Luciana Goodrich PA-C [address] [phone] Left hip pain (Primary Dx) Social History [...]
== END 2025-01-16 23:59 | disposition home or self-care (01) ==
LOC: LAB.DROPOF 01-17 08:57
PROVIDERS: PCP Nurse Practitioner Family; Visit Provider Nurse Practitioner Family
DX: R82.90 Unspecified abnormal findings in urine (principal)
CPT/HCPCS: 87086

== ENCOUNTER 2025-03-30 10:26 | Outpatient (CLI) | payer MEDICARE, OTHER, SELFPAY ==
--- OUTSIDE RECORDS SUMMARY | 2025-02-27 10:00 | XMS_ITS | Encounter Summary ---
Author Organization [facility] Address [address] [place] [address] Care Team Providers Care Office Technician Name Role Phone Monika Martin APRN Primary Care Provider + [phone] Reason for Visit * Reason Comments Shortness of Breath * Consultation (Routine) - Closed Specialty Diagnoses / Procedures Referred By Carol t Referred To Contact Cardiology Diagnoses Shortness of breath RIVERA (dyspnea on exertion) Procedures MS OFFICE/OUTPATIENT NEW MODERATE MDM 45 MINUTES Cole Noel APRN [address] [place] [address] Phone: tel: fax: Hardy Brown IV, MD [address] [facility] [address] [place] [address] Phone: tel: fax: Referral ID Status Reason Start Date Expiration Date Visits Requested Visits Authorized [id number] Closed Patient Preference 01/19/2025 04/20/2026 1 1 Encounter Details Date Type Department Care Team (Late st Contact Info) Description 02/27/2025 10:00 AM EDT Office Visit [facility] CARDIOLOGY [address] [place] [address] Hardy Brown IV, MD [address] [facility] [address] [facility] [address] [place] [address] Shortness of breath (Primary Dx) Social History Tobacco Use Types Packs/Day Years Used Date Smoking Tobacco: Former Cigarettes 0 07/05/1957 - 1984 Smokeless Tobacco: Never Tobacco Cessation:Counseling Given: Not Answered Alcohol Use Standard Drinks/Week Comments No 0 (1 standard drink = 0.6 oz pur e alcohol) Abuse Screen Answer Date Recorded Feels Unsafe at Home or Work/School no 12/27/2024 Feels Threatened by Someone no 12/04 Does Anyone Try to Keep You From Having Contact with Others or Doing Things Outside Your Home? no 12/27/2024 Physical Signs of Abuse Present no 12/27/2024 Comments No Sex and Gender Information Value Date Recorded Sex Assigned at Female 01/18/2025 10:11 AM EDT Legal Sex Female 11:54 AM EDT Gender Identity Not on file Sexual Orientation Not on file documented as of this encounter Last Filed Vital Signs Vital Sign Reading Time Taken Comments Blood Pressure 138/80 02/27/2025 10:12 AM EDT Pulse 60 02/27/2025 10:12 AM EDT Temperature - - Respiratory Rate - - Oxygen Saturation 94% 02/27/2025 10:12 AM EDT Inhaled Oxygen Concentration - - Weight 68.5 kg (151 lb) 02/27/2025 10:12 AM EDT Height 165.1 cm (5' 5 ) 02/27/2025 10:12 AM EDT Body Mass Index 25.13 02/27/2025 10:12 AM EDT documented in this encounter Progress Notes * Hardy Brown IV, MD - 02/27/2025 10:35 AM EDTAssociated Problem(s): Shortness of breath No cardiac etiology for shortness of breath identified on recent testing Defer further cardiac evaluation Follow-up with pulmonary in April as previously scheduled * Hardy Brown IV, MD - 02/27/2025 10:00 AM EDT [facility] Consultation Note Elyse Trent 1940 Requesting Provider: Cole Noel APRN PCP: Monika Martin APRN ID: Elyse Trent is a 84 y.o. female who resides in [place], [place]. REASON FOR CONSULTATION: Shortness of breath Dear Robert: Thank you for referring Elyse Trent to me for follow-up of her shortness of breath symptoms. She is an 84-year-old female with episodes of shortness of breath. Some days she is fine, other days she gets winded walking short distances. No known lung disease, but is planning on seeing a metal drawer in April. As part of a cardiac workup she underwent echo, nuclear stress test and Holter monitoring, all of which were unremarkable. Additionally she had a proBNP ordered in the summer which was within normal limits Past Medical History, Past Surgical History, Family history, Social History, and Medications were all reviewed with the patient today and updated as necessary. Current Outpatient Medications: folic acid (FOLVITE) 1 MG tablet, Take 1 tablet by mouth Daily., Disp: , Rfl: hydroxychloroquine (PLAQUENIL) 200 MG tablet, Take 1 tablet by mouth Daily., Disp: , Rfl: levothyroxine (SYNTHROID, LEVOTHROID) 75 MCG tablet, Take 1 tablet by mouth Every Morning., Disp: ,Rfl: meloxicam (MOBIC) 15 MG tablet, Take 1 tablet by mouth As Needed., Disp: , Rfl: Methotrexate Sodium 50 MG/2ML injection, 2 mL., Disp: , Rfl: Progesterone (PROMETRIUM) 100 MG capsule, Take 1 capsule by mouth Daily., Disp: , Rfl: solifenacin (VESICARE) 10 MG tablet, Take 1 tablet by mouth Daily., Disp: , Rfl: O2 (OXYGEN), Inhale 2 L/min 1 (One) Time. @ night, Disp: , Rfl: Allergies Allergen Reactions Morphine Hallucinations Sulfa Antibiotics Unknown - Low Severity Erythromycin Rash Past Medical History: Diagnosis Date Acquired hypothyroidism 2011 Dementia 2020 Essential hypertension 2016 Fibromyalgia Osteopenia Rheumatoid arthritis 1991 Past Surgical History: Procedure Laterality Date APPENDECTOMY OPEN 1947 CYSTOSCOPY 04/2021 Dr. Dahl - normal LAPAROTOMY OVARIAN CYSTECTOMY REPLACEMENT TOTAL KNEE Left REPLACEMENT TOTAL KNEE Right TONSILLECTOMY AND ADENOIDECTOMY 1944 TOTAL HIP ARTHROPLASTY Left TOTAL HIP ARTHROPLASTY Right TOTAL HIP ARTHROPLASTY REVISION Left Family History Problem Relation Age of Onset No Known Problems Mother No Known Problems Father Social History Tobacco Use Smoking status: Former Current packs/day: 0.00 Types: Cigarettes Start date: 07/05/1957 Quit date: 1984 Years since quittin.6 Smokeless tobacco: Never Substance Use Topics Alcohol use: No Review of Systems Cardiovascular: Negative. Respiratory: Positive for shortness of breath. BP 138/80 (BP Location: Left arm, Patient Position: Sitting, Cuff Size: Adult) Pulse 60 Ht 165.1 cm (65 ) Wt 68.5 kg (151 lb) LMP (LMP Unknown) SpO2 94% BMI 25.13 kg/m?? Constitutional: Appearance: Healthy appearance. Eyes: General: No scleral icterus. Neck: Thyroid: No thyroid mass. Vascular: No carotid bruit or JVD. JVD normal. Pulmonary: Effort: Pulmonary effort is normal. Breath sounds: Normal breath sounds. Cardiovascular: Normal rate. Regular rhythm. Murmurs: There is no murmur. No gallop. Edema: Peripheral edema absent. Skin: General: Skin is warm. There is no cyanosis. Neurological: General: No focal deficit present. Mental Status: Alert. Psychiatric: Attention and Perception: Attention normal. EKG (12/27/2024): Sinus rhythm. Possible left atrial enlargement. Nonspecific EKG Lab Results Component Value Date TSH 4.300 (H) 12/27/2024 Lab Results Component Value Date GLUCOSE 84 12/27/2024 BUN 14.2 12/27/2024 CREATININE 0.78 12/27/2024 NA 136 12/27/2024 K 4.2 12/27/2024 CL 100 12/27/2024 CALCIUM 9.2 12/27/2024 PROTEINTOT 6.7 12/27/2024 ALBUMIN 3.9 12/27/2024 ALT 22 12/27/2024 AST 40 (H) 12/27/2024 ALKPHOS 83 12/27/2024 BILITOT 0.6 12/27/2024 GLOB 2.8 12/27/2024 AGRATIO 1.4 12/27/2024 BCR 18.2 12/27/2024 ANIONGAP 10.6 12/27/2024 EGFR 75.0 12/27/2024 Lab Results Component Value Date WBC 6.87 12/27/2024 HGB 14.8 12/27/2024 HCT 44.0 12/27/2024 MCV 102.8 (H) 12/27/2024 PLT 239 12/27/2024 BNP 212 Diagnoses and all orders for this visit: 1. Shortness of breath (Primary) Overview: Nuclear stress test (01/09/2025): No ischemia. No obvious coronary calcification. LVEF 65%. Echo (01/03/2025): LVEF 60%. No significant valvular disease. 48 hour monitor (02/23/2025): HR 57. Short lived SVT. Normal proBNP Assessment & Plan: No cardiac etiology for shortness of breath identified on recent testing Defer further cardiac evaluation Follow-up with pulmonary in April as previously scheduled Follow-up with pulmonary as previously scheduled [facility]. C. Shreyas Brown MD, [facility], [facility] Interventional Cardiology 02/27/25 10:35 EDT documented in this encounter Plan of Treatment Upcoming Encounters Date Type Department Care Team (Late st Contact Info) Description 04/30/2025 2:15 PM EDT Registration [facility] PULMONARY & CRITICAL CARE MEDICINE [address] [place] [address] 04/30/2025 2:30 PM EDT Office Visit [facility] PULMONARY & [facility]ITICAL CARE MEDICINE [address] [place] [address] 04/30/2025 3:15 PM EDT Office Visit [facility] PULMONARY & CRITICAL CARE MEDICINE [address] [place] [address] Cole Quijano, [address] [place] [address] documented as of this encounter Visit Diagnoses Diagnosis Shortness of breath- Primary documented in this encounter Care Teams Office Technician Relationship Specialty Start Date End Date Monika Martin APRN [address] [facility] [address] [facility] [address] PCP - General Internal Medicine 11/10/23 documented as of this encounter
--- OUTSIDE RECORDS SUMMARY | 2025-03-30 10:31 | XMS_ITS | Encounter Summary ---
[facility] Address [address] [place] [address] Care Team Providers Care Material Handler Loader Name Role Phone Monika Martin APRN Primary Care Provider [phone] Encounter Details Date Type Department Care Team (Late st Contact Info) Description 12/14/2017 External CPT II SALES AND CATERING COORDINATOR - [facility] Social History Tobacco Use Types Packs/Day Years Used Date Smoking Tobacco: Former Smokeless Tobacco: Never Alcohol Use Standard Drinks/Week Comments No 0 (1 standard drink = 0.6 oz pur e alcohol) Comments No Sex and Gender Information Value Date Recorded Sex Assigned at Female 01/18/2025 10:11 AM EDT Legal Sex Female 11:54 AM EDT Gender Identity Not on file Sexual Orientation Not on file documented as of this encounter Plan of Treatment Upcoming Encounters Date Type Department Care Team (Late st Contact Info) Description 04/30/2025 2:15 PM EDT Registration [facility] PULMONARY & CRITICAL CARE MEDICINE [address] [place] [address] 04/30/2025 2:30 PM EDT Office Visit [facility] PULMONARY & CRITICAL CARE MEDICINE [address] [place] [address] 04/30/2025 3:15 PM EDT Office Visit [facility] PULMONARY & CRITICAL CARE MEDICINE [address] [place] [address] Cole Quijano, [address] [place] [address] documented as of this encounter Visit Diagnoses Not on filedocumented in this encounter Care Teams Material Handler Loader Relationship Specialty Start Date End Date Monika Martin APRN [address] [place] [address] [facility] [address] PCP - General Internal Medicine 11/10/23 documented as of this encounter
--- OUTSIDE RECORDS SUMMARY | 2025-03-30 10:31 | XMS_ITS | Encounter Summary ---
Author Organization [facility] Address [address] [place] [address] Care Team Providers Care Transaction Manager Name Role Phone Unavailable Primary Care Provider Unavailabl e Encounter Details Date Type Department Care Team (Late st Contact Info) Description 06/16/2019 Abstract DSB [facility] [address] [place] [address] Dental, Provider, DDS [address] [place], [place] [id number] Social History Tobacco Use Types Packs/Day Years [...]
--- OUTSIDE RECORDS SUMMARY | 2025-03-30 10:31 | XMS_ITS | Clinical Summary ---
Author Organization [facility] Address [address] [place] [address] Care Team Providers Care Rehab Director Occupational Therapist Name Role Phone Unavailable Primary Care Provider [...] r (1 - 1-dose 75+ series) 2015 [id number] Vaccine (1 - 20 24-25 season) 2025 UKY-Influenza Vaccine (#1) 2025 HPV Vaccines Aged [...] to complete this topic Insurance [place] [id number] MEDICARE [facility]
--- OUTSIDE RECORDS SUMMARY | 2025-03-30 10:32 | XMS_ITS | Encounter Summary ---
[facility] Address [address] [place] [address] Care Team Providers Care Campus Recruiting Coordinator Name Role Phone Monika Martin FREELANCE COPYWRITER Primary Care Provider [phone] Encounter Details Date Type Department Care Team (Late st Contact Info) Description 03/18/2015 External CPT II WIG COMBER - [facility] Social History Tobacco Use [...] Info) Description 04/30/2025 2:15 PM EDT Registration [facility] PULMONARY & CRITICAL CARE MEDICINE [address] [place] [phone] 04/30/2025 2:30 PM EDT Office Visit [facility] PULMONARY & CRITICAL CARE MEDICINE [address] [place] [phone] 04/30/2025 3:15 PM EDT Office Visit [facility] PULMONARY & CRITICAL CARE MEDICINE [address] [place] [address] Cole Quijano DO [address] [place] [address] documented as of this encounter Visit Diagnoses Not on filedocumented in this encounter Care Teams Campus Recruiting Coordinator Relationship Specialty Start Date End Date Monika Martin APRN [facility] [address] [facility] [place] [id number] PCP - General Internal Medicine 11/10/23 documented as of this encounter
--- OUTSIDE RECORDS SUMMARY | 2025-03-30 10:32 | XMS_ITS | Encounter Summary ---
[facility] [address] [place] [address] Care Team Providers Care Autocad Designer Name Role Phone Monika Martin TRANSIT MIXER DRIVER Primary Care Provider [phone] Encounter Details Date Type Department Care Team (Late st Contact Info) Description 03/23/2016 External CPT II MANAGER ORDER - [facility] Social History Tobacco Use [...] Info) Description 04/30/2025 2:15 PM EDT Registration [facility] PULMONARY & CRITICAL CARE MEDICINE [address] [place] [phone] 04/30/2025 2:30 PM EDT Office Visit [facility] PULMONARY & CRITICAL CARE MEDICINE [address] [place] [phone] 04/30/2025 3:15 PM EDT Office Visit [facility] PULMONARY & CRITICAL CARE MEDICINE [address] [place] [phone] Cole Quijano DO [address] [place] [address] documented as of this encounter Visit Diagnoses Not on filedocumented in this encounter Care Teams Autocad Designer Relationship Specialty Start Date End Date Monika Martin APRN [facility] [address] [facility] [place] [id number] PCP - General Internal Medicine 11/10/23 documented as of this encounter
--- OUTSIDE RECORDS SUMMARY | 2025-03-30 10:32 | XMS_ITS | Encounter Summary ---
[facility] [address] [place] [address] Care Team Providers Care Platen Press Operator Name Role Phone Monika Martin APRN Primary Care Provider + [phone] Encounter Details Date Type Department Care Team (Late st Contact Info) Description 02/25/2025 Results Follow-Up [facility] CARDIOLOGY [address] [facility] [address] [place] [address] Cole Noel APRN [address] [facility] [address] [place] [address] Social History Tobacco Use Types Packs/Day Years Used Date Smoking Tobacco: Former Cigarettes 1984 Smokeless Tobacco: Never Alcohol Use Standard Drinks/Week [...] Info) Description 04/30/2025 2:15 PM EDT Registration [facility] PULMONARY & CRITICAL CARE MEDICINE [address] [place] [address] 04/30/2025 2:30 PM EDT Office Visit [facility] PULMONARY & CRITICAL CARE MEDICINE [address] [place] [address] 04/30/2025 3:15 PM EDT Office Visit [facility] PULMONARY & CRITICAL CARE MEDICINE [address] [place] [address] Cole Quijano, [address] [place] [address] documented as of this encounter Visit Diagnoses Not on filedocumented in this encounter Care Teams Platen Press Operator Relationship Specialty Start Date End Date Monika Martin APRN [address] [place] [address] PCP - General Internal Medicine 11/10/23 documented as of this encounter
--- OUTSIDE RECORDS SUMMARY | 2025-03-30 10:32 | XMS_ITS | Clinical Summary ---
Author Organization [facility] Address [address] [place] [address] Care Team Providers Care Bundler Seasonal Greenery Name Role Phone Monika Martin APRN Primary Care Provider [phone] Allergies Active Allergy Reactions Criticality Noted Date Comments Erythromycin Rash Low 01/02/2013 Morphine Hallucinations 04/23/2011 Sulfa Antibiotics Unknown - Low Severity 2012 Medications meloxicam (MOBIC) 15 MG tablet Take 1 tablet by mouth As Needed. 03/16/2017 Active folic acid (FOLVITE) 1 MG tablet Take 1 tablet by mouth Daily. Active hydroxychloroqu ine (PLAQUENIL) 200 MG tablet Take 1 tablet by mouth Daily. Active levothyroxine (SYNTHROID, LEVOTHROID) 75 MCG tablet Take 1 tablet by mouth Every Morning. Active Progesterone (PROMETRIUM) 100 MG capsule Take 1 capsule by mouth Daily. Active solifenacin (VESICARE) 10 MG tablet Take 1 tablet by mouth Daily. Active Methotrexate Sodium 50 MG/2ML injection 2 mL. 01/31/2025 Active O2 (OXYGEN) Inhale 2 L/min 1 (One) Time. @ night Active Active Problems Problem Noted Date Diagnosed Date Shortness of breath 02/26/2025 Overview (02/27/2025): Nuclear stress test (01/09/2025): No ischemia. No obvious coronary calcification. LVEF 65%. Echo (01/03/2025): LVEF 60%. No significant valvular disease. 48 hour monitor (02/23/2025): HR 57. Short lived SVT. Normal proBNP Assessment & Plan (02/27/2025 10:35 AM EDT): No cardiac etiology for shortness of breath identified on recent testing Defer further cardiac evaluation Follow-up with pulmonary in April as previously scheduled Annual MEDICAL RECORDS MANAGER exam in 12/20/2021 Overview (12/25/2021): SCREENING TESTS Year 2016 2017 2018 2019 2020 2021 2022 2023 2024 2025 2026 2027 2028 2029 2030 2031 2032 2033 2034 2035 Age IZZY [Birads] KATI (5 year) Tyrer Moraima (lifetime) Colonoscopy DEXA [T-score] Frax [hip/any] Lipids [LDL / HDL / TG] Vitamin D TSH Enter the month test was performed. If month not known, enter X' Black numbers = normal results Red numbers = abnormal results Black X = patient reported normal Red X - patient reported abnormal Referred by: Dr. 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 Other info: Ayad patient Pessary maintenance 12/20/2021 Overview (12/20/2021): Pessary type and history Date 08/21/2015 Pessary type and size FR 5 Cystocele, rectocele and uterine prolapse 2021 Recurrent cystitis 03/24/2017 Essential hypertension 07/05/2015 Overview (02/27/2025): Target blood pressure <130/80 mmHg Rheumatoid arthritis Osteopenia Hypothyroidism Fibromyalgia Resolved Problems Problem Noted Date Diagnosed Date Resolved Date Uterine prolapse 11/09/2019 Overview (03/24/2017): grade 2 Rectocele 05/11/2018 Overview (03/24/2017): grade 1 Menopause 12/20/2021 Cystocele 03/24/2017 Overview (03/24/2017): grade 2 Encounters Date Type Department Care Team Description 02/27/2025 10:00 AM EDT Office Visit [facility] [address] [place] [address] [address] [place] [address] Hardy Brown IV, MD Shortness of breath (Primary Dx) 02/27/2025 Travel 02/25/2025 Results Follow-Up [facility] [address] [place] [address] Cole Noel APRN 01/19/2025 10:54 AM EDT - 01/19/2025 11:59 PM EDT Hospital Encounter [facility] [address] [place] [address] Palpitations Discharge Disposition: Home or Self Care 01/19/2025 10:00 AM EDT Clinical Support [facility] [address] [facility] [address] [place] [address] Cole Noel APRN Palpitations (Primary Dx); Shortness of breath; RIVERA (dyspnea on exertion) 01/19/2025 Travel 01/09/2025 12:14 PM EDT - 01/09/2025 11:59 PM EDT Hospital Encounter [facility] [place] [address] [address] [place] [address] Cole Noel APRN Shortness of breath; RIVERA (dyspnea on exertion); Anginal equivalent Discharge Disposition: Home or Self Care 01/09/2025 Travel 01/04/2025 Results Follow-Up [facility] [address] [facility] [address] [place] [address] Fred Loera APRN 01/03/2025 2:43 PM EDT - 01/03/2025 11:59 PM EDT Hospital Encounter [facility] NONINVASIVE LAB [place] [address] [facility] [address] [place] [address] Cole Noel APRN Shortness of breath Discharge Disposition: Home or Self Care 01/03/2025 Travel 01/01/2025 3:00 PM EDT Office Visit [facility] [address] [place] [address] Cole Noel APRN Shortness of breath (Primary Dx); RIVERA (dyspnea on exertion); Anginal equivalent; Palpitations; Episodic lightheadedness 01/01/2025 Travel from Last 3 Months Family History Medical History Relation Name Comments No Known Problems Father No Known Problems Mother Relation Name Status Comments Father Mother Social History Tobacco Use Types Packs/Day Years [...] on file Sexual Orientation Not on file Last Filed Vital Signs Vital Sign Reading Time Taken Comments Blood Pressure 138/80 02/27/2025 10:12 AM EDT Pulse 60 02/27/2025 10:12 AM EDT Temperature 36.6 C (97.9 F) 12/27/2024 2:35 PM EDT Respiratory Rate 16 01/01/2025 2:47 PM EDT Oxygen Saturation 94% 02/27/2025 10:12 AM EDT Inhaled Oxygen Concentration - - Weight 68.5 kg (151 lb) 02/27/2025 10:12 AM EDT Height 165.1 cm (5' 5 ) 02/27/2025 10:12 AM EDT Body Mass Index 25.13 02/27/2025 10:12 AM EDT Plan of Treatment Upcoming Encounters Date Type Department Care Team (Late st Contact Info) Description 04/30/2025 2:15 PM EDT Registration [facility] PULMONARY & CRITICAL CARE MEDICINE [address] [place] [address] 04/30/2025 2:30 PM EDT Office Visit [facility] PULMON[facility]ICAL [facility]ARE MEDICINE [address] [place] [address] 04/30/2025 3:15 PM EDT Office Visit [facility] PULMON[facility] & CRITICAL CARE MEDICINE [address] [place] [address] Cole Quijano, DO [address] [place] [address] Health Maintenance Due Date Last Done Comments TDAP/TD VACCINES (1 - Tdap) 1959 Pneumococcal Vaccine 50+ (1 of 1 - PCV) 1990 ZOSTER VACCINE (1 of 2) 1990 RSV Vaccine - Adults (1 - 1- dose 75+ series) 2015 DXA SCAN 09/03/2017 09/04/2015, 07/29/2011 ANNUAL WELLNESS VISIT 07/08/2018 07/08/2017, 016 INFLUENZA VACCINE 02/02/2025 05/01/2022, , 05/08/2020, Additional history exists COVID-19 Vaccine (2023-2 5 season) 2025 Procedures Procedure Name Priority Date/Time Associated Diagnosis Comments HOLTER MONITOR >48 HOURS UP TO 7 DAYS INTERP ONLY Routine 01/19/2025 10:56 AM EDT Palpitations STRESS TEST, REGADENOSON W MYOCARDIAL PERFUSION SPECT (MULTI STUDY) Routine 01/09/2025 12:38 PM EDT Shortness of breath RIVERA (dyspnea on exertion) Anginal equivalent ECHO COMPLETE W/ DOPPLER AND COLOR FLOW Routine 01/03/2025 3:46 PM EDT Shortness of breath SCANNED - DEXA 07/29/2011 from Last 3 Months or Most Recently Relevant to Health Maintenance Results * HOLTER MONITOR >48 HOURS UP TO 7 DAYS INTERP ONLY (01/19/2025 10:56 AM EDT) Heart rate minimum 43 bpm [employer] Heart rate maximum 133 bpm [employer] Heart rate (average) 57 bpm [employer] V-Tach - number of episodes 0 [employer] SVT - number of episodes 8 [employer] SVT - heart rate minimum 48 bpm [employer] SVT - heart rate maximum 133 bpm [employer] SVT - heart rate (average) 106 bpm [employer] Longest SVT episode start 01/28/2025 9:52:08 AM EDT [employer] Longest SVT episode end 01/28/2025 9:52:21 AM EDT [employer] Longest SVT episode - duration 13.6 sec [employer] Longest SVT episode - number of beats 22 beats [employer] Longest SVT episode - heart rate min 82 bpm [employer] Longest SVT episode - heart rate max 114 bpm [employer] Longest SVT episode - heart rate (average) 101 bpm [employer] SVT with fastest heart rate start 01/27/2025 2:55:48 PM EDT [employer] SVT with fastest heart rate end 01/27/2025 2:55:52 PM EDT [employer] SVT with fastest heart rate - duration 4.4 sec [employer] SVT with fastest heart rate - number of beats 7 beats [employer] SVT with fastest heart rate - heart rate min 76 bpm [employer] SVT with fastest heart rate - heart rate max 133 bpm [employer] SVT with fastest heart rate - heart rate (average) 100 bpm [employer] Pause - number of episodes 0 [employer] Isolated SVE frequency Rare [employer] Isolated SVE count 934 episodes [employer] Ectopic SVE isolated percent 0.18 % [employer] SVE couplets frequency Rare [employer] SVE couplets counts 75 episodes [employer] Ectopic SVE couplet percent 0.03 % [employer] SVE triplets frequency Rare [employer] SVE triplets counts 19 episodes [employer] Ectopic SVE triplet percent 0.01 % [employer] Isolated VE frequency Rare [employer] Isolated VE counts 161 episodes [employer] Ectopic VE isolated percent 0.03 % [employer] VE couplets frequency 0 [employer] VE couplets counts 0 episodes [employer] Ectopic VE couplet percent 0 % [employer] VE triplets frequency 0 [employer] VE triplets counts 0 episodes [employer] Ectopic VE triplet percent 0 % [employer] Enrollment period start 01/25/2025 10:16:11 AM EDT [employer] Enrollment period end 02/01/2025 8:06:38 PM EDT [employer] Total enrollment period 7 days 10 hours [employer] Device analysis time 6 days 8 hours [employer] Total patient event diaries 3 [employer] Total patient event triggers 10 [employer] Combined report prescription status COMPLETE [employer] Anatomical Region Laterality Modality Other Narrative 02/23/2025 12:08 PM EDT Images from the original result were not included. Primary rhythm sinus with average heart rate 57 bpm Patient activated events correspond to sinus rhythm Short-lived SVT not symptomatic Study Description Monitor placed on patient 01/25/2025 10:16:11 AM EDT . Instructions were provided to patient on use of holter monitor and duration of monitoring. The patient was monitored for 6 days 8 hours. Average HR: 57. Min HR: 43. Max HR: 133. Cole Noel APRN CV CARDIAC SERVICES ORDERA BLEBrant Final Result * STRESS TEST, REGADENOSON W MYOCARDIAL PERFUSION SPECT (MULTI STUDY) (01/09/2025 12:38 PM EDT) CV REST NUCLEAR ISOTOPE DOSE 9.9 mCi CV STRESS PROTOCOL 1 Pharmacologic Stage 1 1.0 Duration Min Stage 1 1 Duration Sec Stage 1 10 Stress Dose Regadenoson Stage 1 0.40 Stress Comments Stage 1 10 sec bolus injection Stage 2 2.0 Duration Min Stage 2 1 Duration Sec Stage 2 0 Stage 3 3.0 Duration Min Stage 3 1 Duration Sec Stage 3 0 Stage 4 4.0 Duration Min Stage 4 1 Duration Sec Stage 4 0 Target HR (85%) 116 bpm Max. Pred. HR (100%) 136 bpm Exercise duration (min) 4 min Exercise duration (sec) 0 sec Estimated workload 1.0 METS Baseline HR 57 bpm Baseline BP 122/97 mmHg O2 sat rest 96 % HR Stage 1 54 O2 Stage 1 94 HR Stage 2 72 BP Stage 2 85/46 O2 Stage 2 94 HR Stage 3 70 O2 Stage 3 97 HR Stage 4 66 BP Stage 4 102/56 O2 Stage 4 94 Peak HR 74 bpm Peak BP 102/56 mmHg O2 sat peak 94 % Recovery HR 69 bpm Recovery BP 101/61 mmHg Recovery O2 96 % Percent Max Pred HR 54.41 % Percent Target HR 64 % BH CV STRESS NUCLEAR ISOTOPE DOSE 27.0 mCi Nuc Stress EF 65 % Anatomical Region Laterality Modality Ultrasound Narrative 01/09/2025 5:58 PM EDT Myocardial perfusion imaging indicates a normal myocardial perfusion study with no evidence of ischemia. Impressions are consistent with a low risk study. Left ventricular ejection fraction is normal (Calculated EF = 65%). No obvious coronary calcification noted on CT attenuation correction images Study Impression Myocardial perfusion imaging indicates a normal myocardial perfusion study with no evidence of ischemia. Impressions are consistent with a low risk study. Carbonated lemon benton soda given prior rest images to mitigate bowel uptake artifact.. Rest Perfusion Defect 1 No rest myocardial perfusion defect noted. Stress Perfusion Defect 1 No stress myocardial perfusion defect noted. Nuclear Study Description A 1-day rest/stress protocol myocardial perfusion imaging study was performed. A 22 G peripheral IV was started in the right hand. While at rest, the patient was injected intravenously with 9.9 mCi of technetium sestamibi at 12:30 EDT. Rest imaging was performed approximately 70 minutes after the resting injection. Regadenoson (0.4 mg / 5 mL) was given intravenously over approximately 10 seconds followed by 5 mL flush of saline according to protocol. While at peak stress, the patient was injected intravenously with 27.0 mCi of technetium sestamibi at 14:00 EDT. Stress imaging was performed approximately 45 minutes after the injection. The total amount of radiation received in the study is about 11.19 mSv. Rest ECG Baseline ECG rhythm of sinus bradycardia noted. Stress ECG Stress ECG of normal sinus rhythm noted. There were no arrhythmias during stress. Stress ECG was interpretable and is consistent with a normal stress ECG. Ventricle Size / Description Left ventricular ejection fraction is normal (Calculated EF = 65%). Normal LV cavity size. Normal LV wall motion noted. Normal RV cavity size. Nuclear Perfusion Images Overall image quality is excellent. Stress Description A pharmacological stress test was performed using regadenoson without low-level exercise. The patient reached the end of the protocol. The clinician observed no symptoms during the stress test. The patient reported headaches during the stress test. Recovery ECG During recovery, the patient complained of no significant symptoms following stress. Sinus rhythm was noted during recovery. There were no arrhythmias during recovery. Test Memory Care Program Director ECG Lolita Perfusion Scoring Resting Summed Score: 0 Percent Normal: 0.00% The left ventricular perfusion is normal. Perfusion Scoring Stress Summed Score: 0 Percent Normal: 0.00% The left ventricular perfusion is normal. Cole Noel URSULA CV STRESS ORDERABLES Final Result * ECHO COMPLETE W/ DOPPLER AND COLOR FLOW (01/03/2025 3:46 PM EDT) EF(MOD-bp) 58.0 % LVIDd 3.7 cm LVIDs 2.40 cm IVSd 0.80 cm LVPWd 0.80 cm FS 35.1 % IVS/LVPW 1.00 cm ESV(cubed) 13.8 ml LV Sys Vol (BSA corrected) 14.8 cm2 EDV(cubed) 50.7 ml LV Wills Vol (BSA corrected) 37.2 cm2 LV mass(C)d 82.3 grams LVOT area 2.8 cm2 LVOT diam 1.90 cm EDV(MOD-sp2) 61.8 ml EDV(MOD-sp4) 64.6 ml ESV(MOD-sp2) 23.7 ml ESV(MOD-sp4) 25.7 ml SV(MOD-sp2) 38.1 ml SV(MOD-sp4) 38.9 ml SVi(MOD-SP2) 22.0 ml/m2 SVi(MOD-SP4) 22.4 ml/m2 SVi (LVOT) 33.6 ml/m2 EF(MOD-sp2) 61.7 % EF(MOD-sp4) 60.2 % MV E max joel 38.8 cm/sec MV A max joel 57.6 cm/sec MV dec time 0.30 sec MV E/A 0.67 IVRT 74.0 ms LA ESV Index (BP) 18.3 ml/m2 Med Peak E' Joel 10.4 cm/sec Lat Peak E' Joel 13.4 cm/sec TR max joel 217.3 cm/sec Avg E/e' ratio 3.26 SV(LVOT) 58.3 ml RV Base 2.7 cm RV Mid 2.5 cm RV Length 7.1 cm TAPSE (>1.6) 1.64 cm RV S' 14.5 cm/sec LA dimension (2D) 3.1 cm LV V1 max 102.0 cm/sec LV V1 max PG 4.2 mmHg LV V1 mean PG 2.00 mmHg LV V1 VTI 20.6 cm Ao pk joel 120.0 cm/sec Ao max PG 5.8 mmHg Ao mean PG 3.0 mmHg Ao V2 VTI 25.9 cm JOE(I,D) 2.25 cm2 Dimensionless Index 0.79 (DI) MV max PG 2.14 mmHg MV mean PG 1.00 mmHg MV V2 VTI 20.2 cm MV P1/2t 92.1 msec MVA(P1/2t) 2.39 cm2 MVA(VTI) 2.9 cm2 MV dec slope 153.0 cm/sec2 TR max PG 18.9 mmHg PA V2 max 85.4 cm/sec PA acc time 0.10 sec Ao root diam 2.8 cm RVSP(TR) 22 mmHg RAP systole 3 mmHg Ascending aorta 2.8 cm BH CV VAS BP LEFT ARM 104/60 mmHg Echo EF Estimated 60.0 % Anatomical Region Laterality Modality Ultrasound Narrative 01/03/2025 4:46 PM EDT Left ventricular systolic function is normal. Estimated left ventricular EF = 60% Left ventricular diastolic function is consistent with (grade I) impaired relaxation. No hemodynamically significant valvular disease present. Estimated right ventricular systolic pressure from tricuspid regurgitation is normal (<35 mmHg). Left Ventricle Left ventricular systolic function is normal. Estimated left ventricular EF = 60% Normal left ventricular cavity size and wall thickness noted. All left ventricular wall segments contract normally. Left ventricular diastolic function is consistent with (grade I) impaired relaxation. Right Ventricle Normal right ventricular cavity size, wall thickness, systolic function and septal motion noted. Left Atrium Normal left atrial size and volume noted. Right Atrium Normal right atrial cavity size noted. Mitral Valve The mitral valve is structurally normal with no regurgitation or significant stenosis present. Tricuspid Valve The tricuspid valve is structurally normal with no significant stenosis present. Trace tricuspid valve regurgitation is present. Estimated right ventricular systolic pressure from tricuspid regurgitation is normal (<35 mmHg). Calculated right ventricular systolic pressure from tricuspid regurgitation is 22 mmHg. Aortic Valve No aortic valve regurgitation or stenosis is present. The aortic valve is abnormal in structure. The aortic valve exhibits sclerosis. Pulmonic Valve The pulmonic valve is structurally normal with no significant stenosis present. There is trace pulmonic valve regurgitation present. Pericardium The pericardium is normal. There is no evidence of pericardial effusion. . Greater Vessels No dilation of the aortic root is present. The inferior vena cava is normally sized. Normal IVC inspiratory collapse of greater than 50% noted. Study Quality The study is technically good for diagnosis. Cole Noel APRN CV ECHO ORDERABLES Final R esult * SCANNED - DEXA (07/29/2011) Anatomical Region Laterality Modality [facility] CHART REVIEW TABS Final Re sult from Last 3 Months or Most Recently Relevant to Health Maintenance Insurance MEDICARE A & B [facility] Care Teams Bundler Seasonal Greenery Relationship Specialty Start Date End Date Monika Martin APRN [address] [place] [address] PCP - General Internal Medicine 11/10/23
--- OUTSIDE RECORDS SUMMARY | 2025-03-30 10:32 | XMS_ITS | Encounter Summary ---
[facility] Address [address] [place] [address] Care Team Providers Care Machine Former Name Role Phone Monika Martin FOOT ORTHOPEDIST Primary Care Provider [phone] Encounter Details Date Type Department Care Team (Late st Contact Info) Description 12/27/2013 External CPT II MEDIA INTERN - [facility] Social History Tobacco Use [...] CENTER PULMONARY & CRITICAL CARE MEDICINE [address] [place] [phone] 04/30/2025 2:30 PM EDT Office Visit [facility] PULMON[facility] & [facility]ITICAL CARE MEDICINE [address] [place] [id number] 04/30/2025 3:15 PM EDT Office Visit [facility] PULMONARY & CRITICAL CARE MEDICINE [address] [place] [address] Cole Quijano DO [address] [place] [address] documented as of this encounter Visit Diagnoses Not on filedocumented in this encounter Care Teams Machine Former Relationship Specialty Start Date End Date Monika Martin APRN Counts include 234 beds at the [facility] [place] [address] [facility] [place] [id number] PCP - General Internal Medicine 11/10/23 documented as of this encounter
--- OUTSIDE RECORDS SUMMARY | 2025-03-30 10:32 | XMS_ITS | Encounter Summary ---
[facility] Address [address] [place] [address] Care Team Providers Care Filler Sifter Machine Name Role Phone Monika Martin URSULA Primary Care Provider [phone] Encounter Details Date Type Department Care Team (Latest Contact Info) Description 02/27/2025 Travel Social History Tobacco Use Types Packs/Day Years Used Date Smoking Tobacco: Former Cigarettes 0 07/05/1957 - 1984 Smokeless Tobacco: Never Alcohol Use Standard [...] PULMONARY & CRITICAL CARE MEDICINE [address] [place] [address] 04/30/2025 2:30 PM EDT Office Visit [facility] PULMONARY & CRITICAL CARE MEDICINE [address] [place] [address] 04/30/2025 3:15 PM EDT Office Visit [facility] PULMONARY & CRITICAL CARE MEDICINE [address] [place] [address] Cole Quijano DO [address] [place] [address] documented as of this encounter Visit Diagnoses Not on filedocumented in this encounter Care Teams Filler Sifter Machine Relationship Specialty Start Date End Date Monika Martin APRN [address] [facility] [address] [address] PCP - General Internal Medicine 11/10/23 documented as of this encounter
--- NOTE | 2025-03-30 10:45 | CT_ITS ---
FINAL REPORT TECHNIQUE: Thin section axial images were obtained through the abdomen after intravenous contrast. Reconstruction images were obtained from the axial data. Exam was performed using dose reduction techniques. CLINICAL HISTORY: Lower abdominal pain/diarrhea/blood in stool COMPARISON: 08/27/2022 FINDINGS: The lung bases are clear. There are multiple hypodense liver lesions which are stable, likely cysts The gallbladder is present. There is a stable small left adrenal nodule. The right adrenal and spleen are unremarkable. Prominence of the pancreatic duct is unchanged. No pancreatic mass is identified. There is no hydronephrosis. Bilateral parapelvic renal cysts are identified. Abdominal GI tract is without acute abnormality. There is no abdominal lymphadenopathy or ascites. Evaluation of the pelvic portions are limited by artifact from bilateral hip arthroplasties. The appendix is not identified but there are no secondary findings to suggest appendicitis. There is wall thickening of the descending colon which could be related to incomplete distention or mild colitis. The uterus is small. The endometrium is too thick for a patient of this age measuring at least 14 mm. There is no pelvic lymphadenopathy or ascites. There is a chronic L3 compression fracture. IMPRESSION: Wall thickening of the descending colon, may be due to incomplete distention or mild colitis. Endometrial thickening in a postmenopausal patient, may be related to endometrial hyperplasia or carcinoma. Recommend AIR[employer]FT INSTRUMENT [employer]CH[employer]IC consult. Reviewed, Interpreted and Dictated by Sisi Farr MD Transcribed by Zenaida Veronica Authenticated and [facility]
[2025-03-30 10:56] LABS: Blood Urea Nitrogen 20 mg/dl (7-17); Creatinine,Serum 0.80 mg/dl (0.52-1.04); Estimated Glomerular Filt Rate 68 ml/min (>60); GFR (African American) 83 ML/MIN (>60)
[2025-03-30] MEDS: SODIUM CHLORIDE 0.9% 10ML SYR (RAD ONLY) 10 ML IV (11:25)
[2025-03-30] MEDS: IOPAMIDOL-370 (76%);100ML BOTTLE 75 ML IV (11:25)
== END 2025-03-30 23:59 | disposition home or self-care (01) ==
LOC: RAD 10:27
PROVIDERS: PCP Nurse Practitioner Family; Visit Provider Nurse Practitioner Family
DX: K92.1 Melena (principal); R10.30 Lower abdominal pain, unspecified; R19.7 Diarrhea, unspecified; R93.89 Abnormal findings on diagnostic imaging of other specified body structures; R93.3 Abnormal findings on diagnostic imaging of other parts of digestive tract
CPT/HCPCS: 36415; 74177; 82565; 84520; Q9967

== ENCOUNTER 2025-04-02 06:33 | Day surgery (SDC) | payer MEDICARE, OTHER, SELFPAY ==
[2025-03-30 13:56] VITALS: BMI 30.4
[2025-04-02 06:45] VITALS: BP 149/79; PULSE 67; RESP 16; TEMP 36.1; O2SAT 95; BMI 30.4
--- NOTE | 2025-04-02 06:47 | EXP.HP ---
History of Present Illness *Admission Date: 04/02/25 *History of present illness: Mrs. Trent is an 84-year-old female who is here for diagnostic colonoscopy. The patient reports lower abdominal pain and diarrhea. She had a CAT scan that showed abundant colonic fluid and mild colonic wall thickening suggestive of colitis. She more recently has had blood in her stool. The patient's colonoscopy in 2017 was normal. She has been diagnosed with dementia. The examination is deemed medically necessary for diagnostic colonoscopy. The patient has been seen, interviewed and examined prior to the procedure by both myself and the anesthesia provider. [facility] Disclaimer: The information contained in this section may have been updated after the patient was seen, as this information can be updated by other users. Medical History Vitamin D deficiency Atherosclerotic heart disease of [place] coronary artery with other forms of angina pectoris Personal history of nicotine dependence Nocturnal hypoxemia Mild dementia Encounter for pre-operative cardiovascular clearance CAD (coronary artery disease) Sweating Ex-smoker Unstable angina Dyspnea Sinus bradycardia Family history of heart disease Abnormal EKG Right bundle branch block (RBBB) HTN (hypertension) Surgical History History of colonoscopy History of appendectomy History of total hip replacement History of tonsillectomy History of arthroscopic knee surgery Status post arthroscopy of hip Family History Other No significant family history Social History Smoking Status: Never smoker smoking status stop date: 02/09/1985 alcohol intake: never substance use type: denies use current occupational status: employed and retired Travel in the last 8 weeks?: None household members: spouse housing: house marital status: education level: high school service: No current occupational exposures/hazards: No caffeine: Yes special fawn needs: No do you feel safe at home: Yes victim of physical abuse: No victim of emotional abuse: No victim of sexual abuse: No would you like helpful sources: No Have you lived/traveled outside US in past 30 days?: No Contact w/someone who lives/traveled outside US past 30 days?: No Exposure to someone with infectious disease in past 14 days?: No Do you have a fever (greater than 100.4 F or 38 C)?: No Have you tested positive for COVID-19?: No Exposed to someone with COVID-19 in past 14 days?: No Do you have a sore throat?: No Do you have a cough?: No Do you have any weakness?: No Are you experiencing any nausea/vomitting?: No Do you have any diarrhea?: No Are you experiencing any unusual bleeding?: No Do you have any muscle aches/pain?: No Do you have any abdominal pain?: No Are you experiencing loss of taste or smell?: No Other Medical History Have you received the Flu Vaccine for this season: Yes Have you received the Pneumonia Vaccine: No Review of Systems Review of Systems Review of systems (narrative): Negative *Cardiovascular Comments: Negative *Gastrointestinal Comments: Negative *Genitourinary Comments: Negative *Musculoskeletal Comments: Negative *Neurologic Comments: Negative Meds Home Medications and Allergies Home Medications ?Medication ?Instructions ?Recorded ?Confirmed ?Type insulin syringe-needle U-100 1 mL #500 ea 05/03/23 03/30/25 History 27 gauge x 1/2 (Easy Touch Insulin Syringe) methotrexate sodium 25 mg/mL 25 mg SQ WEEKLY 05/03/23 03/30/25 History injection solution hydroxychloroquine 200 mg tablet 200 mg PO DAILY 02/21/24 03/30/25 History estradiol 0.05 mg/24 hr semiweekly 1 patch topical DAILY 04/24/24 03/30/25 History transdermal patch fluocinonide 0.05 % topical 1 applic topical DAILY 04/24/24 03/30/25 History solution lisinopril 20 1 tab PO DAILY High blood pressure 09/27/24 03/30/25 Rx mg-hydrochlorothiazide 12.5 mg 90 days #90 tabs tablet Held on 10/17/24. Instructions: Dose Change meloxicam 15 mg tablet 15 mg PO DAILY PRN Pain #90 tabs 09/27/24 03/30/25 Rx memantine 10 mg tablet See Rx Instructions .Route 12/29/24 03/30/25 Rx Held on 01/12/25. .COMPLEX #60 tabs Instructions: Home Medication placed on hold at Doctor's office escitalopram oxalate 5 mg tablet See Rx Instructions .Route 01/08/25 03/30/25 Rx Held on 01/12/25. .COMPLEX #90 tabs Instructions: Home Medication placed on hold at Doctor's office levothyroxine 75 mcg tablet See Rx Instructions .Route 01/08/25 03/30/25 Rx .COMPLEX #90 tabs progesterone micronized 100 mg 100 mg PO DAILY 01/12/25 03/30/25 History capsule quetiapine 25 mg tablet See Rx Instructions .Route 01/29/25 03/30/25 Rx .COMPLEX #60 tabs folic acid 1 mg tablet See Rx Instructions .Route 03/07/25 03/30/25 Rx .COMPLEX #28 tabs tramadol 50 mg tablet 50 mg PO Q8H 30 days #90 tabs 03/09/25 03/30/25 Rx misoprostol 100 mcg tablet 100 mcg PO BID 90 days #180 tabs 03/13/25 03/30/25 Rx New Prescriptions to Start Prescriptions: Allergies Allergy/AdvReac Type Severity Reaction Status Date / Time Sulfa (Sulfonamide Allergy Intermediate I-HIVES Verified 04/02/25 06:55 Antibiotics) latex (LATEX) Allergy Mild Anaphylaxis Verified 04/02/25 06:55 ciprofloxacin Allergy Unknown Verified 04/02/25 06:55 allergy reaction Exam Data for Last 24 hours I & O for Last 24 hours: Intake & Output 03/30/25 03/31/25 04/01/25 04/02/25 23:59 23:59 23:59 23:59 Weight 183 lb *Routine HEENT Exam Head: Present normocephalic Eye: Present EOMI and PERRL ENT: Present mucous membranes moist *Routine Neck Exam Neck: Present supple *Routine Respiratory Exam Respiratory: Present CTA bilaterally *Routine Cardiovascular Exam Cardiovascular: Present RRR *Routine Abdominal Exam Abdominal: Present soft and normoactive bowel sounds; Absent tenderness *Routine Rectal Exam Rectal:: deferred *Routine Genitalia Exam Genitalia:: deferred *Routine Extremities Exam Extremities: Absent cyanosis, clubbing or edema *Routine Skin Exam Skin: Present warm; Absent rash *Routine Neurological Exam Neurological: Present alert and oriented X3 Assessment and Plan *Assessment and plan (1) Blood in stool: Status: Acute Category: Medical Code(s): K92.1 - Melena (2) Fecal urgency: Status: Acute Category: Medical Code(s): R15.2 - Fecal urgency (3) Lower abdominal pain: Status: Acute Category: Medical Code(s): R10.30 - Lower abdominal pain, unspecified (4) Chronic diarrhea: Status: Acute Category: Medical Code(s): K52.9 - Noninfective gastroenteritis and colitis, unspecified Plan A/P: 1. Diarrhea with fecal urgency, lower abdominal pain and blood in stool is the preprocedural diagnosis. The patient will be anesthetized/sedated using MAC sedation. The patient has been seen and examined. Cardiac and lung assessment prior to the examination is stable. Proceed with planned diagnostic colonoscopy.
--- NOTE | 2025-04-02 06:52 | HMH.PROCNOTE ---
[facility] Procedure Note Date: 04/02/25 Time: 08:14 Procedure Note:: Colonoscopy Procedure Report: Colonoscopy with cold snare polypectomy and cold biopsies Endoscopist: Devon Lee II, MD Referring physician: ADITI Morales Date of Procedure: April 02, 2025 Equipment: Olympus [id number] adult colonoscope Sedation: MAC sedation Indication: Mrs. Trent is an 84-year-old female who is here for diagnostic colonoscopy. The patient reports lower abdominal pain, nausea and diarrhea. She also has noted blood in her stool. Her recent CAT scan on 03/30/2025 showed wall thickening of the descending colon as well as some endometrial thickening. The patient's colonoscopy in 2017 was normal. The patient has had an NSAID gastric ulcer previously. She has been diagnosed with early dementia. The examination is deemed medically necessary for diagnostic colonoscopy. Procedure: Prior to the procedure, a history and physical exam was performed, and patient's medications and allergies were reviewed. The risks, benefits and alternatives of the sedation and procedure were discussed with the patient. All questions were answered and informed consent was obtained. The patient was brought to the procedure room. Patient identification and proposed procedure were verified by the physician and the nurse. The patient was placed in a left lateral decubitus position and the scope was passed under direct vision. Throughout the procedure, the patient's blood pressure, pulse, and oxygen saturations were monitored continuously. The colonoscopy was accomplished without difficulty. The patient tolerated the procedure well. Findings: On digital rectal examination there was normal rectal tone. There were no external hemorrhoids. The colonoscope was introduced through the anal canal to the rectum and advanced to the cecum. The ileocecal valve and appendiceal orifice were identified. The scope was advanced a short distance into the ileum which appeared grossly normal. The scope was then withdrawn into the colon. The preparation was fair to poor throughout with a lot of brown liquid stool that was suctioned. Most of the colonic mucosa was visualized. The cecum, ascending and transverse colon were normal. Random biopsies were taken from the right colon to rule out microscopic colitis. There was a single 5 mm polyp in the proximal descending colon removed via cold snare polypectomy. There was mucosal erythema, edema in the distal descending colon that was very focal and regional suggestive of resolving colitis?rule out ischemic colitis. Cold biopsies were obtained. The remaining sigmoid and rectum were grossly normal. Upon retroflexion within the rectum there were grade 1 internal hemorrhoids. Impression: 1. Focal/regional resolving colitis in distal descending colon?rule out resolving ischemic colitis (in watershed region) 2. Diminutive descending colon polyp Plan: I will discuss the findings with the patient and family.
[2025-04-02] MEDS: LACTATED RINGERS 1000ML 1,000 ML 50 ML IV (06:59)
--- NOTE | 2025-04-02 07:05 | EXP.ANES.CKL ---
[facility] Disclaimer: The information contained in this section may have been updated after the patient was seen, as this information can be updated by other users. Medical History Vitamin D deficiency Atherosclerotic heart disease of [place] coronary artery with other forms of angina pectoris Personal history of nicotine dependence Nocturnal hypoxemia Mild dementia Encounter for pre-operative cardiovascular clearance CAD (coronary artery disease) Sweating Ex-smoker Unstable angina Dyspnea Sinus bradycardia Family history of heart disease Abnormal EKG Right bundle branch block (RBBB) HTN (hypertension) Surgical History History of colonoscopy History of appendectomy History of total hip replacement History of tonsillectomy History of arthroscopic knee surgery Status post arthroscopy of hip Family History Other No significant family history Social History Smoking Status: Never smoker smoking status stop date: 02/09/1985 alcohol intake: never substance use type: denies use current occupational status: employed and retired Travel in the last 8 weeks?: None household members: spouse housing: house marital status: education level: high school service: No current occupational exposures/hazards: No caffeine: Yes special afwn needs: No do you feel safe at home: Yes victim of physical abuse: No victim of emotional abuse: No victim of sexual abuse: No would you like helpful sources: No Have you lived/traveled outside US in past 30 days?: No Contact w/someone who lives/traveled outside US past 30 days?: No Exposure to someone with infectious disease in past 14 days?: No Do you have a fever (greater than 100.4 F or 38 C)?: No Have you tested positive for COVID-19?: No Exposed to someone with COVID-19 in past 14 days?: No Do you have a sore throat?: No Do you have a cough?: No Do you have any weakness?: No Are you experiencing any nausea/vomitting?: No Do you have any diarrhea?: No Are you experiencing any unusual bleeding?: No Do you have any muscle aches/pain?: No Do you have any abdominal pain?: No Are you experiencing loss of taste or smell?: No [facility] Anesthesia Checklist Patient Identification Patient Identification: Arm Band and Verbal (Name & ) Structural Data Admitted From: Home Planned Operative Procedure/s: Colonscopy Consent for Planned Operative Procedure(s) Verified: Yes Verified Documents: Surgical Consent and History and Physical NPO Status Verified Time NPO: 00:00 Additional verifications Anesthesia Reactions: No Hx Blood Transfusions: Yes Blood Transfusion Reaction: No Previous Colonoscopy: Yes Airway Assessment Mallampati Score:: Class II Dentition: Good Dentition Neurological Assessment Level of Consciousness: Awake, Alert and Appropriate Anesthesia Plan Anesthesia Risk discussed: Yes Anesthesia Plan: Verified ASA Class: II Anesthesia Type: MAC
[2025-04-02 08:17] VITALS: BP 102/50; PULSE 61; RESP 16; TEMP 36.7; O2SAT 95
[2025-04-02 08:27] VITALS: BP 97/54; PULSE 59; RESP 17; TEMP 36.7; O2SAT 96
[2025-04-02 08:37] VITALS: BP 111/72; PULSE 57; RESP 17; TEMP 36.7; O2SAT 96
[2025-04-02 08:47] VITALS: BP 121/64; PULSE 59; RESP 18; TEMP 36.7; O2SAT 95
== END 2025-04-02 08:54 | disposition home or self-care (01) ==
PROVIDERS: PCP Nurse Practitioner Family; Visit Provider Internal Medicine Gastroenterology
PROC: 0DJD8ZZ Inspection of Lower Intestinal Tract, Via Natural or Artificial Opening Endoscopic (ICD-10-PCS; CPT 45378; principal; 2025-04-02 08:00)
DX: K63.5 Polyp of colon (principal); K50.10 Crohn's disease of large intestine without complications; K92.1 Melena; K52.9 Noninfective gastroenteritis and colitis, unspecified; F03.90 Unspecified dementia, unspecified severity, without behavioral disturbance, psychotic disturbance, mood disturbance, and anxiety; I10 Essential (primary) hypertension; I25.110 Atherosclerotic heart disease of native coronary artery with unstable angina pectoris; I45.10 Unspecified right bundle-branch block; Z87.891 Personal history of nicotine dependence; Z88.2 Allergy status to sulfonamides; Z88.1 Allergy status to other antibiotic agents
CPT/HCPCS: 45380; 45385; J2003; J2704; J7120

== ENCOUNTER 2025-05-01 12:06 | Emergency (ER) | payer MEDICARE, OTHER, SELFPAY ==
[2025-05-01] VITALS (10 sets, daily range): BP systolic 139–162; BP diastolic 67–96; PULSE 44–62; RESP 10–18; TEMP 36.6–36.7; O2SAT 91–98; BMI 21.6
[2025-05-01 12:17] LABS: POC Glucose,Bedside 91 gm/dL (70-110)
--- OUTSIDE RECORDS SUMMARY | 2025-05-01 12:32 | XMS_ITS | Encounter Summary ---
Author Organization Healthcare Address [address] [place] [address] Care Team Providers Care Auto Body Technician Name Role Phone Unavailable Primary Care Provider Unavailabl e Encounter Details Date Type Department Care Team (Late st Contact Info) Description 06/16/2019 Abstract [facility] [address] [place] [address] Dental, Provider, DDS [address] [place], [place] [id number] Social History Tobacco Use Types Packs/Day Years [...]
--- OUTSIDE RECORDS SUMMARY | 2025-05-01 12:32 | XMS_ITS | Encounter Summary ---
[facility] [address] [place] [address] Care Team Providers Care Toll Test Worker Name Role Phone Monika Martin APRN Primary Care Provider [phone] Encounter Details Date Type Department Care Team (Late st Contact Info) Description 12/27/2013 External CPT II BEHAVIORAL TECHNICIAN - [facility] Social History Tobacco Use [...] on filedocumented in this encounter Care Teams Toll Test Worker Relationship Specialty Start Date End Date Monika Martin APRN [address] [place] [address] PCP - General Internal Medicine 11/10/23 documented as of this encounter
--- OUTSIDE RECORDS SUMMARY | 2025-05-01 12:32 | XMS_ITS | Encounter Summary ---
Author Organization [facility] Address [address] [place] [address] Care Team Providers Care Inspector Aligning Name Role Phone Monika Martin APRN Primary Care Provider [phone] Encounter Details Date Type Department Care Team (Late st Contact Info) Description 12/14/2017 External CPT II BRAZER PRODUCTION LINE - [facility] Social History Tobacco Use [...] on filedocumented in this encounter Care Teams Inspector Aligning Relationship Specialty Start Date End Date Monika Martin APRN [address] [place] [address] PCP - General Internal Medicine 11/10/23 documented as of this encounter
--- OUTSIDE RECORDS SUMMARY | 2025-05-01 12:32 | XMS_ITS | Clinical Summary ---
Author Organization Healthcare Address [address] [place] [address] Care Team Providers Care Dining Service Worker Name Role Phone Unavailable Primary Care Provider [...] [facility]-Bone Density Scan 1940 [facility]-Depression Screening 1940 [facility]-Infant/Child/Adol SDOH Screenings 1940 [facility]- SDOH Screenings 1958 [facility]-Adult SDOH Screenings 1958 [facility]-DTaP,Tdap,and Td Vaccine s (1 - Tdap) 1959 [facility]-Pneumococcal Vaccine: 50 + Years (1 of 1 - PCV) 1990 [facility]-Zoster Vaccines (1 of 2) 1990 [facility]-RSV Vaccine: 60+ Years o r (1 - 1-dose 75+ series) 2015 [id number] Vaccine (1 - 20 24-25 season) 2025 [...] to complete this topic Insurance [place] [id number] MEDICARE [facility]
--- OUTSIDE RECORDS SUMMARY | 2025-05-01 12:32 | XMS_ITS | Encounter Summary ---
[facility] Address [address] [place] [address] Care Team Providers Care Coater Name Role Phone Monika Martin APRN Primary Care Provider Encounter Details Date Type Department Care Team (Late st Contact Info) Description 03/18/2015 External CPT II COMMUNITY EDUCATION SPECIALIST - [facility] Social History Tobacco Use [...] on filedocumented in this encounter Care Teams Coater Relationship Specialty Start Date End Date Monika Martin APRN [address] [place] [address] PCP - General Internal Medicine 11/10/23 documented as of this encounter
--- OUTSIDE RECORDS SUMMARY | 2025-05-01 12:32 | XMS_ITS | Encounter Summary ---
[facility] [address] [place] [address] Care Team Providers Care Cinder Pit Worker Name Role Phone Monika Martin APRN Primary Care Provider [phone] Encounter Details Date Type Department Care Team (Late st Contact Info) Description 02/25/2025 Results Follow-Up [facility] [address] [facility] [address] [place] [address] Cole Noel APRN [address] [facility] [address] [place] [address] Social History Tobacco Use Types [...] on filedocumented in this encounter Care Teams Cinder Pit Worker Relationship Specialty Start Date End Date Monika Martin APRN [address] [address] [place] [address] PCP - General Internal Medicine 11/10/23 documented as of this encounter
--- OUTSIDE RECORDS SUMMARY | 2025-05-01 12:32 | XMS_ITS | Clinical Summary ---
[facility] [address] [place] [address] Care Team Providers Care Color Drum Worker Name Role Phone Monika Martin APRN Primary Care Provider [phone] Allergies Active Allergy Reactions Criticality Noted Date [...] pulmonary in April as previously scheduled Annual PULVERIZING AND SIFTING OPERATOR exam in 12/20/2021 Overview (12/25/2021): SCREENING TESTS Year 2016 2017 2018 2019 2020 2021 2022 2023 2024 2025 2026 2027 2028 2029 2030 2031 2032 2033 2034 2035 Age IZZY [Birads] KATI (5 year) [place] (lifetime) Colonoscopy DEXA [T-score] Frax [hip/any] Lipids [LDL / HDL / TG] Vitamin D TSH Enter the month test was performed. If month not known, enter X' Black numbers = normal results Red numbers = abnormal results Black X = patient reported normal Red X - patient reported abnormal Referred by: Dr. 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 Other info: Ayad patient Pessary maintenance 12/20/2021 [...] Description 02/27/2025 10:00 AM EDT Office Visit [facility] [address] [place] [address] [address] [place] [address] Hardy Brown IV, MD Shortness of breath (Primary Dx) 02/27/2025 Travel 02/25/2025 Results Follow-Up [facility] [address] [place] [address] Cole Noel APRN from Last 3 Months Family History Medical [...] 02/27/2025 10:12 AM EDT Plan of Treatment Health Maintenance Due Date Last Done Comments COVID-19 Vaccine (#1) 1945 TDAP/TD VACCINES (1 - Tdap) 1959 Pneumococcal Vaccine 50+ (1 of 1 - PCV) 1990 ZOSTER VACCINE (1 of 2) 1990 RSV Vaccine - Adults (1 - 1- dose 75+ series) 2015 DXA SCAN 09/03/2017 09/04/2015, 07/29/2011 ANNUAL WELLNESS VISIT 07/08/2018 07/08/2017, 016 INFLUENZA VACCINE 02/02/2025 05/01/2022, , 05/08/2020, Additional history exists Procedures Procedure Name Priority Date/Time Associated Diagnosis Comments SCANNED - DEXA 07/29/2011 from Last 3 Months or Most Recently Relevant to Health Maintenance Results * SCANNED - DEXA (07/29/2011) Anatomical Region Laterality Modality Other [facility] CHART REVIEW TABS Final Re sult from Last 3 Months or Most Recently Relevant to Health Maintenance Insurance MEDICARE A & [facility] Care Teams Color Drum Worker Relationship Specialty Start Date End Date Monika Martin APRN [address] [address] [place] [id number] PCP - General Internal Medicine 11/10/23
--- OUTSIDE RECORDS SUMMARY | 2025-05-01 12:32 | XMS_ITS | Encounter Summary ---
[facility] [address] [place] [address] Care Team Providers Care Tucking Machine Operator Name Role Phone Monika Martin APRN Primary Care Provider [phone] Encounter Details Date Type Department Care Team (Late st Contact Info) Description 03/23/2016 External CPT II PERSONNEL WORKER - [facility] Social History Tobacco Use [...] on filedocumented in this encounter Care Teams Tucking Machine Operator Relationship Specialty Start Date End Date Monika Martin APRN [address] [place] [address] PCP - General Internal Medicine 11/10/23 documented as of this encounter
--- NOTE | 2025-05-01 12:41 | CT_ITS ---
FINAL REPORT TECHNIQUE: Axial images were performed through the brain. This study was performed with techniques to keep radiation doses as low as reasonably achievable, (ALARA). Individualized dose reduction techniques using automated exposure control or adjustment of mA and/or kV according to the patient''s size were employed. CLINICAL HISTORY: HTN BOWMAN FINDINGS: There is mild atrophy. The ventricles are normal in size. There is no extra-axial fluid or midline shift. There is no evidence of acute hemorrhage, mass effect, or edema. IMPRESSION: Atrophy. No acute intracranial process. Reviewed, Interpreted and Dictated by Santy Syed MD Transcribed by Zenaida Veronica Authenticated and [facility]
--- NOTE | 2025-05-01 12:41 | CT_ITS ---
FINAL REPORT TECHNIQUE: thin section axial CT with and without IV contrast supplemented with multiplanar 3-D reconstruction of the head. This study was performed with techniques to keep radiation doses as low as reasonably achievable, (ALARA)individualized dose reduction techniques using automated exposure control or adjustment of mA and/or kV according to the patient's size were employed. CLINICAL HISTORY: HTN BOWMAN FINDINGS: The cranial circulation is unremarkable. There is no significant stenosis, aneurysm or occlusion. IMPRESSION: No evidence of aneurysm or large vessel occlusion. Reviewed, Interpreted and Dictated by Santy Syed MD Transcribed by Zenaida Veronica Authenticated and [facility]
--- NOTE | 2025-05-01 12:41 | CT_ITS ---
FINAL REPORT TECHNIQUE: NASCET technique utilized for stenosis evaluation. This study was performed with techniques to keep radiation doses as low as reasonably achievable, (ALARA). Individualized dose reduction techniques using automated exposure control or adjustment of mA and/or kV according to the patient's size were employed. CLINICAL HISTORY: HTN BOWMAN FINDINGS: RIGHT CAROTID: There is minimal vascular calcification at the carotid bifurcation without segmental stenosis. LEFT CAROTID: There is minimal vascular calcification at the carotid bifurcation without segmental stenosis. VERTEBRALS: The vertebral arteries are patent and symmetric. No significant stenosis is present. IMPRESSION: No significant arterial abnormality. Reviewed, Interpreted and Dictated by Santy Syed MD Transcribed by Zenaida Veronica Authenticated and [facility]
[2025-05-01] MEDS: ACETAMINOPHEN 1,000MG/100ML VIAL 1000 MG IV (12:46)
[2025-05-01 12:50] LABS: Hematocrit 43.9 % (37.0-47.0); Hemoglobin 14.8 g/dL (12.2-16.2); Immature Granulocytes % 0.3 %; Mean Corpuscular HGB Conc 33.7 g/dL (31.8-35.4); Mean Corpuscular Hemoglobin 34.5 pg (27.0-31.2); Mean Corpuscular Volume 102.3 fl (81-99); Nucleated Red Blood Cells % 0 %; Platelet Count 190 K/mm3 (142-424); Red Blood Count 4.29 M/mm3 (4.20-5.40); Red Cell Distribution Width-SD 53.2 fL; White Blood Count 6.8 K/mm3 (4.8-10.8)
--- NOTE | 2025-05-01 12:53 | HMH.EDGENADL ---
Discharge Plan Disposition Patient Disposition: Home, Self-Care Prescriptions Prescriptions: No Action estradiol 0.05 mg/24 hr patch semiweekly 1 patch topical DAILY fluocinonide 0.05 % solution 1 applic topical DAILY (DME) insulin syringe-needle U-100 [Easy Touch Insulin Syringe] 1 mL 27 gauge x 1/2 syringe See Rx Instructions .ROUTE .MEDSUPPLY Qty: 500 Patient Comments: USE DIRECTED ONCE A WEEK FOR SUBCUTANEOUS METHOTREXATE INJECTIONS Rx Instructions: As directed methotrexate sodium 25 mg/mL solution 25 mg SQ WEEKLY hydroxychloroquine 200 mg tablet 200 mg PO DAILY lisinopril-hydrochlorothiazide 20-12.5 mg tablet 1 tab PO DAILY 90 Days Qty: 90 1RF meloxicam 15 mg tablet 15 mg PO DAILY PRN (Reason: Pain) Qty: 90 1RF progesterone micronized 100 mg capsule 100 mg PO DAILY memantine 10 mg tablet See Rx Instructions .ROUTE .COMPLEX Qty: 60 2RF Dose Instruction: TAKE 1 TABLET BY MOUTH TWICE DAILY Rx Instructions: TAKE 1 TABLET BY MOUTH TWICE DAILY escitalopram oxalate 5 mg tablet See Rx Instructions .ROUTE .COMPLEX Qty: 90 0RF Dose Instruction: TAKE 1 TABLET BY MOUTH ONCE A DAY Rx Instructions: TAKE 1 TABLET BY MOUTH ONCE A DAY levothyroxine 75 mcg tablet See Rx Instructions .ROUTE .COMPLEX Qty: 90 0RF Dose Instruction: TAKE ONE TABLET BY MOUTH ONCE A DAY Rx Instructions: TAKE ONE TABLET BY MOUTH ONCE A DAY quetiapine 25 mg tablet See Rx Instructions .ROUTE .COMPLEX Qty: 60 0RF Dose Instruction: TAKE 1 TABLET BY MOUTH one hour BEFORE bedtime FOR insomnia, confusion, AND depression. may increase up to 2 tablets an hour before bedtime if symptoms are recurrent Rx Instructions: TAKE 1 TABLET BY MOUTH one hour BEFORE bedtime FOR insomnia, confusion, AND depression. may increase up to 2 tablets an hour before bedtime if symptoms are recurrent folic acid 1 mg tablet See Rx Instructions .ROUTE .COMPLEX Qty: 28 1RF Dose Instruction: TAKE 1 TABLET BY MOUTH ONCE A DAY Rx Instructions: TAKE 1 TABLET BY MOUTH ONCE A DAY misoprostol 100 mcg tablet 100 mcg PO BID 90 Days Qty: 180 5RF tramadol 50 mg tablet 50 mg PO Q8H 30 Days Qty: 90 0RF Referrals Follow up/Referrals: Monika Martin APRN [Primary Care Provider, Medical] - See instructions Activity Restrictions/Add. Instructions Additional Instructions/Restrictions: At this time it was felt you are safe to be discharged home. If new or worsening symptoms please do not hesitate to return the emergency department. Continue to follow-up with Monse Eli for long-term blood pressure management and continued evaluation of your headache given that if it lasts for longer than a couple of weeks you may benefit from an MRI. Clinical Impressions Clinical Impression: Headache, HTN (hypertension) Print Language Print Language: Uzbek Discharge ED Provider: Ralph Mckeon General Adult HPI General Chief complaint: Neuro Symptoms/Deficit Stated complaint: Neuro Symptoms Time Seen by Provider: 05/01/25 12:33 Mode of Arrival: Ambulatory Source of Information: Patient and Relative Description of Symptoms (Recalled from ER Triage Doc. by RN): Pt family states the pt had high blood pressure last night and a bad headache. Pt family states her speech was slurred around 2300 last night. Pt complains of blurred vision in both eyes. Pt does not have a prior history of stroke, but does have memory defecits according to the family. BS was 91 in triage. History of Present Illness HPI narrative: Patient is a 84-year-old female past medical history of previous smoking coronary artery disease, hypertension, mild dementia presents emergency department for evaluation of headache and pulling out my eyes . Yesterday patient had an episode of elevated blood pressure with systolic in the low 200s reportedly and took her oral blood pressure medication, she had a headache that is bitemporal in nature and retro-ocular. Given persistent symptoms related this they presented for continued evaluation. Of note patient had previous low blood pressure on her antihypertensive which she was not tolerating well and was taken off of this and then resumed this approximately 4 days ago to gain adequate control subsequently. No trauma. No anticoagulants or bleeding diathesis. No other acute complaints at this time. Please note that above description of symptoms, in this electronic medical record under categorization of recalled from ER triage doctor by RN are reflective of an initial nursing assessment, however, is not reflective of my full history and physical exam that was personally taken and clarified. Consequentially, this preceding description of symptoms, which may include the patient's categorized chief complaint in the EMR, do not reflect my personal clinical impression, and the ultimate description of history of present illness and patient stated complaints should be deferred to this section of the note. Unless stated otherwise or congruent with this section of the note, additional signs, symptoms, or incongruence should be interpreted as inaccurate with my clinical impression. Related Data Home Medications ?Medication ?Instructions ?Recorded ?Confirmed insulin syringe-needle U-100 1 mL #500 ea 05/03/23 03/30/25 27 gauge x 1/2 (Easy Touch Insulin Syringe) methotrexate sodium 25 mg/mL 25 mg SQ WEEKLY 05/03/23 03/30/25 injection solution hydroxychloroquine 200 mg tablet 200 mg PO DAILY 02/21/24 03/30/25 estradiol 0.05 mg/24 hr semiweekly 1 patch topical DAILY 04/24/24 03/30/25 transdermal patch fluocinonide 0.05 % topical 1 applic topical DAILY 04/24/24 03/30/25 solution progesterone micronized 100 mg 100 mg PO DAILY 01/12/25 03/30/25 capsule Previous Rx's ?Medication ?Instructions ?Recorded lisinopril 20 1 tab PO DAILY High blood pressure 09/27/24 mg-hydrochlorothiazide 12.5 mg 90 days #90 tabs tablet meloxicam 15 mg tablet 15 mg PO DAILY PRN Pain #90 tabs 09/27/24 memantine 10 mg tablet See Rx Instructions .Route 12/29/24 .COMPLEX #60 tabs escitalopram oxalate 5 mg tablet See Rx Instructions .Route 01/08/25 .COMPLEX #90 tabs levothyroxine 75 mcg tablet See Rx Instructions .Route 01/08/25 .COMPLEX #90 tabs quetiapine 25 mg tablet See Rx Instructions .Route 01/29/25 .COMPLEX #60 tabs folic acid 1 mg tablet See Rx Instructions .Route 03/07/25 .COMPLEX #28 tabs misoprostol 100 mcg tablet 100 mcg PO BID 90 days #180 tabs 03/13/25 tramadol 50 mg tablet 50 mg PO Q8H 30 days #90 tabs 04/18/25 Allergies Allergy/AdvReac Type Severity Reaction Status Date / Time Sulfa (Sulfonamide Allergy Intermediate I-HIVES Verified 04/02/25 06:55 Antibiotics) latex (LATEX) Allergy Mild Anaphylaxis Verified 04/02/25 06:55 ciprofloxacin Allergy Unknown Verified 04/02/25 06:55 allergy [facility] Disclaimer: The information contained in this section may have been updated after the patient was seen, as this information can be updated by other users. Medical History Vitamin D deficiency Atherosclerotic heart disease of [place] coronary artery with other forms of angina pectoris Personal history of nicotine dependence Nocturnal hypoxemia Mild dementia Encounter for pre-operative cardiovascular clearance CAD (coronary artery disease) Sweating Ex-smoker Unstable angina Dyspnea Sinus bradycardia Family history of heart disease Abnormal EKG Right bundle branch block (RBBB) HTN (hypertension) Surgical History History of colonoscopy History of appendectomy History of total hip replacement History of tonsillectomy History of arthroscopic knee surgery Status post arthroscopy of hip Family History Other No significant family history Social History Smoking Status: Never smoker smoking status stop date: 02/09/1985 alcohol intake: never substance use type: denies use current occupational status: employed and retired Travel in the last 8 weeks?: None household members: spouse housing: house marital status: education level: high school service: No current occupational exposures/hazards: No caffeine: Yes special fawn needs: No do you feel safe at home: Yes victim of physical abuse: No victim of emotional abuse: No victim of sexual abuse: No would you like helpful sources: No Have you lived/traveled outside [place] in past 30 days?: No Contact w/someone who lives/traveled outside [place] past 30 days?: No Exposure to someone with infectious disease in past 14 days?: No Do you have a fever (greater than 100.4 F or 38 C)?: No Have you tested positive for COVID-19?: No Exposed to someone with COVID-19 in past 14 days?: No Do you have a sore throat?: No Do you have a cough?: No Do you have any weakness?: No Do you have any diarrhea?: No Are you experiencing any unusual bleeding?: No Do you have any muscle aches/pain?: No Do you have any abdominal pain?: No Are you experiencing loss of taste or smell?: No Other Medical History Have you received the Flu Vaccine for this season: Yes Have you received the Pneumonia Vaccine: No ROS Obtained: Yes Systems reviewed as appropriate & no additional complaints except as documented Physical Exam General General appearance: alert and in no apparent distress Head Head exam: atraumatic and normocephalic Eye Eye exam: Present PERRL and EOMI; Absent conjunctival redness ENT ENT exam: Present mucous membranes moist Neck Neck exam: Present normal inspection Chest Chest inspection: Present normal inspection and symmetric chest wall rise Respiratory Respiratory exam: Present normal lung sounds bilaterally; Absent respiratory distress Cardiovascular Cardiovascular exam: Present regular rate and normal rhythm Abdominal Exam Abdominal exam: Present soft; Absent tenderness Extremities Exam Extremities exam: Present normal inspection Neurological Exam Neurological exam: Present alert and CN II-XII intact; Absent motor sensory deficit Psychiatric Psychiatric exam: Present normal affect Skin Skin exam: Present warm and dry Medical Decision Making Medical Records Screening: Per USPSTF and CDC recommendations, given the prevalence of disease in our region, it is our hospital?s policy to screen for HIV and viral Hepatitis for all patients aged 18 and over and those with ongoing risk factors. Jorge A Inquiry Pt receiving controlled substance: No Vital Signs: 05/01/25 12:09 05/01/25 12:48 05/01/25 13:30 Temperature 97.8 F Temperature Source Temporal Artery Scan Pulse Rate 60 53 L Pulse Rate [Right] 62 Respiratory Rate 18 16 11 L Blood Pressure 159/96 H 140/76 Blood Pressure [Right Arm] 153/79 H Blood Pressure Mean [Right Arm] 103 Blood Pressure Source [Right Arm] Automatic Cuff Blood Pressure Position [Right Arm] Sitting 02 Sat by Pulse Oximetry 98 96 96 Oxygen Delivery Method Room Air 05/01/25 14:00 05/01/25 14:30 Temperature Temperature Source Pulse Rate 52 L 52 L Pulse Rate [Right] Respiratory Rate 13 12 Blood Pressure 160/79 H 161/75 H Blood Pressure [Right Arm] Blood Pressure Mean [Right Arm] Blood Pressure Source [Right Arm] Blood Pressure Position [Right Arm] 02 Sat by Pulse Oximetry 92 L 95 Oxygen Delivery Method Lab Data Lab Results 05/01/25 12:10: POC Glucose 91 05/01/25 12:42: WBC 6.8, RBC 4.29, Hgb 14.8, Hct 43.9, MCV 102.3 H, MCH 34.5 H, MCHC 33.7, RDW 14.4, Plt Count 190, MPV 9.3, Neut % (Auto) 76.7, Lymph % (Auto) 12.9, [place] % (Auto) 8.6, Eos % (Auto) 1.5, Baso % (Auto) 0.0 L, Neut # (Auto) 5.2, Lymph # (Auto) 0.9, [place] # (Auto) 0.6, Eos # (Auto) 0.1, Baso # (Auto) 0.0, Sodium 135 L, Potassium 3.7, Chloride 100, Carbon Dioxide 31 H, Anion Gap 7.7, BUN 15, Creatinine 0.70, Estimated Creat Clear 39, Estimated GFR 80, Est GFR ( Amer) 96, Glucose 83, Calcium 8.7, Total Bilirubin 0.6, AST 39 H, ALT 26, Alkaline Phosphatase 76, Total Protein 6.8, Albumin 3.1 L, Globulin 3.7 H, Albumin/Globulin Ratio 0.8 L 05/01/25 12:42 05/01/25 12:42 Orders (Tests/Meds): ED MEDICATIONS Generic Name Dose Route Start Last Admin Trade Name Freq PRN Reason Stop Dose Admin Sodium Chloride 10 ml 05/01/25 13:11 05/01/25 13:11 Sodium Chloride 0.9% 10ml Syr (Rad Only) IV 05/31/25 13:10 10 ml NEEDED PRN Administration Maintain IV Site Discontinued Medications Generic Name Dose Route Start Last Admin Trade Name Freq PRN Reason Stop Dose Admin Acetaminophen 1,000 mg 05/01/25 12:43 05/01/25 12:46 Acetaminophen 1,000mg/100ml Vial IV 05/01/25 12:44 1,000 mg ONCE ONE Administration Iopamidol 100 ml 05/01/25 13:11 05/01/25 13:12 Iopamidol-370 (76%);100ml Bottle IV 05/01/25 13:12 100 ml ONCE ONE Administration Sodium Chloride 50 ml 05/01/25 13:11 05/01/25 13:12 0.9 % Sodium Chloride 50 Ml Vial IV 05/01/25 13:12 50 ml ONCE ONE Administration ORDERS Category Date Time Status CT Venogram head Stat Cat Scan 05/01/25 12:[address] angio head Stat Cat Scan 05/01/25 12:[address] angio neck Stat Cat Scan 05/01/25 12:[address] head/brain wo con Stat Cat Scan 05/01/25 12:41 Completed CBC w/Auto Diff [Complete Blood Count Auto Diff] Stat Lab 05/01/25 12:42 Completed CMP [Comprehensive Metabolic Panel] Stat Lab 05/01/25 12:42 Completed POC Glucose,Bedside Routine Lab 05/01/25 12:10 Completed Medical Decision Narrative: In summary patient is a 84-year-old female past medical history of scrota above who presents emergency department for evaluation of bitemporal headache and retro-ocular pain in the setting of hypertension. Patient is hemodynamically stable nontoxic-appearing upon arrival, afebrile with a nonfocal neurologic exam. Workup we conducted with hematologic labs, noncontrasted CT scan of the head CTA of the head and neck as differential includes ruptured subarachnoid hemorrhage, primary headache, among others. Initial inventions include Tylenol. No conjunctival injection low concern for glaucoma given the bilateral nature of this. Initial workup reviewed by me hematologic labs are nonactionable no significant leukocytosis no MIKE or critical electrolyte abnormality. Noncontrasted CT scan informally visualized by me no acute large intraparenchymal hemorrhage or midline shift. Formal read noncontrasted CT scan of the head and CT of the head and neck no acute pathology. CT venogram negative for acute pathology. Upon repeat evaluation patient was wanting to go home, patient had persistent headache for which shared decision making discussion was had over multiple headache cocktails, will proceed with Toradol and discharge at this time given that essentially all emergency conditions have been ruled out and patient does not want to have Compazine and continued monitoring. I do not think that patient has had a cerebrovascular accident therefore patient is appropriate for outpatient management at this time was given multiple return precautions and verbalized understanding. She will continue to follow-up on an outpatient basis for prolonged control of her hypertension which has been waxing and waning over the last few days. Patient is discharged in stable condition. Critical Care Critical Care Time Critical Care Time: No
--- NOTE | 2025-05-01 12:57 | CT_ITS ---
FINAL REPORT TECHNIQUE: Axial, sagittal, and coronal images were obtained with delayed imaging to allow for opacification of the venous system. This study was performed with techniques to keep radiation doses as low as reasonably achievable (ALARA). Individualized dose reduction techniques using automated exposure control or adjustment of mA and/or kV according to the patient's size were employed. CLINICAL HISTORY: On estrogen, temporal headache, retro-ocular VENEGRAM HEAD COMPARISON: None FINDINGS: No evidence of acute hemorrhage or infarct. The superior sagittal sinus is patent. The transverse and sigmoid sinuses are patent. IMPRESSION: No acute intracranial process. Reviewed, Interpreted and Dictated by Santy Syed MD Transcribed by Misa Loera Authenticated and [facility]
[2025-05-01 12:58] LABS: Chloride 100 mmol/L (98-107)
[2025-05-01 12:59] LABS: Albumin Level 3.1 g/dl (3.5-5.0); Potassium 3.7 mmoL/L (3.5-5.1); Sodium 135 mmol/L (136-145)
[2025-05-01 13:02] LABS: Alanine Aminotransferase 26 U/L (12-78); Albumin/Globulin Ratio 0.8 (1.1-1.8); Alkaline Phosphatase 76 U/L (38-126); Anion Gap 7.7 mEq/L (5-15); Aspartate Amino Transferase 39 U/L (14-36); Bilirubin,Total 0.6 mg/dl (0.2-1.3); Blood Urea Nitrogen 15 mg/dl (7-17); Carbon Dioxide 31 mmol/L (22.0-30.0); Creatinine Clearance Estimated 39 mL/min (50-200); Creatinine,Serum 0.70 mg/dl (0.52-1.04); Estimated Glomerular Filt Rate 80 ml/min (>60); GFR (African American) 96 ML/MIN (>60); Globulin 3.7 g/dL (1.3-3.2); Total Protein,Serum 6.8 g/dl (6.3-8.2)
[2025-05-01 13:03] LABS: Calcium 8.7 mg/dl (8.4-10.2); Glucose 83 mg/dl (74-100)
[2025-05-01] MEDS: SODIUM CHLORIDE 0.9% 10ML SYR (RAD ONLY) 10 ML IV (13:11)
[2025-05-01] MEDS: 0.9 % SODIUM CHLORIDE 50 ML VIAL IV (13:12)
[2025-05-01] MEDS: IOPAMIDOL-370 (76%);100ML BOTTLE 100 ML IV (13:12)
[2025-05-01] MEDS: KETOROLAC 30MG/ML VIAL 30 MG IV (16:49)
== END 2025-05-01 16:46 | disposition home or self-care (01) ==
PROVIDERS: Emergency Provider Emergency Medicine; PCP Nurse Practitioner Family
DX: R51.9 Headache, unspecified (principal); I10 Essential (primary) hypertension; H53.8 Other visual disturbances; I25.118 Atherosclerotic heart disease of native coronary artery with other forms of angina pectoris; Z87.891 Personal history of nicotine dependence
CPT/HCPCS: 70450; 70496; 70498; 80053; 82962; 85025; 96374; 96375; 99284; 99285; J0131; J1885; Q9967